=== PATIENT | female | born 1945 | race Caucasian/White ===

== ENCOUNTER → 2017-09-05 14:15 | Outpatient (CLI) | payer MEDICARE, SELFPAY ==
--- NOTE | 2017-09-05 14:10 | RAD_ITS ---
STUDY: X-RAY - LEFT FOOT CLINICAL: Left foot pain. TECHNIQUE: 2 view(s) of the foot. COMPARISON: None. FINDINGS: Normal talus, calcaneus, and tarsal bones. Normal visualized subtalar, talonavicular, calcaneocuboid, tarsal and tarsometatarsal articulations. There is a small ossicle at the dorsal aspect of the proximal navicular. Normal metatarsi. There are small marginal osteophytes and mild joint space narrowing of the metatarsophalangeal joint of the great toe. Normal tibial and fibular sesamoid bones. Normal interphalangeal joint of the great toe. Normal phalanges of the great toe. Normal second through fifth metatarsophalangeal joints. Normal interphalangeal joints and phalanges of the lesser toes. The soft tissue structures are unremarkable. 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 Electronically Signed: Charanjit Gomez MD at 14:43 EDT Tel , Service support ,
--- NOTE | 2017-09-05 14:15 | DT_ITS ---
This patient was seen during an EMR downtime September 05, 2017 - September 12, 2017. This patient may have a combination of paper and electronic documentation or all paper documentation. All documentation is viewable within the e-chart portion of [facility] for each patient visit.
== END ==
PROVIDERS: Family Provider Family Medicine; PCP Family Medicine; Visit Provider Family Medicine
DX: M79.672 Pain in left foot (principal)
CPT/HCPCS: 73620

== ENCOUNTER → 2018-01-26 09:09 | Outpatient (CLI) | payer MEDICARE, SELFPAY ==
--- NOTE | 2018-01-26 09:12 | US_ITS ---
STUDY: ULTRASOUND BREAST - RIGHT REASON FOR EXAM: Female, 73 years old. Palpable lump in the right breast. TECHNIQUE: Axial and longitudinal images of the RIGHT breast were performed with a high resolution ultrasound transducer. COMPARISON: Comparison is made with prior mammogram done earlier today. FINDINGS: RIGHT Breast: The inframammary region was examined by ultrasound. No solid or cystic mass lesion is seen. IMPRESSION: Unremarkable sonographic examination of the inframammary region of the right breast. ASSESSMENT CATEGORY: BIRADS Category 1: Negative. A letter regarding these results will be sent to the patient by the facility within 30 days. Electronically Signed: Wayne Duckworth MD at 10:54 EDT Tel [phone], Service support , STUDY: ULTRASOUND BREAST - LEFT REASON FOR EXAM: Female, 73 years old. Palpable lump left breast. TECHNIQUE: Axial and longitudinal images of the LEFT breast were performed with a high resolution ultrasound transducer. COMPARISON: Comparison is made with prior mammogram done earlier today. FINDINGS: LEFT Breast: The inframammary region of the left breast was examined by ultrasound. There is a homogeneous fibroglandular tissue. No solid or cystic mass lesion is seen. US/Breast Limited Unilateral IMPRESSION: Unremarkable sonographic examination of the inframammary region of the left breast. ASSESSMENT CATEGORY: BIRADS Category 1: Negative. A letter regarding these results will be sent to the patient by the facility within 30 days. Electronically Signed: Wayne Duckworth MD at 10:54 EDT Tel [phone], Service support ,
--- NOTE | 2018-01-26 09:12 | BI_ITS ---
MAMMOGRAPHY - BILATERAL DIAGNOSTIC REASON FOR EXAM: Female, 73 years old. Palpable abnormality in the inframammary regions of both breasts. PERTINENT HISTORY: Aunt with breast cancer. TECHNIQUE: Digital bilateral breast mariluz (3D mammographic acquisition) in the CC and MLO projections. 2-D mediolateral oblique (MLO) and craniocaudad (CC) views of both breasts were obtained. CAD: Full Field Digital Mammography with Computer Added Detection was performed. COMPARISON: Comparison is made with prior study dated March 10, 2017 and March 08, 2016. FINDINGS: Breast Composition: The breasts are almost entirely fatty. There are no dominant masses or suspicious calcifications. Stable appearance of the bilateral axillary lymph nodes. No other significant abnormalities are identified. There has been no significant change since the prior study. BI/DIAG MAMM W/CAD, BILAT IMPRESSION: Stable bilateral diagnostic mammogram. With the patient's history of a bilateral intramammary palpable abnormalities, correlation with ultrasound is recommended. ASSESSMENT CATEGORY: BIRADS Category 0: Incomplete. Need additional imaging evaluation. A letter regarding these results will be sent to the patient by the facility within 30 days. Approximately 10% of breast cancers are not detected by mammography. A normal mammogram should not delay biopsy of a clinically suspicious abnormality. Electronically Signed: Wayne Duckworth MD at 11:41 EDT Tel [phone], Service support ,
== END ==
PROVIDERS: Family Provider Family Medicine; PCP Family Medicine; Referring Provider Obstetrics & Gynecology; Visit Provider Obstetrics & Gynecology
DX: N63.10 Unspecified lump in the right breast, unspecified quadrant (principal); Z80.3 Family history of malignant neoplasm of breast
CPT/HCPCS: 76642; 77062; 77066; G0279

== ENCOUNTER → 2018-07-10 07:37 | Outpatient (CLI) | payer MEDICARE, SELFPAY ==
[2018-01-23 10:44] VITALS: BMI 29.2
[2018-07-10 10:16] LABS: Vitamin D,25 Hydroxy 64.2 ng/mL (29.95-100.01)
[2018-07-10 10:17] LABS: Hemoglobin A1c 6.1 % (4.2-6.3)
[2018-07-10 10:26] LABS: Anion Gap 4 (5-15); BUN 16 mg/dL (7-18); BUN/Creat Ratio 17.5 RATIO (10-20); Calcium,Total 8.8 mg/dL (8.5-10.1); Chloride 108 mmol/L (98-107); Cholesterol 174 mg/dL (200); Creatinine, Serum 0.91 mg/dL (0.55-1.02); EST Glomerular Filtration Rate 64 mL/min (>60); Est Glom Filt Rate - Afr Amer 78 mL/min (>60); Glucose 96 mg/dL (74-106); High Density Lipoprotein 44 mg/dL; Potassium 4.7 mmol/L (3.5-5.1); Sodium Level 144 mmol/L (136-145); Thyroid Stim Hormone (TSH) 1.72 uIU/mL (0.358-3.74); Triglycerides 188 mg/dL; Very Low Density Lipoprotein 38 mg/dL (5-40)
== END ==
PROVIDERS: Family Provider Family Medicine; PCP Family Medicine; Referring Provider Family Medicine; Visit Provider Family Medicine
DX: Z00.00 Encounter for general adult medical examination without abnormal findings (principal); E55.9 Vitamin D deficiency, unspecified
CPT/HCPCS: 36415; 80048; 80061; 82306; 83036; 84443

== ENCOUNTER → 2018-10-30 14:32 | Outpatient (CLI) | payer MEDICARE, SELFPAY ==
[2018-10-30 15:34] LABS: Absolute Lymphocyte Count 3.54 X10^3/uL (0.83-4.51); Absolute Neutrophil Count 4.6 X10^3/uL (2.0-7.7); Basophil# 0.06 X10^3/uL; Basophil% 0.6 % (0-1); Eosinophils% 3.2 % (0-5); Hematocrit 44.5 % (37-47); Hemoglobin 14.6 g/dL (12.0-15.0); Lymphocyte # 3.54 X10^3/ul (4.0); Lymphocyte % 38.3 % (19-41); Mean Corp Hgb Conc 32.8 g/dL (32-36); Mean Corpuscular Volume 88.5 fL (81-99); Mean Platelet Vol. 10.2 fl (6.2-12.0); Monocyte# 0.77 X10^3/uL; Monocyte% 8.3 % (0-10); NRBC Flagged by Analyzer 0 % (0-5); Neutrophil # 4.56 X10^3/uL (2.7-7.7); Neutrophil % 49.4 % (47-70); Platelet Count 211 K/mm3 (150-450); RBC Distribution Width CV 13.5 % (11.6-14.6); RBC Distribution Width SD 43.6 fl (35.1-43.9); Red Blood Count 5.03 M/mm3 (4.2-5.4); White Blood Count 9.3 K/mm3 (4.4-11.0)
[2018-10-30 16:24] LABS: Anion Gap 8 (5-15); BUN 19 mg/dL (7-18); BUN/Creat Ratio 19.9 RATIO (10-20); Calcium,Total 9.2 mg/dL (8.5-10.1); Chloride 107 mmol/L (98-107); Creatinine, Serum 0.96 mg/dL (0.55-1.02); EST Glomerular Filtration Rate 61 mL/min (>60); Est Glom Filt Rate - Afr Amer 74 mL/min (>60); Glucose 85 mg/dL (74-106); Magnesium 2.2 mg/dL (1.6-2.6); Potassium 4.7 mmol/L (3.5-5.1); Sodium Level 145 mmol/L (136-145)
[2018-10-30 22:02] LABS: Vitamin D,25 Hydroxy 46.7 ng/mL (29.95-100.01)
== END ==
PROVIDERS: Family Provider Family Medicine; PCP Family Medicine; Referring Provider Family Medicine; Visit Provider Family Medicine
DX: R55 Syncope and collapse (principal); E55.9 Vitamin D deficiency, unspecified
CPT/HCPCS: 36415; 80048; 82306; 83735; 85025

== ENCOUNTER → 2019-01-30 | Outpatient (CLI) | payer MEDICARE, SELFPAY ==
[2019-01-24 11:03] VITALS: BMI 29.2
--- NOTE | 2019-01-30 08:34 | BD_ITS ---
STUDY: DUAL ENERGY X-RAY ABSORPTIOMETRY / DXA REASON FOR EXAM: Female, 74 years old. The patient is postmenopausal. Loss of height. TECHNIQUE: Bone Mineral Density (BMD) measurements of lumbar spine and bilateral hips were obtained. COMPARISON: Comparison is made with prior examination dated April 11, 2001. FINDINGS: Lumbar Spine (L1-L4): g/cm2 (1.116) / T-score (-0.5) / Z-score (1.2) Findings are suggestive of normal bone density with a low fracture risk. Left Femur Total: g/cm2 (0.935) / T-score (-0.6) / Z-score (1.0) Left Femoral Neck: g/cm2 (0.885) / T-score (-1.1) / Z-score (0.7) Right Femur Total: g/cm2 (0.903) / T-score (-0.8) / Z-score (0.7) Right Femoral Neck: g/cm2 (0.892) / T-score (-1.1) / Z-score (0.7) The T-Scores on the most recent prior examination were: Lumbar Spine (L1-L4): There has been worsening of bone density since the previous examination. Left Femur Total: which represents an improvement of 3%. Right Femur Total: which represents a worsening of 0.3%. BD/Dexa Bone Density Study IMPRESSION: The patient is considered osteopenic as outlined below according to World Esequiel Organization (WHO) criteria with a low fracture risk. There has been worsening of bone density since the previous examination. Reference Information: The T-score is the number of standard deviations above or below the standard which is normal for young adults at their peak bone mineral density. The World Health Organization (WHO) interprets the T-scores as follows: Above -1 Normal bone density Between -1 and -2.5 Osteopenia Equal to / or below -2.5 Osteoporosis As a practical clinical guideline, osteopenia may be graded as follows: Mild -1 through -1.5 Moderate -1.6 through -2.0 Severe -2.1 through -2.4 The Z-score is the number of standard deviations above or below age-matched controls. A Z-score of less than -1.5 would be considered abnormal. References: 1. NIH Osteoporosis and Related Bone Diseases http://www.osteo.org 2. International Society for Clinical Densitometry http://www.iscd.org 3. National Osteoporosis Foundation http://www.nof.org Electronically Signed: Wayne Duckworth, at 10:38 EDT , Service support ,
== END | disposition home or self-care (01) ==
LOC: OPBD 08:30
PROVIDERS: Family Provider Family Medicine; PCP Family Medicine; Referring Provider Obstetrics & Gynecology; Visit Provider Obstetrics & Gynecology
DX: Z78.0 Asymptomatic menopausal state (principal)
CPT/HCPCS: 77080

== ENCOUNTER → 2019-02-12 12:51 | Outpatient (CLI) | payer MEDICARE, SELFPAY ==
[2019-01-24 11:03] VITALS: BMI 29.2
--- NOTE | 2019-02-12 12:54 | BI_ITS ---
MAMMOGRAPHY - BILATERAL SCREENING REASON FOR EXAM: Female, 74 years old. Routine annual screening examination. PERTINENT HISTORY: Aunt with breast cancer. TECHNIQUE: Digital bilateral breast sharad (3D mammographic acquisition) in the CC and MLO projections. 2-D mediolateral oblique (MLO) and craniocaudad (CC) views of both breasts were obtained. CAD: Full Field Digital Mammography with Computer Added Detection was performed. COMPARISON: Comparison is made with prior study dated January 26, 2018 and March 10, 2017. FINDINGS: Breast Composition: The breasts are almost entirely fatty. There are no dominant masses or suspicious calcifications. Stable benign-appearing bilateral axillary lymph nodes. No other significant abnormalities are identified. There has been no significant change since the prior study. BI/SCREEN MAMM (CAD) W/SHARAD BILAT IMPRESSION: Stable bilateral screening mammogram. Yearly follow-up mammogram recommended. (A) ASSESSMENT CATEGORY: BIRADS Category 2: Benign. A letter regarding these results will be sent to the patient by the facility within 30 days. Approximately 10% of breast cancers are not detected by mammography. A normal mammogram should not delay biopsy of a clinically suspicious abnormality. [id number] Electronically Signed: Wayne Duckworth, at 14:39 EST , Service support ,
== END ==
PROVIDERS: Family Provider Family Medicine; PCP Family Medicine; Referring Provider Obstetrics & Gynecology; Visit Provider Obstetrics & Gynecology
DX: Z12.31 Encounter for screening mammogram for malignant neoplasm of breast (principal)
CPT/HCPCS: 77063; 77067

== ENCOUNTER → 2019-09-04 17:09 | Outpatient (CLI) | payer MEDICARE, SELFPAY ==
[2019-03-04 11:51] VITALS: BMI 29.2
--- NOTE | 2019-09-04 17:12 | RAD_ITS ---
STUDY: X-RAY - ABDOMEN/PELVIS REASON FOR EXAM: Female, 74 years old. RLQ pain x 4 days -- constipation TECHNIQUE: Flat and upright COMPARISON: None. FINDINGS: Normal visualized lung bases. No evidence for small bowel obstruction. There is diffuse fecal retention seen within the colon.. Mildly distended terminal ileum which may be consistent with focal enteritis There is no demonstrated free abdominal air. The visualized liver, spleen and kidneys are grossly normal in size and morphology. Postsurgical changes in the right lower quadrant. Lumbar spine demonstrates minor scoliosis and degenerative change RAD/Abd Inc Decub and/or Erect IMPRESSION: No evidence for small bowel obstruction.. Mildly distended distal ileum which may be consistent with nonspecific ileitis Electronically Signed: Binu Simmons MD at 21:31 EDT , Service support ,
== END ==
PROVIDERS: PCP Family Medicine; Referring Provider Family Medicine; Visit Provider Family Medicine
DX: R10.9 Unspecified abdominal pain (principal)
CPT/HCPCS: 74019

== ENCOUNTER → 2019-12-14 08:13 | Outpatient (CLI) | payer MEDICARE, SELFPAY ==
[2019-03-04 11:51] VITALS: BMI 29.2
[2019-12-14 10:32] LABS: Anion Gap 4 (5-15); BUN 16 mg/dL (7-18); BUN/Creat Ratio 17.1 RATIO (10-20); Calcium,Total 9.1 mg/dL (8.5-10.1); Chloride 104 mmol/L (98-107); Cholesterol 189 mg/dL (200); Creatinine, Serum 0.94 mg/dL (0.55-1.02); EST Glomerular Filtration Rate 62 mL/min (>60); Est Glom Filt Rate - Afr Amer 75 mL/min (>60); Glucose 84 mg/dL (74-106); High Density Lipoprotein 43 mg/dL; Potassium 4.6 mmol/L (3.5-5.1); Sodium Level 141 mmol/L (136-145); Triglycerides 240 mg/dL; Very Low Density Lipoprotein 48 mg/dL (5-40)
[2019-12-14 10:35] LABS: Vitamin D,25 Hydroxy 86.7 ng/mL
== END ==
PROVIDERS: PCP Family Medicine; Referring Provider Family Medicine; Visit Provider Family Medicine
DX: E55.9 Vitamin D deficiency, unspecified (principal); E78.5 Hyperlipidemia, unspecified
CPT/HCPCS: 36415; 80048; 80061; 82306

== ENCOUNTER → 2020-02-06 10:19 | Outpatient (CLI) | payer MEDICARE, SELFPAY ==
[2019-03-04 11:51] VITALS: BMI 29.2
--- NOTE | 2020-02-06 10:20 | BI_ITS ---
MAMMOGRAPHY - BILATERAL SCREENING REASON FOR EXAM: Female, 75 years old. Routine annual screening examination. PERTINENT HISTORY: Aunt with breast cancer. TECHNIQUE: Digital bilateral breast sharad (3D mammographic acquisition) in the CC and MLO projections. 2-D mediolateral oblique (MLO) and craniocaudad (CC) views of both breasts were obtained. CAD: Full Field Digital Mammography with Computer Added Detection was performed. COMPARISON: Comparison is made with prior study dated 02/12/2019 and 01/26/2018. FINDINGS: Breast Composition: The breasts are almost entirely fatty. There are no dominant masses or suspicious calcifications. Stable benign-appearing bilateral axillary adenopathy. No other significant abnormalities are identified. There has been no significant change since the prior study. BI/SCREEN MAMM (CAD) W/SHARAD BILAT IMPRESSION: Stable bilateral screening mammogram. Yearly follow-up mammogram recommended. (A) ASSESSMENT CATEGORY: BIRADS Category 2: Benign. A letter regarding these results will be sent to the patient by the facility within 30 days. Approximately 10% of breast cancers are not detected by mammography. A normal mammogram should not delay biopsy of a clinically suspicious abnormality. [id number] Electronically Signed: Wayne Duckworth, at 13:25 EST , Service support ,
[2020-02-06 10:48] VITALS: BMI 28.1
--- NOTE | 2020-02-06 12:29 | US_ITS ---
STUDY: ULTRASOUND BREAST - LEFT REASON FOR EXAM: Female, 75 years old. Palpable lump left breast. TECHNIQUE: Axial and longitudinal images of the LEFT breast were performed with a high resolution ultrasound transducer. # OF IMAGES: 27 COMPARISON: Comparison is made with prior mammogram done earlier today as well as prior ultrasound of the left breast dated 01/26/2018. FINDINGS: LEFT Breast: There is a 1.7 cm x 2.8 cm x 0.7 cm slightly echogenic nodule at the 8 o''clock position of the breast at 3 cm from nipple. This most likely represents a lipoma. US/Breast Limited Unilateral IMPRESSION: The palpable abnormality corresponds to a 1.7 cm x 2.8 cm x 0.7 sinus likely echogenic nodule at the 8 o''clock position of the breast at 3 cm from nipple. This most likely represents a lipoma. ASSESSMENT CATEGORY: BIRADS Category 2: Benign. A letter regarding these results will be sent to the patient by the facility within 30 days. Electronically Signed: Wayne Duckworth, at 15:37 EST , Service support ,
== END ==
PROVIDERS: PCP Family Medicine; Referring Provider Obstetrics & Gynecology; Visit Provider Obstetrics & Gynecology
DX: Z12.31 Encounter for screening mammogram for malignant neoplasm of breast (principal); N63.24 Unspecified lump in the left breast, lower inner quadrant
CPT/HCPCS: 76642; 77063; 77067

== ENCOUNTER → 2020-05-24 | Outpatient (CLI) | payer MEDICARE, SELFPAY ==
[2020-02-06 10:48] VITALS: BMI 28.1
== END | disposition home or self-care (01) ==
PROVIDERS: PCP Family Medicine; Referring Provider Otolaryngology Otolaryngology/Facial Plastic Surgery; Visit Provider Otolaryngology Otolaryngology/Facial Plastic Surgery
DX: J32.9 Chronic sinusitis, unspecified (principal)
CPT/HCPCS: 87070; 87205

== ENCOUNTER → 2020-09-10 11:10 | Outpatient (CLI) | payer MEDICARE, SELFPAY ==
[2020-02-06 10:48] VITALS: BMI 28.1
[2020-09-10 12:58] LABS: Free T3 2.2 pg/mL (2.18-3.98); T4 Free Direct 0.77 ng/dL (0.76-1.46); Thyroid Stim Hormone (TSH) 1.12 uIU/mL (0.358-3.74)
== END ==
PROVIDERS: PCP Family Medicine; Referring Provider Family Medicine; Visit Provider Family Medicine
DX: E03.9 Hypothyroidism, unspecified (principal)
CPT/HCPCS: 36415; 84439; 84443; 84481

== ENCOUNTER → 2021-02-06 12:45 | Outpatient (CLI) | payer MEDICARE, SELFPAY ==
--- NOTE | 2021-02-06 12:46 | BI_ITS ---
MAMMOGRAPHY - BILATERAL SCREENING REASON FOR EXAM: Female, 76 years old. Routine annual screening examination. PERTINENT HISTORY: Aunt with breast cancer. TECHNIQUE: Digital bilateral breast sharad (3D mammographic acquisition) in the CC and MLO projections. 2-D mediolateral oblique (MLO) and craniocaudad (CC) views of both breasts were obtained. CAD: Full Field Digital Mammography with Computer Added Detection was performed. COMPARISON: Comparison is made with prior examination dated 02/06/2020 and 02/12/2019. FINDINGS: Breast Composition: The breasts are almost entirely fatty. There are no dominant masses or suspicious calcifications. Stable benign-appearing bilateral axillary lymph nodes. No other significant abnormalities are identified. There has been no significant change since the prior study. BI/SCRN MAMM (CAD)W/SHARAD BILAT IMPRESSION: Stable bilateral screening mammogram. Yearly follow-up mammogram recommended. (A) ASSESSMENT CATEGORY: BIRADS Category 2: Benign. A letter regarding these results will be sent to the patient by the facility within 30 days. Approximately 10% of breast cancers are not detected by mammography. A normal mammogram should not delay biopsy of a clinically suspicious abnormality. [id number] Electronically Signed: Wayne Duckworth MD at 14:03 EDT , Service support ,
== END ==
PROVIDERS: PCP Family Medicine; Referring Provider Obstetrics & Gynecology; Visit Provider Obstetrics & Gynecology
DX: Z12.31 Encounter for screening mammogram for malignant neoplasm of breast (principal)
CPT/HCPCS: 77063; 77067

== ENCOUNTER → 2021-03-24 16:03 | Outpatient (CLI) | payer MEDICARE, SELFPAY | PROVIDERS: PCP Family Medicine; Referring Provider Family Medicine; Visit Provider Family Medicine | DX: Z20.822 Contact with and (suspected) exposure to COVID-19 (principal) | CPT/HCPCS: 87635; U0005; U0003 ==

== ENCOUNTER 2021-06-03 15:18 | Outpatient (CLI) | payer MEDICARE, SELFPAY | END 2021-06-03 23:59 | disposition home or self-care (01) | PROVIDERS: PCP Family Medicine; Visit Provider Otolaryngology | DX: J02.9 Acute pharyngitis, unspecified (principal) | CPT/HCPCS: 87070 ==

== ENCOUNTER 2021-06-09 08:40 | Outpatient (CLI) | payer MEDICARE, SELFPAY ==
[2021-06-09 11:01] LABS: Anion Gap 3 (5-15); BUN 20 mg/dL (7-18); BUN/Creat Ratio 20.2 RATIO (10-20); Chloride 106 mmol/L (98-107); Cholesterol 201 mg/dL (200); Creatinine, Serum 0.99 mg/dL (0.55-1.02); EST Glomerular Filtration Rate 58 mL/min (>60); Est Glom Filt Rate - Afr Amer 71 mL/min (>60); Free T3 2.4 pg/mL (2.18-3.98); Glucose 106 mg/dL (74-106); High Density Lipoprotein 46 mg/dL; Potassium 4.5 mmol/L (3.5-5.1); Sodium Level 141 mmol/L (136-145); Thyroid Stim Hormone (TSH) 1.81 uIU/mL (0.358-3.74); Triglycerides 243 mg/dL; Very Low Density Lipoprotein 49 mg/dL (5-40)
== END 2021-06-09 23:59 | disposition home or self-care (01) ==
LOC: MFPLAB 08:41
PROVIDERS: PCP Family Medicine; Referring Provider Family Medicine; Visit Provider Family Medicine
DX: E03.9 Hypothyroidism, unspecified (principal); E78.5 Hyperlipidemia, unspecified
CPT/HCPCS: 36415; 80048; 80061; 84439; 84443; 84481

== ENCOUNTER → 2022-01-05 | Outpatient (CLI) | payer MEDICARE, SELFPAY | END | disposition home or self-care (01) | LOC: LABSPEC 15:19 | PROVIDERS: PCP Family Medicine; Referring Provider Otolaryngology Otolaryngology/Facial Plastic Surgery; Visit Provider Otolaryngology Otolaryngology/Facial Plastic Surgery | DX: J02.9 Acute pharyngitis, unspecified (principal) | CPT/HCPCS: 87070 ==

== ENCOUNTER → 2022-02-08 | Outpatient (CLI) | payer MEDICARE, SELFPAY ==
--- NOTE | 2022-02-08 09:34 | BI_ITS ---
MAMMOGRAPHY - BILATERAL SCREENING REASON FOR EXAM: Female, 77 years old. Routine annual screening examination. PERTINENT HISTORY: Aunt with breast cancer. TECHNIQUE: Digital bilateral breast sharad (3D mammographic acquisition) in the CC and MLO projections. 2-D mediolateral oblique (MLO) and craniocaudad (CC) views of both breasts were obtained. CAD: Full Field Digital Mammography with Computer Added Detection was performed. COMPARISON: Comparison is made with prior study dated 02/06/2021 and 02/06/2020. FINDINGS: Breast Composition: The breasts are almost entirely fatty. There are no dominant masses or suspicious calcifications. Stable small benign-appearing bilateral axillary lymph nodes. No other significant abnormalities are identified. There has been no significant change since the prior study. BI/SCRN MAMM (CAD)W/SHARAD BILAT IMPRESSION: Stable bilateral screening mammogram. Yearly follow-up mammogram recommended. (A) ASSESSMENT CATEGORY: BIRADS Category 2: Benign. A letter regarding these results will be sent to the patient by the facility within 30 days. Approximately 10% of breast cancers are not detected by mammography. A normal mammogram should not delay biopsy of a clinically suspicious abnormality. [id number] Electronically Signed: Wayne Duckworth MD at 10:31 EST ,
== END | disposition home or self-care (01) ==
LOC: OPBI 09:33
PROVIDERS: PCP Family Medicine; Visit Provider Obstetrics & Gynecology
DX: Z12.31 Encounter for screening mammogram for malignant neoplasm of breast (principal); Z80.3 Family history of malignant neoplasm of breast
CPT/HCPCS: 77063; 77067

== ENCOUNTER → 2022-02-09 | Outpatient (CLI) | payer MEDICARE, SELFPAY ==
[2022-02-09 10:24] LABS: ALB/GLOB Ratio 1.1 RATIO (0.9-2.4); AST(SGOT) 14 U/L (15-37); Alanine Aminotransfer ALT/SGPT 25 U/L (13-56); Albumin, Serum 3.6 g/dL (3.2-5.0); Alkaline Phosphatase 71 U/L (45-117); Anion Gap 2 (5-15); BUN 18 mg/dL (7-18); BUN/Creat Ratio 20.8 RATIO (10-20); Calcium,Total 9.6 mg/dL (8.5-10.1); Chloride 107 mmol/L (98-107); Cholesterol 182 mg/dL (200); Creatinine, Serum 0.87 mg/dL (0.55-1.02); EST Glomerular Filtration Rate 68 mL/min (>60); Est Glom Filt Rate - Afr Amer 82 mL/min (>60); Globulin 3.4 g/dL (2.2-4.2); Glucose 104 mg/dL (74-106); High Density Lipoprotein 49 mg/dL; Potassium 5.2 mmol/L (3.5-5.1); Sodium Level 140 mmol/L (136-145); Triglycerides 233 mg/dL; Very Low Density Lipoprotein 47 mg/dL (5-40)
== END | disposition home or self-care (01) ==
LOC: MFPLAB 08:05
PROVIDERS: PCP Family Medicine; Referring Provider Family Medicine; Visit Provider Family Medicine
DX: E78.5 Hyperlipidemia, unspecified (principal)
CPT/HCPCS: 36415; 80053; 80061

== ENCOUNTER → 2022-04-01 | Outpatient (CLI) | payer MEDICARE, SELFPAY ==
--- NOTE | 2022-04-01 10:39 | BD_ITS ---
STUDY: DUAL ENERGY X-RAY ABSORPTIOMETRY / DXA REASON FOR EXAM: Female, 77 years old. Estrogen deficiency TECHNIQUE: Bone Mineral Density (BMD) measurements of lumbar spine and bilateral hips were obtained. COMPARISON: Comparison is made with prior study dated 01/30/2019. FINDINGS: Lumbar Spine (L1-L4): g/cm2 (1.041) / T-score (-0.1) / Z-score (2.4) Findings are suggestive of normal bone density with a low fracture risk. Left Femur Total: g/cm2 (0.861) / T-score (-0.7) / Z-score (1.1) Left Femoral Neck: g/cm2 (0.733) / T-score (-1.0) / Z-score (1.0) Right Femur Total: g/cm2 (0.875) / T-score (-0.6) / Z-score (1.2) Right Femoral Neck: g/cm2 (0.718) / T-score (-1.2) / Z-score (0.9) The T-Scores on the most recent prior examination were: Lumbar Spine (L1-L4): There has been improvement of bone density since the previous examination. Left Femur Total: which represents a worsening of 1.2%. Right Femur Total: which represents an improvement of 4.1%. BD/Dexa Bone Density Study IMPRESSION: The patient is considered osteopenic as outlined below according to World Esequiel Organization (WHO) criteria with a low fracture risk. There has been improvement of bone density since the previous examination. Reference Information: The T-score is the number of standard deviations above or below the standard which is normal for young adults at their peak bone mineral density. The World Health Organization (WHO) interprets the T-scores as follows: Above -1 Normal bone density Between -1 and -2.5 Osteopenia Equal to / or below -2.5 Osteoporosis As a practical clinical guideline, osteopenia may be graded as follows: Mild -1 through -1.5 Moderate -1.6 through -2.0 Severe -2.1 through -2.4 The Z-score is the number of standard deviations above or below age-matched controls. A Z-score of less than -1.5 would be considered abnormal. References: 1. NIH Osteoporosis and Related Bone Diseases www osteo.org 2. International Society for Clinical Densitometry www iscd.org 3. National Osteoporosis Foundation www nof.org Electronically Signed: Wayne Duckworth MD at 10:19 EST ,
== END | disposition home or self-care (01) ==
PROVIDERS: PCP Family Medicine; Visit Provider Obstetrics & Gynecology
DX: M85.80 Other specified disorders of bone density and structure, unspecified site (principal); J32.9 Chronic sinusitis, unspecified; E28.39 Other primary ovarian failure
CPT/HCPCS: 77080; 87070; 87205

== ENCOUNTER → 2022-05-05 | Outpatient (CLI) | payer MEDICARE, SELFPAY ==
--- NOTE | 2022-05-05 14:18 | RAD_ITS ---
INDICATION: PAIN EXAMINATION/TECHNIQUE: X-RAY - RIGHT XR Knee Complete 4 Views or More 4 VIEWS COMPARISON: None. FINDINGS: SOFT TISSUES: No soft tissue swelling or gas. No radiopaque foreign body. BONES/JOINTS: No acute fracture or subluxation.. Normal alignment. Preservation of the joint space.. No sclerotic or destructive changes observed. RAD/Knee 4 or More Views IMPRESSION: Negative. Electronically Signed: Kenneth Munoz MD at 15:03 EST ,
== END | disposition home or self-care (01) ==
LOC: MTRAD 14:17
PROVIDERS: PCP Family Medicine; Referring Provider Family Medicine; Visit Provider Family Medicine
DX: M25.561 Pain in right knee (principal)
CPT/HCPCS: 73564

== ENCOUNTER → 2022-05-28 | Outpatient (CLI) | payer MEDICARE, SELFPAY ==
--- NOTE | 2022-05-28 16:20 | RAD_ITS ---
STUDY: X-RAY - ABDOMEN/PELVIS REASON FOR EXAM: Female, 77 years old. ABDOMINAL PAIN TECHNIQUE: AP supine and upright views of the abdomen and pelvis. COMPARISON: None. FINDINGS: Normal visualized lung bases. There is feces throughout the colon without obstruction. No small bowel dilatation. There is no demonstrated free abdominal air. The visualized liver, spleen and kidneys are grossly normal in size and morphology. Surgical clips in the right mid abdomen. Normal soft tissue structures. There are diffuse degenerative changes of the visualized lumbar spine. RAD/Abd Inc Decub and/or Erect IMPRESSION: Increased colonic feces suggesting constipation. There is no evidence of obstruction. Electronically Signed: Crow Morales DO at 19:03 EST ,
== END | disposition home or self-care (01) ==
LOC: MTRAD 16:19
PROVIDERS: PCP Family Medicine; Referring Provider Family Medicine; Visit Provider Family Medicine
DX: R10.31 Right lower quadrant pain (principal)
CPT/HCPCS: 74019

== ENCOUNTER → 2022-08-17 | Outpatient (CLI) | payer MEDICARE, SELFPAY | END | disposition home or self-care (01) | LOC: LAB 07:42 | PROVIDERS: PCP Family Medicine; Referring Provider Family Medicine; Visit Provider Family Medicine | DX: Z00.00 Encounter for general adult medical examination without abnormal findings (principal) ==

== ENCOUNTER → 2022-09-08 | Outpatient (CLI) | payer MEDICARE, SELFPAY ==
[2022-09-08 10:38] LABS: Anion Gap 2 (5-15); BUN 18 mg/dL (7-18); BUN/Creat Ratio 20.1 RATIO (10-20); Calcium,Total 8.9 mg/dL (8.5-10.1); Chloride 108 mmol/L (98-107); Cholesterol 163 mg/dL (200); Creatinine, Serum 0.89 mg/dL (0.55-1.02); EST Glomerular Filtration Rate 65 mL/min (>60); Est Glom Filt Rate - Afr Amer 79 mL/min (>60); Glucose 115 mg/dL (74-106); High Density Lipoprotein 44 mg/dL; Potassium 4.3 mmol/L (3.5-5.1); Sodium Level 140 mmol/L (136-145); Triglycerides 217 mg/dL; Very Low Density Lipoprotein 43 mg/dL (5-40)
== END | disposition home or self-care (01) ==
LOC: LAB 09:06
PROVIDERS: PCP Family Medicine; Referring Provider Family Medicine; Visit Provider Family Medicine
DX: R73.01 Impaired fasting glucose (principal); E78.5 Hyperlipidemia, unspecified
CPT/HCPCS: 36415; 80048; 80061; 83036

== ENCOUNTER → 2023-02-11 | Outpatient (CLI) | payer MEDICARE, SELFPAY ==
--- NOTE | 2023-02-11 09:13 | BI_ITS ---
MAMMOGRAPHY - BILATERAL SCREENING REASON FOR EXAM: Female, 78 years old. Routine annual screening examination. PERTINENT HISTORY: Aunt with breast cancer. TECHNIQUE: Digital bilateral breast sharad (3D mammographic acquisition) in the CC and MLO projections. 2-D mediolateral oblique (MLO) and craniocaudad (CC) views of both breasts were obtained. CAD: Full Field Digital Mammography with Computer Added Detection was performed. COMPARISON: Comparison is made with prior study February 08, 2022 and February 06, 2021. FINDINGS: Breast Composition: The breasts are almost entirely fatty. There are no dominant masses or suspicious calcifications. Stable fat-containing bilateral axillary lymph nodes. No other significant abnormalities are identified. There has been no significant change since the prior study. BI/SCRN MAMM (CAD)W/SHARAD BILAT IMPRESSION: Stable bilateral screening mammogram. Yearly follow-up mammogram recommended. (A) ASSESSMENT CATEGORY: BIRADS Category 2: Benign. A letter regarding these results will be sent to the patient by the facility within 30 days. Approximately 10% of breast cancers are not detected by mammography. A normal mammogram should not delay biopsy of a clinically suspicious abnormality. [id number] Electronically Signed: Wayne Duckworth MD at 11:27 EST ,
== END | disposition home or self-care (01) ==
LOC: OPBI 09:12
PROVIDERS: PCP Family Medicine; Referring Provider Obstetrics & Gynecology; Visit Provider Obstetrics & Gynecology
DX: Z12.31 Encounter for screening mammogram for malignant neoplasm of breast (principal)
CPT/HCPCS: 77063; 77067

== ENCOUNTER → 2023-03-14 | Outpatient (CLI) | payer MEDICARE, SELFPAY ==
--- NOTE | 2023-03-14 10:47 | US_ITS ---
STUDY: ULTRASOUND BREAST - LEFT REASON FOR EXAM: Female, 78 years old. Palpable lump left breast. TECHNIQUE: Axial and longitudinal images of the LEFT breast were performed with a high resolution ultrasound transducer. # OF IMAGES: 56 COMPARISON: Comparison is made with prior sonogram of the left breast dated February 06, 2020. FINDINGS: LEFT Breast: There is a 2.3 cm x 3 cm x 0.8 cm echogenic nodule at the 8:00 position of the breast at 3 cm from the nipple. This most likely density lipoma. This is unchanged. A similar appearing echogenic nodule measuring 5 mm x 4 mm x 3 mm also seen at the 9:00 zone the breast at 4 cm from nipple. There is also a 1.2 cm x 1.3 cm x 0.5 cm echogenic nodule at the 9:00 position in the breast at 8 cm from nipple. These all represent benign-appearing lipomas. US/Breast Limited Unilateral IMPRESSION: Stable 2.3 cm x 3 cm x 0.8 cm lipoma at the 8:00 position of the breast at 3 cm from the nipple. ASSESSMENT CATEGORY: BIRADS Category 2: Benign. A letter regarding these results will be sent to the patient by the facility within 30 days. Electronically Signed: Wayne Duckworth MD at 11:19 EST ,
== END | disposition home or self-care (01) ==
PROVIDERS: PCP Family Medicine; Referring Provider Obstetrics & Gynecology; Visit Provider Obstetrics & Gynecology
DX: N63.24 Unspecified lump in the left breast, lower inner quadrant (principal)
CPT/HCPCS: 76642

== ENCOUNTER → 2023-06-13 | Outpatient (CLI) | payer MEDICARE, SELFPAY ==
--- OUTSIDE RECORDS SUMMARY | 2023-06-13 08:59 | XMS RPT_ITS | CCD ---
Author Name Unknown Address [address] [place] [address] Organization [facility] Care Team Providers Care Car Sweeper Name Role Phone Henry BUTCHER, Linda Medellin Unavailable [phone] Tonny Quintanilla Jr. Unavailable Lennie BUTCHER, Alexander Dumont Primary Care Provider Homar BUTCHER, Rex Unavailable Tonny Quintanilla Jr. Unavailable Lennie BUTCHER, Alexander Dumont Primary Care Provider Homar BUTCHER, Rex Unavailable Tonny Quintanilla Jr. Unavailable Alexander Hogue MD Primary Care Provider Homar BUTCHER, Rex Unavailable Homar BUTCHER, Rex Unavailable JOHNSON BLANCAS Referring Unavailable ALEXANDER HOGUE Primary Care Unavailable TESTNICKI DAVILA Attending Unavailable LENNIE, ALEXANDER Velasco Primary Care Unavailable JOHNSON BLANCAS Attending Unavailable HOGUE, ALEXANDER Velasco Primary Care Unavailable JOHNSON BLANCAS Attending Unavailable LENNIE, ALEXANDER Velasco Primary Care Unavailable TESTRAREESE, NCIKI Attending Unavailable TESTNICKI DAVILA Referring Unavailable LENNIE, ALEXANDER Velasco Primary Care Unavailable LENNIE, ALEXANDER Velasco Primary Care Unavailable TESTRANICKI LEIGH Referring Unavailable TESTGIOVANNI, NICKI Attending Unavailable REX BEAVER Referring Unavailable LENNIE, ALEXANDER Velasco Primary Care Unavailable LENNIE, ALEXANDER Velasco Primary Care Unavailable LENNIE, ALEXANDER Velasco Primary Care Unavailable REX BEAVER Attending Unavailable LENNIE, ALEXANDER Velasco Primary Care Unavailable HOGUE, ALEXANDER R Primary Care Unavailable TESTRAREESE, NICKI Referring Unavailable NICKI JOHNSTON Attending Unavailable JOHNSON BLANCAS Attending Unavailable ALEXANDER HOGUE Primary Care Unavailable Allergies Allergy Classification Reported Allergen(s) Allergy Type Date of Onset Reaction(s) Facility (2 sources) amoxicillin / clavulanate Drug Allergy 01-12-20 [facility] (3 sources) bacitracin; Translations: [BACITRACIN] Drug Allergy 02-03-20 [facility] (3 sources) cefaclor; Translations: [CEFACLOR] Drug Allergy 02-03-20 [facility] (2 sources) cephalexin Drug Allergy 01-12-20 [facility] (20 sources) Cephalosporins (Antibiotic); Translations: [CEPHALOSPORINS] drug allergy 02-03-20 Rash [facility] (2 sources) clindamycin Drug Allergy 01-12-20 [facility] (20 sources) erythromycin; Translations: [ERYTHROMYCIN BASE] Drug Allergy 02-03-20 Diarrhea [facility] (3 sources) guaiFENesin; Translations: [GUAIFENESIN] Drug Allergy 02-27-20 03 [facility] (2 sources) Macrolide drug allergy 01-12-20 [facility] (2 sources) penicillin g Drug Allergy 01-12-20 [facility] (2 sources) sulfamethoxazole / trimethoprim Drug Allergy 01-12-20 [facility] (2 sources) HUMABID drug allergy 01-12-20 [facility] (2 sources) MIXED FEATHERS drug allergy 01-12-20 [facility] (2 sources) SCHOLLS LAMBS WOOL drug allergy 01-12-20 [facility] (2 sources) ADHESIVE 1 X6YD drug allergy 01-12-20 [facility] (20 sources) Adhesive Tape; Translations: [ADHESIVE TAPE (ROSINS)] Allergy to substance 07-08-19 [facility] (20 sources) Amoxicillin / Clavulanate; Translations: [AMOXICILLIN-POT CLAVULANATE] Drug Allergy 01-08-20 05 [facility] Work Phone: (19 sources) Bacitracin Drug Allergy 02-03-20 Rash [facility] Work Phone: [phone] (19 sources) Cefaclor Drug Allergy 02-03-20 Unknown [facility] Work Phone: [phone] (20 sources) Cephalexin; Translations: [CEPHALEXIN] Drug Allergy 02-12-20 06 Hives [facility] (20 sources) Clavulanate; Translations: [POTASSIUM CLAVULANATE] Drug Allergy 01-25-20 19 Unknown [facility] (20 sources) Clindamycin; Translations: [CLINDAMYCIN HCL] Drug Allergy 12-23-19 05 Itching [facility] Work Phone: [phone] (20 sources) Feather; Translations: [FEATHERS] Drug Intolerance 02-03-20 Other: See Comments [facility] Work Phone: [phone] (19 sources) flounder allergenic extract Drug Allergy 02-08-20 02 Anaphylaxis [facility] Work Phone: [phone] (19 sources) guaiFENesin Drug Allergy 02-27-20 03 Rash, Swelling [facility] Work Phone: [phone] (20 sources) Halibut liver oil; Translations: [HALIBUT LIVER OIL] Drug Allergy 02-08-20 Anaphylaxis [facility] Work Phone: [phone] (20 sources) Iodine; Translations: [IODINE] Drug Allergy 02-03-20 Anaphylaxis [facility] Work Phone: [phone] (2 sources) Macrolides (Antibiotic); Translations: [MACROLIDE ANTIBIOTICS] Drug Intolerance 09-24-19 Other: See Comments [facility] Work Phone: [phone] (20 sources) nickel; Translations: [NICKEL] Drug Allergy 10-01-19 17 Rash [facility] (2 sources) Penicillins; Translations: [PENICILLINS] Drug Allergy 02-03-20 Rash, Hives [facility] Work Phone: [phone] (20 sources) Shellfish; Translations: [SHELLFISH] Food Allergy 02-03-20 Anaphylaxis [facility] Work Phone: (20 sources) Sulfonamides (Antibiotic); Translations: [SULFA (SULFONAMIDE ANTIBIOTICS)] Drug Allergy 02-03-20 Rash [facility] Work Phone: (19 sources) Humabid [Other] Propensity to adverse reactions 02-03-20 Rash, Swelling [facility] Work Phone: (20 sources) Wool; Translations: [WOOL] Allergy to substance 02-05-20 Rash, Itching [facility] Work Phone: (18 sources) Macrolides Drug Intolerance 09-24-19 Other: See Comments [facility] Work Phone: (18 sources) Penicillins Drug Allergy 02-03-20 Rash, Hives [facility] Work Phone: (1 source) OTHER; Translations: [OTHER] Propensity to adverse reactions (disorder) 02-08-20 [facility] Repository Medications Current Medications Medication Drug Class(es) Dates Sig (Normalized) Sig (Original) perflutren lipid microspheres 1.3 mL in NaCl (PF) 0.9% 10 mL injection (DEFINITY) (18 sources) Start: 10-20-2022 End: 01-19-2024 perflutren lipid microspheres 1.3 mL in NaCl (PF) 0.9% 10 mL injection (DEFINITY) Completed/Discontinued Medications Medication Drug Class(es) Dates Sig (Normalized) Sig (Original) 200 actuat albuterol 0.09 mg/actuat metered dose inhaler (20 sources) beta2-Adrenergic Agonist Start: 01-11-2017 PROAIR HFA 108 (90 Base) MCG/ACT AERS ALBUTEROL SULFATE [id number] Linda Figueroa MD Problems Active Problems Problem Classification Problem Date Documented Da te Episodic/Chronic Asthma (19 sources) Unspecified asthma, uncomplicated; Translations: [Asthma, unspecified type, unspecified] Onset: 8 03-11-2008 Chronic Cardiac dysrhythmias (11 sources) Supraventricular tachycardia; Translations: [Supraventricular tachycardia] Onset: 3 10-20-2022 Chronic Cataract (20 sources) Artificial lens present; Translations: [Presence of intraocular lens] Onset: 5 09-26-2014 Chronic Coronary atherosclerosis and other heart disease (2 sources) Angina pectoris; Translations: [Other forms of angina pectoris] Onset: 3 10-20-2022 Chronic Disorders of lipid metabolism (20 sources) Mixed hyperlipidemia; Translations: [Mixed hyperlipidemia] Onset: 5 01-21-2016 Chronic Esophageal disorders (19 sources) Gastroesophageal reflux disease; Translations: [Gastro-esophageal reflux disease without esophagitis] Onset: 5 08-26-2005 Chronic Essential hypertension (20 sources) Essential hypertension; Translations: [Essential (primary) hypertension] Onset: 5 01-20-2015 Chronic Gastroduodenal ulcer (except hemorrhage) (19 sources) Peptic ulcer; Translations: [Peptic ulcer, site unspecified, unspecified as acute or chronic, without hemorrhage or perforation] Onset: 9 05-02-2008 Chronic Menopausal disorders (20 sources) Menopausal symptom; Translations: [Menopausal and female climacteric states] Onset: 0 01-16-2010 Chronic Mycoses (6 sources) Onychomycosis; Translations: [Tinea unguium] Episodic Nonmalignant breast conditions (19 sources) Fibrocystic disease of breast; Translations: [Diffuse cystic mastopathy of unspecified breast] Onset: 7 01-26-2007 Chronic Nutritional deficiencies (19 sources) Vitamin D deficiency; Translations: [Vitamin D deficiency, unspecified] Onset: 4 07-04-2013 Chronic Osteoarthritis (19 sources) Arthritis of acromioclavicular joint; Translations: [Primary osteoarthritis, unspecified shoulder] Onset: 0 02-23-2010 Chronic Other connective tissue disease (6 sources) Pain of toe of right foot; Translations: [Pain in right toe(s)] Episodic Other connective tissue disease (6 sources) Pain in left foot; Translations: [Pain in left foot] Episodic Other endocrine disorders (19 sources) Idiopathic postprandial hypoglycemia; Translations: [Other hypoglycemia] Onset: 1 04-13-2010 Chronic Other gastrointestinal disorders (19 sources) Irritable bowel syndrome; Translations: [Irritable bowel syndrome without diarrhea] Onset: 6 05-02-2008 Chronic Other inflammatory condition of skin (19 sources) Rosacea; Translations: [Rosacea, unspecified] Onset: 5 08-26-2005 Chronic Other lower respiratory disease (2 sources) Chest pain on breathing; Translations: [Chest pain on breathing] Episodic Other nutritional; endocrine; and metabolic disorders (20 sources) Metabolic syndrome X; Translations: [Metabolic syndrome] Onset: 4 03-04-2014 Chronic Retinal detachments; defects; vascular occlusion; and retinopathy (19 sources) Nonexudative age-related macular degeneration; Translations: [Nonexudative age-related macular degeneration, bilateral, intermediate dry stage] Onset: 6 11-22-2018 Chronic Thyroid disorders (20 sources) Non-toxic multinodular goiter; Translations: [Nontoxic multinodular goiter] Onset: 1 04-13-2010 Chronic Unclassified (2 sources) Screening mammography ; Translations: [Encounter for screening mammogram for malignant neoplasm of breast] Onset: 7 01-11-2017 Unclassified (2 sources) Gynecologic examination ; Translations: [Encounter for gynecological examination (general) (routine) with abnormal findings] Onset: 7 01-11-2017 Unclassified (2 sources) Screening for osteoporosis ; Translations: [Other specified health status] Onset: 7 01-11-2017 Unclassified (19 sources) Elevated blood pressure; Translations: [Elevated BP] Onset: 3 02-12-2013 Past or Other Problems Problem Classification Problem Date Documented Da te Episodic/Chronic Abdominal pain (20 sources) Right lower quadrant pain; Translations: [Right lower quadrant pain] Onset: 12-07-2011 12-07-2011 Episodic Allergic reactions (20 sources) Allergic condition; Translations: [Allergy, unspecified, initial encounter] Onset: 06-25-2008 06-25-2008 Episodic Benign neoplasm of uterus (19 sources) Uterine leiomyoma; Translations: [Leiomyoma of uterus, unspecified] Onset: 01-16-2010 03-30-2021 Episodic Genitourinary symptoms and ill-defined conditions (19 sources) Microscopic hematuria; Translations: [Other microscopic hematuria] Onset: 02-01-2012 02-01-2012 Episodic Inflammation; infection of eye (except that caused by tuberculosis or sexually transmitteddisease) (19 sources) Meibomianitis; Translations: [Hordeolum internum unspecified eye, unspecified eyelid] Onset: 01-11-2013 01-11-2013 Episodic Menopausal disorders (2 sources) Decreased estrogen level; Translations: [Other primary ovarian failure] Onset: 01-11-2017 01-11-2017 Episodic Other connective tissue disease (19 sources) Trochanteric bursitis of right hip; Translations: [Trochanteric bursitis, right hip] Onset: 10-26-2012 10-26-2012 Episodic Other diseases of bladder and urethra (20 sources) Urethral caruncle; Translations: [Urethral caruncle] Onset: 12-07-2011 01-11-2017 Episodic Other diseases of kidney and ureters (19 sources) Cyst of kidney; Translations: [Cyst of kidney, acquired] Onset: 02-01-2012 02-01-2012 Episodic Other eye disorders (19 sources) Meibomian gland dysfunction of bilateral eyes; Translations: [Meibomian gland dysfunction right eye, upper and lower eyelids] Onset: 11-22-2018 11-22-2018 Episodic Other lower respiratory disease (1 source) Chest pain on breathing; Translations: [Chest pain on breathing] Onset: 10-20-2022 Episodic Residual codes; unclassified (19 sources) Family history of breast cancer; Translations: [Family history of malignant neoplasm of breast] Onset: 10-19-2010 10-19-2010 Episodic Retinal detachments; defects; vascular occlusion; and retinopathy (19 sources) Retinal U tear; Translations: [Horseshoe tear of retina without detachment, right eye] Onset: 02-06-2016 02-06-2016 Episodic Screening and history of mental health and substance abuse codes (19 sources) Tobacco use and exposure - finding; Translations: [Personal history of nicotine dependence] Onset: 02-01-2012 02-01-2012 Episodic Results Test Name Value Interpretation Reference Range Facil ity Vital Signs Date Time Vital Sign Value Performing Clinician Yanely pavon 02-16-2023 13:14-0500 Body weight 78.74 kg Johnson Blancas MD Work Phone: [facility] 02-16-2023 13:14-0500 Diastolic blood pressure 70 mm[Hg] Johnson Blancas MD Work Phone: [facility] 02-16-2023 13:14-0500 Heart rate 71 /min Johnson Blancas MD Work Phone: [facility] 02-16-2023 13:14-0500 Systolic blood pressure 158 mm[Hg] Johnson Blancas MD Work Phone: [facility] 10-20-2022 12:31-0400 Body height 160 cm Rex Beaver MD Work Phone: [facility] 10-20-2022 12:31-0400 Body weight 75.43 kg Rex Beaver MD Work Phone: [facility] 10-20-2022 12:31-0400 Diastolic blood pressure 72 mm[Hg] Rex Beaver MD Work Phone: [facility] 10-20-2022 12:31-0400 Heart rate 65 /min Rex Beaver MD Work Phone: [facility] 10-20-2022 12:31-0400 SaO2% (BldA) [Mass fraction] 96 % Rex Beaver MD Work Phone: [facility] 10-20-2022 12:31-0400 Systolic blood pressure 156 mm[Hg] Rex Beaver MD Work Phone: [facility] 10-06-2021 10:29-0400 Body height 160 cm Rex Beaver MD Work Phone: [facility] 10-06-2021 10:29-0400 Body weight 73.48 kg Rex Beaver MD Work Phone: [facility] 10-06-2021 10:29-0400 Diastolic blood pressure 67 mm[Hg] Rex Beaver MD Work Phone: [facility] 10-06-2021 10:29-0400 Heart rate 79 /min Rex Beaver MD Work Phone: [facility] 10-06-2021 10:29-0400 SaO2% (BldA) [Mass fraction] 93 % Rex Beaver MD Work Phone: [facility] 10-06-2021 10:29-0400 Systolic blood pressure 115 mm[Hg] Rex Beaver MD Work Phone: [facility] 07-15-2021 08:55-0400 Body weight 68.54 kg Johnson Blancas MD Work Phone: [facility] 07-15-2021 08:55-0400 Diastolic blood pressure 74 mm[Hg] Johnson Blancas MD Work Phone: [facility] 07-15-2021 08:55-0400 Heart rate 66 /min Johnson Blancas MD Work Phone: [facility] 07-15-2021 08:55-0400 Systolic blood pressure 164 mm[Hg] Johnson Blancas MD Work Phone: [facility] 01-11-2017 10:02-0400 BMI (Body Mass Index) 30.04 kg/m2 Linda Figueroa MD [facility] 01-11-2017 10:02-0400 Body Temperature 96.5 [degF] Linda Figueroa MD [facility] 01-11-2017 10:02-0400 Body Temperature 96.49 [degF] Linda Figueroa MD [facility] 01-11-2017 10:02-0400 BP Diastolic 70 mm[Hg] Linda Figueroa MD [facility] 01-11-2017 10:02-0400 BP Systolic 160 mm[Hg] Linda Figueroa MD [facility] 01-11-2017 10:02-0400 Height 162.56 cm Linda Figueroa MD [facility] 01-11-2017 10:02-0400 Pulse (Heart Rate) 62 /min Linda Figueroa MD [facility] 01-11-2017 10:02-0400 Respiratory Rate 16 /min Linda Figueroa MD [facility] 01-11-2017 10:02-0400 Weight 79.38 kg Linda Figueroa MD [facility] Encounters Encounter Date Encounter Type Care Provider Facility Start: 05-12-2023 End: 05-12-2023 ambulatory NICKI JOHNSTON Facility:[facility] Start: 05-12-2023 End: 05-12-2023 Patient encounter procedure Nicki Johnston Work Phone: Podiatry Procedures Date Procedure Procedure Detail Performing Clinician Start: 02-16-2023 Us soft tissue head & neck real time imge docm Johnson Blancas MD Work Phone: Start: 12-03-2022 Us soft tissue head & neck real time imge docm Johnson Blancas MD Work Phone: Start: 10-18-2022 Lipid 1996 panel - S solomon or Plasma Nicki Johnston Work Phone: Start: 07-15-2021 Hemoglobin A1c/Hemoglobin.total in Blood Johnson Blancas MD Work Phone: Start: 07-15-2021 Us soft tissue head & neck real time imge docm Johnson Blancas MD Work Phone: Start: 02-09-2019 Colonoscopy Nicki Mcmillan Work Phone: Start: 03-08-2016 Mammography Nicki Mcmillan Work Phone: Start: 01-14-2015 Adult depression scr eening assessment Nickitami Pabloreese Work Phone: Plan of Treatment Date Care Activity Detail Author Start: 03-04-2029 Urine microalbumin profile DTaP,Tdap,Td Vaccine (5 - Td or Tdap) [facility] Start: 02-09-2029 Colonoscopy COLONOSCOPY [facility] Start: 02-09-2029 COLORECTAL CANCER SCREENING COLORECTAL CANCER SCREENING [facility] Start: 10-19-2027 Lipid 1996 panel - Serum or Plasma Lipid Screening [facility] Start: 10-19-2027 LIPID SCREEN LIPID SCREEN [facility] Start: 10-06-2026 LIPID SCREEN LIPID SCREEN [facility] Start: 01-02-2026 LIPID SCREEN LIPID SCREEN [facility] Start: 10-18-2025 DIABETES SCREEN DIABETES SCREEN [facility] Start: 10-18-2025 Diabetes Screening Diabetes Screening [facility] Start: 10-06-2024 DIABETES SCREEN DIABETES SCREEN [facility] Start: 07-15-2024 DIABETES SCREEN DIABETES SCREEN [facility] Start: 01-19-2024 End: 01-19-2024 ECG COMPLETE ECG COMPLETE ECG Routine Essential hypertension Expected: 01/19/2024, Expires: 01/19/2024 [facility] Work Phone: Immunizations Immunization Date Immunization Notes Care Provider Matt cohcran 01-23-2015 influenza, high dose seasonal, preservative-free [employer] Work Phone: [facility] 01-24-2014 influenza, high dose seasonal, preservative-free [employer] Work Phone: [facility] 01-22-2013 influenza virus vacc ine, unspecified formulation [employer] Work Phone: [facility] 02-14-2012 influenza virus vacc ine, unspecified formulation [employer] Work Phone: [facility] Work Phone: 01-26-2011 influenza virus vacc ine, unspecified formulation [employer] Work Phone: [facility] Work Phone: 06-14-2010 tetanus and diphther ia toxoids, adsorbed, preservative free, for adult use (2 Lf of tetanus toxoid and 2 Lf of diphtheria toxoid) [employer] Work Phone: [facility] Work Phone: 04-05-2010 pneumococcal polysaccharide vaccine, 23 valent [employer] Work Phone: [facility] Work Phone: 01-14-2009 influenza virus vacc ine, unspecified formulation [employer] Work Phone: [facility] 01-26-2007 influenza virus vacc ine, unspecified formulation [employer] Work Phone: [facility] 02-11-2006 influenza virus vacc ine, unspecified formulation [employer] Work Phone: [facility] 04-06-2004 diphtheria and tetan us toxoids, adsorbed for pediatric use Nicki Burtongiovanni Work Phone: [facility] Work Phone: Payers Date Payer Category Payer Medicare [employer] MEDICARE A ETNA MEDICARE PPO [id number] 2017-Present [phone] [address] [place] [address] PPO [id number] 2017 Medicare [employer] MEDICARE A ETNA MEDICARE PPO [id number] 2017-Present [phone] [address] [place] [address] PPO [id number] 2017 Medicare [id number] Social History Date Type Detail Facility Start: 09-23-2010 End: 02-16-2023 Tobacco smoking status NHIS Ex-smoker [facility] End: 03-26-1984 History of tobacco use Current smoker [facility] End: 03-26-1984 History of tobacco use Cigarette Smoker [facility] Start: 07-15-2021 End: 05-12-2023 Alcohol intake Current non-drinker of alcohol (finding) [facility] Start: 1945 Sex Assigned At Female [facility] Start: 09-15-2021 End: 10-06-2021 Exposure to SARS-CoV-2 (event) Not sure [facility] Start: 09-23-2010 End: 10-20-2022 Cigarettes smoked current (pack per day) - Reported 4 [facility] Start: 09-23-2010 End: 02-16-2023 Tobacco use and exposure Smokeless tobacco non-user [facility] Work Phone: Start: 07-12-2022 End: 10-20-2022 Tobacco use panel [facility] Start: 07-29-2020 Gender identity Identifies as female gender (finding) [facility] Start: 07-29-2020 Sexual orientation Heterosexual (fran ddoge) [facility] National Score (1-10 0), lower number is lower risk 56 [facility] Medical Equipment Procedure Code Equipment Code Equipment Origin al Text Equipment Identifier Dates Lens Iol +19 Neel p Acrsf Iq 13 - [id number] Start: 09-18-2014 Clinical Notes 02-06-2016 to 05-12-2023 Nicki Johnston - 05/12/2023 10:51 AM Herb Chirinos RN - 05/12/2023 10:28 AM Johnson Barcenas MD - 02/16/2023 1:45 PM ESTPatient Johnson Sotomayor MD - 01/04/2023 11:03 AM EDT Note Date & Type Note Facility 05-12-2023 Note HNO ID: [id number] Author: NICKI JOHNSTON, ? Service: ? Author Type: Physician Type: Progress Notes Filed: 05/12/2023 11:07 Note Text: Subjective: Patient presents to clinic c/o painful toenails. They state that the nails are especially painful with shoe gear and pressure. Patient states that nails 1-5 b/l are painful. No other pedal complaints at this time. Patient states no change in medications or medical history since last visit. Objective: Patient presents to clinic ambulating in sneakers Vasc: DP and PT pulses are palpable bilateral. CFT is less than 5 seconds bilateral. Skin temperature is warm to cool proximal to distal bilateral. There is no edema or varicosities noted. Neuro: Protective sensation is intact to the foot and toes when tested with the 5.07 SWM bilateral. The hallux is downgoing bilateral. Derm: Nails 1-5 b/l are painful, discolored-yellow, thick, crumbly, dystrophic and with subungal debris. Skin is of normal turgor, texture and hair growth is present bilateral. There are no hyperkeratosis, ulcerations, scars, verruca or other lesions noted. Ortho: Muscle strength is 5/5 for all pedal groups tested. Ankle joint DF is decreased with the knee extended with no pain or crepitus noted. 1st MPJ ROM is decreased bilateral. Assessment: (B35.1) Onychomycosis (primary encounter diagnosis) (M79.674) Pain in toe of right foot (M79.672) Pain in left foot Plan: Patient was seen and evaluated. Nails 1-5 bilateral were debrided in length and thickness. Patient is to RTC in 3-4 months. Nicki Johnston DPM [facility] 05-12-2023 Note HNO ID: [id number] Author: HERB STAHL RN Service: ? Author Type: Registered Nurse Type: Progress Notes Filed: 05/12/2023 11:07 Note Text: Patient presents with: Left Foot - Established Patient, Follow Up, Diabetic Foot Care Right Foot - Established Patient, Follow Up, Diabetic Foot Care Patient presents for follow up diabetic foot/nail care. LC- 01/04/23 [facility] 05-12-2023 History of Presen t illness Narrative Subjective: Patient presents to clinic c/o painful toenails. They state that the nails are especially painful with shoe gear and pressure. Patient states that nails 1-5 b/l are painful. No other pedal complaints at this time. Patient states no change in medications or medical history since last visit. Objective: Patient presents to clinic ambulating in sneaker Vasc: DP and PT pulses are palpable bilateral. CFT is less than 5 seconds bilateral. Skin temperature is warm to cool proximal to distal bilateral. There is no edema or varicosities noted. Neuro: Protective sensation is intact to the foot and toes when tested with the 5.07 SWM bilateral. The hallux is downgoing bilateral. Derm: Nails 1-5 b/l are painful, discolored-yellow, thick, crumbly, dystrophic and with subungal debris. Skin is of normal turgor, texture and hair growth is present bilateral. There are no hyperkeratosis, ulcerations, scars, verruca or other lesions noted. Ortho: Muscle strength is 5/5 for all pedal groups tested. Ankle joint DF is decreased with the knee extended with no pain or crepitus noted. 1st MPJ ROM is decreased bilateral. Assessment: (B35.1) Onychomycosis (primary encounter diagnosis) (M79.674) Pain in toe of right foot (M79.672) Pain in left foot Plan: Patient was seen and evaluated. Nails 1-5 bilateral were debrided in length and thickness. Patient is to RTC in 3-4 months. Nicki Johnston DPM Patient presents with: Left Foot - Established Patient, Follow Up, Diabetic Foot Care Right Foot - Established Patient, Follow Up, Diabetic Foot Care Patient presents for follow up diabetic foot/nail care. LC- 01/04/23 documented in this encounter [facility] 02-16-2023 Note HNO ID: [id number] Author: Johnson Blancas MD Service: ? Author Type: Physician Type: Procedures Filed: 02/16/2023 2:23 PM Note Text: THYROID NODULE FINE NEEDLE ASPIRATION Procedure Preparation: 1) The skin was prepped in the usual aseptic manner with alcohol swabs. 2) For each site of fine needle aspiration, patient given 2.5 cc of 1% Lidocaine subcutaneously in the area of planned needle entry. Using ultrasound guidance, an additional 2.5 cc of Lidocaine was administered to the area of the thyroid capsule where needle entry was planned. Fine Needle Aspiration right upper pole (near isthmus) 1) 3 passes were undertaken with a 25 gauge needle yielding a small amount of bloody fluid each time. The first two samples were placed on slides with needle rinse into cytolite. The third sample was placed in an Affirma tube. The procedure was well tolerated. 2) There were no complications. Johnson Blancas MD ................................ ................................ ........... Ultrasound: right upper pole thyroid nodule 1.31cm sag x 0.69cm deep x 0.90cm trans oblique sag FNA History AND Consent JOHN CELIS was identified by name and birthdate, acknowledges they are here to have an FNA of thyroid nodule. Referring Physician: Ignacia Crum Indication: thyroid nodule >1cm diameter Allergies Verified: yes Patient on anti-platelet or anticoagulant drugs: Yes aspirin Images/films reviewed: yes The risks and benefits and anticipated outcomes of the procedure, the risks and benefits of the alternatives to the procedure, and the roles and tasks of the personnel to be involved, were discussed with the patient. Informed consent signed: yes [facility] Protocol / Safety Checklist Procedure to be Performed: thyroid nodule fine needle aspiration Sign In: A Moment of CARE was completed. Personnel directly involved with the procedure wore the appropriate PPE (Personal Protective Equipment). Patient/Surrogate Stated/Verified: PATIENT VERIFIED(optional for EMERGENT procedures): Patient name, Date of , Relevant allergies and The intended procedure Time Out Communication: Intended patient and procedure match the source documents. Consent documented and matches the intended procedure. Sign Out: SIGN OUT (optional for EMERGENT procedures): All specimen containers correctly labeled. Post-Procedure Signed Out Communication: Completed Name of Procedure: yes Specimen(s) labeled: yes Equipment issues addressed: yes Post Procedure Instructions: The patient was told to go to the emergency room if there is severe pain or swelling in the neck area. The patient [facility], telephone if suspicious Follow-up: ultrasound in 6 months, as long as FNA is benign [facility] 02-16-2023 Procedure note Images from the original note were not included. THYROID NODULE FINE NEEDLE ASPIRATION Procedure Preparation: 1) The skin was prepped in the usual aseptic manner with alcohol swabs. 2) For each site of fine needle aspiration, patient given 2.5 cc of 1% Lidocaine subcutaneously in the area of planned needle entry. Using ultrasound guidance, an additional 2.5 cc of Lidocaine was administered to the area of the thyroid capsule where needle entry was planned. Fine Needle Aspiration right upper pole (near isthmus) 1) 3 passes were undertaken with a 25 gauge needle yielding a small amount of bloody fluid each time. The first two samples were placed on slides with needle rinse into cytolite. The third sample was placed in an Affirma tube. The procedure was well tolerated. 2) There were no complications. Johnson Blancas MD ................................ ................................ ........... Ultrasound: right upper pole thyroid nodule 1.31cm sag x 0.69cm deep x 0.90cm trans oblique sag FNA History & Consent JOHN CELIS was identified by name and birthdate, acknowledges they are here to have an FNA of thyroid nodule. Referring Physician: Ignacia Crum Indication: thyroid nodule >1cm diameter Allergies Verified: yes Patient on anti-platelet or anticoagulant drugs: Yes aspirin Images/films reviewed: yes The risks and benefits and anticipated outcomes of the procedure, the risks and benefits of the alternatives to the procedure, and the roles and tasks of the personnel to be involved, were discussed with the patient. Informed consent signed: yes [facility] Protocol / Safety Checklist Procedure to be Performed: thyroid nodule fine needle aspiration Sign In: A Moment of CARE was completed. Personnel directly involved with the procedure wore the appropriate PPE (Personal Protective Equipment). Patient/Surrogate Stated/Verified: PATIENT VERIFIED(optional for EMERGENT procedures): Patient name, Date of , Relevant allergies and The intended procedure Time Out Communication: Intended patient and procedure match the source documents. Consent documented and matches the intended procedure. Sign Out: SIGN OUT (optional for EMERGENT procedures): All specimen containers correctly labeled. Post-Procedure Signed Out Communication: Completed Name of Procedure: yes Specimen(s) labeled: yes Equipment issues addressed: yes Post Procedure Instructions: The patient was told to go to the emergency room if there is severe pain or swelling in the neck area. The patient will be notified of the result by MyChart if benign, telephone if suspicious Follow-up: ultrasound in 6 months, as long as FNA is benign documented in this encounter [facility] 01-04-2023 Note HNO ID: [id number] Author: Johnson Blancas MD Service: ? Author Type: Physician Type: Progress Notes Filed: 01/04/2023 11:31 AM Note Text: Virtual Visit utilizing both audio and video components FaceTime I have communicated my name and active licensure. The patient's identity and physical location were verified at the time of this visit. Either the patient or their legal insurance representative has been informed of the risks and benefits of -- and alternatives to -- treatment through a remote evaluation and consents to proceed with the evaluation remotely. Patient location: at home, [facility] Assessment / Plan Assessment: 1) Minimal HbA1c elevation likely manifestation of aging. It has been stable for 9 years between 5.7 and 6.1, currently 5.9, on no Rx. 2) Thyroid nodules, there is a new nodule that is >1cm, though unfortunately on the ultrasound report they don't list the location. I'll invite her for a thyroid nodule FNA next available Treatment / Plan: 1) return to me for thyroid nodule biopsy, next available Johnson Blancas MD Data Data Review: Component Latest Ref Rng AND Units 10/18/2022 Protein, Total 6.3 - 8.0 g/dL 5.5 (L) Albumin 3.9 - 4.9 g/dL 4.2 Calcium 8.5 - 10.2 mg/dL 9.6 Bilirubin, Total 0.2 - 1.3 mg/dL 0.3 Alkaline Phosphatase 34 - 123 U/L 69 AST 13 - 35 U/L 22 ALT 7 - 38 U/L 19 Glucose 74 - 99 mg/dL 104 (H) BUN 7 - 21 mg/dL 16 Creatinine 0.58 - 0.96 mg/dL 1.00 (H) Sodium 136 - 144 mmol/L 141 Potassium 3.7 - 5.1 mmol/L 4.7 Chloride 97 - 105 mmol/L 105 CO2 22 - 30 mmol/L 29 Anion Gap 9 - 18 mmol/L 7 (L) eGFR >=60 mL/min/1.73mA? 59 (L) Cholesterol, Total <200 mg/dL 172 Triglyceride <150 mg/dL 174 (H) HDL Cholesterol >39 mg/dL 46 Non HDL Cholesterol <130 mg/dL 126 LDL Cholesterol <100 mg/dL 91 Hemoglobin A1C 4.3 - 5.6 % 5.9 (H) Thyroid ultrasound 12/03/22 The right thyroid lobe measures 4.4 x 1.6 x 2.4 cm. The left thyroid lobe measures 3.7 x 1.3 x 1.2 cm. The thyroid isthmus measures 2 mm in thickness. Parenchyma: Mild diffuse parenchymal heterogeneity, more so on the RIGHT with borderline hyperemia to RIGHT thyroid lobe. NODULES: Most suspicious nodules (up to 4) detailed below: Nodule #1 Location: Right midpole Size: 2.6 x 1.6 x 1.3 cm ; previously 2.4 x 1.4 x 2 cm Nodule #2 Location: Right midpole Size: 1.1 x 0.9 x 0.8 cm ; probably similar to prior study Nodule #3 Location: RIGHT lower pole/RIGHT isthmus Size: 1.7 x 1.4 x 0.9 cm ; similar to the prior. Nodule #4 Location: not stated on report Size: 1.3 x 0.8 x 0.5 cm ; this nodule was not discretely visualized or measured on prior study although portions of the thyroid gland are not seen on the limited images from the prior study History Prediabetes : based on HbA1c never been on metformin would like to wait on taking, and work on lifestyle for 3 months Thyroid nodules ultrasound done recently local (12/03/22) ROS PHYSICAL EXAM There were no vitals taken for this visit. 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 IRRITABLE COLON 07/12/2005 Kidney stones Leiomyoma of uterus, unspecified 2009 Noted on the sono Nonspecific elevation of levels of transaminase or lactic acid dehydrogenase (LDH) Nontoxic multinodular goiter 04/13/2010 Paroxysmal SVT (supraventricular tachycardia) 02/2015 Peptic ulcer, unspecified site, unspecified as acute or chronic, without mention of hemorrhage, perforation, or obstruction Postmenopausal atrophic vaginitis 01/16/2010 Pseudophakia, left eye Pseudophakia, right eye Retinal detachment, right 2002 Rosacea 02/01/2005 Seasonal allergies Symptomatic menopausal or female climacteric states 01/16/2010 Thyroid cyst Unspecified asthma(493.90) VITAMIN D DEFICIENCY NOS 07/07/2006 PAST SURGICAL HISTORY Procedure Laterality Date APPENDECTOMY 06/11/2004 never had breast surgery APPENDECTOMY HX BREAST LEFT FINE NEEDLE ASPIRATION BREAST RIGHT FINE NEEDLE ASPIRATION CATARACT SURGERY, COMPLEX 2004 Lt CATH PLMT L HRT AND ARTS W/NJX AND ANGIO IMG MARYSOL 2006 small vessel disease CHOLECYSTECTOMY HX COLONOSCOPY FLX DX W/COLLJ SPEC WHEN PFRMD 01/2007 Colonoscopy HYSTEROSCOPY, DIAGNOSTIC (SEPARATE Hysteroscopy LAPAROSCOPY SURG CHOLECYSTECTOMY 06/2005 Cholecystectomy, lap PAST SURGICAL HISTORY OF 03/12/2004 VAGINAL P (more content not included)... [facility] 01-04-2023 Instructions Johnson Blancas MD - 01/04/2023 11:31 AM EDT Assessment / Plan Assessment: 1) Minimal HbA1c elevation likely manifestation of aging. It has been stable for 9 years between 5.7 and 6.1, currently 5.9, on no Rx. 2) Thyroid nodules, there is a new nodule that is >1cm, though unfortunately on the ultrasound report they don't list the location. I'll invite her for a thyroid nodule FNA next available Treatment / Plan: 1) return to me for thyroid nodule biopsy, next available Johnson Blancas MD documented in this encounter [facility] 01-04-2023 Note HNO ID: [id number] Author: Nicki Johnston Service: ? Author Type: Physician Type: Progress Notes Filed: 01/04/2023 9:48 AM Note Text: Subjective: Patient presents to clinic c/o painful toenails. They state that the nails are especially painful with shoe gear and pressure. Patient states that nails 1-5 b/l are painful. No other pedal complaints at this time. Patient states no change in medications or medical history since last visit. Objective: Patient presents to clinic ambulating in [facility] sneakers Vasc: DP and PT pulses are palpable bilateral. CFT is less than 5 seconds bilateral. Skin temperature is warm to cool proximal to distal bilateral. There is no edema or varicosities noted. Neuro: Protective sensation is intact to the foot and toes when tested with the 5.07 SWM bilateral. The hallux is downgoing bilateral. Derm: Nails 1-5 b/l are painful, discolored-yellow, thick, crumbly, dystrophic and with subungal debris. Skin is of normal turgor, texture and hair growth is present bilateral. There are small callus to right heel. no ulcerations, scars, verruca or other lesions noted. Ortho: Muscle strength is 5/5 for all pedal groups tested. Ankle joint DF is decreased with the knee extended with no pain or crepitus noted. 1st MPJ ROM is decreased bilateral. Assessment: (B35.1) Onychomycosis (primary encounter diagnosis) (M79.674) Pain in toe of right foot (M79.672) Pain in left foot Plan: Patient was seen and evaluated. Nails 1-5 bilateral were debrided in length and thickness. Small callus to right heel reduced with dremmel without incidence Patient is to RTC in 3-4 months. Nicki Johnston DPM [facility] 01-04-2023 Note HNO ID: [id number] Author: Patricia Rangel LPN Service: ? Author Type: LICENSED NURSE Type: Progress Notes Filed: 01/04/2023 9:48 AM Note Text: AMB ROOMING INTAKE FLOWSHEET DATA Patient presents with: Left Foot - Established Patient, nail care Right Foot - Established Patient, nail care Patient states she received covid, RSV, Flu and pneumonia vaccines last week and state the morning after she passed out. PCP notified. Patricia Rangel LPN [facility] 01-04-2023 History of Presen t illness Narrative Images from the original note were not included. Virtual Visit utilizing both audio and video components FaceTime I have communicated my name and active licensure. The patient's identity and physical location were verified at the time of this visit. Either the patient or their legal insurance representative has been informed of the risks and benefits of -- and alternatives to -- treatment through a remote evaluation and consents to proceed with the evaluation remotely. Patient location: at home, [facility] Assessment / Plan Assessment: 1) Minimal HbA1c elevation likely manifestation of aging. It has been stable for 9 years between 5.7 and 6.1, currently 5.9, on no Rx. 2) Thyroid nodules, there is a new nodule that is >1cm, though unfortunately on the ultrasound report they don't list the location. I'll invite her for a thyroid nodule FNA next available Treatment / Plan: 1) return to pr for thyroid nodule biopsy, next available Johnson Blancas MD Data Data Review: Component Latest Ref Rng & Units 10/18/2022 Protein, Total 6.3 - 8.0 g/dL 5.5 (L) Albumin 3.9 - 4.9 g/dL 4.2 Calcium 8.5 - 10.2 mg/dL 9.6 Bilirubin, Total 0.2 - 1.3 mg/dL 0.3 Alkaline Phosphatase 34 - 123 U/L 69 AST 13 - 35 U/L 22 ALT 7 - 38 U/L 19 Glucose 74 - 99 mg/dL 104 (H) BUN 7 - 21 mg/dL 16 Creatinine 0.58 - 0.96 mg/dL 1.00 (H) Sodium 136 - 144 mmol/L 141 Potassium 3.7 - 5.1 mmol/L 4.7 Chloride 97 - 105 mmol/L 105 CO2 22 - 30 mmol/L 29 Anion Gap 9 - 18 mmol/L 7 (L) eGFR >=60 mL/min/1.73m 59 (L) Cholesterol, Total <200 mg/dL 172 Triglyceride <150 mg/dL 174 (H) HDL Cholesterol >39 mg/dL 46 Non HDL Cholesterol <130 mg/dL 126 LDL Cholesterol <100 mg/dL 91 Hemoglobin A1C 4.3 - 5.6 % 5.9 (H) Thyroid ultrasound 12/03/22 The right thyroid lobe measures 4.4 x 1.6 x 2.4 cm. The left thyroid lobe measures 3.7 x 1.3 x 1.2 cm. The thyroid isthmus measures 2 mm in thickness. Parenchyma: Mild diffuse parenchymal heterogeneity, more so on the RIGHT with borderline hyperemia to RIGHT thyroid lobe. NODULES: Most suspicious nodules (up to 4) detailed below: Nodule #1 Location: Right midpole Size: 2.6 x 1.6 x 1.3 cm ; previously 2.4 x 1.4 x 2 cm Nodule #2 Location: Right midpole Size: 1.1 x 0.9 x 0.8 cm ; probably similar to prior study Nodule #3 Location: RIGHT lower pole/RIGHT isthmus Size: 1.7 x 1.4 x 0.9 cm ; similar to the prior. Nodule #4 Location: not stated on report Size: 1.3 x 0.8 x 0.5 cm ; this nodule was not discretely visualized or measured on prior study although portions of the thyroid gland are not seen on the limited images from the prior study History Prediabetes : based on HbA1c never been on metformin would like to wait on taking, and work on lifestyle for 3 months Thyroid nodules ultrasound done recently local (12/03/22) ROS PHYSICAL EXAM There were no vitals taken for this visit. 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 IRRITABLE COLON 07/12/2005 Kidney stones Leiomyoma of uterus, unspecified 2009 Noted on the sono Nonspecific elevation of levels of transaminase or lactic acid dehydrogenase (LDH) Nontoxic multinodular goiter 04/13/2010 Paroxysmal SVT (supraventricular tachycardia) 02/2015 Peptic ulcer, unspecified site, unspecified as acute or chronic, without mention of hemorrhage, perforation, or obstruction Postmenopausal atrophic vaginitis 01/16/2010 Pseudophakia, left eye Pseudophakia, right eye Retinal detachment, right 2002 Rosacea 02/01/2005 Seasonal allergies Symptomatic menopausal or female climacteric states 01/16/2010 Thyroid cyst Unspecified asthma(493.90) VITAMIN D DEFICIENCY NOS 07/07/2006 PAST SURGICAL HISTORY Procedure Laterality Date APPENDECTOMY 06/11/2004 never had breast surgery APPENDECTOMY HX BREAST LEFT FINE NEEDLE ASPIRATION BREAST RIGHT FINE NEEDLE ASPIRATION CATARACT SURGERY, COMPLEX 2004 Lt CATH PLMT L HRT & ARTS W/NJX & ANGIO IMG S&I 2005 small vessel disease CHOLECYSTECTOMY HX COLONOSCOPY FLX DX W/COLLJ SPEC WHEN PFRMD 01/2007 Colonoscopy HYSTEROSCOPY, DIAGNOSTIC (SEPARATE Hysteroscopy LAPAROSCOPY SURG CHOLECYSTECTOMY 06/2005 Cholecystectomy, lap PAST SURGICAL HISTORY OF 03/12/2004 VAGINAL POLYPECTOMY PAST SURGICAL HISTORY OF 05/15/1999 EMB PAST SURGICAL HISTORY OF 03/13/1997 EMB and vaginal biopsy PAST SURGICAL HISTORY OF 09/12 Basal cell removed from the right upper arm RPR COMPLEX RETINA DETACH VITRECT &MEMBRANE PEEL 2001 Rt X2 XCAPSL CTRC RMVL INSJ IO LENS PROSTH W/O ECP Right 09/18/14 Cataract Extraction with PC IOL FAMILY HISTORY Problem Relation Age of Onset Stroke Mother age 88 Heart Mother Diabetes Mother Hypertension Mother Kidney Disease Mother Glaucoma Mother Cataract Mother Macular Degen Mother Cancer Father age 77, lung CA Stroke Father Hypertension Father Allergies Father Cataract Father Glaucoma Sister Cancer Sister Allergies Sister Heart Sister heart murmur Breast Cancer Maternal Aunt Breast Cancer Other maternal cousin Stroke Maternal Grandmother Hypertension Paternal Grandmother Cancer Sister twin Multiple Myloma Social History Tobacco Use Smoking status: Former Packs/day: 4.00 Years: 20.00 Additional pack years: 0.00 Total pack years: 80.00 Types: Cigarettes Quit date: 03/26/1984 Years since quittin.8 Smokeless tobacco: Never Vaping Use Vaping Use: Never used Substance Use Topics Alcohol use: No Drug use: No MEDICATIONS & ALLERGIES Current Outpatient Medications Medication Sig Dispense Refill loratadine (CLARITIN) 10 mg tablet Take 10 mg by mouth. mupirocin (BACTROBAN) 2 % ointment Apply to affected area. pantoprazole DR (PROTONIX) 40 mg tablet predniSONE (DELTASONE) 10 mg tablet Take 10 mg by mouth as needed. Coenzyme Q10 200 mg cap Take by mouth as needed. pravastatin (PRAVACHOL) 40 mg tablet TAKE 1 TABLET DAILY AT BEDTIME 90 tablet 3 polyethylene glycol 3350 (MIRALAX, GLYCOLAX) 17 gram/dose powder Take 17 g by mouth once daily. calcium citrate (CITRACAL ORAL) Take 2 capsules by mouth twice daily. doxycycline hyclate (VIBRAMYCIN) 100 mg capsule Take 100 mg by mouth once daily. cyanocobalamin (VITAMIN B-12) 500 mcg tablet Take 1 tablet by mouth once daily. ziehhwtd-ubf-zibp-FA-lutein (CENTRUM SILVER WOMEN) 8 mg iron-400 mcg-300 mcg tab Take 0.5 tablets by mouth once daily. Zinc 50 mg tab Take 25 mg by mouth once daily. Selenium 100 mcg tab Take 50 mcg by mouth once daily. RABEprazole (ACIPHEX) 20 mg tablet Take 20 mg by mouth once daily. metoprolol tartrate, short acting, (LOPRESSOR) 25 mg tablet Take 1 tablet by mouth twice daily. 180 tablet 3 VITAMIN D 50,000 unit capsule Take 1 tablet by mouth every 2 weeks. escitalopram oxalate (LEXAPRO) 10 mg tablet Take 10 mg by mouth once daily. vit C,W-Od-pltme-lutein-zeaxan (PRESERVISION AREDS-2) 250-90-40-1 mg Take by mouth twice daily. 0 mometasone (NASONEX) 50 mcg/actuation nasal spray Use 2 Sprays in the nose once daily. 3 Bottle 3 albuterol HFA (PROAIR HFA) 90 mcg/actuation inhaler Inhale 2 Puffs as instructed as needed. TWO PUFFS FOUR TIMES DAILY NEEDED 1 Inhaler 0 EPINEPHrine 0.3 mg/0.3 mL (1:1,000) atIn Inject subcutaneously as needed. Inject immediately with evidence of reaction and to proceed to the emergency room 1 Each 0 pravastatin 20 mg tablet Take 1 tablet by mouth once daily. 90 tablet 3 aspirin, enteric coated (ECOTRIN LOW STRENGTH) 81 mg EC tablet Take 1 tablet by mouth once daily. 0 mupirocin (BACTROBAN) 2 % cream Apply to affected area three times daily. APPLY TO AFFECTED AREA 15 g 1 Current Facility-Administered Medications Medication Dose Route Frequency Provider Last Rate Last Admin perflutren lipid microspheres 1.3 mL in NaCl (PF) 0.9% 10 mL injection (DEFINITY) INTRAVENOUS DIRECTED PRN Rex Beaver MD sodium chloride 0.9 % (flush) 10 mL (BD POSIFLUSH) 10 mL INTRAVENOUS DIRECTED PRN Rex Beaver MD ALLERGIES Allergen Reactions Flounder [Other] Anaphylaxis Halibut Liver Oil Anaphylaxis Iodine Anaphylaxis difficulty breathing Shellfish Anaphylaxis anaphalaxis Bacitracin Rash rash Cephalosporins Rash sore rash Erythromycin Base Diarrhea diarrhea Feathers Other: See Comments congestion Guaifenesin Rash, Swelling humibid red swollen rash Humabid [Other] Rash, Swelling red,swollen rash Keflex [Cephalexin] Hives hives Penicillins Rash, Hives rash,hives Sulfa (Sulfonamide * Rash rash Wool Rash, Itching Adhesive Tape (Lesli* Rash Augmentin [Amoxicil* rash/hives Cefaclor Unknown unknown Nickel Rash Potassium Clavulana* Unknown Cleocin [Clindamyci* Itching itch Macrolide Antibioti* Other: See Comments biaxin adverse reaction- Nausea documented in this encounter [facility] 01-04-2023 History of Presen t illness Narrative \ Subjective: Patient presents to clinic c/o painful toenails. They state that the nails are especially painful with shoe gear and pressure. Patient states that nails 1-5 b/l are painful. No other pedal complaints at this time. Patient states no change in medications or medical history since last visit. Objective: Patient presents to clinic ambulating in [facility] Vasc: DP and PT pulses are palpable bilateral. CFT is less than 5 seconds bilateral. Skin temperature is warm to cool proximal to distal bilateral. There is no edema or varicosities noted. Neuro: Protective sensation is intact to the foot and toes when tested with the 5.07 SWM bilateral. The hallux is downgoing bilateral. Derm: Nails 1-5 b/l are painful, discolored-yellow, thick, crumbly, dystrophic and with subungal debris. Skin is of normal turgor, texture and hair growth is present bilateral. There are small callus to right heel. no ulcerations, scars, verruca or other lesions noted. Ortho: Muscle strength is 5/5 for all pedal groups tested. Ankle joint DF is decreased with the knee extended with no pain or crepitus noted. 1st MPJ ROM is decreased bilateral. Assessment: (B35.1) Onychomycosis (primary encounter diagnosis) (M79.674) Pain in toe of right foot (M79.672) Pain in left foot Plan: Patient was seen and evaluated. Nails 1-5 bilateral were debrided in length and thickness. Small callus to right heel reduced with dremmel without incidence Patient is to RTC in 3-4 months. Nicki Johnston DPM AMB ROOMING INTAKE FLOWSHEET DATA Patient presents with: Left Foot - Established Patient, nail care Right Foot - Established Patient, nail care Patient states she received covid, RSV, Flu and pneumonia vaccines last week and state the morning after she passed out. PCP notified. Patricia Rangel LPN documented in this encounter [facility] 12-03-2022 Note HNO ID: [id number] Author: Flower Patel RDMS Service: ? Author Type: Hospital Tray Service Worker Type: Progress Notes Filed: 12/03/2022 11:03 AM Note Text: Radiology Service Progress Note PATIENT NAME: John Celis DATE OF SERVICE: December 03, 2022 TIME: 11:03 AM PATIENT IDENTITY VERIFICATION COMPLETED USING TWO (2) IDENTIFIERS: Name and Date of confirmed by patient verbally. FALL SCREENING: Has the patient had 2 falls in the last year or 1 fall with injury or currently using an Ambulatory Assistive Device (Walker, Cane, Wheelchair, Crutches, etc.)? No PATIENT GENDER DATA: Female. status: : No status: NO. PATIENT RELEVANT IMPLANT DATA REVIEWED: Not Applicable RADIOLOGY DEPARTMENT: Ultrasound PERIPHERAL IV DATA: Not applicable SIGNED BY: Flower Patel RDMS RVT December 03, 2022 11:03 AM [facility] 12-03-2022 History of Presen t illness Narrative Radiology Service Progress Note PATIENT NAME: John Celis DATE OF SERVICE: December 03, 2022 TIME: 11:03 AM PATIENT IDENTITY VERIFICATION COMPLETED USING TWO (2) IDENTIFIERS: Name and Date of confirmed by patient verbally. FALL SCREENING: Has the patient had 2 falls in the last year or 1 fall with injury or currently using an Ambulatory Assistive Device (Walker, Cane, Wheelchair, Crutches, etc.)? No PATIENT GENDER DATA: Female. status: : No status: NO. PATIENT RELEVANT IMPLANT DATA REVIEWED: Not Applicable RADIOLOGY DEPARTMENT: Ultrasound PERIPHERAL IV DATA: Not applicable SIGNED BY: Flower Patel RDMS RVDoreen December 03, 2022 11:03 AM documented in this encounter [facility] 11-22-2022 Note HNO ID: [id number] Author: Johnson Blancas MD Service: ? Author Type: Physician Type: Progress Notes Filed: 11/22/2022 1:21 PM Note Text: Virtual Visit utilizing both audio and video components FaceTime I have communicated my name and active licensure. The patient's identity and physical location were verified at the time of this visit. Either the patient or their legal insurance representative has been informed of the risks and benefits of -- and alternatives to -- treatment through a remote evaluation and consents to proceed with the evaluation remotely. Patient location: at home, [facility] Assessment / Plan Assessment: 1) Minimal HbA1c elevation likely manifestation of aging. It has been stable for 9 years between 5.7 and 6.1, currently 5.9, on no Rx. 2) Thyroid nodules, couldn't get in person appointment to look at these, I will order thyroid ultrasound, and will see her by virtual visit sometime thereafter. Treatment / Plan: 1) do the thyroid ultrasound at the [facility] site, sometime soon 2) schedule a followup virtual visit to go over the ultrasound result Johnson Blancas MD Data Data Review: Component Latest Ref Rng AND Units 10/18/2022 Protein, Total 6.3 - 8.0 g/dL 5.5 (L) Albumin 3.9 - 4.9 g/dL 4.2 Calcium 8.5 - 10.2 mg/dL 9.6 Bilirubin, Total 0.2 - 1.3 mg/dL 0.3 Alkaline Phosphatase 34 - 123 U/L 69 AST 13 - 35 U/L 22 ALT 7 - 38 U/L 19 Glucose 74 - 99 mg/dL 104 (H) BUN 7 - 21 mg/dL 16 Creatinine 0.58 - 0.96 mg/dL 1.00 (H) Sodium 136 - 144 mmol/L 141 Potassium 3.7 - 5.1 mmol/L 4.7 Chloride 97 - 105 mmol/L 105 CO2 22 - 30 mmol/L 29 Anion Gap 9 - 18 mmol/L 7 (L) eGFR >=60 mL/min/1.73mA? 59 (L) Cholesterol, Total <200 mg/dL 172 Triglyceride <150 mg/dL 174 (H) HDL Cholesterol >39 mg/dL 46 Non HDL Cholesterol <130 mg/dL 126 LDL Cholesterol <100 mg/dL 91 Hemoglobin A1C 4.3 - 5.6 % 5.9 (H) History Prediabetes : based on HbA1c never been on metformin would like to wait on taking, and work on lifestyle for 3 months Thyroid nodules due for ultrasound to be done soon ROS PHYSICAL EXAM There were no vitals taken for this visit. 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 IRRITABLE COLON 07/12/2005 Kidney stones Leiomyoma of uterus, unspecified 2009 Noted on the sono Nonspecific elevation of levels of transaminase or lactic acid dehydrogenase (LDH) Nontoxic multinodular goiter 04/13/2010 Paroxysmal SVT (supraventricular tachycardia) (HCC) 02/2015 Peptic ulcer, unspecified site, unspecified as acute or chronic, without mention of hemorrhage, perforation, or obstruction Postmenopausal atrophic vaginitis 01/16/2010 Pseudophakia, left eye Pseudophakia, right eye Retinal detachment, right 2002 Rosacea 02/01/2005 Seasonal allergies Symptomatic menopausal or female climacteric states 01/16/2010 Thyroid cyst Unspecified asthma(493.90) VITAMIN D DEFICIENCY NOS 07/07/2006 PAST SURGICAL HISTORY Procedure Laterality Date APPENDECTOMY 06/11/2004 never had breast surgery APPENDECTOMY HX BREAST LEFT FINE NEEDLE ASPIRATION BREAST RIGHT FINE NEEDLE ASPIRATION CATARACT SURGERY, COMPLEX 2004 Lt CATH PLMT L HRT AND ARTS W/NJX AND ANGIO IMG MARYSOL 2005 small vessel disease CHOLECYSTECTOMY HX COLONOSCOPY FLX DX W/COLLJ SPEC WHEN PFRMD 01/2007 Colonoscopy HYSTEROSCOPY, DIAGNOSTIC (SEPARATE Hysteroscopy LAPAROSCOPY SURG CHOLECYSTECTOMY 06/2005 Cholecystectomy, lap PAST SURGICAL HISTORY OF 03/12/2004 VAGINAL POLYPECTOMY PAST SURGICAL HISTORY OF 05/15/1999 EMB PAST SURGICAL HISTORY OF 03/13/1997 EMB and vaginal biopsy PAST SURGICAL HISTORY OF 09/12 Basal cell removed from the right upper arm RPR COMPLEX RETINA DETACH VITRECT ANDMEMBRANE PEEL 2001 Rt X2 XCAPSL CTRC RMVL INSJ IO LENS PROSTH W/O ECP Right 09/18/14 Cataract Extraction with PC IOL FAMILY HISTORY Problem Relation Age of Onset Stroke Mother age 88 Heart Mother Diabetes Mother Hypertension Mother Kidney Disease Mother Glaucoma Mother Cataract Mother Macular Degen Mother Cancer Father age 77, lung CA Stroke Father Hypertension Father Allergies Father Cataract Father Glaucoma Sister Cancer Sister Allergies Sister Heart Sister heart murmur Breast Cancer Maternal Aunt Breast Cancer Other maternal cousin Stro (more content not included)... [facility] 11-22-2022 Instructions Johnson Blancas MD - 11/22/2022 1:21 PM EDT Assessment / Plan Assessment: 1) Minimal HbA1c elevation likely manifestation of aging. It has been stable for 9 years between 5.7 and 6.1, currently 5.9, on no Rx. 2) Thyroid nodules, couldn't get in person appointment to look at these, I will order thyroid ultrasound, and will see her by virtual visit sometime thereafter. Treatment / Plan: 1) do the thyroid ultrasound at the [facility], sometime soon 2) schedule a followup virtual visit to go over the ultrasound result Johnson Blancas MD documented in this encounter [facility] 11-22-2022 History of Presen t illness Narrative Virtual Visit utilizing both audio and video components FaceTime I have communicated my name and active licensure. The patient's identity and physical location were verified at the time of this visit. Either the patient or their legal insurance representative has been informed of the risks and benefits of -- and alternatives to -- treatment through a remote evaluation and consents to proceed with the evaluation remotely. Patient location: at home, [facility] Assessment / Plan Assessment: 1) Minimal HbA1c elevation likely manifestation of aging. It has been stable for 9 years between 5.7 and 6.1, currently 5.9, on no Rx. 2) Thyroid nodules, couldn't get in person appointment to look at these, I will order thyroid ultrasound, and will see her by virtual visit sometime thereafter. Treatment / Plan: 1) do the thyroid ultrasound at the [facility] site, sometime soon 2) schedule a followup virtual visit to go over the ultrasound result Johnson Blancas MD Data Data Review: Component Latest Ref Rng & Units 10/18/2022 Protein, Total 6.3 - 8.0 g/dL 5.5 (L) Albumin 3.9 - 4.9 g/dL 4.2 Calcium 8.5 - 10.2 mg/dL 9.6 Bilirubin, Total 0.2 - 1.3 mg/dL 0.3 Alkaline Phosphatase 34 - 123 U/L 69 AST 13 - 35 U/L 22 ALT 7 - 38 U/L 19 Glucose 74 - 99 mg/dL 104 (H) BUN 7 - 21 mg/dL 16 Creatinine 0.58 - 0.96 mg/dL 1.00 (H) Sodium 136 - 144 mmol/L 141 Potassium 3.7 - 5.1 mmol/L 4.7 Chloride 97 - 105 mmol/L 105 CO2 22 - 30 mmol/L 29 Anion Gap 9 - 18 mmol/L 7 (L) eGFR >=60 mL/min/1.73m 59 (L) Cholesterol, Total <200 mg/dL 172 Triglyceride <150 mg/dL 174 (H) HDL Cholesterol >39 mg/dL 46 Non HDL Cholesterol <130 mg/dL 126 LDL Cholesterol <100 mg/dL 91 Hemoglobin A1C 4.3 - 5.6 % 5.9 (H) History Prediabetes : based on HbA1c never been on metformin would like to wait on taking, and work on lifestyle for 3 months Thyroid nodules due for ultrasound to be done soon ROS PHYSICAL EXAM There were no vitals taken for this visit. 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 IRRITABLE COLON 07/12/2005 Kidney stones Leiomyoma of uterus, unspecified 2009 Noted on the sono Nonspecific elevation of levels of transaminase or lactic acid dehydrogenase (LDH) Nontoxic multinodular goiter 04/13/2010 Paroxysmal SVT (supraventricular tachycardia) (HCC) 02/2015 Peptic ulcer, unspecified site, unspecified as acute or chronic, without mention of hemorrhage, perforation, or obstruction Postmenopausal atrophic vaginitis 01/16/2010 Pseudophakia, left eye Pseudophakia, right eye Retinal detachment, right 2002 Rosacea 02/01/2005 Seasonal allergies Symptomatic menopausal or female climacteric states 01/16/2010 Thyroid cyst Unspecified asthma(493.90) VITAMIN D DEFICIENCY NOS 07/07/2006 PAST SURGICAL HISTORY Procedure Laterality Date APPENDECTOMY 06/11/2004 never had breast surgery APPENDECTOMY HX BREAST LEFT FINE NEEDLE ASPIRATION BREAST RIGHT FINE NEEDLE ASPIRATION CATARACT SURGERY, COMPLEX 2004 Lt CATH PLMT L HRT & ARTS W/NJX & ANGIO IMG S&I 2006 small vessel disease CHOLECYSTECTOMY HX COLONOSCOPY FLX DX W/COLLJ SPEC WHEN PFRMD 01/2007 Colonoscopy HYSTEROSCOPY, DIAGNOSTIC (SEPARATE Hysteroscopy LAPAROSCOPY SURG CHOLECYSTECTOMY 06/2005 Cholecystectomy, lap PAST SURGICAL HISTORY OF 03/12/2004 VAGINAL POLYPECTOMY PAST SURGICAL HISTORY OF 05/15/1999 EMB PAST SURGICAL HISTORY OF 03/13/1997 EMB and vaginal biopsy PAST SURGICAL HISTORY OF 09/12 Basal cell removed from the right upper arm RPR COMPLEX RETINA DETACH VITRECT &MEMBRANE PEEL 2001 Rt X2 XCAPSL CTRC RMVL INSJ IO LENS PROSTH W/O ECP Right 09/18/14 Cataract Extraction with PC IOL FAMILY HISTORY Problem Relation Age of Onset Stroke Mother age 88 Heart Mother Diabetes Mother Hypertension Mother Kidney Disease Mother Glaucoma Mother Cataract Mother Macular Degen Mother Cancer Father age 77, lung CA Stroke Father Hypertension Father Allergies Father Cataract Father Glaucoma Sister Cancer Sister Allergies Sister Heart Sister heart murmur Breast Cancer Maternal Aunt Breast Cancer Other maternal cousin Stroke Maternal Grandmother Hypertension Paternal Grandmother Cancer Sister twin Multiple Myloma Social History Tobacco Use Smoking status: Former Packs/day: 4.00 Years: 20.00 Additional pack years: 0.00 Total pack years: 80.00 Types: Cigarettes Quit date: 03/26/1984 Years since quittin.6 Smokeless tobacco: Never Vaping Use Vaping Use: Never used Substance Use Topics Alcohol use: No Drug use: No MEDICATIONS & ALLERGIES Current Outpatient Medications Medication Sig Dispense Refill loratadine (CLARITIN) 10 mg tablet Take 10 mg by mouth. mupirocin (BACTROBAN) 2 % ointment Apply to affected area. pantoprazole DR (PROTONIX) 40 mg tablet predniSONE (DELTASONE) 10 mg tablet Take 10 mg by mouth as needed. Coenzyme Q10 200 mg cap Take by mouth as needed. pravastatin (PRAVACHOL) 40 mg tablet TAKE 1 TABLET DAILY AT BEDTIME 90 tablet 3 polyethylene glycol 3350 (MIRALAX, GLYCOLAX) 17 gram/dose powder Take 17 g by mouth once daily. calcium citrate (CITRACAL ORAL) Take 2 capsules by mouth twice daily. doxycycline hyclate (VIBRAMYCIN) 100 mg capsule Take 100 mg by mouth once daily. cyanocobalamin (VITAMIN B-12) 500 mcg tablet Take 1 tablet by mouth once daily. dgtjoskv-wos-vtas-FA-lutein (CENTRUM SILVER WOMEN) 8 mg iron-400 mcg-300 mcg tab Take 0.5 tablets by mouth once daily. Zinc 50 mg tab Take 25 mg by mouth once daily. Selenium 100 mcg tab Take 50 mcg by mouth once daily. RABEprazole (ACIPHEX) 20 mg tablet Take 20 mg by mouth once daily. metoprolol tartrate, short acting, (LOPRESSOR) 25 mg tablet Take 1 tablet by mouth twice daily. 180 tablet 3 VITAMIN D 50,000 unit capsule Take 1 tablet by mouth every 2 weeks. escitalopram oxalate (LEXAPRO) 10 mg tablet Take 10 mg by mouth once daily. vit C,D-Kt-ijamy-lutein-zeaxan (PRESERVISION AREDS-2) 250-90-40-1 mg Take by mouth twice daily. 0 mometasone (NASONEX) 50 mcg/actuation nasal spray Use 2 Sprays in the nose once daily. 3 Bottle 3 albuterol HFA (PROAIR HFA) 90 mcg/actuation inhaler Inhale 2 Puffs as instructed as needed. TWO PUFFS FOUR TIMES DAILY NEEDED 1 Inhaler 0 EPINEPHrine 0.3 mg/0.3 mL (1:1,000) atIn Inject subcutaneously as needed. Inject immediately with evidence of reaction and to proceed to the emergency room 1 Each 0 pravastatin 20 mg tablet Take 1 tablet by mouth once daily. 90 tablet 3 aspirin, enteric coated (ECOTRIN LOW STRENGTH) 81 mg EC tablet Take 1 tablet by mouth once daily. 0 mupirocin (BACTROBAN) 2 % cream Apply to affected area three times daily. APPLY TO AFFECTED AREA 15 g 1 Current Facility-Administered Medications Medication Dose Route Frequency Provider Last Rate Last Admin perflutren lipid microspheres 1.3 mL in NaCl (PF) 0.9% 10 mL injection (DEFINITY) INTRAVENOUS DIRECTED PRN Rex Beaver MD sodium chloride 0.9 % (flush) 10 mL (BD POSIFLUSH) 10 mL INTRAVENOUS DIRECTED PRN Rex Beaver MD ALLERGIES Allergen Reactions Flounder [Other] Anaphylaxis Halibut Liver Oil Anaphylaxis Iodine Anaphylaxis difficulty breathing Shellfish Anaphylaxis anaphalaxis Bacitracin Rash rash Cephalosporins Rash sore rash Erythromycin Base Diarrhea diarrhea Feathers Other: See Comments congestion Guaifenesin Rash, Swelling humibid red swollen rash Humabid [Other] Rash, Swelling red,swollen rash Keflex [Cephalexin] Hives hives Penicillins Rash, Hives rash,hives Sulfa (Sulfonamide * Rash rash Wool Rash, Itching Adhesive Tape (Lesli* Rash Augmentin [Amoxicil* rash/hives Cefaclor Unknown unknown Nickel Rash Potassium Clavulana* Unknown Cleocin [Clindamyci* Itching itch Macrolide Antibioti* Other: See Comments biaxin adverse reaction- Nausea documented in this encounter [facility] 11-05-2022 Note HNO ID: [id number] Author: Nicki Johnston Service: ? Author Type: Physician Type: Progress Notes Filed: 11/08/2022 7:50 AM Note Text: Subjective: Patient presents to clinic c/o painful toenails. They state that the nails are especially painful with shoe gear and pressure. Patient states that nails 1-5 b/l are painful. Patient admits to being diabetic. No other pedal complaints at this time. Patient states no change in medications or medical history since last visit. Objective: Patient presents to clinic ambulating in slip on shoes Vasc: DP and PT pulses are palpable bilateral. CFT is less than 5 seconds bilateral. Skin temperature is warm to cool proximal to distal bilateral. There is no edema or varicosities noted. Neuro: Protective sensation is intact to the foot and toes when tested with the 5.07 SWM bilateral. Vibratory sensation is decreased at the hallux IPJ bilateral. The hallux is downgoing bilateral. Derm: Nails 1-5 b/l are painful, discolored-yellow, thick, crumbly, dystrophic and with subungal debris. Skin is of normal turgor, texture and hair growth is present bilateral. There are no hyperkeratosis, ulcerations, scars, verruca or other lesions noted. Ortho: Muscle strength is 5/5 for all pedal groups tested. Ankle joint DF is full with the knee extended with no pain or crepitus noted. 1st MPJ ROM is full bilateral. Assessment: (B35.1) Onychomycosis (primary encounter diagnosis) (M79.674) Pain in toe of right foot (M79.672) Pain in left foot Plan: Patient was seen and evaluated. Nails 1-5 bilateral were debrided in length and thickness. Patient is to RTC in 3-4 months. Nicki Johnston DPM [facility] 11-05-2022 Note HNO ID: [id number] Author: Zabrina Ray RN Service: ? Author Type: Registered Nurse Type: Progress Notes Filed: 11/08/2022 7:50 AM Note Text: Patient presents with: Right Foot - Established Patient, Follow Up: nail care Left Foot - Follow Up, Established Patient: nail care AMB ROOMING INTAKE FLOWSHEET DATA [facility] 11-05-2022 History of Presen t illness Narrative Subjective: Patient presents to clinic c/o painful toenails. They state that the nails are especially painful with shoe gear and pressure. Patient states that nails 1-5 b/l are painful. Patient admits to being diabetic. No other pedal complaints at this time. Patient states no change in medications or medical history since last visit. Objective: Patient presents to clinic ambulating in slip on shoes Vasc: DP and PT pulses are palpable bilateral. CFT is less than 5 seconds bilateral. Skin temperature is warm to cool proximal to distal bilateral. There is no edema or varicosities noted. Neuro: Protective sensation is intact to the foot and toes when tested with the 5.07 SWM bilateral. Vibratory sensation is decreased at the hallux IPJ bilateral. The hallux is downgoing bilateral. Derm: Nails 1-5 b/l are painful, discolored-yellow, thick, crumbly, dystrophic and with subungal debris. Skin is of normal turgor, texture and hair growth is present bilateral. There are no hyperkeratosis, ulcerations, scars, verruca or other lesions noted. Ortho: Muscle strength is 5/5 for all pedal groups tested. Ankle joint DF is full with the knee extended with no pain or crepitus noted. 1st MPJ ROM is full bilateral. Assessment: (B35.1) Onychomycosis (primary encounter diagnosis) (M79.674) Pain in toe of right foot (M79.672) Pain in left foot Plan: Patient was seen and evaluated. Nails 1-5 bilateral were debrided in length and thickness. Patient is to RTC in 3-4 months. Nicki Johnston DPM Patient presents with: Right Foot - Established Patient, Follow Up: nail care Left Foot - Follow Up, Established Patient: nail care AMB ROOMING INTAKE FLOWSHEET DATA documented in this encounter [facility] 10-20-2022 Note HNO ID: [id number] Author: Rex Beaver MD Service: ? Author Type: Physician Type: Progress Notes Filed: 10/20/2022 5:34 PM Note Text: [facility] Department of Cardiovascular Medicine SECTION OF CARDIOVASCULAR IMAGING OUTPATIENT VISIT DATE October 20, 2022 OUTPATIENT VISIT TYPE ESTABLISHED PRIMARY CARE PHYSICIAN: Alexander Hogue [address] [place] [id number] CHIEF COMPLAINT: CV health management visit. HISTORY OF PRESENT ILLNESS: Ms. Celis is a 77 year old female who presents today for a cardiovascular medicine follow-up visit. She has a past medical history significant GERD, HLD, HTN, tachycardia and asthma. She was last seen in clinic on October 06, 2021. At that time, she had no new cardiac complaints. She was instructed to increase pravastatin to 40 mg daily, and to follow up in 1 year with stress echo. Today, Ms. Celis reports that she has been feeling very well. No new cardiac complaints. From a cardiovascular perspective, pt continues to do well and specifically denies any CP, SOB, palpitations, syncope, orthopnea, LE edema, focal neuro sx, post-prandial abdominal pain, or claudication. 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 IRRITABLE COLON 07/12/2005 Kidney stones Leiomyoma of uterus, unspecified 2009 Noted on the sono Nonspecific elevation of levels of transaminase or lactic acid dehydrogenase (LDH) Nontoxic multinodular goiter 04/13/2010 Paroxysmal SVT (supraventricular tachycardia) (HCC) 02/2015 Peptic ulcer, unspecified site, unspecified as acute or chronic, without mention of hemorrhage, perforation, or obstruction Postmenopausal atrophic vaginitis 01/16/2010 Pseudophakia, left eye Pseudophakia, right eye Retinal detachment, right 2002 Rosacea 02/01/2005 Seasonal allergies Symptomatic menopausal or female climacteric states 01/16/2010 Thyroid cyst Unspecified asthma(493.90) VITAMIN D DEFICIENCY NOS 07/07/2006 PAST SURGICAL HISTORY Procedure Laterality Date APPENDECTOMY 06/11/2004 never had breast surgery APPENDECTOMY HX BREAST LEFT FINE NEEDLE ASPIRATION BREAST RIGHT FINE NEEDLE ASPIRATION CATARACT SURGERY, COMPLEX 2004 Lt CATH PLMT L HRT AND ARTS W/NJX AND ANGIO IMG MARYSOL 2005 small vessel disease CHOLECYSTECTOMY HX COLONOSCOPY FLX DX W/COLLJ SPEC WHEN PFRMD 01/2007 Colonoscopy HYSTEROSCOPY, DIAGNOSTIC (SEPARATE Hysteroscopy LAPAROSCOPY SURG CHOLECYSTECTOMY 06/2005 Cholecystectomy, lap PAST SURGICAL HISTORY OF 03/12/2004 VAGINAL POLYPECTOMY PAST SURGICAL HISTORY OF 05/15/1999 EMB PAST SURGICAL HISTORY OF 03/13/1997 EMB and vaginal biopsy PAST SURGICAL HISTORY OF 09/12 Basal cell removed from the right upper arm RPR COMPLEX RETINA DETACH VITRECT ANDMEMBRANE PEEL 2001 Rt X2 XCAPSL CTRC RMVL INSJ IO LENS PROSTH W/O ECP Right 09/18/14 Cataract Extraction with PC IOL SOCIAL HISTORY Social History Tobacco Use Smoking status: Former Packs/day: 4.00 Years: 20.00 Total pack years: 80.00 Types: Cigarettes Quit date: 03/26/1984 Years since quittin.5 Smokeless tobacco: Never Vaping Use Vaping Use: Never used Substance Use Topics Alcohol use: No Drug use: No ALLERGIES: ALLERGIES Allergen Reactions Flounder [Other] Anaphylaxis Halibut Liver Oil Anaphylaxis Iodine Anaphylaxis difficulty breathing Shellfish Anaphylaxis anaphalaxis Bacitracin Rash rash Cephalosporins Rash sore rash Erythromycin Base Diarrhea diarrhea Feathers Other: See Comments congestion Guaifenesin Rash, Swelling humibid red swollen rash Humabid [Other] Rash, Swelling red,swollen rash Keflex [Cephalexin] Hives hives Penicillins Rash, Hives rash,hives Sulfa (Sulfonamide * Rash rash Wool Rash, Itching Adhesive Tape (Lesli* Rash Augmentin [Amoxicil* rash/hives Cefaclor Unknown unknown Nickel Rash Potassium Clavulana* Unknown Cleocin [Clindamyci* Itching itch Macrolide Antibioti* Other: See Comments biaxin adverse reaction- Nausea MEDICATIONS: loratadine (CLARITIN) 10 mg tabletTake 10 mg by mouth.Disp: Rfl: mupirocin (BACTROBAN) 2 % ointmentApply to affected area.Disp: Rfl: pantoprazole DR (PROTONIX) 40 mg tabletDisp: Rfl: predniSONE (DELTASONE) 10 mg tabletTake 10 mg by mouth as (more content not included)... [facility] 10-20-2022 History of Presen t illness Narrative Images from the original note were not included. [facility] [place] [facility] Department of Cardiovascular Medicine SECTION OF CARDIOVASCULAR IMAGING OUTPATIENT VISIT DATE October 20, 2022 OUTPATIENT VISIT TYPE ESTABLISHED PRIMARY CARE PHYSICIAN: Alexander Hogue [address] [facility] [address] [place] [address] CHIEF COMPLAINT: CV health management visit. HISTORY OF PRESENT ILLNESS: Ms. Celis is a 77 year old female who presents today for a cardiovascular medicine follow-up visit. She has a past medical history significant GERD, HLD, HTN, tachycardia and asthma. She was last seen in clinic on October 06, 2021. At that time, she had no new cardiac complaints. She was instructed to increase pravastatin to 40 mg daily, and to follow up in 1 year with stress echo. Today, Ms. Celis reports that she has been feeling very well. No new cardiac complaints. From a cardiovascular perspective, pt continues to do well and specifically denies any CP, SOB, palpitations, syncope, orthopnea, LE edema, focal neuro sx, post-prandial abdominal pain, or claudication. 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 IRRITABLE COLON 07/12/2005 Kidney stones Leiomyoma of uterus, unspecified 2009 Noted on the sono Nonspecific elevation of levels of transaminase or lactic acid dehydrogenase (LDH) Nontoxic multinodular goiter 04/13/2010 Paroxysmal SVT (supraventricular tachycardia) (HCC) 02/2015 Peptic ulcer, unspecified site, unspecified as acute or chronic, without mention of hemorrhage, perforation, or obstruction Postmenopausal atrophic vaginitis 01/16/2010 Pseudophakia, left eye Pseudophakia, right eye Retinal detachment, right 2002 Rosacea 02/01/2005 Seasonal allergies Symptomatic menopausal or female climacteric states 01/16/2010 Thyroid cyst Unspecified asthma(493.90) VITAMIN D DEFICIENCY NOS 07/07/2006 PAST SURGICAL HISTORY Procedure Laterality Date APPENDECTOMY 06/11/2004 never had breast surgery APPENDECTOMY HX BREAST LEFT FINE NEEDLE ASPIRATION BREAST RIGHT FINE NEEDLE ASPIRATION CATARACT SURGERY, COMPLEX 2004 Lt CATH PLMT L HRT & ARTS W/NJX & ANGIO IMG S&I 2006 small vessel disease CHOLECYSTECTOMY HX COLONOSCOPY FLX DX W/COLLJ SPEC WHEN PFRMD 01/2007 Colonoscopy HYSTEROSCOPY, DIAGNOSTIC (SEPARATE Hysteroscopy LAPAROSCOPY SURG CHOLECYSTECTOMY 06/2005 Cholecystectomy, lap PAST SURGICAL HISTORY OF 03/12/2004 VAGINAL POLYPECTOMY PAST SURGICAL HISTORY OF 05/15/1999 EMB PAST SURGICAL HISTORY OF 03/13/1997 EMB and vaginal biopsy PAST SURGICAL HISTORY OF 09/12 Basal cell removed from the right upper arm RPR COMPLEX RETINA DETACH VITRECT &MEMBRANE PEEL 2001 Rt X2 XCAPSL CTRC RMVL INSJ IO LENS PROSTH W/O ECP Right 09/18/14 Cataract Extraction with PC IOL SOCIAL HISTORY Social History Tobacco Use Smoking status: Former Packs/day: 4.00 Years: 20.00 Total pack years: 80.00 Types: Cigarettes Quit date: 03/26/1984 Years since quittin.5 Smokeless tobacco: Never Vaping Use Vaping Use: Never used Substance Use Topics Alcohol use: No Drug use: No ALLERGIES: ALLERGIES Allergen Reactions Flounder [Other] Anaphylaxis Halibut Liver Oil Anaphylaxis Iodine Anaphylaxis difficulty breathing Shellfish Anaphylaxis anaphalaxis Bacitracin Rash rash Cephalosporins Rash sore rash Erythromycin Base Diarrhea diarrhea Feathers Other: See Comments congestion Guaifenesin Rash, Swelling humibid red swollen rash Humabid [Other] Rash, Swelling red,swollen rash Keflex [Cephalexin] Hives hives Penicillins Rash, Hives rash,hives Sulfa (Sulfonamide * Rash rash Wool Rash, Itching Adhesive Tape (Lesli* Rash Augmentin [Amoxicil* rash/hives Cefaclor Unknown unknown Nickel Rash Potassium Clavulana* Unknown Cleocin [Clindamyci* Itching itch Macrolide Antibioti* Other: See Comments biaxin adverse reaction- Nausea MEDICATIONS: loratadine (CLARITIN) 10 mg tablet^Take 10 mg by mouth.^Disp: ^Rfl: mupirocin (BACTROBAN) 2 % ointment^Apply to affected area.^Disp: ^Rfl: pantoprazole DR (PROTONIX) 40 mg tablet^^Disp: ^Rfl: predniSONE (DELTASONE) 10 mg tablet^Take 10 mg by mouth as needed.^Disp: ^Rfl: Coenzyme Q10 200 mg cap^Take by mouth as needed.^Disp: ^Rfl: pravastatin (PRAVACHOL) 40 mg tablet^TAKE 1 TABLET DAILY AT BEDTIME^Disp: 90 tablet^Rfl: 3 polyethylene glycol 3350 (MIRALAX, GLYCOLAX) 17 gram/dose powder^Take 17 g by mouth once daily.^Disp: ^Rfl: calcium citrate (CITRACAL ORAL)^Take 2 capsules by mouth twice daily.^Disp: ^Rfl: doxycycline hyclate (VIBRAMYCIN) 100 mg capsule^Take 100 mg by mouth once daily.^Disp: ^Rfl: cyanocobalamin (VITAMIN B-12) 500 mcg tablet^Take 1 tablet by mouth once daily.^Disp: ^Rfl: vomdbils-xnd-clxx-FA-lutein (CENTRUM SILVER WOMEN) 8 mg iron-400 mcg-300 mcg tab^Take 0.5 tablets by mouth once daily. ^Disp: ^Rfl: Zinc 50 mg tab^Take 25 mg by mouth once daily.^Disp: ^Rfl: Selenium 100 mcg tab^Take 50 mcg by mouth once daily.^Disp: ^Rfl: RABEprazole (ACIPHEX) 20 mg tablet^Take 20 mg by mouth once daily. ^Disp: ^Rfl: metoprolol tartrate, short acting, (LOPRESSOR) 25 mg tablet^Take 1 tablet by mouth twice daily.^Disp: 180 tablet^Rfl: 3 VITAMIN D 50,000 unit capsule^Take 1 tablet by mouth every 2 weeks.^Disp: ^Rfl: escitalopram oxalate (LEXAPRO) 10 mg tablet^Take 10 mg by mouth once daily.^Disp: ^Rfl: vit C,H-Ng-zkfld-lutein-zeaxan (PRESERVISION AREDS-2) 250-90-40-1 mg^Take by mouth twice daily.^Disp: ^Rfl: 0 mometasone (NASONEX) 50 mcg/actuation nasal spray^Use 2 Sprays in the nose once daily.^Disp: 3 Bottle^Rfl: 3 albuterol HFA (PROAIR HFA) 90 mcg/actuation inhaler^Inhale 2 Puffs as instructed as needed. TWO PUFFS FOUR TIMES DAILY NEEDED^Disp: 1 Inhaler^Rfl: 0 EPINEPHrine 0.3 mg/0.3 mL (1:1,000) atIn^Inject subcutaneously as needed. Inject immediately with evidence of reaction and to proceed to the emergency room^Disp: 1 Each^Rfl: 0 pravastatin 20 mg tablet^Take 1 tablet by mouth once daily.^Disp: 90 tablet^Rfl: 3 aspirin, enteric coated (ECOTRIN LOW STRENGTH) 81 mg EC tablet^Take 1 tablet by mouth once daily.^Disp: ^Rfl: 0 mupirocin (BACTROBAN) 2 % cream^Apply to affected area three times daily. APPLY TO AFFECTED AREA^Disp: 15 g^Rfl: 1 REVIEW OF SYSTEMS: POSITIVES IN BOLD GENERAL: Negative for: Weight loss or gain, Fever or Chills, Weakness and Sleep difficulties. HEENT: Negative for: Headache, Impaired Vision, Glasses, Hearing Impairment, Ringing in Ears, Nosebleeds, Poor dental care, Bleeding Gums, Dentures NECK: Negative for: Swelling, Pain, Stiffness CARDIOVASCULAR: SEE HPI RESPIRATORY: Negative for: Cough, Blood in Sputum, Shortness of breath, Wheezing, Apnea GASTROINTESTINAL: Negative for: Trouble swallowing, Heartburn, Change in bowel habits, Blood in stool, Dark black stools MUSCULOSKELETAL: Negative for: Muscle or joint pain, Stiffness, Joint swelling NEUROLOGIC/PSYCHIATRIC: Negative for: Weakness, Paralysis, Numbness, Tingling, Tremor, Nervousness, Depressed mood, Memory loss SKIN: Negative for: Rashes, Itching HEMATOLOGICAL/LYMPHATIC: Negative for: Easy bruising , Easy bleeding ENDOCRINE: Negative for: Heat or cold intolerance, Excessive sweating, Frequent urination, Frequent thirst PHYSICAL EXAMINATION: POSITIVES IN BOLD BP 156/72 (BP Site: Right Arm, BP Position: Sitting) Pulse 65 Ht 160 cm (5' 3 ) Wt 75.4 kg (166 lb 4.8 oz) SpO2 96% BMI 29.46 kg/m General: Well appearing, in no acute distress. Skin: No clubbing, no cyanosis. Eyes: Extra ocular movements intact Oropharynx: Teeth in good repair. Neck: No jugular venous distention, no carotid bruits, carotids have a normal upstroke, no palpable thyromegaly. Lungs: Clear to auscultation bilaterally, no wheezing or rhonchi. Heart: Regular rhythm, PMI not displaced, S1, S2 normal, no S3, no S4, no heaves, no rub and no murmur. Abdomen: Soft, nontender, bowel sounds normal, no palpable organomegaly, no bruits. Extremities: No peripheral edema . Grade 2/4 distal pulses bilaterally. Neuro: Oriented to person, place and time, alert, cooperative, gait coordinated. CARDIOVASCULAR MEDICINE TESTING: Electrocardiogram: October 20, 2022 Stress Test:Echocardiogram: October 20, 2022 - The exercise stress echo was non-diagnostic due to sub-optimal heart rate response at 76 % of MPHR (5.1 METS). No regional wall motion abnormality seen at heart rate achieved. - The left ventricle is normal in size. Left ventricular systolic function is normal. EF = 58 5% (2D biplane) - The right ventricle is normal in size. Right ventricular systolic function is normal. - No significant valvular abnormalities noted - Exam was compared with the prior echocardiographic exam performed on 10/06/2021 (Stress). Similar resting findings. Patient unable to achieve MPHR today but no RWMAs noted at the level of stress acheived. I have personally reviewed the Electrocardiogram and Echocardiogram. LABS Component Latest Ref Rng & Units 10/18/2022 Protein, Total 6.3 - 8.0 g/dL 5.5 (L) Albumin 3.9 - 4.9 g/dL 4.2 Calcium 8.5 - 10.2 mg/dL 9.6 Bilirubin, Total 0.2 - 1.3 mg/dL 0.3 Alkaline Phosphatase 34 - 123 U/L 69 AST 13 - 35 U/L 22 ALT 7 - 38 U/L 19 Glucose 74 - 99 mg/dL 104 (H) BUN 7 - 21 mg/dL 16 Creatinine 0.58 - 0.96 mg/dL 1.00 (H) Sodium 136 - 144 mmol/L 141 Potassium 3.7 - 5.1 mmol/L 4.7 Chloride 97 - 105 mmol/L 105 CO2 22 - 30 mmol/L 29 Anion Gap 9 - 18 mmol/L 7 (L) eGFR >=60 mL/min/1.73m 59 (L) Cholesterol, Total <200 mg/dL 172 Triglyceride <150 mg/dL 174 (H) HDL Cholesterol >39 mg/dL 46 Non HDL Cholesterol <130 mg/dL 126 Fasting Time hrs 16 VLDL Cholesterol <30 mg/dL 35 (H) TC:HDL Ratio <5.10 3.74 LDL Cholesterol <100 mg/dL 91 LDL:HDL Ratio <2.54 1.98 Hemoglobin A1C 4.3 - 5.6 % 5.9 (H) Estimated Average Glucose mg/dL 123 Last 4 BP Last 4 Encounter BP Readings: Date: BP: 10/06/2021 115/67 07/15/2021 164/74 01/06/2021 118/60 08/06/2020 120/64 Creatinine Date Value Ref Range Status 10/18/2022 1.00 (H) 0.58 - 0.96 mg/dL Final 10/06/2021 0.85 0.58 - 0.96 mg/dL Final 01/02/2021 0.91 0.58 - 0.96 mg/dL Final 08/06/2020 0.96 0.58 - 0.96 mg/dL Final IMPRESSION: Ms. Celis is a 77 year old female who has a past medical history significant GERD, HLD, HTN, tachycardia and asthma. # Left arm discomfort - Stress echo today negative for ischemia # Hypertension - well controlled - BP today: 156/72 - Taking metoprolol tartrate 25 mg BID # HLD - needs management - Lipid panel 10/18/22: Cholesterol: 172 mg/dL T mg/dL LDL: 91 mg/dL - Taking pravastatin 20 mg PLAN AND RECOMMENDATIONS: - Continue current medical regimen - Follow up in 1 year with stress echocardiogram I personally interviewed, confirmed and edited the above information if obtained by others. CONTACT INFORMATION: Scribe Attestation: By signing my name below, I, Karthik Solorio, Research Coordinator, attest that this documentation has been prepared under the direction and in the presence of Dr. Rex Beaver MD. Electronically Signed:Karthik Solorio, Research Coordinator, scribe, October 20, 2022 10:24 AM Provider Attestation: I, Rex Beaver MD, personally performed the services described in this documentation. All medical record entries made by the scribe were at my direction and in my presence. I have reviewed the chart and discharge instructions (if applicable) and agree that the record reflects my personal performance and is accurate and complete. Electronically Signed: Rex Beaver MD October 20, 2022 Rex Beaver M.D., [facility] Section Head, Cardiovascular Imaging [facility] Department of Cardiovascular Medicine [facility] [place] [facility] Desk [id number] [place] [address] Office - [phone] [facility] [address] Office Appointments: [phone] extension [phone] documented in this encounter [facility] 10-11-2022 Miscellaneous Notes Call from pharmacy requesting refill. Requested Prescriptions Pending Prescriptions Disp Refills pravastatin (PRAVACHOL) 40 mg tablet [Pharmacy Med Name: PRAVASTATIN TABS 40MG] 90 tablet 3 Sig: TAKE 1 TABLET DAILY AT BEDTIME Patient last seen 10/06/2021 Gerri MAZARIEGOS documented in this encounter [facility] 07-12-2022 Note HNO ID: [id number] Author: Nicki Johnston Service: ? Author Type: Physician Type: Progress Notes Filed: 07/12/2022 12:46 PM Note Text: Subjective: Patient presents to clinic c/o painful toenails. They state that the nails are especially painful with shoe gear and pressure. Patient states that nails 1-5 b/l are painful. No other pedal complaints at this time. Patient states no change in medications or medical history since last visit. Objective: Patient presents to clinic ambulating in [facility] Vasc: DP and PT pulses are palpable bilateral. CFT is less than 5 seconds bilateral. Skin temperature is warm to cool proximal to distal bilateral. There is no edema or varicosities noted. Neuro: Protective sensation is intact to the foot and toes when tested with the 5.07 SWM bilateral. Vibratory sensation is decreased at the hallux IPJ bilateral. The hallux is downgoing bilateral. Derm: Nails 1-5 b/l are painful, discolored-yellow, thick, crumbly, dystrophic and with subungal debris. Skin is of normal turgor, texture and hair growth is present bilateral. There are no hyperkeratosis, ulcerations, scars, verruca or other lesions noted. Ortho: Muscle strength is 5/5 for all pedal groups tested. Ankle joint DF is decreased with the knee extended with no pain or crepitus noted. 1st MPJ ROM is decreased bilateral. Assessment: (B35.1) Onychomycosis (primary encounter diagnosis) (M79.674) Pain in toe of right foot (M79.672) Pain in left foot Plan: Patient was seen and evaluated. Nails 1-5 bilateral were debrided in length and thickness. Patient is to RTC in 3-4 months. Nicki Johnston DPM [facility] 07-12-2022 Note HNO ID: [id number] Author: Montse Jeong RN Service: ? Author Type: ? Type: Progress Notes Filed: 07/12/2022 12:46 PM Note Text: Patient presents with: Left Foot - Established Patient, Debridement of Nail Right Foot - Established Patient, Debridement of Nail [facility] 07-12-2022 History of Presen t illness Narrative Subjective: Patient presents to clinic c/o painful toenails. They state that the nails are especially painful with shoe gear and pressure. Patient states that nails 1-5 b/l are painful. No other pedal complaints at this time. Patient states no change in medications or medical history since last visit. Objective: Patient presents to clinic ambulating in [facility] Vasc: DP and PT pulses are palpable bilateral. CFT is less than 5 seconds bilateral. Skin temperature is warm to cool proximal to distal bilateral. There is no edema or varicosities noted. Neuro: Protective sensation is intact to the foot and toes when tested with the 5.07 SWM bilateral. Vibratory sensation is decreased at the hallux IPJ bilateral. The hallux is downgoing bilateral. Derm: Nails 1-5 b/l are painful, discolored-yellow, thick, crumbly, dystrophic and with subungal debris. Skin is of normal turgor, texture and hair growth is present bilateral. There are no hyperkeratosis, ulcerations, scars, verruca or other lesions noted. Ortho: Muscle strength is 5/5 for all pedal groups tested. Ankle joint DF is decreased with the knee extended with no pain or crepitus noted. 1st MPJ ROM is decreased bilateral. Assessment: (B35.1) Onychomycosis (primary encounter diagnosis) (M79.674) Pain in toe of right foot (M79.672) Pain in left foot Plan: Patient was seen and evaluated. Nails 1-5 bilateral were debrided in length and thickness. Patient is to RTC in 3-4 months. Nicki Johnston DPM Patient presents with: Left Foot - Established Patient, Debridement of Nail Right Foot - Established Patient, Debridement of Nail documented in this encounter [facility] 04-13-2022 History of Presen t illness Narrative Subjective: Patient presents to clinic c/o painful toenails. They state that the nails are especially painful with shoe gear and pressure. Patient states that nails 1-5 b/l are painful. No other pedal complaints at this time. Patient states no change in medications or medical history since last visit. Objective: Patient presents to clinic ambulating in [facility] Vasc: DP and PT pulses are palpable bilateral. CFT is less than 5 seconds bilateral. Skin temperature is warm to cool proximal to distal bilateral. There is no edema or varicosities noted. Neuro: Protective sensation is intact to the foot and toes when tested with the 5.07 SWM bilateral. Vibratory sensation is decreased at the hallux IPJ bilateral. The hallux is downgoing bilateral. Derm: Nails 1-5 b/l are painful, discolored-yellow, thick, crumbly, dystrophic and with subungal debris. Skin is of normal turgor, texture and hair growth is present bilateral. There are no hyperkeratosis, ulcerations, scars, verruca or other lesions noted. Ortho: Muscle strength is 5/5 for all pedal groups tested. Ankle joint DF is full with the knee extended with no pain or crepitus noted. 1st MPJ ROM is full bilateral. Assessment: (B35.1) Onychomycosis (primary encounter diagnosis) (M79.674) Pain in toe of right foot (M79.672) Pain in left foot Plan: Patient was seen and evaluated. Nails 1-5 bilateral were debrided in length and thickness. Patient is to RTC in 3-4 months. Nicki Johnston DPM Patient presents with: Left Foot - Established Patient, Follow Up, nail care Right Foot - Established Patient, Follow Up, nail care Patricia Rangel LPN documented in this encounter [facility] 12-01-2021 Instructions Johnson Blancas MD - 12/01/2021 11:34 AM EDT Assessment / Plan Assessment: 1) Prediabetes based on HbA1c, wants to work on lifestyle intervention for now, and wait on metformin till next apppointment, see if HbA1c has dropped. Treatment / Plan: 1) walk 20min daily, or use one of your exercise equipment 2) return to me in 3 months by virtual visit Johnson Blancas MD Data Data Review: Component Hemoglobin A1C Latest Ref Rng & Units 4.3 - 5.6 % 01/23/2014 6.0 01/15/2019 5.9 09/07/2019 5.7 (H) 02/21/2020 6.1 (H) 08/01/2020 5.6 07/15/2021 5.8 10/06/2021 5.9 (H) documented in this encounter [facility] 12-01-2021 History of Presen t illness Narrative Virtual Visit utilizing both audio and video components MyChart-Zoom Assessment / Plan Assessment: 1) Prediabetes based on HbA1c, wants to work on lifestyle intervention for now, and wait on metformin till next apppointment, see if HbA1c has dropped. Treatment / Plan: 1) walk 20min daily, or use one of your exercise equipment 2) return to me in 3 months by virtual visit Johnson Blancas MD Data Data Review: Component Hemoglobin A1C Latest Ref Rng & Units 4.3 - 5.6 % 01/23/2014 6.0 01/15/2019 5.9 09/07/2019 5.7 (H) 02/21/2020 6.1 (H) 08/01/2020 5.6 07/15/2021 5.8 10/06/2021 5.9 (H) History Prediabetes : based on HbA1c never been on metformin would like to wait on taking, and work on lifestyle for 3 months ROS PHYSICAL EXAM There were no vitals taken for this visit. 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 IRRITABLE COLON 07/12/2005 Kidney stones Leiomyoma of uterus, unspecified 2009 Noted on the sono Nonspecific elevation of levels of transaminase or lactic acid dehydrogenase (LDH) Nontoxic multinodular goiter 04/13/2010 Paroxysmal SVT (supraventricular tachycardia) (HCC) 02/2015 Peptic ulcer, unspecified site, unspecified as acute or chronic, without mention of hemorrhage, perforation, or obstruction Postmenopausal atrophic vaginitis 01/16/2010 Pseudophakia, left eye Pseudophakia, right eye Retinal detachment, right 2002 Rosacea 02/01/2005 Seasonal allergies Symptomatic menopausal or female climacteric states 01/16/2010 Thyroid cyst Unspecified asthma(493.90) VITAMIN D DEFICIENCY NOS 07/07/2006 PAST SURGICAL HISTORY Procedure Laterality Date APPENDECTOMY 06/11/2004 never had breast surgery APPENDECTOMY HX BREAST LEFT FINE NEEDLE ASPIRATION BREAST RIGHT FINE NEEDLE ASPIRATION CATARACT SURGERY, COMPLEX 2004 Lt CATH PLMT L HRT & ARTS W/NJX & ANGIO IMG S&I 2006 small vessel disease CHOLECYSTECTOMY HX COLONOSCOPY FLX DX W/COLLJ SPEC WHEN PFRMD 01/2007 Colonoscopy HYSTEROSCOPY, DIAGNOSTIC (SEPARATE Hysteroscopy LAPAROSCOPY SURG CHOLECYSTECTOMY 06/2005 Cholecystectomy, lap PAST SURGICAL HISTORY OF 03/12/2004 VAGINAL POLYPECTOMY PAST SURGICAL HISTORY OF 05/15/1999 EMB PAST SURGICAL HISTORY OF 03/13/1997 EMB and vaginal biopsy PAST SURGICAL HISTORY OF 09/12 Basal cell removed from the right upper arm RPR COMPLEX RETINA DETACH VITRECT &MEMBRANE PEEL 2001 Rt X2 XCAPSL CTRC RMVL INSJ IO LENS PROSTH W/O ECP Right 09/18/14 Cataract Extraction with PC IOL FAMILY HISTORY Problem Relation Age of Onset Stroke Mother age 88 Heart Mother Diabetes Mother Hypertension Mother Kidney Disease Mother Glaucoma Mother Cataract Mother Macular Degen Mother Cancer Father age 77, lung CA Stroke Father Hypertension Father Allergies Father Cataract Father Glaucoma Sister Cancer Sister Allergies Sister Heart Sister heart murmur Breast Cancer Maternal Aunt Breast Cancer Other maternal cousin Stroke Maternal Grandmother Hypertension Paternal Grandmother Cancer Sister twin Multiple Myloma Social History Tobacco Use Smoking status: Former Packs/day: 4.00 Years: 20.00 Pack years: 80.00 Types: Cigarettes Quit date: 03/26/1984 Years since quittin.7 Smokeless tobacco: Never Vaping Use Vaping Use: Never used Substance Use Topics Alcohol use: No Drug use: No MEDICATIONS & ALLERGIES Current Outpatient Medications Medication Sig Dispense Refill pravastatin (PRAVACHOL) 40 mg tablet Take 1 tablet by mouth daily at bedtime. 90 tablet 3 polyethylene glycol 3350 (MIRALAX) 17 gram/dose powder Take 17 g by mouth once daily. calcium citrate (CITRACAL ORAL) Take 2 capsules by mouth twice daily. doxycycline hyclate (VIBRAMYCIN) 100 mg capsule Take 100 mg by mouth once daily. cyanocobalamin (VITAMIN B-12) 500 mcg tablet Take 1 tablet by mouth once daily. mbthlung-nqw-zfvi-FA-lutein (CENTRUM SILVER WOMEN) 8 mg iron-400 mcg-300 mcg tab Take 0.5 tablets by mouth once daily. Zinc 50 mg tab Take 25 mg by mouth once daily. Selenium 100 mcg tab Take 50 mcg by mouth once daily. RABEprazole (ACIPHEX) 20 mg tablet Take 20 mg by mouth once daily. metoprolol tartrate, short acting, (LOPRESSOR) 25 mg tablet Take 1 tablet by mouth twice daily. 180 tablet 3 VITAMIN D 50,000 unit capsule Take 1 tablet by mouth every 2 weeks. escitalopram oxalate (LEXAPRO) 10 mg tablet Take 10 mg by mouth once daily. vit C,T-Pb-qifqp-lutein-zeaxan (PRESERVISION AREDS 2) [id number] mb-ezmo-tg-mg cap Take by mouth twice daily. 0 mometasone (NASONEX) 50 mcg/actuation nasal spray Use 2 Sprays in the nose once daily. 3 Bottle 3 albuterol HFA (PROAIR HFA) 90 mcg/actuation inhaler Inhale 2 Puffs as instructed as needed. TWO PUFFS FOUR TIMES DAILY NEEDED 1 Inhaler 0 EPINEPHrine 0.3 mg/0.3 mL (1:1,000) atIn Inject subcutaneously as needed. Inject immediately with evidence of reaction and to proceed to the emergency room 1 Each 0 pravastatin 20 mg tablet Take 1 tablet by mouth once daily. 90 tablet 3 aspirin, enteric coated (ECOTRIN LOW STRENGTH) 81 mg EC tablet Take 1 tablet by mouth once daily. 0 mupirocin (BACTROBAN) 2 % cream Apply to affected area three times daily. APPLY TO AFFECTED AREA 15 g 1 Current Facility-Administered Medications Medication Dose Route Frequency Provider Last Rate Last Admin perflutren lipid microspheres 1.3 mL in NaCl (PF) 0.9% 10 mL injection (DEFINITY) INTRAVENOUS DIRECTED PRN Rex Beaver MD sodium chloride 0.9 % (flush) 10 mL (BD POSIFLUSH) 10 mL INTRAVENOUS DIRECTED PRN Rex Beaver MD ALLERGIES Allergen Reactions Flounder [Other] Anaphylaxis Halibut Liver Oil Anaphylaxis Iodine Anaphylaxis difficulty breathing Shellfish Anaphylaxis anaphalaxis Bacitracin Rash rash Cephalosporins Rash sore rash Erythromycin Base Diarrhea diarrhea Feathers Other: See Comments congestion Guaifenesin Rash, Swelling humibid red swollen rash Humabid [Other] Rash, Swelling red,swollen rash Keflex [Cephalexin] Hives hives Penicillins Rash, Hives rash,hives Sulfa (Sulfonamide * Rash rash Wool Rash, Itching Adhesive Tape (Lesli* Rash Augmentin [Amoxicil* rash/hives Cefaclor Unknown unknown Nickel Rash Potassium Clavulana* Unknown Cleocin [Clindamyci* Itching itch Macrolide Antibioti* Other: See Comments biaxin adverse reaction- Nausea documented in this encounter [facility] 10-06-2021 History of Presen t illness Narrative Images from the original note were not included. [facility] [place] [facility] Department of Cardiovascular Medicine SECTION OF CARDIOVASCULAR IMAGING OUTPATIENT VISIT DATE October 06, 2021 OUTPATIENT VISIT TYPE ESTABLISHED PRIMARY CARE PHYSICIAN: Alexander Hogue MD [address] [place] [address] CHIEF COMPLAINT: CV health management visit. HISTORY OF PRESENT ILLNESS: Ms. Celis is a 76 year old female who presents today for a cardiovascular medicine follow-up visit. She has a past medical history significant GERD, HLD, HTN, tachycardia and asthma. She was last seen in clinic on 01/06/2021. At that time, she had no new symptoms. She was instructed to follow up in 9 months with stress echo. Today, Mrs. Celis reports no new symptoms. She notes that she has not been exercising, and has been eating more fast food than usual. She notes muscle pain in her left arm and shoulder, unrelated to exertion. From a cardiovascular perspective, pt continues to do well and specifically denies any CP, SOB, palpitations, syncope, orthopnea, LE edema, focal neuro sx, post-prandial abdominal pain, or claudication. 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 IRRITABLE COLON 07/12/2005 Kidney stones Leiomyoma of uterus, unspecified 2009 Noted on the sono Nonspecific elevation of levels of transaminase or lactic acid dehydrogenase (LDH) Nontoxic multinodular goiter 04/13/2010 Paroxysmal SVT (supraventricular tachycardia) (HCC) 02/2015 Peptic ulcer, unspecified site, unspecified as acute or chronic, without mention of hemorrhage, perforation, or obstruction Postmenopausal atrophic vaginitis 01/16/2010 Pseudophakia, left eye Pseudophakia, right eye Retinal detachment, right 2002 Rosacea 02/01/2005 Seasonal allergies Symptomatic menopausal or female climacteric states 01/16/2010 Thyroid cyst Unspecified asthma(493.90) VITAMIN D DEFICIENCY NOS 07/07/2006 PAST SURGICAL HISTORY Procedure Laterality Date APPENDECTOMY 06/11/2004 never had breast surgery APPENDECTOMY HX BREAST LEFT FINE NEEDLE ASPIRATION BREAST RIGHT FINE NEEDLE ASPIRATION CATARACT SURGERY, COMPLEX 2004 Lt CATH PLMT L HRT & ARTS W/NJX & ANGIO IMG S&I 2005 small vessel disease CHOLECYSTECTOMY HX COLONOSCOPY FLX DX W/COLLJ SPEC WHEN PFRMD 01/2007 Colonoscopy HYSTEROSCOPY, DIAGNOSTIC (SEPARATE Hysteroscopy LAPAROSCOPY SURG CHOLECYSTECTOMY 06/2005 Cholecystectomy, lap PAST SURGICAL HISTORY OF 03/12/2004 VAGINAL POLYPECTOMY PAST SURGICAL HISTORY OF 05/15/1999 EMB PAST SURGICAL HISTORY OF 03/13/1997 EMB and vaginal biopsy PAST SURGICAL HISTORY OF 09/12 Basal cell removed from the right upper arm RPR COMPLEX RETINA DETACH VITRECT &MEMBRANE PEEL 2001 Rt X2 XCAPSL CTRC RMVL INSJ IO LENS PROSTH W/O ECP Right 09/18/14 Cataract Extraction with PC IOL SOCIAL HISTORY Social History Tobacco Use Smoking status: Former Smoker Packs/day: 4.00 Years: 20.00 Pack years: 80.00 Types: Cigarettes Quit date: 03/26/1984 Years since quittin.5 Smokeless tobacco: Never Used Vaping Use Vaping Use: Never used Substance Use Topics Alcohol use: No Drug use: No ALLERGIES: ALLERGIES Allergen Reactions Flounder [Other] Anaphylaxis Halibut Liver Oil Anaphylaxis Iodine Anaphylaxis difficulty breathing Shellfish Anaphylaxis anaphalaxis Bacitracin Rash rash Cephalosporins Rash sore rash Erythromycin Base Diarrhea diarrhea Feathers Other: See Comments congestion Guaifenesin Rash, Swelling humibid red swollen rash Humabid [Other] Rash, Swelling red,swollen rash Keflex [Cephalexin] Hives hives Penicillins Rash, Hives rash,hives Sulfa (Sulfonamide * Rash rash Wool Rash, Itching Adhesive Tape (Lesli* Rash Augmentin [Amoxicil* rash/hives Cefaclor Unknown unknown Nickel Rash Potassium Clavulana* Unknown Cleocin [Clindamyci* Itching itch Macrolide Antibioti* Other: See Comments biaxin adverse reaction- Nausea MEDICATIONS: polyethylene glycol 3350 (MIRALAX) 17 gram/dose powder Take 17 g by mouth once daily. calcium citrate (CITRACAL ORAL) Take 2 capsules by mouth twice daily. doxycycline hyclate (VIBRAMYCIN) 100 mg capsule Take 100 mg by mouth once daily. cyanocobalamin (VITAMIN B-12) 500 mcg tablet Take 1 tablet by mouth once daily. kjzqzejk-pjy-lkfl-FA-lutein (CENTRUM SILVER WOMEN) 8 mg iron-400 mcg-300 mcg tab Take 0.5 tablets by mouth once daily. Zinc 50 mg tab Take 25 mg by mouth once daily. Selenium 100 mcg tab Take 50 mcg by mouth once daily. RABEprazole (ACIPHEX) 20 mg tablet Take 20 mg by mouth once daily. metoprolol tartrate, short acting, (LOPRESSOR) 25 mg tablet Take 1 tablet by mouth twice daily. VITAMIN D 50,000 unit capsule Take 1 tablet by mouth every 2 weeks. escitalopram oxalate (LEXAPRO) 10 mg tablet Take 10 mg by mouth once daily. vit C,U-Wa-uoimg-lutein-zeaxan (PRESERVISION AREDS 2) [id number] zm-smmw-hz-mg cap Take by mouth twice daily. mometasone (NASONEX) 50 mcg/actuation nasal spray Use 2 Sprays in the nose once daily. albuterol HFA (PROAIR HFA) 90 mcg/actuation inhaler Inhale 2 Puffs as instructed as needed. TWO PUFFS FOUR TIMES DAILY NEEDED pravastatin 20 mg tablet Take 1 tablet by mouth once daily. aspirin, enteric coated (ECOTRIN LOW STRENGTH) 81 mg EC tablet Take 1 tablet by mouth once daily. mupirocin (BACTROBAN) 2 % cream Apply to affected area three times daily. APPLY TO AFFECTED AREA EPINEPHrine 0.3 mg/0.3 mL (1:1,000) atIn Inject subcutaneously as needed. Inject immediately with evidence of reaction and to proceed to the emergency room REVIEW OF SYSTEMS: POSITIVES IN BOLD GENERAL: Negative for: Weight loss or gain, Fever or Chills, Weakness and Sleep difficulties. HEENT: Negative for: Headache, Impaired Vision, Glasses, Hearing Impairment, Ringing in Ears, Nosebleeds, Poor dental care, Bleeding Gums, Dentures NECK: Negative for: Swelling, Pain, Stiffness CARDIOVASCULAR: SEE HPI RESPIRATORY: Negative for: Cough, Blood in Sputum, Shortness of breath, Wheezing, Apnea GASTROINTESTINAL: Negative for: Trouble swallowing, Heartburn, Change in bowel habits, Blood in stool, Dark black stools MUSCULOSKELETAL: Negative for: Muscle or joint pain, Stiffness, Joint swelling NEUROLOGIC/PSYCHIATRIC: Negative for: Weakness, Paralysis, Numbness, Tingling, Tremor, Nervousness, Depressed mood, Memory loss SKIN: Negative for: Rashes, Itching HEMATOLOGICAL/LYMPHATIC: Negative for: Easy bruising , Easy bleeding ENDOCRINE: Negative for: Heat or cold intolerance, Excessive sweating, Frequent urination, Frequent thirst PHYSICAL EXAMINATION: POSITIVES IN BOLD BP 115/67 (BP Site: Left Arm, BP Position: Sitting) Pulse 79 Ht 160 cm (5' 3 ) Wt 73.5 kg (162 lb) SpO2 93% BMI 28.70 kg/m General: Well appearing, in no acute distress. Skin: No clubbing, no cyanosis. Eyes: Extra ocular movements intact Oropharynx: Teeth in good repair. Neck: No jugular venous distention, no carotid bruits, carotids have a normal upstroke, no palpable thyromegaly. Lungs: Clear to auscultation bilaterally, no wheezing or rhonchi. Heart: Regular rhythm, PMI not displaced, S1, S2 normal, no S3, no S4, no heaves, no rub and no murmur. Abdomen: Soft, nontender, bowel sounds normal, no palpable organomegaly, no bruits. Extremities: No peripheral edema . Grade 2/4 distal pulses bilaterally. Neuro: Oriented to person, place and time, alert, cooperative, gait coordinated. CARDIOVASCULAR MEDICINE TESTING: Stress Test:Echocardiogram: October 06, 2021 - Exam indication: Chest Pain and CAD - The exercise stress echo was negative for ischemia at 92 % of MPHR (5.2 METS). - The left ventricle is normal in size. Left ventricular systolic function is normal. EF = 59 5% (2D biplane) - The right ventricle is normal in size. Right ventricular systolic function is normal. - Resting RVSP was 33 mm Hg and increased to 45 mm Hg. - Exam was compared with the prior echocardiographic exam performed on 01/06/21 (Stress). No major change. I have personally reviewed the Stress Test: Echocardiogram. LABS Component Latest Ref Rng & Units 10/06/2021 Protein, Total 6.3 - 8.0 g/dL 7.0 Albumin 3.9 - 4.9 g/dL 4.3 Calcium 8.5 - 10.2 mg/dL 9.8 Bilirubin, Total 0.2 - 1.3 mg/dL 0.4 Alkaline Phosphatase 34 - 123 U/L 73 AST 13 - 35 U/L 26 ALT 7 - 38 U/L 14 Glucose 74 - 99 mg/dL 100 (H) BUN 7 - 21 mg/dL 18 Creatinine 0.58 - 0.96 mg/dL 0.85 Sodium 136 - 144 mmol/L 139 Potassium 3.7 - 5.1 mmol/L 4.7 Chloride 97 - 105 mmol/L 100 CO2 22 - 30 mmol/L 28 Anion Gap 9 - 18 mmol/L 11 eGFR >=60 mL/min/1.73m 72 Cholesterol, Total <200 mg/dL 204 (H) Triglyceride <150 mg/dL 194 (H) HDL Cholesterol >39 mg/dL 45 Non HDL Cholesterol <130 mg/dL 159 (H) Fasting Time hrs 12 VLDL Cholesterol <30 mg/dL 39 (H) TC:HDL Ratio <5.10 4.53 LDL Cholesterol <100 mg/dL 120 (H) LDL:HDL Ratio <2.54 2.67 (H) Hemoglobin A1C 4.3 - 5.6 % 5.9 (H) Estimated Average Glucose mg/dL 123 Last 4 BP Last 4 Encounter BP Readings: Date: BP: 07/15/2021 164/74 01/06/2021 118/60 08/06/2020 120/64 02/13/2020 130/66 Creatinine Date Value Ref Range Status 10/06/2021 0.85 0.58 - 0.96 mg/dL Final 01/02/2021 0.91 0.58 - 0.96 mg/dL Final 08/06/2020 0.96 0.58 - 0.96 mg/dL Final 02/13/2020 0.83 0.58 - 0.96 mg/dL Final IMPRESSION: Ms. Celis is a 76 year old female with past medical history significant GERD, HLD, HTN, tachycardia and asthma. 1. Chest pain - Stress echo today negative for ischemia 2. Hypertension - well controlled - BP today: 115/67 - Taking metoprolol tartrate 25 mg BID 3. HLD - needs management - Lipid panel today: LDL: 120 mg/dL Non-HDL: 159 mg/dL - Taking pravastatin 20 mg PLAN AND RECOMMENDATIONS: - Increase pravastatin to 40 mg - Limit fast food and increase physical activity as possible - RTC with me in 1 year with EKG and stress echo I personally interviewed, confirmed and edited the above information if obtained by others. CONTACT INFORMATION: Scribe Attestation: By signing my name below, I, Karthik Solorio, attest that this documentation has been prepared under the direction and in the presence of Dr. Rex Beaver MD. Electronically Signed:irma Rodriguez, October 06, 2021 10:08 AM Rex Beaver M.D., [facility] Section Head, Cardiovascular Imaging [facility] Department of Cardiovascular Medicine [facility] [place] [facility] Desk [id number] [place] [address] Office [phone] extension [phone] Office Appointments: [phone] extension [phone] documented in this encounter [facility] 09-25-2021 History of Presen t illness Narrative Subjective: Patient presents to clinic c/o painful toenails. They state that the nails are especially painful with shoe gear and pressure. Patient states that nails 1-5 b/l are painful. No other pedal complaints at this time. Patient states no change in medications or medical history since last visit. Objective: Patient presents to clinic ambulating in [facility] Vasc: DP and PT pulses are palpable bilateral. CFT is less than 5 seconds bilateral. Skin temperature is warm to cool proximal to distal bilateral. There is no edema or varicosities noted. Neuro: Protective sensation is intact to the foot and toes when tested with the 5.07 SWM bilateral. Vibratory sensation is decreased at the hallux IPJ bilateral. The hallux is downgoing bilateral. Derm: Nails 1-5 b/l are painful, discolored-yellow, thick, crumbly, dystrophic and with subungal debris. Skin is of normal turgor, texture and hair growth is present bilateral. There are no hyperkeratosis, ulcerations, scars, verruca or other lesions noted. Ortho: Muscle strength is 5/5 for all pedal groups tested. Ankle joint DF is full with the knee extended with no pain or crepitus noted. 1st MPJ ROM is full bilateral. Assessment: (B35.1) Onychomycosis (primary encounter diagnosis) (M79.674) Pain in toe of right foot (M79.672) Pain in left foot Plan: Patient was seen and evaluated. Nails 1-5 bilateral were debrided in length and thickness. Patient is to RTC in 3-4 months. Nicki Johnston DPM Patient presents with: Left Foot - Follow Up, Established Patient, Nail Check Right Foot - Established Patient, Follow Up, Nail Check AMB ROOMING INTAKE FLOWSHEET DATA Risk Screening Do you have concerns about personal safety or safety in the home?: No documented in this encounter [facility] 07-15-2021 Procedure note Images from the original note were not included. Thyroid / Neck Ultrasound Findings: 1) right upper pole nodule 2.42cm sag x 1.35cm deep x 1.98cm trans 2) right isthmus nodule 1.68cm deep ob x 0.78cm trans ob x 1.62cm sag ob 3) left upper pole nocule, 0.84m sag x 0.67cm deep x 0.83cm trans Impression nodules stable or shrinking slightlyi Recommendation: followup 1 year Johnson Blancas MD Ultrasound images: right upper pole nodule sag right isthmus nodule trans sag left upper pole nodule sag trans Clinical Issues Reason for the study: followup thyroid nodules Comparison: 02/01/20 Technical Issues Equipment: [employer] Prosound Alpha 6 Transducer: Linear/Trapezoidal multifrequency Regions examined: Neck, Thyroid, Sagittal and transverse views were obtained. Color power Doppler were applied when indicated. documented in this encounter [facility] documented as of this encounter (statuses as of 09/28/2021) [facility] History of Past illness Narrative* Problem Noted Date Resolved Date Nonexudative age-related mac ular degeneration, left eye, intermediate dry stage 02/06/2016 11/22/2018 Contusion of foot 06/22/2010 08/13/2010 Primary localized osteoarthrosis, shoulder regio n 07/30/2008 04/06/2010 Nonspecific abnormal results of liver function s dy 10/24/2007 04/06/2010 Other malaise and fatigue 01/26/20072010 Unspecified vitamin D deficiency 07/07/2006 04/06/2010 Anxiety state, unspecified 04/08/200604/06 Chest pain, unspecified 01/20/2006 04/06/19 11 Unspecified asthma(493.90) 06/23/200501/31 Calculus of gallbladder with out mention of cholecystitis or obstruction 06/14/2005 04/06/2010 Pain in joint, shoulder region 06/04/2005 0 04/06/2010 Abdominal pain, unspecified site 02/01/2005 04/06/2010 DIZZINESS 05/19/2004 04/06/2010 documented as of this encounter (statuses as of 10/06/2021) [facility] History of Past illness Narrative* Problem Noted Date Resolved Date Nonexudative age-related mac ular degeneration, left eye, intermediate dry stage 02/06/2016 11/22/2018 Contusion of foot 06/22/2010 08/13/2010 Primary localized osteoarthrosis, shoulder regio n 07/30/2008 04/06/2010 Nonspecific abnormal results of liver function s dy 10/24/2007 04/06/2010 Other malaise and fatigue 01/26/20072010 Unspecified vitamin D deficiency 07/07/2006 04/06/2010 Anxiety state, unspecified 04/08/200604/06 Chest pain, unspecified 01/20/2006 04/06/19 11 Unspecified asthma(493.90) 06/23/200501/31 Calculus of gallbladder with out mention of cholecystitis or obstruction 06/14/2005 04/06/2010 Pain in joint, shoulder region 06/04/2005 0 04/06/2010 Abdominal pain, unspecified site 02/01/2005 04/06/2010 DIZZINESS 05/19/2004 04/06/2010 documented as of this encounter (statuses as of 10/06/2021) [facility] History of Past illness Narrative* Problem Noted Date Resolved Date Nonexudative age-related mac ular degeneration, left eye, intermediate dry stage 02/06/2016 11/22/2018 Contusion of foot 06/22/2010 08/13/2010 Primary localized osteoarthrosis, shoulder regio n 07/30/2008 04/06/2010 Nonspecific abnormal results of liver function s tudy 10/24/2007 04/06/2010 Other malaise and fatigue 01/26/20072010 Unspecified vitamin D deficiency 07/07/2006 04/06/2010 Anxiety state, unspecified 04/08/200604/06 Chest pain, unspecified 01/20/2006 04/06/19 11 Unspecified asthma(493.90) 06/23/200501/31 Calculus of gallbladder with out mention of cholecystitis or obstruction 06/14/2005 04/06/2010 Pain in joint, shoulder region 06/04/2005 0 04/06/2010 Abdominal pain, unspecified site 02/01/2005 04/06/2010 DIZZINESS 05/19/2004 04/06/2010 documented as of this encounter (statuses as of 10/24/2021) [facility] History of Past illness Narrative* Problem Noted Date Resolved Date Nonexudative age-related mac ular degeneration, left eye, intermediate dry stage 02/06/2016 11/22/2018 Contusion of foot 06/22/2010 08/13/2010 Primary localized osteoarthrosis, shoulder regio n 07/30/2008 04/06/2010 Nonspecific abnormal results of liver function s tudy 10/24/2007 04/06/2010 Other malaise and fatigue 01/26/20072010 Unspecified vitamin D deficiency 07/07/2006 04/06/2010 Anxiety state, unspecified 04/08/200604/06 Chest pain, unspecified 01/20/2006 04/06/19 11 Unspecified asthma(493.90) 06/23/200501/31 Calculus of gallbladder with out mention of cholecystitis or obstruction 06/14/2005 04/06/2010 Pain in joint, shoulder region 06/04/2005 0 04/06/2010 Abdominal pain, unspecified site 02/01/2005 04/06/2010 DIZZINESS 05/19/2004 04/06/2010 documented as of this encounter (statuses as of 12/01/2021) [facility] History of Past illness Narrative* Problem Noted Date Resolved Date Nonexudative age-related mac ular degeneration, left eye, intermediate dry stage 02/06/2016 11/22/2018 Contusion of foot 06/22/2010 08/13/2010 Primary localized osteoarthrosis, shoulder regio n 07/30/2008 04/06/2010 Nonspecific abnormal results of liver function s tudy 10/24/2007 04/06/2010 Other malaise and fatigue 01/26/20072010 Unspecified vitamin D deficiency 07/07/2006 04/06/2010 Anxiety state, unspecified 04/08/200604/06 Chest pain, unspecified 01/20/2006 04/06/19 11 Unspecified asthma(493.90) 06/23/200501/31 Calculus of gallbladder with out mention of cholecystitis or obstruction 06/14/2005 04/06/2010 Pain in joint, shoulder region 06/04/2005 0 04/06/2010 Abdominal pain, unspecified site 02/01/2005 04/06/2010 DIZZINESS 05/19/2004 04/06/2010 documented as of this encounter (statuses as of 04/13/2022) [facility] History of Past illness Narrative* Problem Noted Date Resolved Date Nonexudative age-related mac ular degeneration, left eye, intermediate dry stage 02/06/2016 11/22/2018 Contusion of foot 06/22/2010 08/13/2010 Primary localized osteoarthrosis, shoulder regio n 07/30/2008 04/06/2010 Nonspecific abnormal results of liver function s tudy 10/24/2007 04/06/2010 Other malaise and fatigue 01/26/20072010 Unspecified vitamin D deficiency 07/07/2006 04/06/2010 Anxiety state, unspecified 04/08/200604/06 Chest pain, unspecified 01/20/2006 04/06/19 11 Unspecified asthma(493.90) 06/23/200501/31 Calculus of gallbladder with out mention of cholecystitis or obstruction 06/14/2005 04/06/2010 Pain in joint, shoulder region 06/04/2005 0 04/06/2010 Abdominal pain, unspecified site 02/01/2005 04/06/2010 DIZZINESS 05/19/2004 04/06/2010 documented as of this encounter (statuses as of 06/09/2022) [facility] History of Past illness Narrative* Problem Noted Date Resolved Date Nonexudative age-related mac ular degeneration, left eye, intermediate dry stage 02/06/2016 11/22/2018 Contusion of foot 06/22/2010 08/13/2010 Primary localized osteoarthrosis, shoulder regio n 07/30/2008 04/06/2010 Nonspecific abnormal results of liver function s tudy 10/24/2007 04/06/2010 Other malaise and fatigue 01/26/20072010 Unspecified vitamin D deficiency 07/07/2006 04/06/2010 Anxiety state, unspecified 04/08/200604/06 Chest pain, unspecified 01/20/2006 04/06/19 11 Unspecified asthma(493.90) 06/23/200501/31 Calculus of gallbladder with out mention of cholecystitis or obstruction 06/14/2005 04/06/2010 Pain in joint, shoulder region 06/04/2005 0 04/06/2010 Abdominal pain, unspecified site 02/01/2005 04/06/2010 DIZZINESS 05/19/2004 04/06/2010 documented as of this encounter (statuses as of 07/12/2022) [facility] History of Past illness Narrative* Problem Noted Date Resolved Date Nonexudative age-related mac ular degeneration, left eye, intermediate dry stage 02/06/2016 11/22/2018 Contusion of foot 06/22/2010 08/13/2010 Primary localized osteoarthrosis, shoulder regio n 07/30/2008 04/06/2010 Nonspecific abnormal results of liver function s tudy 10/24/2007 04/06/2010 Other malaise and fatigue 01/26/20072010 Unspecified vitamin D deficiency 07/07/2006 04/06/2010 Anxiety state, unspecified 04/08/200604/06 Chest pain, unspecified 01/20/2006 04/06/19 11 Unspecified asthma(493.90) 06/23/200501/31 Calculus of gallbladder with out mention of cholecystitis or obstruction 06/14/2005 04/06/2010 Pain in joint, shoulder region 06/04/2005 0 04/06/2010 Abdominal pain, unspecified site 02/01/2005 04/06/2010 DIZZINESS 05/19/2004 04/06/2010 documented as of this encounter (statuses as of 08/16/2022) [facility] History of Past illness Narrative* Problem Noted Date Diagnosed Date Resolved Date Nonexudative age-related mac ular degeneration, left eye, intermediate dry stage 02/06/2016 11/22/2018 Contusion of foot 06/22/2010 08/13/2010 Primary localized osteoarthr osis, shoulder region 07/30/2008 04/06/2010 Nonspecific abnormal results of liver function study 10/24/2007 04/06/2010 Other malaise and fatigue 01/26/2007 Unspecified vitamin D deficiency 07/07/2006 04/06/2010 Anxiety state, unspecified 04/08/2006 0 04/06/2010 Chest pain, unspecified 01/20/200606/2010 Unspecified asthma(493.90) 06/23/2005 1 Calculus of gallbladder with out mention of cholecystitis or obstruction 06/14/2005 04/06/2010 Pain in joint, shoulder region 06/04/2005 04/06/2010 Abdominal pain, unspecified site 02/01/2005 04/06/2010 DIZZINESS 05/19/2004 04/06/2010 documented as of this encounter (statuses as of 10/12/2022) [facility]2016 History of Past illness Narrative* Problem Noted Date Diagnosed Date Resolved Date Nonexudative age-related mac ular degeneration, left eye, intermediate dry stage 02/06/2016 11/22/2018 Contusion of foot 06/22/2010 08/13/2010 Primary localized osteoarthr osis, shoulder region 07/30/2008 04/06/2010 Nonspecific abnormal results of liver function study 10/24/2007 04/06/2010 Other malaise and fatigue 01/26/2007 Unspecified vitamin D deficiency 07/07/2006 04/06/2010 Anxiety state, unspecified 04/08/2006 0 04/06/2010 Chest pain, unspecified 01/20/200606/2010 Unspecified asthma(493.90) 06/23/2005 1 Calculus of gallbladder with out mention of cholecystitis or obstruction 06/14/2005 04/06/2010 Pain in joint, shoulder region 06/04/2005 04/06/2010 Abdominal pain, unspecified site 02/01/2005 04/06/2010 DIZZINESS 05/19/2004 04/06/2010 documented as of this encounter (statuses as of 10/21/2022) [facility] History of Past illness Narrative* Problem Noted Date Diagnosed Date Resolved Date Nonexudative age-related mac ular degeneration, left eye, intermediate dry stage 02/06/2016 11/22/2018 Contusion of foot 06/22/2010 08/13/2010 Primary localized osteoarthr osis, shoulder region 07/30/2008 04/06/2010 Nonspecific abnormal results of liver function study 10/24/2007 04/06/2010 Other malaise and fatigue 01/26/2007 Unspecified vitamin D deficiency 07/07/2006 04/06/2010 Anxiety state, unspecified 04/08/2006 0 04/06/2010 Chest pain, unspecified 01/20/200606/2010 Unspecified asthma(493.90) 06/23/2005 1 Calculus of gallbladder with out mention of cholecystitis or obstruction 06/14/2005 04/06/2010 Pain in joint, shoulder region 06/04/2005 04/06/2010 Abdominal pain, unspecified site 02/01/2005 04/06/2010 DIZZINESS 05/19/2004 04/06/2010 documented as of this encounter (statuses as of 11/08/2022) [facility] History of Past illness Narrative* Problem Noted Date Diagnosed Date Resolved Date Nonexudative age-related mac ular degeneration, left eye, intermediate dry stage 02/06/2016 11/22/2018 Contusion of foot 06/22/2010 08/13/2010 Primary localized osteoarthr osis, shoulder region 07/30/2008 04/06/2010 Nonspecific abnormal results of liver function study 10/24/2007 04/06/2010 Other malaise and fatigue 01/26/2007 Unspecified vitamin D deficiency 07/07/2006 04/06/2010 Anxiety state, unspecified 04/08/2006 0 04/06/2010 Chest pain, unspecified 01/20/2006 010 06/2010 Unspecified asthma(493.90) 06/23/2005 1 Calculus of gallbladder with out mention of cholecystitis or obstruction 06/14/2005 04/06/2010 Pain in joint, shoulder region 06/04/2005 04/06/2010 Abdominal pain, unspecified site 02/01/2005 04/06/2010 DIZZINESS 05/19/2004 04/06/2010 documented as of this encounter (statuses as of 11/22/2022) [facility] History of Past illness Narrative* Problem Noted Date Diagnosed Date Resolved Date Nonexudative age-related mac ular degeneration, left eye, intermediate dry stage 02/06/2016 11/22/2018 Contusion of foot 06/22/2010 08/13/2010 Primary localized osteoarthr osis, shoulder region 07/30/2008 04/06/2010 Nonspecific abnormal results of liver function study 10/24/2007 04/06/2010 Other malaise and fatigue 01/26/2007 Unspecified vitamin D deficiency 07/07/2006 04/06/2010 Anxiety state, unspecified 04/08/2006 0 04/06/2010 Chest pain, unspecified 01/20/20060 06/2010 Unspecified asthma(493.90) 06/23/2005 1 Calculus of gallbladder with out mention of cholecystitis or obstruction 06/14/2005 04/06/2010 Pain in joint, shoulder region 06/04/2005 04/06/2010 Abdominal pain, unspecified site 02/01/2005 04/06/2010 DIZZINESS 05/19/2004 04/06/2010 documented as of this encounter (statuses as of 01/05/2023) [facility] History of Past illness Narrative* Problem Noted Date Diagnosed Date Resolved Date Nonexudative age-related mac ular degeneration, left eye, intermediate dry stage 02/06/2016 11/22/2018 Contusion of foot 06/22/2010 08/13/2010 Primary localized osteoarthr osis, shoulder region 07/30/2008 04/06/2010 Nonspecific abnormal results of liver function study 10/24/2007 04/06/2010 Other malaise and fatigue 01/26/2007 Unspecified vitamin D deficiency 07/07/2006 04/06/2010 Anxiety state, unspecified 04/08/2006 0 04/06/2010 Chest pain, unspecified 01/20/20060 06/2010 Unspecified asthma(493.90) 06/23/2005 1 Calculus of gallbladder with out mention of cholecystitis or obstruction 06/14/2005 04/06/2010 Pain in joint, shoulder region 06/04/2005 04/06/2010 Abdominal pain, unspecified site 02/01/2005 04/06/2010 DIZZINESS 05/19/2004 04/06/2010 documented as of this encounter (statuses as of 01/05/2023) [facility] History of Past illness Narrative* Problem Noted Date Diagnosed Date Resolved Date Nonexudative age-related mac ular degeneration, left eye, intermediate dry stage 02/06/2016 11/22/2018 Contusion of foot 06/22/2010 08/13/2010 Primary localized osteoarthr osis, shoulder region 07/30/2008 04/06/2010 Nonspecific abnormal results of liver function study 10/24/2007 04/06/2010 Other malaise and fatigue 01/26/2007 Unspecified vitamin D deficiency 07/07/2006 04/06/2010 Anxiety state, unspecified 04/08/2006 0 04/06/2010 Chest pain, unspecified 01/20/200606/2010 Unspecified asthma(493.90) 06/23/2005 1 Calculus of gallbladder with out mention of cholecystitis or obstruction 06/14/2005 04/06/2010 Pain in joint, shoulder region 06/04/2005 04/06/2010 Abdominal pain, unspecified site 02/01/2005 04/06/2010 DIZZINESS 05/19/2004 04/06/2010 documented as of this encounter (statuses as of 01/19/2023) [facility] History of Past illness Narrative* Problem Noted Date Diagnosed Date Resolved Date Nonexudative age-related mac ular degeneration, left eye, intermediate dry stage 02/06/2016 11/22/2018 Contusion of foot 06/22/2010 08/13/2010 Primary localized osteoarthr osis, shoulder region 07/30/2008 04/06/2010 Nonspecific abnormal results of liver function study 10/24/2007 04/06/2010 Other malaise and fatigue 01/26/2007 Unspecified vitamin D deficiency 07/07/2006 04/06/2010 Anxiety state, unspecified 04/08/2006 0 04/06/2010 Chest pain, unspecified 01/20/200606/2010 Unspecified asthma(493.90) 06/23/2005 1 Calculus of gallbladder with out mention of cholecystitis or obstruction 06/14/2005 04/06/2010 Pain in joint, shoulder region 06/04/2005 04/06/2010 Abdominal pain, unspecified site 02/01/2005 04/06/2010 DIZZINESS 05/19/2004 04/06/2010 documented as of this encounter (statuses as of 02/04/2023) [facility] History of Past illness Narrative* Problem Noted Date Diagnosed Date Resolved Date Nonexudative age-related mac ular degeneration, left eye, intermediate dry stage 02/06/2016 11/22/2018 Contusion of foot 06/22/2010 08/13/2010 Primary localized osteoarthr osis, shoulder region 07/30/2008 04/06/2010 Nonspecific abnormal results of liver function study 10/24/2007 04/06/2010 Other malaise and fatigue 01/26/2007 Unspecified vitamin D deficiency 07/07/2006 04/06/2010 Anxiety state, unspecified 04/08/2006 0 04/06/2010 Chest pain, unspecified 01/20/200606/2010 Unspecified asthma(493.90) 06/23/2005 1 Calculus of gallbladder with out mention of cholecystitis or obstruction 06/14/2005 04/06/2010 Pain in joint, shoulder region 06/04/2005 04/06/2010 Abdominal pain, unspecified site 02/01/2005 04/06/2010 DIZZINESS 05/19/2004 04/06/2010 documented as of this encounter (statuses as of 02/16/2023) [facility] History of Past illness Narrative* Problem Noted Date Diagnosed Date Resolved Date Nonexudative age-related mac ular degeneration, left eye, intermediate dry stage 02/06/2016 11/22/2018 Contusion of foot 06/22/2010 08/13/2010 Primary localized osteoarthr osis, shoulder region 07/30/2008 04/06/2010 Nonspecific abnormal results of liver function study 10/24/2007 04/06/2010 Other malaise and fatigue 01/26/2007 Unspecified vitamin D deficiency 07/07/2006 04/06/2010 Anxiety state, unspecified 04/08/2006 0 04/06/2010 Chest pain, unspecified 01/20/200606/2010 Unspecified asthma(493.90) 06/23/2005 1 Calculus of gallbladder with out mention of cholecystitis or obstruction 06/14/2005 04/06/2010 Pain in joint, shoulder region 06/04/2005 04/06/2010 Abdominal pain, unspecified site 02/01/2005 04/06/2010 DIZZINESS 05/19/2004 04/06/2010 documented as of this encounter (statuses as of 05/12/2023) [facility] Diagnosis Onychomycosis- Primary Dermatophytosis of nail Pain in toe of right foot Pain in limb Pain in left foot Pain in limb [facility]- [facility] Diagnosis Essential hypertension- Primary Unspecified essential hypertension Mixed hyperlipidemia Chest pain on breathing Painful respiration [facility] Diagnosis Nontoxic multinodular goiter- Primary [facility] Diagnosis Dysmetabolic syndrome X- Primary Dysmetabolic Syndrome X [facility] Diagnosis Onychomycosis- Primary Dermatophytosis of nail Pain in toe of right foot Pain in limb Pain in left foot Pain in limb [facility] Diagnosis Essential hypertension- Primary Unspecified essential hypertension [facility] Diagnosis Onychomycosis- Primary Dermatophytosis of nail Pain in toe of right foot Pain in limb Pain in left foot Pain in limb [facility] Diagnosis Mixed hyperlipidemia- Primary [facility] Diagnosis Essential hypertension- Primary Unspecified essential hypertension Mixed hyperlipidemia Chest pain on breathing Painful respiration Supraventricular tachycardia (HCC) Other specified cardiac dysrhythmias Other forms of angina pectoris (HCC) [facility] Diagnosis Onychomycosis- Primary Dermatophytosis of nail Pain in toe of right foot Pain in limb Pain in left foot Pain in limb [facility] Diagnosis Nontoxic multinodular goiter- Primary [facility] Diagnosis Onychomycosis- Primary Dermatophytosis of nail Pain in toe of right foot Pain in limb Pain in left foot Pain in limb [facility] Diagnosis Nontoxic multinodular goiter- Primary [facility] Diagnosis Essential hypertension- Primary Unspecified essential hypertension [facility] Diagnosis Nontoxic multinodular goiter [facility] Diagnosis Onychomycosis- Primary Dermatophytosis of nail Pain in toe of right foot Pain in limb Pain in left foot Pain in limb documented in this encounter [facility] for referral (narrative)* Outpatient Procedure (Routine) - Pending Review Specialty Diagnoses / Procedures Referred By Contraheel t Referred To Contact [facility] [place] Diagnoses Essential hypertension Procedures ECG COMPLETE ECG ROUTINE ECG W/LEAST 12 LDS W/I&R Rex Beaver MD [address] [place] [address] [facility] [address] [address] Referral ID Status Reason Start Date Expiration Date Visits Requested Visits Authorized [id number] Pending Review Auto-Generat ed Referral 06/09/2022 06/09/2023 1 1 [facility] for referral (narrative)* Outpatient Procedure (Routine) - Pending Review Specialty Diagnoses / Procedures Referred By Contac t Referred To Contact [facility] [place] Diagnoses Mixed hyperlipidemia Procedures STRESS ECHO TREADMILL ECHO TTHRC R-T 2D W/WO M-MODE COMPLETE REST&ST Rex Beaver MD [address] [place] [address] [facility] [place] [id number] Referral ID Status Reason Start Date Expiration Date Visits Requested Visits Authorized [id number] Pending Review Auto-Generat ed Referral 08/16/2022 08/16/2023 1 1 [facility] for referral (narrative)* Outpatient Procedure (Routine) - Pending Review Specialty Diagnoses / Procedures Referred By Contac t Referred To Contact [facility] [place] Diagnoses Essential hypertension Mixed hyperlipidemia Chest pain on breathing Procedures STRESS ECHO TREADMILL ECHO TTHRC R-T 2D W/WO M-MODE COMPLETE REST&ST Rex Beaver MD [address] [place] [id number] [place] [id number] Referral ID Status Reason Start Date Expiration Date Visits Requested Visits Authorized [id number] Pending Review Auto-Generat ed Referral 10/20/2022 10/20/2023 1 1 [facility] for referral (narrative)* Diagnostic Procedure Only (Routine) - Pending Review Specialty Diagnoses / Procedures Referred By Contac t Referred To Contact [facility] Diagnoses Nontoxic multinodular goiter Procedures US THYROID/PARATHYROID US SOFT TISSUE HEAD & NECK REAL TIME IMGE ALBERTO Blancas, [place] [address] [address] [facility] [place] [address] Referral ID Status Reason Start Date Expiration Date Visits Requested Visits Authorized [id number] Pending Review Auto-Generat ed Referral 11/22/2022 12/22/2023 1 1 T [facility] for referral (narrative)* Outpatient Procedure (Routine) - Pending Review Specialty Diagnoses / Procedures Referred By Contac t Referred To Contact [facility] [place] Diagnoses Essential hypertension Procedures STRESS ECHO TREADMILL ECHO TTHRC R-T 2D W/WO M-MODE COMPLETE REST&ST Rex Beaver MD [address] [place] [address] [address] Referral ID Status Reason Start Date Expiration Date Visits Requested Visits Authorized [id number] Pending Review Auto-Generat ed Referral 3 01/18/2024 1 1 * Outpatient Procedure (Routine) - Pending Review Specialty Diagnoses / Procedures Referred By Contac t Referred To Contact [facility] [place] Diagnoses Essential hypertension Procedures ECG COMPLETE ECG ROUTINE ECG W/LEAST 12 LDS W/I&R Rex Beaver MD [address] [place] [id number] [place] [id number] Referral ID Status Reason Start Date Expiration Date Visits Requested Visits Authorized [id number] Pending Review Auto-Generat ed Referral 3 01/18/2024 1 1 [facility] Diagnostic Procedure Only (Routine) - Closed Specialty Diagnoses / Procedures Referred By Andrew t Referred To Contact [facility] Diagnoses Nontoxic multinodular goiter Procedures US THYROID/PARATHYROID US SOFT TISSUE HEAD & [place] [address] [address] [facility] [place] [address] Referral ID Status Reason Start Date Expiration Date V isits Requested Visits Authorized [id number] Closed Auto-Generate d Referral 11/22/2022 12/22/2023 1 1 [facility] Advance Directives No Advanced Directives Records FoundDocuments on File Type Date Recorded 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 Advance Directive(s) Advance Directive(s) 09/10/2014 9:40 AM Documents on File Type Date Recorded 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 Advance Directive(s) 09/10/2014 9:40 AM Documents on File Type Date Recorded 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 Advance Directive(s) 09/10/2014 9:40 AM Summary Purpose Family History No Family History Records Found Additional Source Comments Source Comments (unrecognize d section and content) In the event this informatio n is protected by the Federal Confidentiality of Alcohol and Drug Abuse Patient Records regulations: The Federal rules restrict any use of the information to criminally investigate or prosecute any alcohol or drug abuse patient.[facility] event this information is protected by the Federal Confidentiality of Alcohol and Drug Abuse Patient Records regulations: The Federal rules restrict any use of the information to criminally investigate or prosecute any alcohol or drug abuse patient.[facility] the event this information is protected by the Federal Confidentiality of Alcohol and Drug Abuse Patient Records regulations: The Federal rules restrict any use of the information to criminally investigate or prosecute any alcohol or drug abuse patient.[facility] the event this information is protected by the Federal Confidentiality of Alcohol and Drug Abuse Patient Records regulations: The Federal rules restrict any use of the information to criminally investigate or prosecute any alcohol or drug abuse patient.[facility] the event this information is protected by the Federal Confidentiality of Alcohol and Drug Abuse Patient Records regulations: The Federal rules restrict any use of the information to criminally investigate or prosecute any alcohol or drug abuse patient.[facility] the event this information is protected by the Federal Confidentiality of Alcohol and Drug Abuse Patient Records regulations: The Federal rules restrict any use of the information to criminally investigate or prosecute any alcohol or drug abuse patient.[facility] the event this information is protected by the Federal Confidentiality of Alcohol and Drug Abuse Patient Records regulations: The Federal rules restrict any use of the information to criminally investigate or prosecute any alcohol or drug abuse patient.[facility] the event this information is protected by the Federal Confidentiality of Alcohol and Drug Abuse Patient Records regulations: The Federal rules restrict any use of the information to criminally investigate or prosecute any alcohol or drug abuse patient.[facility] the event this information is protected by the Federal Confidentiality of Alcohol and Drug Abuse Patient Records regulations: The Federal rules restrict any use of the information to criminally investigate or prosecute any alcohol or drug abuse patient.[facility] the event this information is protected by the Federal Confidentiality of Alcohol and Drug Abuse Patient Records regulations: The Federal rules restrict any use of the information to criminally investigate or prosecute any alcohol or drug abuse patient.[facility] the event this information is protected by the Federal Confidentiality of Alcohol and Drug Abuse Patient Records regulations: The Federal rules restrict any use of the information to criminally investigate or prosecute any alcohol or drug abuse patient.[facility] the event this information is protected by the Federal Confidentiality of Alcohol and Drug Abuse Patient Records regulations: The Federal rules restrict any use of the information to criminally investigate or prosecute any alcohol or drug abuse patient.[facility] the event this information is protected by the Federal Confidentiality of Alcohol and Drug Abuse Patient Records regulations: The Federal rules restrict any use of the information to criminally investigate or prosecute any alcohol or drug abuse patient.[facility] the event this information is protected by the Federal Confidentiality of Alcohol and Drug Abuse Patient Records regulations: The Federal rules restrict any use of the information to criminally investigate or prosecute any alcohol or drug abuse patient.[facility] the event this information is protected by the Federal Confidentiality of Alcohol and Drug Abuse Patient Records regulations: The Federal rules restrict any use of the information to criminally investigate or prosecute any alcohol or drug abuse patient.[facility] the event this information is protected by the Federal Confidentiality of Alcohol and Drug Abuse Patient Records regulations: The Federal rules restrict any use of the information to criminally investigate or prosecute any alcohol or drug abuse patient.[facility] the event this information is protected by the Federal Confidentiality of Alcohol and Drug Abuse Patient Records regulations: The Federal rules restrict any use of the information to criminally investigate or prosecute any alcohol or drug abuse patient.[facility] the event this information is protected by the Federal Confidentiality of Alcohol and Drug Abuse Patient Records regulations: The Federal rules restrict any use of the information to criminally investigate or prosecute any alcohol or drug abuse patient.[facility] the event this information is protected by the Federal Confidentiality of Alcohol and Drug Abuse Patient Records regulations: The Federal rules restrict any use of the information to criminally investigate or prosecute any alcohol or drug abuse patient.[facility] Reason for Visit (unrecogniz ed section and content) Reason Comments Thyroid Problem Reason Comments preDM Reason Comments Established Patient Follow Up nail care Reason Comments Established Patient Debridement of Nail Reason Comments Refill Request Reason Comments Established Patient nail care Follow Up nail care Reason Comments Thyroid Nodule Reason Comments Established Patient nail care Reason Comments Thyroid Nodule Reason Comments Radiology US Specialty Diagnoses / Procedures Referred By Contac t Referred To Contact [facility] Diagnoses Nontoxic multinodular goiter Procedures US THYROID/PARATHYROID US SOFT TISSUE HEAD & NECK [place] [address] [facility] [address] [place] [address] [place] [address] Referral ID Status Reason Start Date Expiration Date V isits Requested Visits Authorized [id number] Closed Auto-Generate d Referral 11/22/2022 12/22/2023 1 1 Reason Comments Established Patient Follow Up Diabetic Foot Care Care Teams (unrecognized sec tion and content) Car Sweeper Relationship Specialty Start Date End Date Alexander Hogue MD PCP - General Family Practice 08/28/15 Tonny Quintanilla Jr. [address] [phone] Allergy 03/06/15 Rex Beaver MD [address] [place] [address] Primary Staff Physician Cardiology 06/20/18 Car Sweeper Relationship Specialty Start Date End Date Alexander Hogue MD PCP - General Family Practice 08/28/15 Tonny Quintanilla Jr. [address] [phone] Allergy 03/06/15 Rex Beaver MD [address] [place] [address] Primary Staff Physician Cardiology 06/20/18 Car Sweeper Relationship Specialty Start Date End Date Alexander Hogue MD PCP - General Family Practice 08/28/15 Tonny Quintanilla [facility] [address] [phone] Allergy 03/06/15 Rex Beaver MD [address] [place], [place] [id number] Primary Staff Physician Cardiology 06/20/18 Car Sweeper Relationship Specialty Start Date End Date Alexander Hogue MD PCP - General Family Practice 08/28/15 Tonny Quintanilla Jr [address] [phone] Allergy 03/06/15 Rex Beaver MD [address] [place] [address] Primary Staff Physician Cardiology 06/20/18 Car Sweeper Relationship Specialty Start Date End Date Alexander Hogue MD [address] [phone] PCP - General Family Medicine 08/28/15 Tonny Quintanilla Jr. [address] [phone] Allergy 03/06/15 Rex Beaver MD [address] [place] [address] Primary Staff Physician Cardiology 06/20/18 Car Sweeper Relationship Specialty Start Date End Date Alexander Hogue MD [address] [address] [phone] PCP - General Family Medicine 08/28/15 Tonny Quintanilla Jr. [address] [facility] [address] [place] [phone] Allergy 03/06/15 Rex Beaver MD [address] [place] [address] Primary Staff Physician Cardiology 06/20/18 Car Sweeper Relationship Specialty Start Date End Date Alexander Hogue MD [address] [facility] [address] [place] [phone] PCP - General Family Medicine 08/28/15 Tonny Quintanilla Jr. [address] [facility] [facility] [address] [place] [phone] Allergy 03/06/15 Rex Beaver MD [address] [place] [address] Primary Staff Physician Cardiology 06/20/18 Car Sweeper Relationship Specialty Start Date End Date Alexander Hogue MD [address] [facility] [facility] [address] [place] [phone] PCP - General Family Medicine 08/28/15 Tonny Quintanilla Jr. [address] [place] [phone] Allergy 03/06/15 Rex Beaver MD [address] [place] [address] Primary Staff Physician Cardiology 06/20/18 Car Sweeper Relationship Specialty Start Date End Date Alexander Hogue MD [address] [facility] [address] [place] [phone] PCP - General Family Medicine 08/28/15 Tonny Quintanilla Jr. [address] [phone] Allergy 03/06/15 Rex Beaver MD [address] [place] [address] Primary Staff Physician Cardiology 06/20/18 Car Sweeper Relationship Specialty Start Date End Date Alexander Hogue MD [address] [phone] PCP - General Family Medicine 08/28/15 Tonny Quintanilla Jr. [address] [phone] Allergy 03/06/15 Rex Beaver MD [address] [place], [place] [id number] Primary Staff Physician Cardiology 06/20/18 Car Sweeper Relationship Specialty Start Date End Date Alexander Hogue MD [address] [phone] PCP - General Family Medicine 08/28/15 Tonny Quintanilla Jr. [address] [phone] Allergy 03/06/15 Rex Beaver MD [address] [place], [place] [id number] Primary Staff Physician Cardiology 06/20/18 Car Sweeper Relationship Specialty Start Date End Date Alexander Hogue MD [address] [phone] PCP - General Family Medicine 08/28/15 Tonny Quintanilla Jr. [address] [phone] Allergy 03/06/15 Rex Beaver MD [address] [place], [place] [id number] Primary Staff Physician Cardiology 06/20/18 Car Sweeper Relationship Specialty Start Date End Date Alexander Hogue MD [address] [phone] PCP - General Family Medicine 08/28/15 Tonny Quintanilla Jr. [address] [phone] Allergy 03/06/15 Rex Beaver MD [address] [place], [place] [id number] Primary Staff Physician Cardiology 06/20/18 Car Sweeper Relationship Specialty Start Date End Date Alexander Hogue MD [address] [phone] PCP - General Family Medicine 08/28/15 Tonny Quintanilla Jr. [address] [phone] Allergy 03/06/15 Rex Beaver MD [address] [place] [address] Primary Staff Physician Cardiology 06/20/18 Car Sweeper Relationship Specialty Start Date End Date Alexander Hogue MD [address] [phone] PCP - General Family Medicine 08/28/15 Tonny Quintanilla Jr. [address] [phone] Allergy 03/06/15 Rex Beaver MD [address] [place], [place] [id number] Primary Staff Physician Cardiology 06/20/18 Car Sweeper Relationship Specialty Start Date End Date Alexander Hogue MD [address] [phone] PCP - General Family Medicine 08/28/15 Tonny Quintanilla Jr. [address] [phone] Allergy 03/06/15 Rex Beaver MD [address] [place] [address] Primary Staff Physician Cardiology 06/20/18 INFORMATION SOURCE (unrecogn ized section and content) FOR RECORDS PERTAINING TO PATIENTS WHO ARE OR HAVE BEEN ENROLLED IN A CHEMICAL DEPENDENCY/SUBSTANCEABUSE PROGRAM, SOME INFORMATION MAY BE OMITTED. This clinical summary was aggregated from multiple sources. Caution should be exercised in using it in the provision of clinical care. This summary normalizes information from multiple sources, and as a consequence, information in this document may materially change the coding, format and clinical context of patient data. In addition, data may be omitted in some cases. CLINICAL DECISIONS SHOULD BE BASED ON THE PRIMARY CLINICAL RECORDS. [facility]. provides no warranty or guarantee of the accuracy or completeness of information in this document.
[2023-06-13 11:14] LABS: Hemoglobin A1c 5.9 % (3.8-5.6)
[2023-06-13 11:29] LABS: ALB/GLOB Ratio 1.1 RATIO (0.9-2.4); AST(SGOT) 29 U/L (15-37); Alanine Aminotransfer ALT/SGPT 35 U/L (13-56); Albumin, Serum 3.4 g/dL (3.2-5.0); Alkaline Phosphatase 70 U/L (45-117); Anion Gap 4 (5-15); BUN 16 mg/dL (7-18); BUN/Creat Ratio 16.1 RATIO (10-20); Calcium,Total 9.3 mg/dL (8.5-10.1); Chloride 108 mmol/L (98-107); Cholesterol 143 mg/dL (200); Creatinine, Serum 0.99 mg/dL (0.55-1.02); EST Glomerular Filtration Rate 58 mL/min (>60); Est Glom Filt Rate - Afr Amer 70 mL/min (>60); Globulin 3.1 g/dL (2.2-4.2); Glucose 115 mg/dL (74-106); High Density Lipoprotein 47 mg/dL; Protein, Total 6.5 g/dL (6.4-8.2); Sodium Level 142 mmol/L (136-145); Triglycerides 142 mg/dL; Very Low Density Lipoprotein 28 mg/dL (5-40)
== END | disposition home or self-care (01) ==
LOC: MFPLAB 08:37
PROVIDERS: PCP Family Medicine; Visit Provider Family Medicine
DX: R73.01 Impaired fasting glucose (principal); E78.5 Hyperlipidemia, unspecified
CPT/HCPCS: 36415; 80053; 80061; 83036

== ENCOUNTER → 2024-02-13 | Outpatient (CLI) | payer MEDICARE, SELFPAY | END | disposition home or self-care (01) | LOC: OPBI 10:25 | PROVIDERS: PCP Family Medicine; Referring Provider Obstetrics & Gynecology; Visit Provider Obstetrics & Gynecology | DX: Z12.31 Encounter for screening mammogram for malignant neoplasm of breast (principal) | CPT/HCPCS: 77063; 77067 ==

== ENCOUNTER → 2024-05-08 | Outpatient (CLI) | payer MEDICARE, SELFPAY ==
--- NOTE | 2024-05-08 12:42 | BD_ITS ---
PROCEDURE: DEXA BONE DENSITY STUDY REASON FOR EXAM: F, age 79 y/o . Patient is postmenopausal.. TECHNIQUE: DEXA scan of the lumbar spine and both hips. COMPARISON: Comparison is made with prior study dated April 01, 2022. FINDINGS: Lumbar Spine (L1-L4): g/cm2 (1.048)/T-score (0.0)/Z-score (2.5) findings are suggestive of normal with a low fracture risk. Left Femur Total: g/cm2 (0.826)/T-score (-0.9)/Z-score (1.0) Left Femoral Neck: g/cm2 (0.738)/T-score (-1.0)/Z-score (1.2) Right Femur Total: g/cm2 (0.859)/T-score (-0.7)/Z-score (1.2) Right Femoral Neck: g/cm2 (0.670)/T-score (-1.6)/Z-score (0.6) The T-Scores on the most recent prior examination were: Lumbar Spine (L1-L4): There has been improvement of bone density since the previous examination. Left Femur Total: Worsening bi 4%. Right Femur Total: Worsening by 1.8%. BD/Dexa Bone Density Study IMPRESSION: Osteopenia. Low fracture risk. Reading Location: [place] [address]
== END | disposition home or self-care (01) ==
PROVIDERS: PCP Family Medicine; Referring Provider Family Medicine; Visit Provider Family Medicine
DX: M85.80 Other specified disorders of bone density and structure, unspecified site (principal); Z78.0 Asymptomatic menopausal state
CPT/HCPCS: 77080

== ENCOUNTER → 2024-05-09 | Outpatient (CLI) | payer MEDICARE, SELFPAY ==
--- NOTE | 2024-05-09 13:26 | RAD_ITS ---
EXAM: XR Right Ankle Complete, 3 or More Views CLINICAL INDICATION: TECHNIQUE: Frontal, lateral and oblique views of the right ankle. COMPARISON: No relevant prior studies available. FINDINGS: BONES/JOINTS: See below. SOFT TISSUES: Soft tissue swelling without acute fracture. RAD/Ankle min 3 Views IMPRESSION: 1. Soft tissue swelling without acute fracture. 2. If symptoms persist, repeat radiograph in 7-10 days recommended. Reading [facility]
== END | disposition home or self-care (01) ==
LOC: MTRAD 13:24
PROVIDERS: PCP Family Medicine; Referring Provider Nurse Practitioner; Visit Provider Nurse Practitioner
DX: S99.911A Unspecified injury of right ankle, initial encounter (principal); X58.XXXA Exposure to other specified factors, initial encounter
CPT/HCPCS: 73610

== ENCOUNTER → 2024-06-14 | Outpatient (CLI) | payer MEDICARE, SELFPAY ==
[2024-06-14 11:17] LABS: Hemoglobin A1c 6.7 % (<=5.6)
[2024-06-14 12:20] LABS: ALB/GLOB Ratio 1.5 RATIO (0.9-2.4); AST(SGOT) 21 U/L (<=31); Alanine Aminotransfer ALT/SGPT 15 U/L (<=34); Albumin, Serum 4.1 g/dL (3.4-4.8); Alkaline Phosphatase 83 U/L (35-104); Anion Gap 9 (5-15); BUN 15 mg/dL (4-19); BUN/Creat Ratio 16.5 RATIO (10-20); Calcium,Total 9.6 mg/dL (7.6-11.0); Carbon Dioxide 26.8 mmol/L (21.0-32.0); Chloride 103 mmol/L (98-108); Cholesterol 156 mg/dL (<=200); Creatinine, Serum 0.92 mg/dL (0.70-1.20); EST Glomerular Filtration Rate 64 (>60); Globulin 2.7 g/dL (2.2-4.2); Glucose 112 mg/dL (70-99); High Density Lipoprotein 44 mg/dL; Low Density Lipoprotein Calc. 78 mg/dL; Potassium 5.4 mmol/L (3.3-5.1); Protein, Total 6.8 g/dL (5.9-8.4); Sodium Level 139 mmol/L (133-145); Total Bilirubin 0.49 mg/dL (0.00-1.30); Triglycerides 171 mg/dL; Very Low Density Lipoprotein 34 mg/dL (5-40); cholesterol:hdl ratio screen 3.53
[2024-06-14 12:23] LABS: Vitamin D,25 Hydroxy 56.7 ng/mL (30-100)
== END | disposition home or self-care (01) ==
LOC: MFPLAB 09:11
PROVIDERS: PCP Family Medicine; Referring Provider Family Medicine; Visit Provider Family Medicine
DX: E78.5 Hyperlipidemia, unspecified (principal); E55.9 Vitamin D deficiency, unspecified; R73.01 Impaired fasting glucose
CPT/HCPCS: 36415; 80053; 80061; 82306; 83036

== ENCOUNTER 2024-06-28 08:50 | Outpatient (CLI) | payer MEDICARE, SELFPAY ==
[2024-06-28 12:59] LABS: Anion Gap 9 (5-15); BUN 13 mg/dL (4-19); BUN/Creat Ratio 14.5 RATIO (10-20); Calcium,Total 8.5 mg/dL (7.6-11.0); Carbon Dioxide 27.6 mmol/L (21.0-32.0); Chloride 104 mmol/L (98-108); Creatinine, Serum 0.92 mg/dL (0.70-1.20); EST Glomerular Filtration Rate 65 (>60); Glucose 116 mg/dL (70-99); Potassium 4.8 mmol/L (3.3-5.1); Sodium Level 141 mmol/L (133-145)
== END 2024-06-28 23:59 | disposition home or self-care (01) ==
LOC: MFPLAB 08:51
PROVIDERS: PCP Family Medicine; Referring Provider Family Medicine; Visit Provider Family Medicine
DX: E87.5 Hyperkalemia (principal)
CPT/HCPCS: 36415; 80048

== ENCOUNTER 2024-07-24 11:30 | Outpatient (RCR) | payer MEDICARE, SELFPAY ==
--- NOTE | 2024-06-19 12:16 | HP.PTEVAL ---
Patient's Visit Information Visit Information Visit Information: CARLINE BACK is a 79 year old F referred to Physical Therapy by Dr. Alexander Gallagher MD with a diagnosis of poor balance. Date of Evaluation: 06/19/24 Physical Therapist: Yomi Li, DPT, OCS, CSCS Visit Plan Frequency: 2x /Week Duration: 4-6 Weeks Plan: 2x/week for 4-6 weeks IE HEP: gt up off floor with gentle support 2x10 daily adn lumbar ext in stand 20x 2x/day Please treat with FW, BW weight shift teaching ankle balance correction strategy, vestibuilar(foam ) balance with narrow COLIN, strngthening to get off floor, core strength on mat to HEP with all of these with pics. Subjective Subjective: Balance sucks. been noticing it for some time. Cannot walk heel to toe or SLS for long. Needs to be stronger in the core and legs. No falls. Activity at home is pretty normal but will not get up off floor very quickly. 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 Basic ADLS, hard to get off floor quickly. 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 Has some LB pain releases with extension. Sleep normal. none lately dizzynss, no numbness in legs. Objective Objective: Walks spedily and I back to PT without AD. Trasnfers chair without UE and bed I. Steps reciprocal without rail. core strength 3+/5 abds and ext and instability with hip flexion testing. transfer off floor requires UE for balance and slow to push from lower position which is frustrating for her. Lumbar ROM WFL and xtension feels good on LB, no pain. hip strength er 3, IR 4-, abd 3+, ext 3+, flexion 4- B knees and ankles 4/5. coordination to reciprocal toe and heel tap is good. reflexes 2/3 patella and achilles B. Sensation LE WNL to gross light touch B . Slow to FW weight shift when shifting posteriorly and prefers step strategy to ankle. Balance/Special Test Scores Functional Gait Assessment Score: 28 % Disability: 6.6700 CATSIB Score (Max score 120 seconds): 90 Lower Extremity Functional Score: 55 Goals Goal 1:: I appropriate HEP for weight shift, vest balance, strength up off floor and core strength to limit future problems. Goal Time Frame: 4-6 Weeks Goal 2:: get up off floor without UE assist Goal Time Frame: 4-6 Weeks Goal 3:: Pt feel 75% better in balance and mobility to aid in todd trip with grandkids. Goal Time Frame: 4-6 Weeks Rehabilitation Potential Physical Therapy Diagnosis: poor weight shift, vestibular balance deficits and weakness in lower ROM limiting comfortable function Rehabilitation Potential: Good Anticipated Interventions Patient/Client Instruction: Educate patient on: Condition and Plan of Care For the Purpose of:: To improve muscle performance and motor function, To increase tolerance to activity/condition/position, To improve gait and locomotor functions and To improve safety Therapeutic Exercise to Include: Strength training and Balance training For the Purpose of:: To improve nutrient delivery to tissue, To improve muscle performance and motor function, To increase tolerance to activity/condition/position, To improve gait and locomotor functions and To improve safety Text: Thank you for the opportunity to evaluate your patient. For Medicare and Medicare HMO plans, please review the plan of care and approve it. It will need to be FAXED BACK to us at [phone] for Medicare purposes. For Medicare only, by signing this I certify the plan of care. Please let me know if there are questions or concerns regarding this plan of care. Physician Signature: Date:
--- NOTE | 2024-07-24 12:50 | HP.PTDCSUM ---
Discharge Summary D/C summary: It has been my pleasure to treat CARLINE BACK referred by Dr. Alexander Gallagher MD, with the diagnosis of poor balance for a total of 8 visit(s). Discharge Date: 07/24/24 Please see the following information for a summary of their discharge status. Subjective Subjective: No more dizzy episodes, maybe now and then with head moving right to left. Gets unsteady for a moment. Getting off floor is getting easier with hands on knees. No more problems with bending and recovering. No f/u with doctor. Ready to do ex on her own. Overall Improvement % Improvement: 80 Objective Objective/Function: FGA+1 and above normal for her age. able to ambulate and bend and recover adn mvoe head without dizzyness or unsteadiness today. Goals Goal 1:: I appropriate HEP for weight shift, vest balance, strength up off floor and core strength to limit future problems. Goal Progress: Goal Met Goal 2:: get up off floor without UE assist Goal Progress: Goal Met Goal 3:: Pt feel 75% better in balance and mobility to aid in todd trip with grandkids. Goal Progress: Goal Met Plan Plan: d/c to HEP D/C Information d/c sentence: If there are questions or concerns regarding this patient's physical therapy, please feel free to call me at [phone]. Thank you for the referral of this patient. Sincerely, Yomi Li, DPT, OCS, CSCS Balance/Gait/Functional tests Balance/Special Test Scores Functional Gait Assessment Score: 29 % Disability: 3.3400 CATSIB Score (Max score 120 seconds): 90 Lower Extremity Functional Score: 62 Improvement % Improvement: 80
== END 2024-07-24 19:00 | disposition home or self-care (01) ==
LOC: PT 11:30
PROVIDERS: PCP Family Medicine; Referring Provider Family Medicine; Visit Provider Family Medicine
DX: R26.89 Other abnormalities of gait and mobility (principal)
CPT/HCPCS: 97110; 97161; 97530

== ENCOUNTER → 2024-08-29 | Outpatient (CLI) | payer MEDICARE, SELFPAY | END | disposition home or self-care (01) | PROVIDERS: PCP Family Medicine; Referring Provider Otolaryngology Otolaryngology/Facial Plastic Surgery; Visit Provider Otolaryngology Otolaryngology/Facial Plastic Surgery | DX: J02.9 Acute pharyngitis, unspecified (principal) | CPT/HCPCS: 87070; 87077; 87186 ==

== ENCOUNTER → 2025-03-06 | Outpatient (CLI) | payer MEDICARE, SELFPAY ==
--- NOTE | 2025-03-06 12:30 | BI_ITS ---
EXAM: SCRN MAMM (CAD)W/SHARAD BILAT DATE: 03/06/2025 CLINICAL HISTORY: F, Age 80 y/o , SCREENING Aunt with breast cancer. Prior bilateral breast aspirations. TECHNIQUE: Procedure Code: [id number] Modality: MG Procedure: SCRN MAMM (CAD)W/SHARAD BILAT COMPARISON: Prior exam(s) dated February 13, 2024.. FINDINGS: TISSUE DENSITY: The breasts are almost entirely fatty. Bilateral Breast Mammographic Findings: No significant masses, calcifications or other abnormalities are identified. Stable fat containing bilateral axillary lymph nodes. No suspicious masses, areas of developing architectural distortion, or suspicious calcifications. There has been no significant interval change. BI/SCRN MAMM (CAD)W/SHARAD BILAT IMPRESSION: Stable bilateral screening mammogram. OVERALL FINAL ASSESSMENT BI-RADS 2: BENIGN RECOMMENDATION: Routine annual follow-up in 1 Year Additional Recommendation none A letter with findings and recommendations will be mailed to the patient. Reading Location: [place] [address]
== END | disposition home or self-care (01) ==
PROVIDERS: PCP Family Medicine; Referring Provider Obstetrics & Gynecology; Visit Provider Obstetrics & Gynecology
DX: Z12.31 Encounter for screening mammogram for malignant neoplasm of breast (principal)
CPT/HCPCS: 77063; 77067

== ENCOUNTER → 2025-03-08 | Outpatient (CLI) | payer MEDICARE, SELFPAY ==
--- OUTSIDE RECORDS SUMMARY | 2025-03-08 15:50 | XMS RPT_ITS | CCD ---
Author Organization [facility] Care Team Providers Care Efficiency Expert Name Role Phone Linda Figueroa MD Unavailable [phone] Tonny Quintanilla Jr. Unavailable Alexander Gallagher MD Primary Care Provider Saranya BUTCHER, Unavailable Tonny Quintanilla Jr. Unavailable Alexander Gallagher MD Primary Care Provider Saranya BUTCHER, Unavailable Tonny Quintanilla Jr. Unavailable Alexander Gallagher MD Primary Care Provider [phone] Saranya BUTCHER, Unavailable Dr. Alexander Gallagher Primary Care Provider [phone] Alexander Gallagher Referring Provider Dr. Linda Figueroa Attending Provider Darek MAYERS, PA José Read Attending Provider Saranya BUTCHER, Unavailable Dr. Alexander Gallagher Primary Care Provider Dr. Alexander Gallagher Referring Provider [phone] Linda Figueroa Attending Provider Alexander Gallagher MD Primary Care Provider Dr. Alexander Gallagher Primary Care Provider [phone] Alexander Gallagher Referring Provider [phone] Linda Figueroa Attending Provider Aileen BUTCHER, Dr. Munoz Primary Care Provider Aileen BUTCHER, Dr. Munoz Referring Provider Hermann San Attending Provider Henry BUTCHER, Dr. Mckeon Attending Provider [phone] Aileen BUTCHER, Dr. Munoz Attending Provider [phone] [place] REWINDER OPERATOR-C, Perry Attending Provider [phone] [place]rews REWINDER OPERATOR-C, Perry Referring Provider Aileen BUTCHER, Dr. Munoz Primary Care Provider Aileen BUTCHER, Dr. Munoz Referring Provider Aileen BUTCHER, Dr. Munoz Primary Care Provider Aileen BUTCHER, Dr. Munoz Referring Provider Carley REWINDER OPERATOR-CCaitlyn Attending Provider Arias BUTCHER, Dr. Poncho Gonzales Attending Provider Arias BUTCHER, Dr. Poncho Gonzales Referring Provider Aileen BUTCHER, Alexander Velasco Primary Care Provider Saranya BUTCHER, P Unavailable TESTRAKE, NICKI Attending Unavailable TESTRAKE, NICKI Referring Unavailable GALLAGHER, ALEXANDER R Primary Care Unavailable SARANYA, Attending Unavailable GALLAGHER, ALEXANDER R Primary Care Unavailable SARANYA, Referring Unavailable SARANYA, Referring Unavailable GALLAGHER, ALEXANDER R Primary Care Unavailable GALLAGHER, ALEXANDER R Primary Care Unavailable GALLAGHER, ALEXANDER R Primary Care Unavailable TESTRAKE, NICKI Attending Unavailable TESTRAKE, NICKI Referring Unavailable GALLAGHER, ALEXANDER R Primary Care Unavailable TESTRAKE, NICKI Attending Unavailable TESTRAKE, NICKI Referring Unavailable GALLAGHER, ALEXANDER R Primary Care Unavailable JOHNSON BLANCAS Attending Unavailable GALLAGHER, ALEXANDER R Primary Care Unavailable TESTRAKE, NICKI Attending Unavailable TESTRAKE, NICKI Referring Unavailable GALLAGHER, ALEXANDER R Primary Care Unavailable TESTRAKE, NICKI Attending Unavailable TESTRAKE, NICKI Referring Unavailable GALLAGHER, ALEXANDER R Primary Care Unavailable SARANYA, Referring Unavailable GALLAGHER, ALEXANDER R Primary Care Unavailable Gallagher, Alexander Primary Care Unavailable Gallagher, Alexander Attending Unavailable Gallagher, Alexander Referring Unavailable Gallagher, Alexander Primary Care Unavailable Gallagher, Alexander Attending Unavailable Gallagher, Alexander Referring Unavailable Glalagher, Alexander Primary Care Unavailable Gallagher, Alexander Attending Unavailable Gallagher, Alexander Referring Unavailable Glalagher, Alexander Primary Care Unavailable Marcanthony, Linda Attending Unavailable Linda Figueroa Referring Unavailable Gallagher, Alexander Primary Care Unavailable Gallagher, Alexander Referring Unavailable Gallagher, Alexander Attending Unavailable Poncho Bianchi Attending Unavailable Poncho Bianchi Referring Unavailable Gallagher, Alexander Primary Care Unavailable Gallagher, Alexander Referring Unavailable Caitlyn Howe Attending Unavailable Gallagher, Alexander Primary Care Unavailable Gallagher, Alexander Referring Unavailable Gallagher, Alexander Primary Care Unavailable Hermann San Attending Unavailable Gallagher, Alexander Referring Unavailable Gallagher, Alexander Primary Care Unavailable Marcanthony, Linda Attending Unavailable Gallagher, Alexander Primary Care Unavailable Moomaw, Perry Attending Unavailable Gallagher, Alexander Referring Unavailable Gallagher, Alexander Primary Care Unavailable Gallagher, Alexander Attending Unavailable Gallagher, Alexander Referring Unavailable Gallagher, Alexander Primary Care Unavailable Moomaw, Perry Attending Unavailable Moomaw, Perry Referring Unavailable Allergies Allergy Classification Reported Allergen(s) Allergy Type Date of Onset Reaction(s) Facility Adhesive Tape (2 sources) Adhesive Tape Substance Allergy 07-08-19 12 Rash [facility] Amoxicillin / Clavulanate (2 sources) Amoxicillin / Clavulanate Drug Allergy 01-08-20 05 [facility] Work Phone: Bacitracin (2 sources) Bacitracin Drug Allergy 02-03-20 Rash [facility] Work Phone: Cephalosporins (antibiotic) (6 sources) Cefaclor Drug Allergy 02-03-20 01 Unknown, Rash, Hives [facility] Clavulanate (2 sources) Clavulanate Drug Allergy 01-25-20 19 Unknown [facility] Feathers (2 sources) Feather Substance Allergy 02-03-20 Other: See Comments [facility] flounder allergenic extract (2 sources) flounder allergenic extract Drug Allergy 02-08-20 02 Anaphylaxis [facility] guaiFENesin (2 sources) guaiFENesin Drug Allergy 02-27-20 03 Rash, Swelling [facility] Halibut liver oil (2 sources) Halibut liver oil Drug Allergy 02-08-20 Anaphylaxis [facility] Iodine (and Iodine containting drugs) (2 sources) Iodine Drug Allergy 02-03-20 Anaphylaxis [facility] Lincosamides (antibiotic) (2 sources) Clindamycin Drug Allergy 12-23-19 Itching [facility] Macrolides (antibiotic) (2 sources) Erythromycin Drug Allergy 02-03-20 Diarrhea [facility] nickel (2 sources) nickel Drug Allergy 10-01-19 Rash [facility] Penicillins (antibiotic) (2 sources) Penicillins Drug Allergy 02-03-20 Rash, Hives [facility] Shellfish (2 sources) Shellfish Food Allergy 02-03-20 Anaphylaxis [facility] Sulfonamides (antibiotic) (2 sources) Sulfonamides (Antibiotic) Drug Allergy 02-03-20 Rash [facility] (2 sources) amoxicillin / clavulanate Drug Allergy 01-12-20 [facility] (3 sources) bacitracin; Translations: [BACITRACIN] Drug Allergy 02-03-20 [facility] (3 sources) cefaclor; Translations: [CEFACLOR] Drug Allergy 02-03-20 [facility] (2 sources) cephalexin Drug Allergy 01-12-20 [facility] (20 sources) Cephalosporins (Antibiotic); Translations: [CEPHALOSPORINS] drug allergy 02-03-[address] [facility] (2 sources) clindamycin Drug Allergy 01-12-20 [facility] (20 sources) erythromycin; Translations: [ERYTHROMYCIN BASE] Drug Allergy 02-03-[address] [facility] (3 sources) guaiFENesin; Translations: [GUAIFENESIN] Drug Allergy 02-27-20 [facility] (2 sources) Macrolide drug allergy 01-12-20 [facility] (2 sources) penicillin g Drug Allergy 01-12-20 [facility] (2 sources) sulfamethoxazole / trimethoprim Drug Allergy 01-12-20 [facility] (2 sources) HUMABID drug allergy 01-12-20 [facility] (2 sources) MIXED FEATHERS drug allergy 01-12-20 [facility] (2 sources) SCHOLLS LAMBS WOOL drug allergy 01-12-[address] [facility] (2 sources) ADHESIVE [id number] drug allergy 01-12-[address] [facility] (20 sources) Adhesive Tape; Translations: [ADHESIVE TAPE (ROSINS)] Allergy to substance 07-08-19 12 Rash [facility] (20 sources) Amoxicillin / Clavulanate; Translations: [AMOXICILLIN-POT CLAVULANATE] Drug Allergy 01-08-20 05 [facility] Work Phone: (20 sources) Bacitracin Drug Allergy 02-03-20 Rash [facility] Work Phone: [phone] (20 sources) Cefaclor Drug Allergy 02-03-20 Unknown [facility] Work Phone: [phone] (20 sources) Cephalexin; Translations: [CEPHALEXIN] Drug Allergy 02-12-20 06 Hives [facility] (20 sources) Clavulanate; Translations: [POTASSIUM CLAVULANATE] Drug Allergy 01-25-20 19 Unknown [facility] (20 sources) Clindamycin; Translations: [CLINDAMYCIN HCL] Drug Allergy 12-23-19 05 Itching [facility] Work Phone: (20 sources) Feather; Translations: [FEATHERS] Drug Intolerance 02-03-20 Other: See Comments [facility] Work Phone: [phone] (20 sources) flounder allergenic extract Drug Allergy 02-08-20 02 Anaphylaxis [facility] Work Phone: [phone] (20 sources) guaiFENesin Drug Allergy 02-27-20 03 Rash, Swelling [facility] Work Phone: [phone] (20 sources) Halibut liver oil; Translations: [HALIBUT LIVER OIL] Drug Allergy 02-08-20 Anaphylaxis [facility] Work Phone: [phone] (20 sources) Iodine; Translations: [IODINE] Drug Allergy 02-03-20 Anaphylaxis [facility] Work Phone: [phone] (9 sources) Macrolides (Antibiotic); Translations: [MACROLIDE ANTIBIOTICS] Drug Intolerance 09-24-19 04 Other: See Comments [facility] Work Phone: (20 sources) nickel; Translations: [NICKEL] Drug Allergy 10-01-19 17 Rash [facility] (5 sources) Penicillins; Translations: [PENICILLINS] Drug Allergy 02-03-20 Rash, Hives [facility] Work Phone: (20 sources) Shellfish; Translations: [SHELLFISH] Food Allergy 02-03-20 Anaphylaxis [facility] Work Phone: (20 sources) Sulfonamides (Antibiotic); Translations: [SULFA (SULFONAMIDE ANTIBIOTICS)] Drug Allergy 02-03-20 Rash [facility] Work Phone: (20 sources) Humabid [Other] Propensity to adverse reactions 02-03-20 Rash, Swelling [facility] Work Phone: (20 sources) Wool; Translations: [WOOL] Allergy to substance 02-05-20 Rash, Itching [facility] Work Phone: (20 sources) Macrolides Drug Intolerance 09-24-19 04 Other: See Comments [facility] Work Phone: (20 sources) Penicillins Drug Allergy 02-03-20 Rash, Hives [facility] Work Phone: (12 sources) Adhesive Tape; Translations: [adhesive tape] Propensity to adverse reactions 11-03-19 Rash [facility] (12 sources) Amoxicillin; Translations: [amoxicillin trihydrate] Drug Allergy 05-26-19 Upset Stomach [facility] (12 sources) Cephalexin; Translations: [cephalexin monohydrate] Drug Allergy 05-26-19 Unknown [facility] (12 sources) Clindamycin; Translations: [clindamycin palmitate HCl] Drug Allergy 05-26-19 Unknown [facility] (12 sources) Clindamycin; Translations: [clindamycin phosphate] Drug Allergy 05-26-19 Unknown [facility] (12 sources) Fish derivative; Translations: [fish derived] Propensity to adverse reactions 11-03-19 NEEDS FOLLOW-UP [facility] Comment on above: FLOUNDER (11 sources) Macrolides (Antibiotic) Propensity to adverse reactions 05-26-19 Unknown [facility] (11 sources) Penicillins Propensity to adverse reactions 05-26-19 Unknown [facility] (12 sources) Shellfish; Translations: [shellfish derived] Allergy to substance 05-26-19 Anaphylaxis [facility] (11 sources) Sulfonamides (Antibiotic) Propensity to adverse reactions 05-26-19 Unknown [facility] (4 sources) Penicillins Drug Allergy 02-03-20 Rash, Hives [facility] (1 source) OTHER; Translations: [OTHER] Propensity to adverse reactions (disorder) 02-08-20 [facility] (1 source) Bacitracin Drug Allergy 08-26-19 [facility] (1 source) Cefaclor Drug Allergy 08-26-19 [facility] (1 source) Clindamycin Drug Allergy 08-26-19 [facility] (1 source) Erythromycin Drug Allergy 08-26-19 [facility] (1 source) guaiFENesin Drug Allergy 08-26-19 [facility] (1 source) Iodine Drug Allergy 08-26-19 [facility] (1 source) Macrolides (Antibiotic) Drug allergy (disorder) 08-26-19 [facility] (1 source) Penicillins Drug allergy (disorder) 08-26-19 [facility] (1 source) Potassium Drug Allergy 08-26-19 [facility] (1 source) Sulfonamides (Antibiotic) Drug allergy (disorder) 08-26-19 [facility] Medications Current Medications Medication Drug Class(es) Dates Sig (Normalized) Sig (Original) [id number] actuat albuterol 0.09 mg/actuat metered dose inhaler (20 sources) beta2-Adrenergic Agonist Start: 09-03-2023 End: 10-07-2023 Albuterol Sulfate 90 mcg/actuation HFA aerosol inhaler Active 2 NMA INHALATION EVERY 6 HOURS NEEDED as needed for Shortness Of Breath 8.5 October 07, 2023 12:04pm Start: 01-11-2017 PROAIR HFA 108 (90 Base) MCG/ACT AERS ALBUTEROL SULFATE [id number] Linda Figueroa MD Start: 11-09-2013 albuterol HFA (PROAIR HFA) 90 mcg/actuation inhaler Inhale 2 Puffs as instructed as needed. TWO PUFFS FOUR TIMES DAILY NEEDED 1 Inhaler 0 11/09/2013 Active Start: 06-24-2013 End: 09-03-2023 Albuterol Sulfate 1 INHALER inhaler Discontinued 2 NMA INHALATION EVERY 6 HOURS NEEDED as needed for Shortness Of Breath June 24, 2013 12:00am September 03, 2023 8:21am Start: 06-24-2013 take 1 puff(s) by in halation every six hours as needed Albuterol Sulfate Active 2 PUFF INHALATION EVERY 6 HOURS NEEDED June 24, 2013 12:00am Comment on above: Inhale 2 Puffs as in structed as needed. TWO PUFFS FOUR TIMES DAILY NEEDED calcium ascorbate 500 mg oral tablet (9 sources) Start: 03-04-2022 take 1 tablet by mouth once daily Ascorbate Calcium (Vitamin C) 500 mg tablet Active 500 mg PO DAILY March 04, 2022 1:00am Calcium Citrate (20 sources) take 2 capsules by mouth twice daily calcium citrate (CITRACAL ORAL) Take 2 capsules by mouth twice daily. Active take 2 capsules by mouth twice d aily calcium citrate (CITRACAL ORAL) Take 2 capsules by mouth twice daily. 0 Active Comment on above: Take 2 capsules by m outh twice daily. calcium citrate 1500 mg / cholecalciferol 250 unt oral tablet (1 source) Vitamin D Start: 08-26-19 25 Calcium Citrate-Vitamin D3 (Citracal + D Maximum) 315 mg-6.25 mcg (250 unit) tablet Active 1 {tbl} PO daily August 25, 2024 12:00am cholecalciferol 1.25 mg oral capsule (11 sources) Vitamin D Start: 01-24-20 18 take 1 capsule by mouth every week Cholecalciferol (Vitamin D3) 50,000 unit capsule Active 87034 U PO EVERY WEEK January 23, 2018 12:00am ergocalciferol 1.25 mg oral capsule (20 sources) Provitamin D2 Compound Start: 09-03-19 17 take 1 tablet by mouth every other week VITAMIN D 50,000 unit capsule Take 1 tablet by mouth every 2 weeks. 09/02/2016 Active Comment on above: Take 1 tablet by natasha th every 2 weeks. escitalopram 10 mg oral tablet (20 sources) Serotonin Reuptake Inhibitor Start: 01-12-20 17 take 1 tablet by mouth once daily Escitalopram Oxalate (Lexapro) 10 mg tablet Active 10 mg PO DAILY January 23, 2018 12:00am Comment on above: Take 10 mg by mouth once daily. metoprolol tartrate 25 mg oral tablet (20 sources) beta-Adrenergic Corina Start: 02-29-20 15 take 1 tablet by mouth twice daily metoprolol tartrate, short acting, (LOPRESSOR) 25 mg tablet Take 1 tablet by mouth twice daily. 180 tablet 3 11/01/2017 Active Comment on above: Take 1 tablet by natasha twice daily. nystatin 100 unt/mg topical powder (6 sources) Polyene Antifungal Start: 03-10-20 Nystatin (Nystop) 100,000 unit/gram powder Active 1 NMA TOPICAL TWICE A DAY March 10, 2023 1:00am Start: 03-10-2023 Nystatin (Nyst op) 100,000 unit/gram powder Active 1 APPLIC TOPICAL TWICE A DAY March 10, 2023 1:00am perflutren lipid microsphere s 1.3 mL in NaCl (PF) 0.9% 10 mL injection (DEFINITY) (20 sources) Start: 10-20-2022 End: 01-19-2024 perflutren lipid microsphere s 1.3 mL in NaCl (PF) 0.9% 10 mL injection (DEFINITY) Start: 06-18-2021 End: 09-17-2022 perflutren lipid microsphere s 1.3 mL in NaCl (PF) 0.9% 10 mL injection (DEFINITY) polyethylene glycol 3350 19415 mg powder for oral solution (20 sources) Osmotic Laxative Start: 01-23-2018 Polyethylene Glycol 3350 (Miralax) 17 gram/dose powder Active PO January 23, 2018 12:00am Comment on above: Take 17 g by mouth o nce daily. pravastatin sodium 40 mg oral tablet (20 sources) HMG-CoA Reductase Inhibitor Start: 10-11-2022 pravastatin (PRAVACHOL) 40 mg tablet TAKE 1 TABLET DAILY AT BEDTIME 90 tablet 3 10/11/2022 Active Start: 03-04-2022 take 2 tablets by mo uth once daily Pravastatin 20 mg tablet Active 40 mg PO DAILY March 04, 2022 4:35pm Start: 03-04-2022 take 40 mg by mouth once daily Pravastatin Active 40 MG PO DAILY March 04, 2022 4:35pm Start: 10-06-2021 End: 10-06-2022 take 1 tablet by mouth once daily at bedtime pravastatin (PRAVACHOL) 40 mg tablet Take 1 tablet by mouth daily at bedtime. 90 tablet 3 10/06/2021 10/06/2022 Active Start: 07-16-2013 End: 11-03-2023 take 1 tablet by mouth once daily Pravastatin 20 MG tablet Discontinued 20 mg PO DAILY February 26, 2015 1:00am March 04, 2022 4:36pm Comment on above: Take 1 tablet by natasha th once daily. Take 1 tablet by natasha th daily at bedtime. TAKE 1 TABLET DAILY AT BEDTIME RABEprazole sodium 20 mg delayed release oral tablet (20 sources) Proton Pump Inhibitor Start: 06-24-2013 End: 11-03-2023 take 1 tablet by mouth once daily Rabeprazole 20 MG tablet Active 20 mg PO DAILY June 24, 2013 12:00am Comment on above: Take 20 mg by mouth once daily. Selenium (7 sources) Start: 02-06-2020 take 100 ug by mouth once daily Selenium Active 100 MCG PO DAILY February 06, 2020 12:00am Start: 02-06-2020 take 100 ug by mouth once radha y Selenium Active 100 MCG PO DAILY February 06, 2020 1:00am 125 ml sodium chloride 9 mg/ ml prefilled syringe (20 sources) Start: 10-20-2022 End: 01-19-2024 sodium chloride 0.9 % (flush ) 10 mL (BD POSIFLUSH) Start: 08-06-2020 End: 09-17-2022 sodium chloride 0.9 % (flush ) 10 mL (BD POSIFLUSH) Vit C,W-Sq-Usmkg-Lutein-Zeax an (7 sources) Start: 02-26-2015 Vit C,E-Zn-Engineering Administrator [id number] Active 1 EACH PO TWICE A DAY February 26, 2015 12:00am Start: 02-26-2015 Vit C,E-Zn-Engineering Administrator [id number]-[id number] Active 1 EACH PO TWICE A DAY February 26, 2015 1:00am vit C,D-Ke-hqdnp-lutein-zeaxan (PRESERVISION AREDS-2) 250-90-40-1 mg (20 sources) Start: 01-22-2014 vit C,M-Cs-nsxeq-lutein-zeaxan (PRESERVISION AREDS-2) 250-90-40-1 mg Take by mouth twice daily. 0 01/22/2014 Active Comment on above: Take by mouth twice daily. Vit C,F-Zd-Uxjoa-Lutein-Zeaxan 1 EACH capsule (4 sources) Start: 02-26-2015 take 1 capsule by mouth twice daily Vit C,C-Lt-Bngnh-Lutein-Zeaxan 1 EACH capsule Active 1 NMA PO TWICE A DAY February 26, 2015 1:00am vitamin b12 1 mg oral capsule (20 sources) Vitamin B12 Start: 02-06-2020 take 1 capsule by mouth once daily Cyanocobalamin (Vitamin B-12) 1,000 mcg capsule Active 1000 ug PO DAILY February 06, 2020 1:00am take 1 tablet by mouth once radha y cyanocobalamin (VITAMIN B-12) 500 mcg tablet Take 1 tablet by mouth once daily. Active Comment on above: Take 1 tablet by natasha once daily. Completed/Discontinued Medications Medication Drug Class(es) Dates Sig (Normalized) Sig (Original) aspirin (20 sources) Nonsteroidal Anti-inflammatory Drug Start: 01-11-2017 ASPIR-81 81 MG TBEC ASPIRIN [id number] Linda Figueroa MD Start: 12-15-2012 take 1 tablet by natasha th once daily aspirin, enteric coated (ECOTRIN LOW STRENGTH) 81 mg EC tablet Take 1 tablet by mouth once daily. 0 12/15/2012 Active Comment on above: Take 1 tablet by natasha once daily. atorvastatin 10 mg oral tablet (1 source) HMG-CoA Reductase Inhibitor End: 10-21-19 atorvastatin (LIPITOR) 10 mg tablet Take 10 mg by mouth. 0 10/20/2022 Discontinued Comment on above: Take 10 mg by mouth. cefprozil 500 mg oral tablet (1 source) Cephalosporin Antibacterial Start: 08-26-19 End: 08-31-19 take 1 tablet by mouth twice daily Cefprozil 500 mg tablet Discontinued 500 mg PO TWICE A DAY 10 August 25, 2024 12:00am August 29, 2024 12:00am August 30, 2024 12:08am cephalexin 500 mg oral capsule (11 sources) Cephalosporin Antibacterial Start: 03-04-20 End: 03-15-20 take 1 capsule by mouth every six hours Cephalexin (Keflex) 500 mg capsule Discontinued 500 mg PO EVERY 6 HOURS 40 March 04, 2019 1:00am March 13, 2019 1:00am March 15, 2019 1:08am docusate sodium 100 mg oral capsule (11 sources) Start: 01-24-20 End: 03-04-20 take 1 capsule by mouth once daily Docusate Sodium (Dulcolax Stool Softener (Dss)) 100 mg capsule Discontinued 100 mg PO DAILY January 23, 2018 12:00am March 04, 2022 4:35pm doxycycline hyclate 100 mg oral tablet (20 sources) Tetracycline-class Drug Start: 01-12-20 DOXYCYCLINE HYCLATE 100 MG TABS DOXYCYCLINE HYCLATE [id number] Linda Figueroa MD Start: 06-24-2013 End: 03-04-2019 Doxycycline Hyclate 75 MG tablet,delayed release (DR/EC) Discontinued 50 mg PO TWICE A DAY June 24, 2013 12:00am March 04, 2019 11:54am Start: 06-24-2013 End: 03-04-2019 take 50 mg by mouth twice daily Doxycycline Hyclate Discontinued 50 MG PO TWICE A DAY June 24, 2013 12:00am March 04, 2019 11:54am take 1 capsule by [facility] once daily doxycycline hyclate (VIBRAMYCIN) 100 mg capsule Take 100 mg by mouth once daily. Active Comment on above: Take 100 mg by mouth once daily. EPINEPHRINE (20 sources) alpha-Adrenergic Agonist, beta-Adrenergic Agonist, Catecholamine Start: 01-11-2017 EPINEPHRINE 0.3 MG/0.3ML [facility] EPINEPHRINE [id number] Linda Figueroa MD Start: 11-09-2013 EPINEPHrine 0. 3 mg/0.3 mL (1:1,000) atIn Inject subcutaneously as needed. Inject immediately with evidence of reaction and to proceed to the emergency room 1 Each 0 11/09/2013 Active Start: 06-24-2013 Epinephrine 0. 3 MG/0.3 ML auto-injector Active 0.3 mg IM NEEDED as needed for Anaphylaxis June 24, 2013 12:00am Comment on above: Inject subcutaneousl y as needed. Inject immediately with evidence of reaction and to proceed to the emergency room fluorometholone 2.5 mg/ml ophthalmic suspension (13 sources) Corticosteroid Start: 01-11-2017 FML FORTE 0.25 % SUSP FLUOROMETHOLONE [id number] Linda Figueroa MD Start: 06-24-2013 End: 03-04-2022 Fluorometholone 10 ML drops, suspension Discontinued 5 mL OP DAILY June 24, 2013 12:00am March 04, 2022 4:35pm loratadine 10 mg oral tablet (20 sources) Start: 02-26-2015 End: 03-04-2022 take 10 mg by mouth once daily Loratadine 10 mg concentrate Discontinued 10 mg PO DAILY February 26, 2015 1:00am March 04, 2022 4:35pm Comment on above: Take 10 mg by mouth as needed. Take 10 mg by mouth. methylPREDNISolone 4 mg oral tablet (4 sources) Corticosteroid Start: 03-02-2024 End: 03-08-2024 take 1 tablet by mouth once Methylprednisolone (Medrol (Terence)) 4 mg tablets,dose pack Discontinued 4 mg PO per package directions 22 09March 02, 2024 1:00am March 07, 2024 1:00am March 08, 2024 1:09am miconazole nitrate 0.02 mg/mg topical ointment (11 sources) Azole Antifungal Start: 05-26-2021 End: 03-04-2022 Miconazole Nitrate 2 % ointment Discontinued 1 NMA TOPICAL TWICE A DAY 71 May 26, 2021 1:00am March 04, 2022 4:35pm mometasone furoate 0.05 mg/actuat metered dose nasal spray (20 sources) Corticosteroid Start: 01-11-2017 NASONEX 50 MCG/ACT SUSP MOMETASONE FUROATE [id number] Linda Figueroa MD Start: 02-26-2015 End: 03-04-2022 Mometasone 1 SPRAY spray,non -aerosol Discontinued 2 NMA NASAL DAILY as needed for Allergies February 26, 2015 1:00am March 04, 2022 4:35pm Start: 02-26-2015 End: 03-04-2022 Mometasone Discontinued 2 SP RAY NASAL DAILY February 26, 2015 1:00am March 04, 2022 4:35pm Start: 01-14-2014 mometasone (NA SONEX) 50 mcg/actuation nasal spray Indications: Allergic rhinitis Use 2 Sprays in the nose once daily. 3 Bottle 3 01/14/2014 Active Comment on above: Use 2 Sprays in the nose once daily. MULTIPLE VITAMINS-MINERALS (2 sources) Start: 01-11-2017 MULTIVITAMIN WOMEN 50+ TABS MULTIPLE VITAMINS-MINERALS [id number] Linda Figueroa MD MULTIPLE VITAMINS-MINERALS (2 sources) Start: 01-11-2017 PRESERVISION AREDS 2 CAPS MULTIPLE VITAMINS-MINERALS [id number] Linda Figueroa MD aykkmlsx-gtb-wvuo-F A-lutein (CENTRUM SILVER WOMEN) 8 mg iron-400 mcg-300 mcg tab (20 sources) End: 11-27-2024 take 0.5 tablet by mouth once daily ljafsbup-sek-dnkl-FA-l utein (CENTRUM SILVER WOMEN) 8 mg iron-400 mcg-300 mcg tab Take 0.5 tablets by mouth once daily. 11/27/2024 Discontinued (Discontinued by another Health Care Provider) take 0.5 tablet by m outh once daily kftfalgu-flm-vuzs-FA-lutein (CENTRUM AZEEM BARTOLOME WOMEN) 8 mg iron-400 mcg-300 mcg tab Take 0.5 tablets by mouth once daily. Active take 0.5 tablet by m outh once daily uqkupaqr-diz-zlzx-FA-lutein (CENTRUM AZEEM BARTOLOME WOMEN) 8 mg iron-400 mcg-300 mcg tab Take 0.5 tablets by mouth once daily. 0 Active Comment on above: Take 0.5 tablets by mouth once daily. mupirocin 0.02 mg/mg topical ointment (20 sources) RNA Synthetase Inhibitor Antibacterial Start: 05-08-2022 End: 05-18-2022 Mupirocin 2 % ointment Discontinued 1 NMA TOPICAL TWICE A DAY 23 01May 08, 2022 1:00am May 17, 2022 1:00am May 18, 2022 1:05am Start: 01-11-2017 BACTROBAN 2 % CREA MUPIROCIN CALCIUM [id number] Linda Figueroa MD Start: 06-24-2013 End: 03-04-2022 Mupirocin 1 APPLIC ointment Discontinued 1 NMA TOPICAL THREE TIMES A DAY as needed for Itching June 24, 2013 12:00am March 04, 2022 4:35pm Start: 06-24-2013 End: 03-04-2022 Mupirocin Discontinued 1 AMOS LIC TOPICAL THREE TIMES A DAY June 24, 2013 12:00am March 04, 2022 4:35pm Start: 11-01-2012 mupirocin (CHARLOTTE TROBAN) 2 % cream Apply to affected area three times daily. APPLY TO AFFECTED AREA 15 g 1 11/01/2012 Active End: 11-27-2024 mupirocin (BACTROBAN) 2 % oi ntment Apply to affected area. 11/27/2024 Discontinued (Duplicate Entry) Comment on above: Apply to affected ar ea three times daily. APPLY TO AFFECTED AREA Apply to affected ar ea. pantoprazole 40 mg delayed release oral tablet (15 sources) Proton Pump Inhibitor Start: 09-14-2022 End: 11-03-[address] (PROTONIX) 40 mg tablet 09/14/2022 11/03/2023 Discontinued predniSONE 10 mg oral tablet (19 sources) Start: 09-03-2023 End: 03-02-2024 Prednisone 10 mg tablet Discontinued 10 mg PO .COMPLEX September 03, 2023 12:00am March 02, 2024 10:52am Take 4 pills for 3 days, 3 pills for 3 days, 2 pills for 3 days, take 1 pill for 3 days End: 11-03-2023 predniSONE (DELTASONE) 10 mg tablet Take 10 mg by mouth as needed. 11/03/2023 Discontinued Comment on above: Take 10 mg by mouth as needed. Selenium 100 mcg tab (20 sources) End: 11-27-2024 Selenium 100 mcg tab Take 50 mcg by mouth once daily. 11/27/2024 Discontinued (Discontinued by Patient) Selenium 100 mcg tab Take 50 mcg by mouth once daily. Active Selenium 100 mcg tab Take 50 mcg by mouth once daily. 0 Active Comment on above: Take 50 mcg by mouth once daily. Selenium 100 mcg tablet (4 sources) Start: 02-06-2020 End: 08-25-2024 take 1 tablet by mouth once daily Selenium 100 mcg tablet Discontinued 100 ug PO DAILY February 06, 2020 1:00am August 25, 2024 11:04am Start: 02-06-2020 take 1 tablet by mouth once da romeo Selenium 100 mcg tablet Active 100 ug PO DAILY February 06, 2020 1:00am ubidecarenone 200 mg oral capsule (20 sources) Start: 03-04-2022 End: 11-27-2024 Coenzyme Q10 200 mg cap Take by mouth as needed. 03/04/2022 11/27/2024 Discontinued (Discontinued by Patient) Comment on above: Take by mouth as nee ded. vit C,N-Nd-hlsrr-lutein-z eaxan (PRESERVISION AREDS 2) [phone] xa-tuyc-bj-mg cap (5 sources) Start: 01-22-2014 vit C,F-Aq-kgscl-lutein- zeaxan (PRESERVISION AREDS 2) [phone] da-kwvt-do-mg cap Take by mouth twice daily. 0 01/22/2014 Active Comment on above: Take by mouth twice daily. Zinc (20 sources) Start: 02-06-2020 End: 08-25-2024 take 1 tablet by mouth once daily Zinc 50 mg tablet Discontinued 50 mg PO DAILY February 06, 2020 1:00am August 25, 2024 11:04am Start: 02-06-2020 take 1 tablet by natasha once daily Zinc 50 mg tablet Active 50 mg PO DAILY February 06, 2020 1:00am Start: 02-06-2020 take 50 mg by mouth once daily Zinc Active 50 MG PO DAILY February 06, 2020 12:00am Start: 02-06-2020 take 50 mg by mouth once daily Zinc Active 50 MG PO DAILY February 06, 2020 1:00am End: 11-27-2024 Zinc 50 mg tab Take 25 mg by mouth once daily. 11/27/2024 Discontinued (Discontinued by Patient) Zinc 50 mg tab T nitish 25 mg by mouth once daily. Active Zinc 50 mg tab T nitish 25 mg by mouth once daily. 0 Active Comment on above: Take 25 mg by mouth once daily. Problems Active Problems Problem Classification Problem Date Documented Da te Episodic/Chronic Asthma (20 sources) Unspecified asthma, uncomplicated; Translations: [Asthma, unspecified type, unspecified] Onset: 6 Resolved: 8 03-11-2008 Chronic Cardiac dysrhythmias (20 sources) Supraventricular tachycardia; Translations: [Supraventricular tachycardia] Onset: 3 02-27-2015 Chronic Cataract (20 sources) Artificial lens present; Translations: [Presence of intraocular lens] Onset: 5 09-26-2014 Chronic Coronary atherosclerosis and other heart disease (20 sources) Angina pectoris; Translations: [Other forms of angina pectoris] Onset: 4 10-20-2022 Chronic Disorders of lipid metabolism (20 sources) Mixed hyperlipidemia; Translations: [Mixed hyperlipidemia] Onset: 5 01-21-2016 Chronic E Codes: Natural/environment (6 sources) Insect bite - wound; Translations: [Bitten or stung by nonvenomous insect and other nonvenomous arthropods, initial encounter] 03-10-2023 Episodic Esophageal disorders (20 sources) Gastroesophageal reflux disease; Translations: [Gastro-esophageal reflux disease without esophagitis] Onset: 5 08-26-2005 Chronic Essential hypertension (20 sources) Essential hypertension; Translations: [Essential (primary) hypertension] Onset: 5 01-20-2015 Chronic Gastroduodenal ulcer (except hemorrhage) (20 sources) Peptic ulcer; Translations: [Peptic ulcer, site unspecified, unspecified as acute or chronic, without hemorrhage or perforation] Onset: 9 05-02-2008 Chronic Menopausal disorders (20 sources) Menopausal symptom; Translations: [Menopausal and female climacteric states] Onset: 0 01-16-2010 Chronic Mycoses (20 sources) Onychomycosis; Translations: [Tinea unguium] Onset: 5 Episodic Nonmalignant breast conditions (20 sources) Fibrocystic disease of breast; Translations: [Diffuse cystic mastopathy of unspecified breast] Onset: 7 01-26-2007 Chronic Nonmalignant breast conditions (13 sources) Breast lump; Translations: [Unspecified lump in the left breast, lower inner quadrant] 02-07-2020 Episodic Comment on above: mobile cystic 2 cm l esion, imaging ordered Nutritional deficiencies (20 sources) Vitamin D deficiency; Translations: [Vitamin D deficiency, unspecified] Onset: 7 Resolved: 1 07-04-2013 Chronic Osteoarthritis (20 sources) Arthritis of acromioclavicular joint; Translations: [Primary osteoarthritis, unspecified shoulder] Onset: 9 Resolved: 1 02-23-2010 Chronic Other connective tissue disease (13 sources) Pain of toe of right foot; Translations: [Pain in right toe(s)] Episodic Other connective tissue disease (13 sources) Pain in left foot; Translations: [Pain in left foot] Episodic Other connective tissue disease (1 source) Pain in left foot; Translations: [Pain in left foot] Onset: 5 Episodic Other connective tissue disease (1 source) Pain in right toe(s); Translations: [Pain in toe of right foot] Onset: 5 Episodic Other endocrine disorders (20 sources) Idiopathic postprandial hypoglycemia; Translations: [Other hypoglycemia] Onset: 1 04-13-2010 Chronic Other gastrointestinal disorders (20 sources) Irritable bowel syndrome; Translations: [Irritable bowel syndrome without diarrhea] Onset: 6 05-02-2008 Chronic Other inflammatory condition of skin (20 sources) Rosacea; Translations: [Rosacea, unspecified] Onset: 5 08-26-2005 Chronic Other lower respiratory disease (2 sources) Chest pain on breathing; Translations: [Chest pain on breathing] Episodic Other nutritional; endocrine; and metabolic disorders (20 sources) Metabolic syndrome X; Translations: [Metabolic syndrome] Onset: 4 03-04-2014 Chronic Other screening for suspected conditions (not mental disorders or infectious disease) (18 sources) Liver function tests abnormal; Translations: [Abnormal results of liver function studies] Onset: 8 Resolved: 1 04-06-2010 Episodic Other skin disorders (3 sources) Ingrowing nail; Translations: [Ingrowing nail] 06-22-2024 Episodic Other skin disorders (1 source) Foot callus; Translations: [Corns and callosities] 12-11-2024 Episodic Other skin disorders (1 source) Ingrowing nail; Translations: [Onychocryptosis] Onset: 5 Episodic Other skin disorders (1 source) Corns and callosities; Translations: [Callus of foot] Onset: 5 Episodic Other upper respiratory disease (4 sources) Allergic rhinitis; Translations: [Allergic rhinitis, unspecified] 09-03-2023 Chronic Other upper respiratory disease (2 sources) Seasonal allergy; Translations: [Other seasonal allergic rhinitis] 08-25-2024 Chronic Retinal detachments; defects; vascular occlusion; and retinopathy (20 sources) Nonexudative age-related macular degeneration; Translations: [Nonexudative age-related macular degeneration, bilateral, intermediate dry stage] Onset: 6 Resolved: 9 11-22-2018 Chronic Skin and subcutaneous tissue infections (20 sources) Onychia of finger; Translations: [Cellulitis of right finger] 03-04-2019 Episodic Sprains and strains (8 sources) Sprain of right ankle; Translations: [Sprain of unspecified ligament of right ankle, initial encounter] 05-09-2024 Episodic Thyroid disorders (20 sources) Non-toxic multinodular goiter; [...] specified health status] Onset: 7 01-11-2017 Unclassified (20 sources) Elevated blood pressure; Translations: [Elevated BP] Onset: 3 02-12-2013 Past or Other Problems Problem Classification Problem Date Documented Da te Episodic/Chronic Abdominal pain (20 sources) Right lower quadrant pain; Translations: [Right lower quadrant pain] Onset: 02-01-2005 Resolved: 04-06-2010 12-07-2011 Episodic Allergic reactions (20 sources) Allergic condition; Translations: [Allergy, unspecified, initial encounter] Onset: 06-25-2008 06-25-2008 Episodic Anxiety disorders (17 sources) Anxiety state; Translations: [Generalized anxiety disorder] Onset: 04-08-2006 Resolved: 04-06-2010 04-06-2010 Chronic Benign neoplasm of uterus (20 sources) Uterine leiomyoma; Translations: [Leiomyoma of uterus, unspecified] Onset: 01-16-2010 03-30-2021 Episodic Biliary tract disease (17 sources) Gallstone; Translations: [Calculus of gallbladder without cholecystitis without obstruction] Onset: 06-14-2005 Resolved: 04-06-2010 04-06-2010 Episodic Conditions associated with dizziness or vertigo (17 sources) Dizziness and giddiness; Translations: [Dizziness and giddiness] Onset: 05-19-2004 Resolved: 04-06-2010 04-06-2010 Episodic Fluid and electrolyte disorders (1 source) Hyperkalemia; Translations: [Hyperkalemia] Onset: 07-03-2024 Episodic Genitourinary symptoms and ill-defined conditions (20 sources) Microscopic hematuria; Translations: [Other microscopic hematuria] Onset: 02-01-2012 02-01-2012 Episodic Inflammation; infection of eye (except that caused by tuberculosis or sexually transmitteddisease) (20 sources) Meibomianitis; Translations: [Hordeolum internum unspecified eye, unspecified eyelid] Onset: 01-11-2013 01-11-2013 Episodic Malaise and fatigue (17 sources) Malaise and fatigue; Translations: [Other malaise] Onset: 01-26-2007 Resolved: 04-06-2010 04-06-2010 Episodic Menopausal disorders (2 sources) Decreased estrogen level; Translations: [Other primary ovarian failure] Onset: 01-11-2017 01-11-2017 Episodic Nonspecific chest pain (17 sources) Chest pain; Translations: [Chest pain, unspecified] Onset: 01-20-2006 Resolved: 04-06-2010 04-06-2010 Episodic Other bone disease and musculoskeletal deformities (1 source) Other specified disorders of bone density and structure, unspecified site; Translations: [Other specified disorders of bone density and structure, unspecified site] Onset: 05-22-2024 Episodic Other connective tissue disease (20 sources) Trochanteric bursitis of right hip; Translations: [Trochanteric bursitis, right hip] Onset: 10-26-2012 10-26-2012 Episodic Other diseases of bladder and urethra (20 sources) Urethral caruncle; Translations: [Urethral caruncle] Onset: 12-07-2011 01-11-2017 Episodic Other diseases of kidney and ureters (20 sources) Cyst of kidney; Translations: [Cyst of kidney, acquired] Onset: 02-01-2012 02-01-2012 Episodic Other eye disorders (20 sources) Meibomian gland dysfunction of bilateral eyes; Translations: [Meibomian gland dysfunction right eye, upper and lower eyelids] Onset: 11-22-2018 11-22-2018 Episodic Other injuries and conditions due to external causes (1 source) Unspecified injury of right ankle, initial encounter; Translations: [Unspecified injury of right ankle, initial encounter] Onset: 05-24-2024 Episodic Other injuries and conditions due to external causes (1 source) Unspecified injury of unspecified ankle, initial encounter; Translations: [Unspecified injury of unspecified ankle, initial encounter] Onset: 05-09-2024 Episodic Other non-traumatic joint disorders (17 sources) Shoulder joint pain; Translations: [Pain in unspecified shoulder] Onset: 06-04-2005 Resolved: 04-06-2010 04-06-2010 Episodic Other upper respiratory infections (12 sources) Acute pharyngitis; Translations: [Acute pharyngitis, unspecified] Onset: 09-03-2024 05-26-2021 Episodic Residual codes; unclassified (20 sources) Family history of breast cancer; Translations: [Family history of malignant neoplasm of breast] Onset: 10-19-2010 10-19-2010 Episodic Retinal detachments; defects; vascular occlusion; and retinopathy (20 sources) Retinal U tear; Translations: [Horseshoe tear of retina without detachment, right eye] Onset: 02-06-2016 02-06-2016 Episodic Screening and history of mental health and substance abuse codes (20 sources) Tobacco use and exposure - finding; Translations: [Personal history of nicotine dependence] Onset: 02-01-2012 02-01-2012 Episodic Superficial injury; contusion (17 sources) Contusion of foot; Translations: [Contusion of unspecified foot, initial encounter] Onset: 06-22-2010 Resolved: 08-13-2010 08-13-2010 Episodic Unclassified (10 sources) Abrasion, right knee, initial encounter 05-08-2022 Results Test Name Value Interpretation Reference Range Facility [facility]27-2024 [facility] Non-Invasive Vascular Laboratory [facility] Carotid Duplex Bilateral/Complete Date of service/time: 12/27/2024 12:56:55 PM Name: MRS. JOHN CELIS Date of : 1945 Age: 79 years Gender: F Clinical Indication Hypertension, hyperlipidemia. TECHNIQUE -------- A carotid duplex ultrasound examination was performed, including grayscale imaging and color Doppler and spectral Doppler examination of the below mentioned arteries. FINDINGS -------- RIGHT SIDE Common carotid artery: Proximal: PSV: 106 cm/s. EDV: 13 cm/s. Mid: PSV: 118 cm/s. EDV: 14 cm/s. Distal: PSV: 98 cm/s. EDV: 16 cm/s. Mild homogeneous plaque at distal. Internal carotid artery: Origin: PSV: 93 cm/s. EDV: 19 cm/s. Proximal: PSV: 67 cm/s. EDV: 18 cm/s. Mid: PSV: 103 cm/s. EDV: 25 cm/s. Distal: PSV: 78 cm/s. EDV: 22 cm/s. Mild homogeneous plaque at origin. ICA/CCA Ratio: 0.9 External carotid artery: Origin: PSV: 106 cm/s. EDV: 10 cm/s. Mild heterogeneous plaque at origin. Subclavian artery: Proximal: PSV: 200 cm/s. EDV: 0 cm/s. Vertebral artery: PSV: 68 cm/s. EDV: 14 cm/s. LEFT SIDE Common carotid artery: Proximal: PSV: 93 cm/s. EDV: 17 cm/s. Mid: PSV: 103 cm/s. EDV: 20 cm/s. Distal: PSV: 97 cm/s. EDV: 20 cm/s. Mild homogeneous plaque at distal. Internal carotid artery: Origin: PSV: 95 cm/s. EDV: 18 cm/s. Proximal: PSV: 97 cm/s. EDV: 20 cm/s. Mid: PSV: 108 cm/s. EDV: 25 cm/s. Distal: PSV: 98 cm/s. EDV: 25 cm/s. Mild homogeneous plaque at origin. ICA/CCA Ratio: 1.0 External carotid artery: Origin: PSV: 79 cm/s. EDV: 0 cm/s. Subclavian artery: Proximal: PSV: 182 cm/s. EDV: 0 cm/s. Vertebral artery: PSV: 76 cm/s. EDV: 14 cm/s. IMPRESSION Please note: the new carotid interpretation criteria are used as recommended by [employer]. RIGHT SIDE Incidentally detected thyroid nodule measuring 2.80 cm in maximum diameter; dedicated thyroid ultrasound is recommended. -Multiple nodules noted. Common carotid artery: Plaque visualized without evidence of hemodynamically significant stenosis. Internal carotid artery: <50% stenosis consistent with mild carotid artery disease. Vertebral artery: Patent and antegrade flow noted. Innominate artery: Unable to visualize. Subclavian artery: Patent at proximal. Unable to visualie origin. LEFT SIDE Common carotid artery: Plaque visualized without evidence of hemodynamically significant stenosis. Internal carotid artery: <50% stenosis consistent with mild carotid artery disease. Vertebral artery: Patent and antegrade flow noted. Subclavian artery: Patent. Technologist: Elaine Gasca RVT, [facility] Ordering physician: BRIAN BEAVER Interpreting physician: SOLOMON Rodrgiuez MD Final CC [employer] [facility] Image : [id number] [employer] See Link below for Image Normal [facility] CNOVon 12-11-2024 CNOV Office Visit (PODIWS) NAZANINJOHN ([id number]) 1945 F Date Time Provider Department 12/11/24 1:15 PM NICKI ARROYO During your visit today, we recorded the following information about you: She Stahl RN 12/11/2024 1:29 PM Signed Patient presents with: Right Foot - Established Patient, Follow Up, Pain, Nail Check AMB ROOMING INTAKE FLOWSHEET DATA Pain Pain Level: 3 Pain Location: Toe Description: Sore Duration Units: Weeks Right toes 1-3 are thick and have become painful. States that the pain began last week, also noticed some new discoloration to the nails. [facility] 09/24/24 Nicki Arroyo 12/11/2024 1:29 PM Signed Subjective: Patient presents to clinic c/o painful toenails. They state that the nails are especially painful with shoe gear and pressure. Patient states that nails right 2nd and 3rd toenail are painful. Patient also complains of callus of right great toe that causes pain. No other pedal complaints at this time. Patient states no change in medications or medical history since last visit. Objective: Patient presents to clinic ambulating in sketches Vasc: DP and PT pulses are faintly palpable bilateral. CFT is less than 5 [...] normal turgor, texture and hair growth is decreased bilateral. There is callus to right hallux. No ulceration Ortho: Muscle strength is 5/5 for all pedal groups tested. Ankle joint DF is decreased with the knee extended with no pain or crepitus noted. 1st MPJ ROM is decreased bilateral. Assessment: (B35.1) Onychomycosis (primary encounter diagnosis) (L60.0) Onychocryptosis (M79.672) Pain in left foot (M79.674) Pain in toe of right foot (L84) Callus of foot Plan: Patient was seen and evaluated. Nails 1-5 bilateral were debrided in length and thickness. Discussed removal of toenails but would favor getting pvr prior Callus reduced to right hallux with dremmel. Recommend more supportive shoes, ones that have memory foam Patient is to RTC in 3-4 months. Nicki Arroyo DPM Referring Provider: NICKI ARROYO [[id number]] Allergies As of Date: 12/11/2024 Noted Allergy Reaction HALIBUT LIVER OIL 02/07/2002 10 - Anaphylaxis IODINE 02/02/2001 10 - Anaphylaxis Comments: difficulty breathing SHELLFISH 02/02/2001 10 - Anaphylaxis Comments: anaphalaxis BACITRACIN 02/02/2001 2 - Rash Comments: rash CEPHALOSPORINS 02/02/2001 2 - Rash Comments: sore rash ERYTHROMYCIN BASE 02/02/2001 6 - Diarrhea Comments: diarrhea FEATHERS 02/02/2001 14 - Other: See Comments Comments: congestion GUAIFENESIN 02/26/2003 2 - Rash 7 - Swelling Comments: humibid red swollen rash KEFLEX (CEPHALEXIN) 02/11/2006 4 - Hives Comments: hives PENICILLINS 02/02/2001 2 - Rash 4 - Hives Comments: rash,hives SULFA (SULFONAMIDE ANTIBIOTICS) 02/02/2001 2 - Rash Comments: rash WOOL 02/04/2011 2 - Rash 9 - Itching ADHESIVE TAPE (ROSINS) 07/08/2011 2 - Rash AUGMENTIN (AMOXICILLIN-POT CLAVUL*01/07/2005 Comments: rash/hives CEFACLOR 02/02/2001 16 - Unknown Comments: unknown NICKEL 09/30/2016 2 - Rash POTASSIUM CLAVULANATE 01/24/2019 16 - Unknown CLEOCIN (CLINDAMYCIN HCL) 12/22/2004 9 - Itching Comments: itch MACROLIDE ANTIBIOTICS 09/24/2003 14 - Other: See Comments Comments: biaxin adverse reaction- Nausea Date Reviewed: 12/11/2024 Reviewed by: She Stahl, RN - Fully Assessed Reason for Visit: Established Patient [175] Follow Up [171] Pain [78] Nail Check [763] Primary Visit Diagnosis:Onychomyco sis [B35.1] Other Visit Diagnoses:Onychocryp tosis [L60.0] Pain in left foot [M79.672] Pain in toe of right foot [M79.674] Callus of foot [L84] Prescriptions as of 12/11/2024 - loratadine (CLARITIN) 10 mg tablet Take 10 mg by mouth. - pravastatin (PRAVACHOL) 40 mg tablet TAKE 1 TABLET DAILY AT BEDTIME - polyethylene glycol 3350 (MIRALAX, GLYCOLAX) 17 gram/dose powder Take 17 g by mouth once daily. - calcium citrate (CITRACAL ORAL) Take 2 capsules by mouth twice daily. - doxycycline hyclate (VIBRAMYCIN) 100 mg capsule Take 100 mg by mouth once daily. - cyanocobalamin (VITAMIN B-12) 500 mcg tablet Take 1 tablet by mouth once daily. - metoprolol tartrate, short acting, (LOPRESSOR) 25 mg tablet Take 1 tablet by mouth twice daily. - VITAMIN D 50,000 unit capsule Take 1 tablet by mouth every 2 weeks. - escitalopram oxalate (LEXAPRO) 10 mg tablet Take 10 mg by mouth once daily. - vit C,P-Rx-spwnj-lutein- zeaxan (PRESERVISION AREDS-2) 250-90-40-1 mg Ta (more content not included)... Normal [facility] 12-07-2024 [facility] Telephone (PODIWS) JOHN CELIS ([id number]) 1945 F Date Time Provider Department 12/07/24 NICKI ARROYO During your visit today, we recorded the following information about you: Jackie Holt MA 12/07/2024 9:57 AM Signed Patient called in stating she is having pain in her right great and second toes. Denies any sores. States she was told to call in with problems and she could be seen soon. No available appointments until 01/03. Please contact patient back at [phone]. Patricia Rangel LPN 12/11/2024 3:58 PM Signed Patient was seen today 12/11/2024. Patricia DIXIE Rangel Allergies As of Date: 12/07/2024 Noted Allergy Reaction HALIBUT LIVER OIL 02/07/2002 10 - Anaphylaxis IODINE 02/02/2001 10 - Anaphylaxis Comments: difficulty breathing SHELLFISH 02/02/2001 10 - Anaphylaxis Comments: anaphalaxis BACITRACIN 02/02/2001 2 - Rash Comments: rash CEPHALOSPORINS 02/02/2001 2 - Rash Comments: sore rash ERYTHROMYCIN BASE 02/02/2001 6 - Diarrhea Comments: diarrhea FEATHERS 02/02/2001 14 - Other: See Comments Comments: congestion GUAIFENESIN 02/26/2003 2 - Rash 7 - Swelling Comments: humibid red swollen rash KEFLEX (CEPHALEXIN) 02/11/2006 4 - Hives Comments: hives PENICILLINS 02/02/2001 2 - Rash 4 - Hives Comments: rash,hives SULFA (SULFONAMIDE ANTIBIOTICS) 02/02/2001 2 - Rash Comments: rash WOOL 02/04/2011 2 - Rash 9 - Itching ADHESIVE TAPE (ROSINS) 07/08/2011 2 - Rash AUGMENTIN (AMOXICILLIN-POT CLAVUL*01/07/2005 Comments: rash/hives CEFACLOR 02/02/2001 16 - Unknown Comments: unknown NICKEL 09/30/2016 2 - Rash POTASSIUM CLAVULANATE 01/24/2019 16 - Unknown CLEOCIN (CLINDAMYCIN HCL) 12/22/2004 9 - Itching Comments: itch MACROLIDE ANTIBIOTICS 09/24/2003 14 - Other: See Comments Comments: biaxin adverse reaction- Nausea Date Reviewed: 11/27/2024 Reviewed by: Thaddeus Arreola MA - Fully Assessed Reason for Visit: Patient Update [1234] Prescriptions as of 12/11/2024 - loratadine (CLARITIN) 10 mg tablet Take 10 mg by mouth. - pravastatin (PRAVACHOL) 40 mg tablet TAKE 1 TABLET DAILY AT BEDTIME - polyethylene glycol 3350 (MIRALAX, GLYCOLAX) 17 gram/dose powder Take 17 g by mouth once daily. - calcium citrate (CITRACAL ORAL) Take 2 capsules by mouth twice daily. - doxycycline hyclate (VIBRAMYCIN) 100 mg capsule Take 100 mg by mouth once daily. - cyanocobalamin (VITAMIN B-12) 500 mcg tablet Take 1 tablet by mouth once daily. - metoprolol tartrate, short acting, (LOPRESSOR) 25 mg tablet Take 1 tablet by mouth twice daily. - VITAMIN D 50,000 unit capsule Take 1 tablet by mouth every 2 weeks. - escitalopram oxalate (LEXAPRO) 10 mg tablet Take 10 mg by mouth once daily. - vit C,E-Pd-hzjba-lutein- zeaxan (PRESERVISION AREDS-2) 250-90-40-1 mg Take by mouth twice daily. - mometasone (NASONEX) 50 mcg/actuation nasal spray Use 2 Sprays in the nose once daily. - albuterol HFA (PROAIR HFA) 90 mcg/actuation inhaler Inhale 2 Puffs as instructed as needed. TWO PUFFS FOUR TIMES DAILY NEEDED - EPINEPHrine 0.3 mg/0.3 mL (1:1,000) atIn Inject subcutaneously as needed. Inject immediately with evidence of reaction and to proceed to the emergency room - aspirin, enteric coated (ECOTRIN LOW STRENGTH) 81 mg EC tablet Take 1 tablet by mouth once daily. - mupirocin (BACTROBAN) 2 % cream Apply to affected area three times daily. APPLY TO AFFECTED AREA Meds Comments as of 11/22/2018: 11/22/18 The medications are managed by this patient by: PATIENT Ted [facility]ana [facility] Problem List As Of Date 12/07/2024 Noted Resolved Essential hypertension [I10] 05/19/2004 Mixed hyperlipidemia [E78.2] 05/19/2004 DIZZINESS [R42] 05/19/2004 04/06/2010 ESOPHAGEAL REFLUX [K21.9] 12/22/2004 Abdominal pain, unspecified site [R10.9] 02/01/2005 04/06/2010 ROSACEA [L71.9] 02/01/2005 Pain in joint, shoulder region [M25.519] 06/04/2005 04/06/2010 Cholelithiasis NOS [K80.20] 06/14/2005 04/06/2010 ASTHMA UNSPECIFIED [J45.909] 06/23/2005 02/01/2008 IRRITABLE COLON [K58.9] 07/12/2005 Chest pain, unspecified [R07.9] 01/20/2006 04/06/2010 Anxiety state, unspecified [F41.1] 04/08/2006 04/06/2010 Unspecified vitamin D deficiency [E55.9] 07/07/2006 04/06/2010 DIFFUS CYSTIC MASTOPATHY [N60.19] 09/06/2006 Other malaise and fatigue [R53.81, R53.83] 01/26/2007 04/06/2010 Nonspecific abnormal results of liver function *10/24/2007 04/06/2010 ASTHMA UNSPECIFIED [J45.909] 03/11/2008 PEPTIC ULCER NOS [K27.9] 05/02/2008 ALLERGY, UNSPECIFIED [T78.40XA] 06/25/2008 Primary localized osteoarthrosis, shoulder blayne*07/30/2008 04/06/2010 Symptomatic menopausal or female climacteric st*01/16/2010 Postmenopausal atrophic vaginitis [N95.2] 01/16/2010 Fibroid, uterine [D25.9] 01/16/2010 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 Normal [facility] CBC W Auto Differential pane l (Bld)on 11-27-2024 Basophils (Bld) [#/Vol] 0.08 10*3/uL Normal <0.11 [facility] Comment on above: Order Comment: Speci men Type: BLOOD SPECIMENOrdering Facility: [facility] Address: [address] [place] [address] Performed By: #### 5 7021-8 ####[facility] LABCLIA [id number] [place] [address] [place] Basophils/100 WBC (Bld) 1.0 % Normal [facility] Comment on above: Order Comment: Speci men Type: BLOOD SPECIMENOrdering Facility: [facility] Address: [address] [place] [address] Performed By: #### 5 7021-8 ####[facility] LABCLIA [id number] [place] [address] [place] Differential cell count method Nom (Bld) Auto Normal [facility] Comment on above: Order Comment: Speci men Type: BLOOD SPECIMENOrdering Facility: [facility] Address: [address] [place] [address] Performed By: #### 5 7021-8 ####[facility] LABCLIA [id number] [place] [address] [place] Eosinophils (Bld) [#/Vol] 0.25 10*3/uL Normal <0.46 [facility] Comment on above: Order Comment: Speci men Type: BLOOD SPECIMENOrdering Facility: [facility] Address: [address] [place] [address] Performed By: #### 5 7021-8 ####[facility] LABCLIA [id number] [place] [address] [place] Eosinophils/100 WBC (Bld) 3.0 % Normal [facility] Comment on above: Order Comment: Speci men Type: BLOOD SPECIMENOrdering Facility: [facility] Address: [address] [place] [address] Performed By: #### 5 7021-8 ####[facility] LABCLIA [id number] [place] [address] [place] Erythrocyte distribution width (RBC) [Ratio] 14.6 % Normal 11.5-15.0 [facility] Comment on above: Order Comment: Speci men Type: BLOOD SPECIMENOrdering Facility: [facility] Address: [address] [place] [address] Performed By: #### 5 7021-8 ####[facility] LABCLIA [id number] [place] [address] [place] Hematocrit (Bld) [Volume fraction] 49.3 % High 36.0-46.0 [facility] Comment on above: Order Comment: Speci men Type: BLOOD SPECIMENOrdering Facility: [facility] Address: [address] [place] [address] Performed By: #### 5 7021-8 ####[facility] LABCLIA [id number] [place] [address] [place] Hemoglobin (Bld) [Mass/Vol] 16.1 g/dL High 11.5-15.5 [facility] Comment on above: Order Comment: Speci men Type: BLOOD SPECIMENOrdering Facility: [facility] Address: [address] [place] [address] Performed By: #### 5 7021-8 ####[facility] LABCLIA [id number] [place] [address] [place] Immature granulocytes (Bld) [#/Vol] 0.03 10*3/uL Normal <0.10 [facility] Comment on above: Order Comment: Speci men Type: BLOOD SPECIMENOrdering Facility: [facility] Address: [address] [place] [address] Performed By: #### 5 7021-8 ####[facility] LABCLIA [id number] [place] [address] [place] Immature granulocytes/100 WBC (Bld) 0.4 % Normal [facility] Comment on above: Order Comment: Speci men Type: BLOOD SPECIMENOrdering Facility: [facility] Address: [address] [place] [address] Performed By: #### 5 7021-8 ####[facility] LABCLIA [id number] [place] [address] [place] Lymphocytes (Bld) [#/Vol] 3.77 10*3/uL Normal 1.00-4.00 [facility] Comment on above: Order Comment: Speci men Type: BLOOD SPECIMENOrdering Facility: [facility] Address: [address] [place] [address] Performed By: #### 5 7021-8 ####[facility] LABCLIA [id number] [place] [address] [place] Lymphocytes/100 WBC (Bld) 45.1 % Normal [facility] Comment on above: Order Comment: Speci men Type: BLOOD SPECIMENOrdering Facility: [facility] Address: [address] [place] [address] Performed By: #### 5 7021-8 ####[facility] LABIA [id number] [place] [address] [place] MCH (RBC) [Entitic mass] 28.0 pg Normal 26.0-34.0 [facility] Comment on above: Order Comment: Speci men Type: BLOOD SPECIMENOrdering Facility: [facility] Address: [address] [place] [address] Performed By: #### 5 7021-8 ####[facility] LABCLIA [id number] [place] [address] [place] MCHC (RBC) [Mass/Vol] 32.7 g/dL Normal 30.5-36.0 [facility] Comment on above: Order Comment: Speci men Type: BLOOD SPECIMENOrdering Facility: [facility] Address: [address] [place] [address] Performed By: #### 5 7021-8 ####[facility] LABIA [id number] [place] [address] [place] MCV (RBC) [Entitic vol] 85.6 fL Normal 80.0-100.0 [facility] Comment on above: Order Comment: Speci men Type: BLOOD SPECIMENOrdering Facility: [facility] Address: [address] [place] [address] Performed By: #### 5 7021-8 ####[facility] LABCLIA [id number] [place] [address] [place] Monocytes (Bld) [#/Vol] 0.64 10*3/uL Normal <0.87 [facility] Comment on above: Order Comment: Speci men Type: BLOOD SPECIMENOrdering Facility: [facility] Address: [address] [place], [place] [address] Performed By: #### 5 7021-8 ####[facility] LABCLIA [id number] [address] [place] [address] [place] Monocytes/100 WBC (Bld) 7.7 % Normal [facility] Comment on above: Order Comment: Speci men Type: BLOOD SPECIMENOrdering Facility: [facility] Address: [address] [place] [address] Performed By: #### 5 7021-8 ####[facility] LABCLIA [id number] [address], [facility]95 [place] Neutrophils (Bld) [#/Vol] 3.59 10*3/uL Normal 1.45-7.50 [facility] Comment on above: Order Comment: Speci men Type: BLOOD SPECIMENOrdering Facility: [facility] Address: [address] [place] [address] Performed By: #### 5 7021-8 ####[facility] LABCLIA [id number] [address] [address] [place] Neutrophils/100 WBC (Bld) 42.8 % Normal [facility] Comment on above: Order Comment: Speci men Type: BLOOD SPECIMENOrdering Facility: [facility] Address: [address] [place], [place] [address] Performed By: #### 5 7021-8 ####[facility] LABCLIA [id number] [address] [address] [place] Nucleated RBC (Bld) [#/Vol] 10*3/uL Normal <0.01 [facility] Comment on above: Order Comment: Speci men Type: BLOOD SPECIMENOrdering Facility: [facility] Address: [address] [place], [place] [address] Performed By: #### 5 7021-8 ####[facility] LABCLIA [id number] [place] [address] [place] Nucleated RBC/100 WBC (Bld) [Ratio] 0.0 /100 WBC Normal [facility] Comment on above: Order Comment: Speci men Type: BLOOD SPECIMENOrdering Facility: [facility] Address: [address] [place] [address] Performed By: #### 5 7021-8 ####[facility] LABCLIA [id number] [place] [address] [place] Platelet mean volume (Bld) [Entitic vol] 9.7 fL Normal 9.0-12.7 [facility] Comment on above: Order Comment: Speci men Type: BLOOD SPECIMENOrdering Facility: [facility] Address: [address] [place] [address] Performed By: #### 5 7021-8 ####[facility] LABIA [id number] [place] [address] [place] Platelets (Bld) [#/Vol] 195 10*3/uL Normal 150-400 [facility] Comment on above: Order Comment: Speci men Type: BLOOD SPECIMENOrdering Facility: [facility] Address: [address] [place] [address] Performed By: #### 5 7021-8 ####[facility] LABIA [id number] [place] [address] [place] RBC (Bld) [#/Vol] 5.76 10*6/uL High 3.90-5.20 [facility] Comment on above: Order Comment: Speci men Type: BLOOD SPECIMENOrdering Facility: [facility] Address: [address] [place] [address] Performed By: #### 5 7021-8 ####[facility] LABCLIA [id number] [place] [address] [place] WBC (Bld) [#/Vol] 8.36 10*3/uL Normal 3.70-11.00 [facility] Comment on above: Order Comment: Speci men Type: BLOOD SPECIMENOrdering Facility: [facility] Address: [address] [place] [address] Performed By: #### 5 7021-8 ####[facility] LABCLIA [id number] [address] DUPREE [address] OF [facility] CNOVon 11-27-2024 CNOV Office Visit (LYLAIMMarilee) FUADJOHN OTTO ([id number]) 1945 F Date Time Provider Department 11/27/24 1:15 PM BRIAN BEAVER During your visit today, we recorded the following information about you: Pulse Blood pressure Weight Height 75/minute 155/76 74.8 kg 1.6 m Brian Beaver MD 11/27/2024 6:06 PM [facility] [place] Juan Daniel Carpenter Department of Cardiovascular Medicine SECTION OF CARDIOVASCULAR IMAGING OUTPATIENT VISIT DATE 11/27/2024 OUTPATIENT VISIT TYPE ESTABLISHED PRIMARY CARE PHYSICIAN: Alexander Gallagher [address] [place] [address] CHIEF COMPLAINT: CV health management visit. HISTORY OF PRESENT ILLNESS: Ms. Celis is a 79 year old female who presents today for a cardiovascular medicine follow-up visit. She has a past medical history significant GERD, HLD, HTN, tachycardia and asthma. Doing well generally. Today, Ms. Celis reports that she has been feeling well. No new cardiac complaints. Some vertigo From a cardiovascular perspective, pt continues to [...] Endometriosis, site unspecified Esophageal reflux Exercise-induced asthma (HCC) GERD (gastroesophageal reflux disease) Headache(784.0) HYPERLIPIDEMIA 05/19/2004 [...] Social History Tobacco Use Smoking status: Former Current packs/day: 0.00 Average packs/day: 4.0 packs/day for 20.0 years (80.0 ttl pk-yrs) Types: Cigarettes Start date: 03/26/1964 Quit date: 03/26/1984 Years since quittin.7 Smokeless tobacco: Never Vaping Use Vaping status: Never Used Substance Use Topics Alcohol use: Never Drug use: Never ALLERGIES: ALLERGIES Allergen Reactions Flounder [Other] Anaphylaxis [...] reaction- Nausea MEDICATIONS: loratadine (CLARITIN) 10 mg tablet Take 10 mg by mouth. pravastatin (PRAVACHOL) 40 (more content not included)... Normal [facility] Comprehensive metabolic 2000 panelon 11-27-2024 Albumin [Mass/Vol] 4.3 g/dL Normal 3.9-4.9 [facility] Comment on above: Order Comment: Speci men Type: BLOOD SPECIMENOrdering Facility: [facility] Address: [address] [place] [address] Performed By: #### 2 4323-8, 17372-3 ####[facility] LABCLIA [id number] [place] [address] [place] ALP [Catalytic activity/Vol] 76 U/L Normal 34-123 [facility] Comment on above: Order Comment: Speci men Type: BLOOD SPECIMENOrdering Facility: [facility] Address: [address] [place] [address] Performed By: #### 2 4323-8, 23643-8 ####[facility] LABCLIA [id number] [address] [place] [address] [place] ALT [Catalytic activity/Vol] 11 U/L Normal 7-38 [facility] Comment on above: Order Comment: Speci men Type: BLOOD SPECIMENOrdering Facility: [facility] Address: [address] [place] [address] Performed By: #### 2 4323-8, 27300-6 ####[facility] LABCLIA [id number] [facility] [address] [place] [address] [place] Anion gap [Moles/Vol] 8 mmol/L Normal 8-15 [facility] Comment on above: Order Comment: Speci men Type: BLOOD SPECIMENOrdering Facility: [facility] Address: [address] [place] [address] Performed By: #### 2 4323-8, 31266-2 ####[facility] LABCLIA [id number] [place] [id number] [place] AST [Catalytic activity/Vol] 19 U/L Normal 13-35 [facility] Comment on above: Order Comment: Speci men Type: BLOOD SPECIMENOrdering Facility: [facility] Address: [address] [place] [address] Performed By: #### 2 4323-8, 69782-6 ####[facility] LABCLIA [id number] [facility] [address], [facility] [place] Bilirubin [Mass/Vol] 0.4 mg/dL Normal 0.2-1.3 [facility] Comment on above: Order Comment: Speci men Type: BLOOD SPECIMENOrdering Facility: [facility] Address: [address] [place] [address] Performed By: #### 2 4323-8, 05977-7 ####[facility] LABCLIA [id number] [facility] [address] [place] [address] [place] Calcium [Mass/Vol] 10.1 mg/dL Normal 8.5-10.2 [facility] Comment on above: Order Comment: Speci men Type: BLOOD SPECIMENOrdering Facility: [facility] Address: [address] [place] [id number] Performed By: #### 2 4323-8, 01796-3 ####[facility] LABCLIA [id number] [address] [address] [place] Chloride [Moles/Vol] 105 mmol/L Normal 98-107 [facility] Comment on above: Order Comment: Speci men Type: BLOOD SPECIMENOrdering Facility: [facility] Address: [address] [place], [place] [address] Performed By: #### 2 4323-8, 91651-1 ####[facility] LABCLIA [id number] [place] [address] [place] CO2 [Moles/Vol] 28 mmol/L Normal 22-30 [facility] Comment on above: Order Comment: Speci men Type: BLOOD SPECIMENOrdering Facility: [facility] Address: [address] [place] [address] Performed By: #### 2 4323-8, 12103-1 ####[facility] LABCLIA [id number] [place] [address] [place] Creatinine [Mass/Vol] 0.91 mg/dL Normal 0.58-0.96 [facility] Comment on above: Order Comment: Speci men Type: BLOOD SPECIMENOrdering Facility: [facility] Address: [address] [place], [place] [address] Performed By: #### 2 4323-8, 82943-6 ####[facility] LABCLIA [id number] [place] [address] [place] eGFRcr SerPlBld CKD-EPI 2020 65 mL/min/1.73m??? Normal >=60 [facility] Comment on above: Order Comment: Speci men Type: BLOOD SPECIMENOrdering Facility: [facility] Address: [address] [place], [place] [address] Result Comment: Luz mated Glomerular Filtration Rate (eGFR) is calculated using the 2020 CKD-EPI creatinine equation. This equation utilizes serum creatinine, sex, and age as parameters. The creatinine assay has traceable calibration to isotope dilution-mass spectrometry. Refer to KDIGO guidelines for clinical interpretation. In patients with unstable renal function, e.g. those with acute kidney injury, the eGFR may not accurately reflect actual GFR. Performed By: #### 2 4323-8, 53697-4 ####[facility] LABIA [id number] [place] [address] [place] Glucose [Mass/Vol] 103 mg/dL High 74-99 [facility] Comment on above: Order Comment: Specpanda clemons Type: BLOOD SPECIMENOrdering Facility: [facility] Address: [address] [place] [address] Result Comment: The [place] [employer] (ADA) provides guidance for cutoff values for fasting glucose and random glucose. The ADA defines fasting as no caloric intake for at least 8 hours. Fasting plasma glucose results between 100 to 125 mg/dL indicate increased risk for diabetes (prediabetes). Fasting plasma glucose results greater than or equal to 126 mg/dL meet the criteria for diagnosis of diabetes. In the absence of unequivocal hyperglycemia, results should be confirmed by repeat testing. In a patient with classic symptoms of hyperglycemia or hyperglycemic crisis, random plasma glucose results greater than or equal to 200 mg/dL meet the criteria for diagnosis of diabetes. Reference: Standards of Medical Care in Diabetes 2016, [place] [employer]. Diabetes Care. 2016.39(Suppl 1). Performed By: #### 2 4323-8, 85001-4 ####[facility] LABIA [id number] [place] [address] [place] Potassium [Moles/Vol] 5.3 mmol/L High 3.7-5.1 [facility] Comment on above: Order Comment: Serenity clemons Type: BLOOD SPECIMENOrdering Facility: [facility] Address: [address] [place] [address] Performed By: #### 2 4323-8, 53411-4 ####[facility] LABIA [id number] [address] [address] [place] Protein [Mass/Vol] 6.6 g/dL Normal 6.3-8.0 [facility] Comment on above: Order Comment: Speci men Type: BLOOD SPECIMENOrdering Facility: [facility] Address: [address] [place] [address] Performed By: #### 2 4323-8, 11327-4 ####[facility] LABIA [id number] [place] [address] [place] Sodium [Moles/Vol] 141 mmol/L Normal 136-144 [facility] Comment on above: Order Comment: Speci men Type: BLOOD SPECIMENOrdering Facility: [facility] Address: [address] [place] [address] Performed By: #### 2 4323-8, 40922-8 ####[facility] [id number] [place] [address] [place] Urea nitrogen [Mass/Vol] 19 mg/dL Normal 7-21 [facility] Comment on above: Order Comment: Speci men Type: BLOOD SPECIMENOrdering Facility: [facility] Address: [address] [place] [address] Performed By: #### 2 4323-8, 28254-0 ####[facility] [id number] [place] [address] [place] ECG COMPLETEon 11-27-2024 ECG COMPLETE Ventricular Rate : 59 BPM Atrial Rate : 59 BPM P-R Interval : 160 ms QRS Duration : 72 ms Q-T Interval : 398 ms QTC Calculation(Bazett) : 394 ms Calculated P [place] : 30 degrees Calculated R [place] : 29 degrees Calculated T [place] : 61 degrees SINUS BRADYCARDIA OTHERWISE NORMAL ECG Confirmed by TIMBO ROSS MD ([id number]) on 12/10/2024 4:09:44 PM NAME : JOHN CELIS PID : [id number] : 1945 Gender : Female Race : ORD : [id number] Procedure Date : Nov 27 2024 10:01:36 Edit Date : Dec 10 2024 16:10:02 Diagnosis: SINUS BRADYCARDIA OTHERWISE NORMAL ECG Confirmed by TIMBO ROSS MD ([id number]) on 12/10/2024 4:09:44 PM Test Reason : Location : 314 : J14 j14 Overread By : TIMBO ROSS MD Edited By : TIMBO ROSS MD Referred By : , Acquired by : KRYSTLE MAYO Normal [facility] Lipid 1996 panelon 5 Cholesterol [Mass/Vol] 191 mg/dL Normal <200 [facility] Comment on above: Order Comment: Speci men Type: BLOOD SPECIMENOrdering Facility: [facility] Address: [address] [place] [address] Result Comment: <200 mg/dL, Desirable 200-239 mg/dL, Borderline high >239 mg/dL, High Performed By: #### 2 4323-8, 83848-1 ####[facility] LABIA [id number] [address] STATES OF [facility] Cholesterol in HDL [Mass/Vol] 41 mg/dL Normal >39 [facility] Comment on above: Order Comment: Stefanii men Type: BLOOD SPECIMENOrdering Facility: [facility] Address: [address] [place] [address] Result Comment: 40-5 9 mg/dL, Acceptable >59 mg/dL, High: Negative risk factor for coronary heart disease <40 mg/dL, Low: Positive risk factor for coronary heart disease Performed By: #### 2 4323-8, 62733-9 ####[facility] LABCLIA [id number] [place] [id number] [place] Cholesterol in LDL [Mass/Vol] 115 mg/dL High <100 [facility] Comment on above: Order Comment: Stefanii men Type: BLOOD SPECIMENOrdering Facility: [facility] Address: [address] [place] [address] Result Comment: <100 mg/dL, Optimal 100-129 mg/dL, Near optimal/above optimal 130-159 mg/dL, Borderline high 160-189 mg/dL, High >189 mg/dL, Very high Secondary prevention optimal LDL Cholesterol levels are recommended to be <70 mg/dL LDL cholesterol is calculated using the Nielson-NIH equation. Performed By: #### 2 4323-8, 69889-1 ####[facility] LABCLIA [id number] [address] [address] [place] Cholesterol in LDL/Cholesterol in HDL [Mass ratio] 2.80 {ratio} High <2.54 [facility] Comment on above: Order Comment: Speci men Type: BLOOD SPECIMENOrdering Facility: [facility] Address: [address] [place] [address] Result Comment: Refe sofi: 1. National Cholesterol Education Program ATP III Guideline At-A-Glance Quick Desk Reference: National Heart, Lung, and Blood [place]. National Institutes of Health. 2001: NIH Publication No. 01-3305. 2. An International Atherosclerosis Society position paper: global recommendations for the management of dyslipidemia: executive summary, Atherosclerosis. 2014: 232(2):410-413. Performed By: #### 2 4323-8, ####[facility] LABIA [id number] [place] [id number] [place] Cholesterol in VLDL [Mass/Vol] 34 mg/dL High <30 [facility] Comment on above: Order Comment: Stefanii men Type: BLOOD SPECIMENOrdering Facility: [facility] Address: [address] [place] [address] Performed By: #### 2 4323-8, ####[facility] LABIA [id number] [address] [address] [place] Cholesterol non HDL [Mass/Vol] 150 mg/dL High <130 [facility] Comment on above: Order Comment: Stefanii men Type: BLOOD SPECIMENOrdering Facility: [facility] Address: [address] [place] [address] Result Comment: <130 mg/dL, Optimal 130-159 mg/dL, Near optimal/above optimal 160-189 mg/dL, Borderline high 190-219 mg/dL, High >219 mg/dL, Very high Secondary prevention optimal non HDL Cholesterol levels are recommended to be <100 mg/dL Performed By: #### 2 4323-8, 63198-0 ####[facility] LABCLIA [id number] [address] [address] [place] Cholesterol.total/Chol esterol in HDL [Mass ratio] 4.66 {ratio} Normal <5.10 [facility] Comment on above: Order Comment: Speci men Type: BLOOD SPECIMENOrdering Facility: [facility] Address: [address] [place] [address] Performed By: #### 2 4323-8, 75738-1 ####[facility] LABCLIA [id number] [place] [address] [place] FASTING TIME 18 hrs Normal [facility] Comment on above: Order Comment: Speci men Type: BLOOD SPECIMENOrdering Facility: [facility] Address: [address] [place] [address] Performed By: #### 2 4323-8, 48045-3 ####[facility] LABCLIA [id number] [place] [address] [place] Triglyceride [Mass/Vol] 199 mg/dL High <150 [facility] Comment on above: Order Comment: Speci men Type: BLOOD SPECIMENOrdering Facility: [facility] Address: [address] [place] [address] Result Comment: <150 mg/dL, Normal 150-199 mg/dL, Borderline high 200-499 mg/dL, High >499 mg/dL, Very high Performed By: #### 2 4323-8, 00616-3 ####[facility] LABCLIA [id number] [address] [address] [place] STRESS ECHO TREADMILLon 08-2 STRESS ECHO TREADMILL Stress Stoker Erector Report: Stress Echo [facility] J1-5 Date of service: 11/27/2024 10:50:39 AM TECHNICIAN Supervising physician: Melita Ruvalcaba MD PATIENT: Name: MRS. JOHN CELIS Age: 79 years Gender: F The supervising physician was in the department and immediately available. Final Echocardiography Report: Stress Echo [facility] J1-5 Date of service: 11/27/2024 10:50:39 AM TECHNICIAN Ordering physician: BRIAN BEAVER Exam indication: SVT Technologist: Roddy Flores Fellow: Shabbir Scott MD Interpreting physician: Melita Ruvalcaba MD PATIENT: Name: MRS. JOHN CELIS : 1945 Age: 79 years Gender: F History of hypertension and dyslipidemia. Primary rhythm: sinus. Height: 160.00 cm BSA: 1.87 m Weight: 78.40 kg BMI: 30.6 kg/m Heart rate 67 bpm Blood pressure 140/82 mmHg Color Doppler was utilized to interrogate the cardiac valves assessed and spectral Doppler was utilized to determine the flow velocities and pressure gradients reported in this exam. MEASUREMENTS: Value Indexed Normal Max aortic dimension 3.2 cm Ao < 3.8 Left atrial volume 48 ml (biplane A-L) 26 ml/m Oseas <= 34 LV ID (diastole) 3.6 cm (2D) 1.91 cm/m LV ID (systole) 2.6 cm (2D) 1.37 cm/m IVS, leaflet tips 1.1 cm (2D) Posterior wall thickness 1.2 cm (2D) Left ventricular mass 126 g (2D) 68 g/m LV stroke volume 41 ml (2D biplane) LV end diastolic volume 68 ml (2D biplane) 36.5 ml/m 29<=EDVi<62 LV end systolic volume 27 ml (2D biplane) 14.3 ml/m Ejection Fraction 61 % (2D biplane) EF > 54 FINDINGS: LEFT VENTRICLE The left ventricle is normal in size. Left ventricular systolic function is normal. Mitral annular lateral E/e': 9.4. Mitral annular septal E/e': 18.6. Wall Motion: Rest: All scored segments are normal. Stress: RIGHT VENTRICLE The right ventricle is normal in size. Right ventricular systolic function is normal. RV systolic tissue Doppler velocity is 13.9 cm/s. Tricuspid annular displacement is 2.4 cm. LEFT ATRIUM The left atrial cavity is normal in size. RIGHT ATRIUM The right atrial cavity is normal in size (RA area = 12.1 cm ). MITRAL VALVE There is trace mitral valve regurgitation. There is no thickening. The pressure half time is 52 msec. The peak mitral E/A ratio is 0.80. The average mitral E/e' ratio is 14.0. The mitral flow deceleration time is 180 msec. TRICUSPID VALVE The tricuspid valve leaflets are structurally normal. There is trace tricuspid valve regurgitation. AORTIC VALVE There is no aortic valve regurgitation. Tricuspid aortic valve. There is mild thickening. The peak gradient is 6 mmHg (peak velocity = 120.4 cm/s). PULMONIC VALVE AORTA The visualized aorta is normal in size. Measurements - Mid ascending aorta 3.2 cm. STRESS ECHO Peak HR 115 bpm. (81 % MPHR) Peak BP 160 mmHg/74 mmHg. There is left ventricular cavity obliteration with stress. Rest Stress E/e' average 13.91 7.81 CONCLUSIONS: - Exam indication: SVT - The exercise stress echo was non-diagnostic due to sub-optimal heart rate response at 81 % of MPHR (5.3 METS). No regional wall motion abnormality seen at heart rate achieved. - The left ventricle is normal in size. Left ventricular systolic function is normal. EF = 61 5% (2D biplane) - The right ventricle is normal in size. Right ventricular systolic function is normal. - Exam was compared with the prior echocardiographic exam performed on 10/10/2023 (Stress). There is no significant change. Final Stress ECG Report: Stress Echo [facility] J1-5 Date of service: 11/27/2024 10:50:39 AM TECHNICIAN Ordering physician: BRIAN BEAVER med specialist: Maya Luna Fellow: Shabbir Scott MD Interpreting physician: Melita Ruvalcaba MD Patient name: MRS. JOHN ECLIS Age: 79 years Gender: F History of hypertension and dyslipidemia. Height: 160.00 cm BSA: 1.87 m Weight: 78.40 kg BMI: 30.6 kg/m Indication: Angina equivalent (other forms of angina) Stress ECG Conclusion: Conclusion: Normal with exception due to borderline ST changes Stress ECG Summary: The patient's resting heart rate was 67 bpm and blood pressure was 140/82 mmHg. The patient exercised according to the Trell 0% protocol. The estimated end-exercise MET level achieved using the FRIEND equation was 5.3, which is within the 50th to 75th percentile for age and sex. The estimated end-exercise MET level achieved using the previous ACSM equation was 6.1. The test was terminated due to leg fatigue and patient request and the total exercise time was 8 seun (more content not included)... Normal [facility] CNOVon 09-24-2024 CNOV Office Visit (PODIWS) JOHN CELIS ([id number]) 1945 F Date Time Provider Department 09/24/24 11:30 AM NICKI ARROYO PODIWS During your visit today, we recorded the following information about you: Patricia Rangel LPN 09/25/2024 8:00 AM Signed AMB ROOMING INTAKE FLOWSHEET DATA Patient presents with: Left Foot - Follow Up, nail care , Established Patient Right Foot - Established Patient, Follow Up, nail care : Bruise to right great toe nail DIXIE Rivera Matthew 09/25/2024 8:00 AM Signed Subjective: Patient presents to clinic c/o painful toenails. They state that the nails are especially painful with shoe gear and pressure. Patient states that nails b/l hallux are painful. No other pedal complaints at this time. Patient states no change in medications or medical history since last visit. Objective: Patient presents to clinic ambulating in [facility] Vasc: DP and PT pulses are palpable [...] bilateral. Assessment: (B35.1) Onychomycosis (primary encounter diagnosis) (L60.0) Onychocryptosis (M79.672) Pain in left foot (M79.674) Pain in toe of right foot Plan: Patient was seen and evaluated. Nails 1-5 bilateral were debrided in length and thickness. Patient is to RTC in 3-4 months. Nicki Arroyo DPM Referring Provider: NIKCI ARROYO [[id number]] Allergies As of Date: 09/24/2024 Noted Allergy Reaction Flounder [Other] 02/07/2002 10 - Anaphylaxis HALIBUT LIVER OIL 02/07/2002 10 - Anaphylaxis IODINE 02/02/2001 10 - Anaphylaxis Comments: difficulty breathing SHELLFISH 02/02/2001 10 - Anaphylaxis Comments: anaphalaxis BACITRACIN 02/02/2001 2 - Rash Comments: rash CEPHALOSPORINS 02/02/2001 2 - Rash Comments: sore rash ERYTHROMYCIN BASE 02/02/2001 6 - Diarrhea Comments: diarrhea FEATHERS 02/02/2001 14 - Other: See Comments Comments: congestion GUAIFENESIN 02/26/2003 2 - Rash 7 - Swelling Comments: humibid red swollen rash Humabid [Other] 02/02/2001 2 - Rash 7 - Swelling Comments: red,swollen rash KEFLEX (CEPHALEXIN) 02/11/2006 4 - Hives Comments: hives PENICILLINS 02/02/2001 2 - Rash 4 - Hives Comments: rash,hives SULFA (SULFONAMIDE ANTIBIOTICS) 02/02/2001 2 - Rash Comments: rash WOOL 02/04/2011 2 - Rash 9 - Itching ADHESIVE TAPE (ROSINS) 07/08/2011 2 - Rash AUGMENTIN (AMOXICILLIN-POT CLAVUL*01/07/2005 Comments: rash/hives CEFACLOR 02/02/2001 16 - Unknown Comments: unknown NICKEL 09/30/2016 2 - Rash POTASSIUM CLAVULANATE 01/24/2019 16 - Unknown CLEOCIN (CLINDAMYCIN HCL) 12/22/2004 9 - Itching Comments: itch MACROLIDE ANTIBIOTICS 09/24/2003 14 - Other: See Comments Comments: biaxin adverse reaction- Nausea Date Reviewed: 09/24/2024 Reviewed by: Patricia Rangel LPN - Fully Assessed Reason for Visit: Follow Up [171] nail care [Other] Established Patient [175] Established Patient [175] Cmt: Bruise to right great toe nail Follow Up [171] Cmt: Bruise to right great toe nail nail care [Other] Cmt: Bruise to right great toe nail Primary Visit Diagnosis:Onychomyco sis [B35.1] Other Visit Diagnoses:Onychocryp tosis [L60.0] Pain in left foot [M79.672] Pain in toe of right foot [M79.674] Prescriptions as of 09/25/2024 - loratadine (CLARITIN) 10 mg tablet Take 10 mg by mouth. - mupirocin (BACTROBAN) 2 % ointment Apply to affected area. - Coenzyme Q10 200 mg cap Take by mouth as needed. - pravastatin (PRAVACHOL) 40 mg tablet TAKE 1 TABLET DAILY AT BEDTIME - polyethylene glycol 3350 (MIRALAX, GLYCOLAX) 17 gram/dose powder Take 17 g by mouth once daily. - calcium citrate (CITRACAL ORAL) Take 2 capsules by mouth twice daily. - doxycycline hyclate (VIBRAMYCIN) 100 mg capsule Take 100 mg by mouth once daily. - cyanocobalamin (VITAMIN B-12) 500 mcg tablet Take 1 tablet by mouth once daily. - rluhqaof-qux-grse-FA -lutein (CENTRUM SILVER WOMEN) 8 mg iron-400 mcg-300 mcg tab Take 0.5 tablets by mouth once daily. - Zinc 50 mg tab Take 25 mg by mouth once daily. - Selenium 100 mcg tab Take 50 mcg by mouth once daily. - metoprolol tartrate, short acting, (LOPRESSOR) 25 mg tablet Take 1 tablet by mouth twice daily. (more content not included)... Normal [facility] Culture, Throaton 09-04-2024 CUT If further studies are desired, please contact the Microbiology Laboratory within 48 hours. Bacteria Throat Cult Bacteria Throat Cult Streptococcus pneumoniae Amount Growth 2+ Streptococcus pneumoniae: REACTION Cefotaxime Islt JONO <=0.12 S Cefotaxime Islt JONO <=0.12 S cefTRIAXone Islt JONO 0.25 S cefTRIAXone Islt JONO 0.25 S Clindamycin Islt JONO <=0.25 S levoFLOXacin Islt JONO <=0.25 S TMP SMX Islt JONO 80 R Vancomycin Islt JONO 0.25 S Penicillin Islt JONO 0.12 R Penicillin Islt JONO 0.12 S Penicillin Islt JONO 0.12 I Normal [facility] Comment on above: Performed By: #### M 100.1000 #### [facility] [address] [place], [place], [address] Urgent Care Visit Reporton 0 08-25-2024 Urgent Care Visit Report [facility] [address] , [address] [place], [place] [address] OFFICE VISIT Date of Service: 08/25/24 MR#: [id number] Acct: [id number] Name: JOHN CELIS Rep #: [id number] : 1945 Provider: YULI Howe Age/Sex: 79/F Location[facility] Status: Signed Intake Vital Signs 05/09/24 13:11 08/25/24 11:05 Height 5 ft 3 in 5 ft 3 in Weight: 171 lb 8 oz BMI 30.4 BP 148/80 H Blood Pressure Location Lt brachial Position Sitting Respiration 16 Pulse 66 Pulse Source Monitor Temp 97.8 F Temp Source Temporal Pulse Oximetry (%) 96 Oxygen Delivery Method room air Intake Visit Reasons: SINUS COMP/LARENGITIS Chief Complaint: ankle injury Is patient in pain?: No Allergies iodine Allergy (Verified 08/25/24 11:14) Anaphylaxis shellfish derived Allergy (Verified 08/25/24 11:14) Anaphylaxis adhesive tape Adverse Reaction (Verified 08/25/24 11:14) Rash amoxicillin trihydrate (From Augmentin) Adverse Reaction (Verified 08/25/24 11:14) Upset Stomach bacitracin Adverse Reaction (Verified 08/25/24 11:14) Rash cefaclor (Cefaclor) Adverse Reaction (Verified 08/25/24 11:14) Unknown cephalexin monohydrate (From Keflex) Adverse Reaction (Verified 08/25/24 11:14) Unknown Cephalosporins Adverse Reaction (Verified 08/25/24 11:14) Unknown clindamycin HCl (From Cleocin) Adverse Reaction (Verified 08/25/24 11:14) Unknown clindamycin palmitate HCl (From Cleocin) Adverse Reaction (Verified 08/25/24 11:14) Unknown clindamycin phosphate (From Cleocin) Adverse Reaction (Verified 08/25/24 11:14) Unknown erythromycin base (Erythromycin Base) Adverse Reaction (Verified 08/25/24 11:14) Unknown feathers Adverse Reaction (Verified 08/25/24 11:14) NEEDS FOLLOW-UP fish derived Adverse Reaction (Verified 08/25/24 11:14) NEEDS FOLLOW-UP guaifenesin Adverse Reaction (Verified 08/25/24 11:14) Unknown Macrolide Antibiotics Adverse Reaction (Verified 08/25/24 11:14) Unknown Penicillins Adverse Reaction (Verified 08/25/24 11:14) Unknown potassium clavulanate (From Augmentin) Adverse Reaction (Verified 08/25/24 11:14) Upset Stomach Sulfa (Sulfonamide Antibiotics) Adverse Reaction (Verified 08/25/24 11:14) Unknown wool Adverse Reaction (Verified 08/25/24 11:14) NEEDS FOLLOW-UP Medications ???Medication ???Instructions ???Recorded ???Confirmed ???Type aspirin 81 mg tablet,delayed 81 mg PO DAILY@0800 06/24/1303/12 History release epinephrine 0.3 mg/0.3 mL 0.3 mg IM PRN PRN Anaphylaxis 06/0303/12/24 History injection, auto-injector rabeprazole 20 mg tablet,delayed 20 mg PO DAILY 06/24/13 03/12/24 H istory release vit C 250 mg-vit E 90 mg-zinc 40 1 ea PO BID 02/26/15 03/12/24 Hist ory mg-copper 1 dr-jzxjvm-vbdlur capsule metoprolol tartrate 25 mg tablet 25 mg PO BID #60 tabs 02/28/1512/26 Rx cholecalciferol (vitamin D3) 1,250 50,000 unit PO QWEEK 01/23/18 History mcg (50,000 unit) capsule escitalopram oxalate 10 mg tablet 10 mg PO DAILY 01/23/18 03/12/24 History (Lexapro) polyethylene glycol 3350 17 PO 01/23/18 03/12/24 History gram/dose oral powder (Miralax) cyanocobalamin (vitamin B-12) 1,000 mcg PO DAILY 02/06/20 History 1,000 mcg capsule ascorbate calcium (vitamin C) 500 500 mg PO DAILY 03/04/22 03/12/24 History mg tablet pravastatin 20 mg tablet 40 mg PO DAILY 03/04/22 03/12/24 H istory nystatin 100,000 unit/gram topical 1 applic topical BID #45 ea 10/2403/12/24 Rx powder (Nystop) albuterol sulfate 90 mcg/actuation 2 puff inhalation Q6H PRN PRN 03/12/24 Rx aerosol inhaler Shortness Of Breath #8.5 grams calcium 315 mg (as 1 tab PO QDAY 08/25/24 History citrate)-vitamin D3 6.25 mcg (250 unit) tablet (Citracal + Vitamin D Maximum) cefprozil 500 mg tablet 500 mg PO BID 5 days #10 tabs 08/0308/25/24 Rx Post menopausal: Yes Have you fallen in the past year?: No PFSH Medical History Right ankle sprain Cellulitis of right knee Abrasion, right knee, initial encounter Thyroid nodule Hay fever SVT (supraventricular tachycardia) COPD (chronic obstructive pulmonary disease) Asthma White coat syndrome with hypertension Anxiety Urethral caruncle Surgical History S/P eye surgery History of appendectomy Hx laparoscopic cholecystectomy History of tonsillectomy and adenoidectomy Family History Mother CVA (cerebral vascular accident) Myocardial infarction Heart disease Diabetes Father CVA (cerebral vascular accident) Myocardial infarction Cancer lung Heart disease Diabetes Grandfather Myoca (more content not included)... Normal [facility] PT D/C Summary (1)on 025 PT D/C Summary (1) [facility] Physical Therapy [facility] [facility] [place] [address] / REHABILITATION SERVICES DISCHARGE SUMMARY MR#: [id number] Acct: [id number] Name: JOHN CELIS Rep #: [id number] : 1945 79 From: Yomi Li DPT, OCS, CSCS Referring Dr.: Dr. Alexander Gallagher MD Status: REG R Insurance: [facility] SELF PAY INSURANCE Discharge Summary D/C summary: It has been my pleasure to treat JOHN CELIS referred by Dr. Alexander Gallagher MD, with the diagnosis of poor balance for a total of 8 visit(s). Discharge Date: 07/24/24 Please see the following information for a summary of their discharge status. Subjective Subjective: No more dizzy episodes, maybe now and then with head moving right to left. Gets unsteady for a moment. Getting off floor is getting easier with hands on knees. No more problems with bending and recovering. No f/u with doctor. Ready to do ex on her own. Overall Improvement % Improvement: 80 Objective Objective/Function: FGA+1 and above normal for her age. able to ambulate and bend and recover adn mvoe head without dizzyness or unsteadiness today. Goals Goal 1:: I appropriate HEP for weight shift, vest balance, strength up off floor and core strength to limit future problems. Goal Progress: Goal Met Goal 2:: get up off floor without UE assist Goal Progress: Goal Met Goal 3:: Pt feel 75% better in balance and mobility to aid in todd trip with grandkids. Goal Progress: Goal Met Plan Plan: d/c to HEP D/C Information d/c sentence: If there are questions or concerns regarding this patient's physical therapy, please feel free to call me at [phone]. Thank you for the referral of this patient. Sincerely, Yomi Li, DPT, OCS, CSCS Balance/Gait/Functio nal tests Balance/Special Test Scores Functional Gait Assessment Score: 29 % Disability: 3.3400 CATSIB Score (Max score 120 seconds): 90 Lower Extremity Functional Score: 62 Improvement % Improvement: 80 07/24/24 1250 CC: Dr. Alexander Gallagher MD EBG Signed Normal [facility] Anion gap in Serum or Plasma Ordered By: Alexander Gallagher on 06-28-2024 Anion gap [Moles/Vol] 9 mmol/L 5- [facility] BUN/creatinine ratioOrdered By: Alexander Gallagher on 06-28-2024 Urea nitrogen/Creatinine [Mass ratio] 14.5 mg/mg - [facility] Basic Metabolic Profile (BMP )on 06-28-2024 BUN/CRE 14.5 RATIO Normal - [facility] Comment on above: Order Comment: Order Date: 06/15/24 Order Info: 0667-1 - BMP Performed By: #### L 500.2500 #### [facility] [address] [place], [place], [address] Calcium [Mass/Vol] 8.5 mg/dL Normal 7.6-11.0 [facility] Comment on above: Order Comment: Order Date: 06/15/24 Order Info: 0667-1 - BMP Performed By: #### L 500.2500 #### [facility] [address] [place], [address] Chloride [Moles/Vol] 104 mmol/L Normal 98-108 [facility] Comment on above: Order Comment: Order Date: 06/15/24 Order Info: 0667-1 - BMP Performed By: #### L 500.2500 #### [facility] [address] [place], [address] CO2 [Moles/Vol] 27.6 mmol/L Normal 21.0-32.0 [facility] Comment on above: Order Comment: Order Date: 06/15/24 Order Info: 0667-1 - BMP Performed By: #### L 500.2500 #### [facility] [address] [place], [address] Creatinine [Mass/Vol] 0.92 mg/dL Normal 0.70-1.20 [facility] Comment on above: Order Comment: Order Date: 06/15/24 Order Info: 0667- - BMP Performed By: #### L 500.2500 #### [facility] [address] [place], [address] GAP 9 Normal 5-15 [facility] Comment on above: Order Comment: Order Date: 06/15/24 Order Info: 0667- - BMP Performed By: #### L 500.2500 #### [facility] [address] [place], [address] GFR/1.73 sq M.predicted among non-blacks MDRD (S/P/Bld) [Vol rate/Area] 65 mL/min/{1.73_m2} Normal >60 [facility] Comment on above: Order Comment: Order Date: 06/15/24 Order Info: 0667-1 - BMP Result Comment: mL/m in/1.73m2 CKD-EPI Creatinine Equation (2020) Performed By: #### L 500.2500 #### [facility] [address] [place], [address] Glucose [Mass/Vol] 116 mg/dL High 70-99 [facility] Comment on above: Order Comment: Order Date: 06/15/24 Order Info: 0667-1 - BMP Performed By: #### L 500.2500 #### [facility] [address] [place], [place], [address] Potassium [Moles/Vol] 4.8 mmol/L Normal 3.3-5.1 [facility] Comment on above: Order Comment: Order Date: 06/15/24 Order Info: 0667-1 - BMP Performed By: #### L 500.2500 #### [facility] [address] [place], [place], [address] Sodium [Moles/Vol] 141 mmol/L Normal 133-145 [facility] Comment on above: Order Comment: Order Date: 06/15/24 Order Info: 0667-1 - BMP Performed By: #### L 500.2500 #### [facility] [address] [place], [place], [address] Urea nitrogen [Mass/Vol] 13 mg/dL Normal 4-19 [facility] Comment on above: Order Comment: Order Date: 06/15/24 Order Info: 0667-1 - BMP Performed By: #### L 500.2500 #### [facility] [address] [place], [place], [address] Carbon dioxide, total [Moles /volume] in Central venous bloodOrdered By: Alexander Gallagher on 06-28-2024 CO2 [Moles/Vol] 27.6 mmol/L 21.0-32.0 [facility] Chloride assayOrdered By: Riana Gallagher on 06-28-2024 Chloride [Moles/Vol] 104 mmol/L 98-108 [facility] GFR/1.73 sq M.predicted abhay g non-blacks MDRD (S/P/Bld) [Vol rate/Area]Ordered By: Alexander Gallagher on 06-28-2024 Estimated GFR (MDRD) Non-Af Amer 65 >60 [facility] Comment on above: mL/min/1.73m2 CKD-EP I Creatinine Equation (2020) Glomerular filtration rate ( GFR) estimation/1.73 sq m using serum, plasma, or whole bOrdered By: Alexander Gallagher on 06-28-2024 GFR/1.73 sq M.predicted among non-blacks MDRD (S/P/Bld) [Vol rate/Area] 65 mL/min/{1.73_m2} >60 [facility] Comment on above: mL/min/1.73m2 CKD-EP I Creatinine Equation (2020) Potassium (Unsp spec) [Mass/ Vol]Ordered By: Alexander Gallagher on 06-28-2024 Potassium [Moles/Vol] 4.8 mmol/L 3.3-5.1 [facility] Potassium measurement (mass/ volume)Ordered By: Alexander Gallagher on 06-28-2024 Potassium (Unsp spec) [Mass/Vol] 4.8 mmol/L 3.3-5.1 [facility] Serum creatinine measurement (mass/volume)Ordered By: Alexander Gallagher on 06-28-2024 Creatinine [Mass/Vol] 0.92 mg/dL 0.70-1.20 [facility] Serum glucose measurement (m ass/volume)Ordered By: Alexander Gallagher on 06-28-2024 Glucose [Mass/Vol] 116 mg/dL High 70-99 [facility] Serum or plasma calcium nely urement (mass/volume)Ordered By: Alexander Gallagher on 06-28-2024 Calcium [Mass/Vol] 8.5 mg/dL 7.6-11.0 [facility] Serum or plasma urea nitroge n measurement (mass/volume)Ordered By: Alexander Gallagher on 06-28-2024 Urea nitrogen [Mass/Vol] 13 mg/dL 4-19 [facility] Sodium levelOrdered By: Alexander Gallagher on 06-28-2024 Sodium [Moles/Vol] 141 mmol/L 133-145 [facility] CNOVon 06-22-2024 CNOV Office Visit (PODIWS) JOHN CELIS ([id number]) 1945 F Date Time Provider Department 06/22/24 2:00 PM NICKI ARROYO During your visit today, we recorded the following information about you: WilliamsYnes rgOrquidea VICTORIA Student 06/22/2024 2:37 PM Signed AMB ROOMING INTAKE FLOWSHEET DATA Pain Pain Level: 1 Pain Location: Toe Description: Sore Duration Amount of Time: 2 Duration Units: Weeks Frequency: Intermittent Patient presents with: Left Foot - Follow Up Right Foot - Pain Orquidea Sousa VICTORIA Student Nicki Arroyo 06/22/2024 2:37 PM Signed Subjective: Patient presents to clinic c/o painful toenails. They state that the nails are especially painful with shoe gear and pressure. Patient states that nails 1-5 b/l are painful. No other pedal complaints at this time. Patient states no change in medications or medical history since last visit. Objective: Patient presents to clinic ambulating in [facility] Vasc: DP and PT pulses are palpable bilateral. CFT is less than 5 seconds bilateral. Skin temperature is warm to cool proximal to distal bilateral. There is no edema or varicosities noted. Neuro: Protective sensation is intact to the foot and toes when tested with the 5.07 SWM bilateral. The hallux is downgoing bilateral. Derm: Nails 1-5 b/l are incurvated discolored-yellow, thick, crumbly, dystrophic and with subungal [...] bilateral. Assessment: (B35.1) Onychomycosis (primary encounter diagnosis) (L60.0) Onychocryptosis (M79.672) Pain in left foot (M79.674) Pain in toe of right foot Plan: Patient was seen and evaluated. Nails 1-5 bilateral were debrided in length and thickness. Patient is to RTC in 3-4 months. Nicki Arroyo DPM Referring Provider: NICKI ARROYO [[id number]] Allergies As of Date: 06/22/2024 Noted Allergy Reaction Flounder [Other] 02/07/2002 10 - Anaphylaxis HALIBUT LIVER OIL 02/07/2002 10 - Anaphylaxis IODINE 02/02/2001 10 - Anaphylaxis Comments: difficulty breathing SHELLFISH 02/02/2001 10 - Anaphylaxis Comments: anaphalaxis BACITRACIN 02/02/2001 2 - Rash Comments: rash CEPHALOSPORINS 02/02/2001 2 - Rash Comments: sore rash ERYTHROMYCIN BASE 02/02/2001 6 - Diarrhea Comments: diarrhea FEATHERS 02/02/2001 14 - Other: See Comments Comments: congestion GUAIFENESIN 02/26/2003 2 - Rash 7 - Swelling Comments: humibid red swollen rash Humabid [Other] 02/02/2001 2 - Rash 7 - Swelling Comments: red,swollen rash KEFLEX (CEPHALEXIN) 02/11/2006 4 - Hives Comments: hives PENICILLINS 02/02/2001 2 - Rash 4 - Hives Comments: rash,hives SULFA (SULFONAMIDE ANTIBIOTICS) 02/02/2001 2 - Rash Comments: rash WOOL 02/04/2011 2 - Rash 9 - Itching ADHESIVE TAPE (ROSINS) 07/08/2011 2 - Rash AUGMENTIN (AMOXICILLIN-POT CLAVUL*01/07/2005 Comments: rash/hives CEFACLOR 02/02/2001 16 - Unknown Comments: unknown NICKEL 09/30/2016 2 - Rash POTASSIUM CLAVULANATE 01/24/2019 16 - Unknown CLEOCIN (CLINDAMYCIN HCL) 12/22/2004 9 - Itching Comments: itch MACROLIDE ANTIBIOTICS 09/24/2003 14 - Other: See Comments Comments: biaxin adverse reaction- Nausea Date Reviewed: 06/22/2024 Reviewed by: Orquidea Sousa MA Student - Fully Assessed Reason for Visit: Follow Up [171] Pain [78] Primary Visit Diagnosis:Onychomyco sis [B35.1] Other Visit Diagnoses:Onychocryp tosis [L60.0] Pain in left foot [M79.672] Pain in toe of right foot [M79.674] Prescriptions as of 06/22/2024 - loratadine (CLARITIN) 10 mg tablet Take 10 mg by mouth. - mupirocin (BACTROBAN) 2 % ointment Apply to affected area. - Coenzyme Q10 200 mg cap Take by mouth as needed. - pravastatin (PRAVACHOL) 40 mg tablet TAKE 1 TABLET DAILY AT BEDTIME - polyethylene glycol 3350 (MIRALAX, GLYCOLAX) 17 gram/dose powder Take 17 g by mouth once daily. - calcium citrate (CITRACAL ORAL) Take 2 capsules by mouth twice daily. - doxycycline hyclate (VIBRAMYCIN) 100 mg capsule Take 100 mg by mouth once daily. - cyanocobalamin (VITAMIN B-12) 500 mcg tablet Take 1 tablet by mouth once daily. - mjfhnxnz-udd-duse-FA -lutein (CENTRUM SILVER WOMEN) 8 mg iron-400 mcg-300 mcg tab Take 0.5 tablets by mouth once daily. - Zinc 50 mg tab Take 25 mg by mouth once daily. - Selenium 100 mcg tab Take 50 mcg by mouth once daily. - metoprolol tartrate, short acting, (LOPRESSOR) 25 mg tablet Take 1 tablet by mouth twice daily. - VITAMIN D 50,000 unit capsule Take 1 tablet by mouth every 2 weeks. - escitalopram oxalate (LEXAPRO) 10 mg tablet Take 10 mg by mouth once daily. - (more content not included)... Normal [facility] Inital Evaluation (1) - PTon 06-19-2024 Inital Evaluation (1) - PT [facility] Physical Therapy [facility] [address] [place] [address] [address] [place] [address] / REHABILITATION SERVICES INITIAL EVALUATION MR#: [id number] Acct: [id number] Name: JOHN CELIS Rep #: [id number] : 1945 79 From: Yomi Li DPT, OCS, CSCS Referring Dr.: Dr. Alexander Gallagher MD Status: [facility] Insurance: [facility] SELF PAY INSURANCE Patient's Visit Information Visit Information Visit Information: JOHN CELIS is a 79 year old F referred to Physical Therapy by Dr. Alexander Gallagher MD with a diagnosis of poor balance. Date of Evaluation: 06/19/24 Physical Therapist: Yomi Li DPT, MACK, CSCS Visit Plan Frequency: 2x /Week Duration: 4-6 Weeks Plan: 2x/week for 4-6 weeks IE HEP: gt up off floor with gentle support 2x10 daily adn lumbar ext in stand 20x 2x/day Please treat with FW, BW weight shift teaching ankle balance correction strategy, vestibuilar(foam ) balance with narrow COLIN, strngthening to get off floor, core strength on mat to HEP with all of these with pics. Subjective Subjective: Balance sucks. been noticing it for some time. Cannot walk heel to toe or SLS for long. Needs to be stronger in the core and legs. No falls. Activity at home is pretty normal but will not get up off floor very quickly. 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 Basic ADLS, hard to get off floor quickly. 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 Has some LB pain releases with extension. Sleep normal. none lately dizzynss, no numbness in legs. Objective Objective: Walks spedily and I back to PT without AD. Trasnfers chair without UE and bed I. Steps reciprocal without rail. core strength 3+/5 abds and ext and instability with hip flexion testing. transfer off floor requires UE for balance and slow to push from lower position which is frustrating for her. Lumbar ROM WFL and xtension feels good on LB, no pain. hip strength er 3, IR 4-, abd 3+, ext 3+, flexion 4- B knees and ankles 4/5. coordination to reciprocal toe and heel tap is good. reflexes 2/3 patella and achilles B. Sensation LE WNL to gross light touch B . Slow to FW weight shift when shifting posteriorly and prefers step strategy to ankle. Balance/Special Test Scores Functional Gait Assessment Score: 28 % Disability: 6.6700 CATSIB Score (Max score 120 seconds): 90 Lower Extremity Functional Score: 55 Goals Goal 1:: I appropriate HEP for weight shift, vest balance, strength up off floor and core strength to limit future problems. Goal Time Frame: 4-6 Weeks Goal 2:: get up off floor without UE assist Goal Time Frame: 4-6 Weeks Goal 3:: Pt feel 75% better in balance and mobility to aid in todd trip with grandkids. Goal Time Frame: 4-6 Weeks Rehabilitation Potential Physical Therapy Diagnosis: poor weight shift, vestibular balance deficits and weakness in lower ROM limiting comfortable function Rehabilitation Potential: Good Anticipated Interventions Patient/Client Instruction: Educate patient on: Condition and Plan of Care For the Purpose of:: To improve muscle performance and motor function, To increase tolerance to activity/condition/p osition, To improve gait and locomotor functions and To improve safety Therapeutic Exercise to Include: Strength training and Balance training For the Purpose of:: To improve nutrient delivery to tissue, To improve muscle performance and motor function, To increase tolerance to activity/condition/p osition, To improve gait and locomotor functions and To improve safety Text: Thank you for the opportunity to evaluate your patient. For Medicare and Medicare HMO plans, please review the plan of care and approve it. It will need to be FAXED BACK to us at [phone] for Medicare purposes. For Medicare only, by signing this I certify the plan of care. Please let me know if there are questions or concerns regarding this plan of care. Physician Signature: D ate: 06/19/24 1216 CC: Dr. Alexander Gallagher MD EBG Signed Normal [facility] Anion gap in Serum or Plasma Ordered By: Alexander Gallagher on 06-14-2024 Anion gap [Moles/Vol] 9 mmol/L 5-15 [facility] BUN/creatinine ratioOrdered By: Alexander Gallagher on 06-14-2024 Urea nitrogen/Creatinine [Mass ratio] 16.5 mg/mg 10-20 [facility] Bilirubin, totalOrdered By: Alexander Gallagher on 06-14-2024 Bilirubin [Mass/Vol] 0.49 mg/dL 0.00-1.30 [facility] Calculated very low density lipoprotein (VLDL) cholesterol measurementOrdered By: Alexander Gallagher on 06-14-2024 Calculated very low density lipoprotein (VLDL) cholesterol measurement 34 mg/dL 5-40 [facility] VLDL Cholesterol 34 mg/dL 5-40 [facility] Carbon dioxide, total [Moles /volume] in Central venous bloodOrdered By: Alexander Gallagher on 06-14-2024 CO2 [Moles/Vol] 26.8 mmol/L 21.0-32.0 [facility] Chloride assayOrdered By: Riana Gallagher on 06-14-2024 Chloride [Moles/Vol] 103 mmol/L 98-108 [facility] Comprehensive Metabolic Prof ilon 06-14-2024 Albumin [Mass/Vol] 4.1 g/dL Normal 3.4-4.8 [facility] Comment on above: Performed By: #### L 500.4050, L506.1001, L501.9985, L500.4100 #### [facility] [address] [place], [address] Albumin/Globulin [Mass ratio] 1.5 {ratio} Normal 0.9-2.4 [facility] Comment on above: Performed By: #### L 500.4050, L506.1001, L501.9985, L500.4100 #### [facility] [address] [place], [address] ALK PHOS 83 U/L Normal 35-104 [facility] Comment on above: Performed By: #### L 500.4050, L506.1001, L501.9985, L500.4100 #### [facility] [address] [place], [address] ALT [Catalytic activity/Vol] 15 U/L Normal <=34 [facility] Comment on above: Performed By: #### L 500.4050, L506.1001, L501.9985, L500.4100 #### [facility] [address] [place], [address] AST [Catalytic activity/Vol] 21 U/L Normal <=31 [facility] Comment on above: Performed By: #### L 500.4050, L506.1001, L501.9985, L500.4100 #### [facility] [address] [place], [address] Bilirubin [Mass/Vol] 0.49 mg/dL Normal 0.00-1.30 [facility] Comment on above: Performed By: #### L 500.4050, L506.1001, L501.9985, L500.4100 #### [facility] [address] [place], [address] BUN/CRE 16.5 RATIO Normal 10-20 [facility] Comment on above: Performed By: #### L 500.4050, L506.1001, L501.9985, L500.4100 #### [facility] [address] [place], [address] Calcium [Mass/Vol] 9.6 mg/dL Normal 7.6-11.0 [facility] Comment on above: Performed By: #### L 500.4050, L506.1001, L501.9985, L500.4100 #### [facility] [address] [place], [address] Chloride [Moles/Vol] 103 mmol/L Normal 98-108 [facility] Comment on above: Performed By: #### L 500.4050, L506.1001, L501.9985, L500.4100 #### [facility] [address] [place], [address] CO2 [Moles/Vol] 26.8 mmol/L Normal 21.0-32.0 [facility] Comment on above: Performed By: #### L 500.4050, L506.1001, L501.9985, L500.4100 #### [facility] [address] [place], [address] Creatinine [Mass/Vol] 0.92 mg/dL Normal 0.70-1.20 [facility] Comment on above: Performed By: #### L 500.4050, L506.1001, L501.9985, L500.4100 #### [facility] [address] [place], [address] GAP 9 Normal 5-15 [facility] Comment on above: Performed By: #### L 500.4050, L506.1001, L501.9985, L500.4100 #### [facility] [address] [place], [address] GFR/1.73 sq M.predicted among non-blacks MDRD (S/P/Bld) [Vol rate/Area] 64 mL/min/{1.73_m2} Normal >60 [facility] Comment on above: Result Comment: mL/m in/1.73m2 CKD-EPI Creatinine Equation (2020) Performed By: #### L 500.4050, L506.1001, L501.9985, L500.4100 #### [facility] [address] [place], [address] Globulin (S) [Mass/Vol] 2.7 g/dL Normal 2.2-4.2 [facility] Comment on above: Performed By: #### L 500.4050, L506.1001, L501.9985, L500.4100 #### [facility] [address] [place], [address] Glucose [Mass/Vol] 112 mg/dL High 70-99 [facility] Comment on above: Performed By: #### L 500.4050, L506.1001, L501.9985, L500.4100 #### [facility] [address] [place], [address] Potassium [Moles/Vol] 5.4 mmol/L High 3.3-5.1 [facility] Comment on above: Performed By: #### L 500.4050, L506.1001, L501.9985, L500.4100 #### [facility] [address] [place], [address] Sodium [Moles/Vol] 139 mmol/L Normal 133-145 [facility] Comment on above: Performed By: #### L 500.4050, L506.1001, L501.9985, L500.4100 #### [facility] [address] [place], [address] T PROT 6.8 g/dL Normal 5.9-8.4 [facility] Comment on above: Performed By: #### L 500.4050, L506.1001, L501.9985, L500.4100 #### [facility] [address] [place], [address] Urea nitrogen [Mass/Vol] 15 mg/dL Normal 4-19 [facility] Comment on above: Performed By: #### L 500.4050, L506.1001, L501.9985, L500.4100 #### [facility] [address] [place], [address] GFR/1.73 sq M.predicted abhay g non-blacks MDRD (S/P/Bld) [Vol rate/Area]Ordered By: Alexander Gallagher on 06-14-2024 Estimated GFR (MDRD) Non-Af Amer 64 >60 [facility] Comment on above: mL/min/1.73m2 CKD-EP I Creatinine Equation (2020) Glomerular filtration rate ( GFR) estimation/1.73 sq m using serum, plasma, or whole bOrdered By: Alexander Gallagher on 06-14-2024 GFR/1.73 sq M.predicted among non-blacks MDRD (S/P/Bld) [Vol rate/Area] 64 mL/min/{1.73_m2} >60 [facility] Comment on above: mL/min/1.73m2 CKD-EP I Creatinine Equation (2020) Hemoglobin A1con 06-14-2024 HbA1c (Bld) [Mass fraction] 6.7 % Normal <=5.6 [facility] Comment on above: Performed By: #### L 500.4050, L506.1001, L501.9985, L500.4100 #### [facility] [address] [place], [address] Hemoglobin A1c percentageOrd ered By: Alexander Gallagher on 06-14-2024 HbA1c (Bld) [Mass fraction] 6.7 % >5.7 [facility] L506.1001on 06-14-2024 Vitamin D 25-OH 56.7 ng/mL Normal 30-100 [facility] Comment on above: Result Comment: Shanice min D Status Deficiency: <20 ng/mL (50nmol/L) Insufficiency: 20-30 ng/mL (50-75 nmol/L) Sufficiency: 30-100 ng/mL (75-250 nmol/L) Toxicity: >100 ng/mL (>250 nmol/L) Performed By: #### L 500.4050, L506.1001, L501.9985, L500.4100 #### [facility] [address] [place], [address] LDL calc ser/plasOrdered By: Alexander Gallagher on 06-14-2024 Cholesterol in LDL [Mass/Vol] 78 mg/dL [facility] Comment on above: Xwljoitqbp=543-055 m g/dL & Higher Xrpo=873 mg/dL or greater LDL Cholesterol, Calculated 78 mg/dL [facility] Comment on above: Alasdjbbli=349-617 m g/dL & Higher Escs=208 mg/dL or greater Laboratory - Chemistry and C hemistry - challengeOrdered By: Alexander Gallagher on 06-14-2024 AST [Catalytic activity/Vol] 21 U/L <32 [facility] Lipid Profileon 06-14-2024 CHOL:HDL 3.53 Normal [facility] Comment on above: Performed By: #### L 500.4050, L506.1001, L501.9985, L500.4100 ####[facility] [address] [place], [address] Cholesterol [Mass/Vol] 156 mg/dL Normal <=200 [facility] Comment on above: Result Comment: Chol esterol level, Desirable <200 mg/dL Borderline high cholesterol 200-239 mg/dL High cholesterol >=240 mg/dL Recommendations of the NCEP Adult Treatment Panel for the following risk-cutoff thresholds for the [place] population. Performed By: #### L 500.4050, L506.1001, L501.9985, L500.4100 ####[facility] [address] [place], [address] Cholesterol in HDL [Mass/Vol] 44 mg/dL Normal [facility] Comment on above: Result Comment: Karis onal Cholesterol Education Program (NCEP) guidelines: <40 mg/dL: Low HDL-cholesterol (major risk factor for CHD) >= 60 mg/dL: High HDL-cholesterol (negative risk factor for CHD) HDL-cholesterol is affected by a number of factors, e.g. smoking, exercise, hormones, sex and age. Performed By: #### L 500.4050, L506.1001, L501.9985, L500.4100 ####[facility] [address] [place], [address] Cholesterol in LDL [Mass/Vol] 78 mg/dL Normal [facility] Comment on above: Result Comment: Bord wxzlhk=881-031 mg/dL Higher Pwgv=795 mg/dL or greater Performed By: #### L 500.4050, L506.1001, L501.9985, L500.4100 ####[facility] [address] [place], [address] Cholesterol in VLDL [Mass/Vol] 34 mg/dL Normal 5-40 [facility] Comment on above: Performed By: #### L 500.4050, L506.1001, L501.9985, L500.4100 ####[facility] [address] [place], [address] Triglyceride [Mass/Vol] 171 mg/dL Normal [facility] Comment on above: Result Comment: The drugs N-Acetylcysteine and Metamizole may falsely depress this assay. Normal range: <150 mg/dL Borderline High: 150-199 mg/dL High: 200-499 mg/dL Very High: >500 mg/dL Performed By: #### L 500.4050, L506.1001, L501.9985, L500.4100 ####[facility] [address] [place], [place], [id number] Potassium (Unsp spec) [Mass/ Vol]Ordered By: Alexander Gallagher on 06-14-2024 Potassium [Moles/Vol] 5.4 mmol/L High 3.3-5.1 [facility] Potassium measurement (mass/ volume)Ordered By: Alexander Gallagher on 06-14-2024 Potassium (Unsp spec) [Mass/Vol] 5.4 mmol/L High 3.3-5.1 [facility] Screening total cholesterol/ high density lipoprotein (HDL) cholesterol ratioOrdered By: Alexander Gallagher on 06-14-2024 Cholesterol.total/Chol esterol in HDL [Mass ratio] 3.53 {ratio} [facility] Serum creatinine measurement (mass/volume)Ordered By: Alexander Gallagher on 06-14-2024 Creatinine [Mass/Vol] 0.92 mg/dL 0.70-1.20 [facility] Serum globulin measurementOr dered By: Alexander Gallagher on 06-14-2024 Globulin (S) [Mass/Vol] 2.7 g/dL 2.2-4.2 [facility] Serum glucose measurement (m ass/volume)Ordered By: Alexander Gallagher on 06-14-2024 Glucose [Mass/Vol] 112 mg/dL High 70-99 [facility] Serum or plasma alanine bautista otransferase (ALT) measurementOrdered By: Alexander Gallagher on 06-14-2024 ALT [Catalytic activity/Vol] 15 U/L <35 [facility] Serum or plasma albumin nely urement (mass/volume)Ordered By: Alexander Gallagher on 06-14-2024 Albumin [Mass/Vol] 4.1 g/dL 3.4-4.8 [facility] Serum or plasma albumin/glob ulin mass ratioOrdered By: Alexander Gallagher on 06-14-2024 Albumin/Globulin [Mass ratio] 1.5 {ratio} 0.9-2.4 [facility] Serum or plasma alkaline margot sphatase measurementOrdered By: Alexander Gallagher on 06-14-2024 ALP [Catalytic activity/Vol] 83 U/L 35-104 [facility] Serum or plasma calcium nely urement (mass/volume)Ordered By: Alexander Gallagher on 06-14-2024 Calcium [Mass/Vol] 9.6 mg/dL 7.6-11.0 [facility] Serum or plasma cholesterol in HDL measurement (mass/volume)Ordered By: Alexander Gallagher on 06-14-2024 Cholesterol in HDL [Mass/Vol] 44 mg/dL >40 [facility] Comment on above: National Cholesterol Education Program (NCEP) guidelines:<40 mg/dL: Low HDL-cholesterol (major risk factor for CHD)>= 60 mg/dL: High HDL-cholesterol (negative risk factor for CHD)HDL-cholesterol is affected by a number of factors, e.g. smoking, exercise, hormones, sex and age. Serum or plasma cholesterol measurement (mass/volume)Ordered By: Alexander Gallagher on 06-14-2024 Cholesterol [Mass/Vol] 156 mg/dL <201 [facility] Comment on above: Cholesterol level, D esirable <200 mg/dLBorderline high cholesterol 200-239 mg/dLHigh cholesterol >=240 mg/dLRecommendations of the NCEP Adult Treatment Panel for the following risk-cutoff thresholds for the [place] population. Serum or plasma urea nitroge n measurement (mass/volume)Ordered By: Alexander Gallagher on 06-14-2024 Urea nitrogen [Mass/Vol] 15 mg/dL 4-19 [facility] Sodium levelOrdered By: Alexander Gallagher on 06-14-2024 Sodium [Moles/Vol] 139 mmol/L 133-145 [facility] Total proteinOrdered By: Amy Gallagher on 06-14-2024 Protein [Mass/Vol] 6.8 g/dL 5.9-8.4 [facility] Triglycerides measurementOrd ered By: Alexander Gallagher on 06-14-2024 Triglyceride [Mass/Vol] 171 mg/dL <199 [facility] Comment on above: The drugs N-Acetylcy steine and Metamizole may falsely depress this assay. Normal range: <150 mg/dLBorderline High: 150-199 mg/dLHigh: 200-499 mg/dLVery High: >500 mg/dL Vitamin D, 25-hydroxyOrdered By: Alexander Gallagher on 06-14-2024 Vitamin D 25-Hydroxy 56.7 ng/mL 30-100 [facility] Comment on above: Vitamin D StatusDefi ciency: <20 ng/mL (50nmol/L)Insufficiency: 20-30 ng/mL (50-75 nmol/L)Sufficiency: 30-100 ng/mL (75-250 nmol/L)Toxicity: >100 ng/mL (>250 nmol/L) CNOVon 05-30-2024 CNOV Office Visit (ENDLKW) JOHN CELIS ([id number]) 1945 F Date Time Provider Department 05/30/24 1:00 PM JOHNSON BLANCAS During your visit today, we recorded the following information about you: Pulse Blood pressure Weight 69/minute 127/73 77.6 kg Johnson Blancas MD 05/30/2024 1:44 PM Signed Thyroid / Neck Ultrasound Findings: right mid lobe nodule 2.83cm sag x 1.37cm deep x 2.24cm trans right inferior pole nodule near isthmus, 1.81cm sag x 0.91cm deep x 1.94cm trans oblique Ultrasound images: right mid lobe nodule sag trans right inferior pole near isthmus sag trans Impression thyroid nodules stable in size and appearance Recommendation: followup ultrasound in 1 year Johnson Blancas MD Clinical Issues Reason for the study: thyroid nodules followup Comparison: 10/06/2024 Technical Issues Equipment: [employer] Prosound Alpha 6 Transducer: Linear/Trapezoidal multifrequency Regions examined: Neck, Thyroid, Sagittal and transverse views were obtained. Color power Doppler were applied when indicated. Allergies As of Date: 05/30/2024 Noted Allergy Reaction Flounder [Other] 02/07/2002 10 - Anaphylaxis HALIBUT LIVER OIL 02/07/2002 10 - Anaphylaxis IODINE 02/02/2001 10 - Anaphylaxis Comments: difficulty breathing SHELLFISH 02/02/2001 10 - Anaphylaxis Comments: anaphalaxis BACITRACIN 02/02/2001 2 - Rash Comments: rash CEPHALOSPORINS 02/02/2001 2 - Rash Comments: sore rash ERYTHROMYCIN BASE 02/02/2001 6 - Diarrhea Comments: diarrhea FEATHERS 02/02/2001 14 - Other: See Comments Comments: congestion GUAIFENESIN 02/26/2003 2 - Rash 7 - Swelling Comments: humibid red swollen rash Humabid [Other] 02/02/2001 2 - Rash 7 - Swelling Comments: red,swollen rash KEFLEX (CEPHALEXIN) 02/11/2006 4 - Hives Comments: hives PENICILLINS 02/02/2001 2 - Rash 4 - Hives Comments: rash,hives SULFA (SULFONAMIDE ANTIBIOTICS) 02/02/2001 2 - Rash Comments: rash WOOL 02/04/2011 2 - Rash 9 - Itching ADHESIVE TAPE (ROSINS) 07/08/2011 2 - Rash AUGMENTIN (AMOXICILLIN-POT CLAVUL*01/07/2005 Comments: rash/hives CEFACLOR 02/02/2001 16 - Unknown Comments: unknown NICKEL 09/30/2016 2 - Rash POTASSIUM CLAVULANATE 01/24/2019 16 - Unknown CLEOCIN (CLINDAMYCIN HCL) 12/22/2004 9 - Itching Comments: itch MACROLIDE ANTIBIOTICS 09/24/2003 14 - Other: See Comments Comments: biaxin adverse reaction- Nausea Date Reviewed: 05/30/2024 Reviewed by: Ronnie Harrison OCCA - Fully Assessed Reason for Visit: Thyroid Problem [110] 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 #:[id number]: 1 Prescriptions as of 05/30/2024 - loratadine (CLARITIN) 10 mg tablet Take 10 mg by mouth. - mupirocin (BACTROBAN) 2 % ointment Apply to affected area. - Coenzyme Q10 200 mg cap Take by mouth as needed. - pravastatin (PRAVACHOL) 40 mg tablet TAKE 1 TABLET DAILY AT BEDTIME - polyethylene glycol 3350 (MIRALAX, GLYCOLAX) 17 gram/dose powder Take 17 g by mouth once daily. - calcium citrate (CITRACAL ORAL) Take 2 capsules by mouth twice daily. - doxycycline hyclate (VIBRAMYCIN) 100 mg capsule Take 100 mg by mouth once daily. - cyanocobalamin (VITAMIN B-12) 500 mcg tablet Take 1 tablet by mouth once daily. - trdfdgtk-vel-iffl-FA -lutein (CENTRUM SILVER WOMEN) 8 mg iron-400 mcg-300 mcg tab Take 0.5 tablets by mouth once daily. - Zinc 50 mg tab Take 25 mg by mouth once daily. - Selenium 100 mcg tab Take 50 mcg by mouth once daily. - metoprolol tartrate, short acting, (LOPRESSOR) 25 mg tablet Take 1 tablet by mouth twice daily. - VITAMIN D 50,000 unit capsule Take 1 tablet by mouth every 2 weeks. - escitalopram oxalate (LEXAPRO) 10 mg tablet Take 10 mg by mouth once daily. - vit C,B-Ol-xnwbe-lutein- zeaxan (PRESERVISION AREDS-2) 250-90-40-1 mg Take by mouth twice daily. - mometasone (NASONEX) 50 mcg/actuation nasal spray Use 2 Sprays in the nose once daily. - albuterol HFA (PROAIR HFA) 90 mcg/actuation inhaler Inhale 2 Puffs as instructed as needed. TWO PUFFS FOUR TIMES DAILY NEEDED - EPINEPHrine 0.3 mg/0.3 mL (1:1,000) atIn Inject subcutaneously as needed. Inject immediately with evidence of reaction and to proceed to the emergency room - aspirin, enteric coated (ECOTRIN LOW STRENGTH) 81 mg EC tablet Take 1 tablet by mouth once daily. - mupirocin (BACTROBAN) 2 % cream Apply to affected area three times daily. APPLY TO AFFECTED AREA Meds Comments as of 11/22/2018: 11/22/18 The medications are managed by this patient by: PATIENT India Krueger Problem List As Of Date 05/30/2024 Noted Resolved Essential hypertension [I10] 05/19/2004 Mixed hyperlipidemia [E78.2] 05/19/2004 DIZZINESS [R42] 05/19/2004 04/06/2010 ESOPHAGEAL REFLUX [K21.9] 12/22/2004 Abdom (more content not included)... Normal [facility] US Neckon 05-30-2024 [facility] Radiology Study observation (narrative) [facility] Ankle min 3 Viewson 05-09-19 Ankle min 3 Views [facility] Imaging Services [address] [place] [address] Ankle min 3 Views MR#: [id number] Acct: [id number] Name: JOHN CELIS Rep #: [id number] : 1945 F 79 From: Elijah Piedra MD PCP: Dr. Alexander Gallagher MD Status: REG CLI Study: Ankle min 3 Views Date of Exam: 05/09/24 Exam# [id number] Ordering Dr: Perry Peters EXAM: XR Right Ankle Complete, 3 or More Views CLINICAL INDICATION: TECHNIQUE: Frontal, lateral and oblique views of the right ankle. COMPARISON: No relevant prior studies available. FINDINGS: BONES/JOINTS: See below. SOFT TISSUES: Soft tissue swelling without acute fracture. RAD/Ankle min 3 Views IMPRESSION: 1. Soft tissue swelling without acute fracture. 2. If symptoms persist, repeat radiograph in 7-10 days recommended. Reading Location: [facility] CC: YULI Peters; Dr. Alexander Gallagher MD Manager Credit Risk: Signed Normal [facility] Urgent Care Visit Reporton 0 05-09-2024 Urgent Care Visit Report [facility] [address], [address] [place] [address] OFFICE VISIT Date of Service: 05/09/24 MR#: [id number] Acct: [id number] Name: JOHN CELIS Rep #: [id number] : 1945 Provider: YULI Peters Age/Sex: 79/F Location[place] [facility] Status: Signed Intake Vital Signs 03/12/24 13:57 05/09/24 13:11 05/09/24 13:19 Height 5 ft 3 in 5 ft 3 in Weight: 171 lb 6 oz BMI 30.3 BP 147/76 H 152/62 H Blood Pressure Location Lt brachial Position Sitting Respiration 17 Pulse 67 Pulse Source NIBP Temp 98.2 F Temp Source Oral Pulse Oximetry (%) 98 Oxygen Delivery Method room air Intake Visit Reasons: SORE R ANDRESEL Chief Complaint: ankle injury Guide Changer Required: No Is patient in pain?: Yes Allergies iodine Allergy (Verified 05/09/24 13:20) Anaphylaxis shellfish derived Allergy (Verified 05/09/24 13:20) Anaphylaxis adhesive tape Adverse Reaction (Verified 05/09/24 13:20) Rash amoxicillin trihydrate (From Augmentin) Adverse Reaction (Verified 05/09/24 13:20) Upset Stomach bacitracin Adverse Reaction (Verified 05/09/24 13:20) Rash cefaclor (Cefaclor) Adverse Reaction (Verified 05/09/24 13:20) Unknown cephalexin monohydrate (From Keflex) Adverse Reaction (Verified 05/09/24 13:20) Unknown Cephalosporins Adverse Reaction (Verified 05/09/24 13:20) Unknown clindamycin HCl (From Cleocin) Adverse Reaction (Verified 05/09/24 13:20) Unknown clindamycin palmitate HCl (From Cleocin) Adverse Reaction (Verified 05/09/24 13:20) Unknown clindamycin phosphate (From Cleocin) Adverse Reaction (Verified 05/09/24 13:20) Unknown erythromycin base (Erythromycin Base) Adverse Reaction (Verified 05/09/24 13:20) Unknown feathers Adverse Reaction (Verified 05/09/24 13:20) NEEDS FOLLOW-UP fish derived Adverse Reaction (Verified 05/09/24 13:20) NEEDS FOLLOW-UP guaifenesin Adverse Reaction (Verified 05/09/24 13:20) Unknown Macrolide Antibiotics Adverse Reaction (Verified 05/09/24 13:20) Unknown Penicillins Adverse Reaction (Verified 05/09/24 13:20) Unknown potassium clavulanate (From Augmentin) Adverse Reaction (Verified 05/09/24 13:20) Upset Stomach Sulfa (Sulfonamide Antibiotics) Adverse Reaction (Verified 05/09/24 13:20) Unknown wool Adverse Reaction (Verified 05/09/24 13:20) NEEDS FOLLOW-UP Is last menstrual period known: No Post menopausal: Yes Patient : No Have you fallen in the past year?: Yes Nurse's Note: twisted right ankle on ice 2 days ago at friends house. c/o pain and bruising to medial right ankle . denies additional injuries, ambulates unassisted to room with limp. [facility] Medical History (Updated 05/09/24 @ 13:50 by Perry Peters NP-C) Right ankle sprain Cellulitis of right knee Abrasion, right knee, initial encounter Thyroid nodule Hay fever SVT (supraventricular tachycardia) COPD (chronic obstructive pulmonary disease) Asthma White coat syndrome with hypertension Anxiety Urethral caruncle Surgical History S/P eye surgery History of appendectomy Hx laparoscopic cholecystectomy History of tonsillectomy and adenoidectomy Family History Mother CVA (cerebral vascular accident) Myocardial infarction Heart disease Diabetes Father CVA (cerebral vascular accident) Myocardial infarction Cancer lung Heart disease Diabetes Grandfather Myocardial infarction Heart disease Diabetes Grandmother Myocardial infarction Heart disease Diabetes Aunt Breast cancer Sister Multiple myeloma Social History Smoking Status: Former smoker alcohol intake: never substance use type: does not use caffeine: No what type of physical activity do you participate in: walking seatbelt use: always do you feel safe at home: Yes additional social history: Jourdan- HPI HPI Chief Complaint: ankle injury Details: JOHN CELIS, is a 79 F who presents to the office today for HPI: About 2 days ago patient was helping a friend move when she slipped on the ice spraining her right ankle. She complains of pain over the medial aspect of the ankle and around the Achilles tendon. She otherwise denies any other injuries or health concerns. ROS: As noted in HPI Physical Exam: VITALS: Reviewed. GEN: Healthy appearing, well-developed, NAD. PSYCH: AOx3. Normal memory, mood, and affect. LUNGS: Normal respiratory effort. SKIN: Warm, well perfused. No skin rashes or abnormal lesions noted. MSK: Pain with range of motion and palpation of the medial aspect of right ankle. There is mild ecchymosis noted with no obvious deformities NEURO: Ambulating with no limitations. Normal muscle streng (more content not included)... Normal [facility] Dexa Bone Density Studyon Dexa Bone Density Study [facility] Imaging Services [address] [place] [address] [id number] Dexa Bone Density Study MR#: [id number] Acct: [id number] Name: JOHN CELIS Rep #: [id number] : 1945 F 79 From: Wayne kang MD PCP: Dr. Alexander Gallagher MD Status: REG CLI Study: Dexa Bone Density Study Date of Exam: 05/08/24 Exam# [id number] Ordering Dr: Alexander Gallagher MD PROCEDURE: DEXA BONE DENSITY STUDY REASON FOR EXAM: F, age 79 y/o . Patient is postmenopausal.. TECHNIQUE: DEXA scan of the lumbar spine and both hips. COMPARISON: Comparison is made with prior study dated April 01, 2022. FINDINGS: Lumbar Spine (L1-L4): g/cm2 (1.048)/T-score (0.0)/Z-score (2.5) findings are suggestive of normal with a low fracture risk. Left Femur Total: g/cm2 (0.826)/T-score (-0.9)/Z-score (1.0) Left Femoral Neck: g/cm2 (0.738)/T-score (-1.0)/Z-score (1.2) Right Femur Total: g/cm2 (0.859)/T-score (-0.7)/Z-score (1.2) Right Femoral Neck: g/cm2 (0.670)/T-score (-1.6)/Z-score (0.6) The T-Scores on the most recent prior examination were: Lumbar Spine (L1-L4): There has been improvement of bone density since the previous examination. Left Femur Total: Worsening bi 4%. Right Femur Total: Worsening by 1.8%. BD/Dexa Bone Density Study IMPRESSION: Osteopenia. Low fracture risk. Reading Location: [place] [address] CC: Dr. Alexander Gallagher MD Manager Credit Risk: Signed [facility] 04-17-2024 [facility] Telephone (ENDLKW) FUADJOHN OTTO ([id number]) 1945 F Date Time Provider Department 04/17/24 JOHNSON BLANCAS During your visit today, we recorded the following information about you: NasirLanie de leona 04/17/2024 11:31 AM Signed John is calling Johnson Blancas MD today with an appointment question. Patient scheduled an ultrasound for May 2024. Patient thought that Dr. Blancas told her to schedule an US. Patient wasn't sure if she was to schedule a US or a follow up . Patient has been identified by name and birthdate. Duration of symptoms: N/A Person calling: self Call patient at: on cell [phone] (home) [phone] (cell) Was an appointment scheduled: Yes: Date/Time: 05-30-2024 Closing statement: Laurel Johnson Stafford MD 04/19/2024 7:32 AM Signed She doesn't need thyroid ultrasound before the appointment I will do this during that in-person appointment, please let her know. Michael Starrllian 04/19/2024 10:26 AM Signed Called and spoke with patient, she is aware of the below message from Dr Blancas that her US will be done during the visit. Thank you! Allergies As of Date: 04/17/2024 Noted Allergy Reaction Flounder [Other] 02/07/2002 10 - Anaphylaxis HALIBUT LIVER OIL 02/07/2002 10 - Anaphylaxis IODINE 02/02/2001 10 - Anaphylaxis Comments: difficulty breathing SHELLFISH 02/02/2001 10 - Anaphylaxis Comments: anaphalaxis BACITRACIN 02/02/2001 2 - Rash Comments: rash CEPHALOSPORINS 02/02/2001 2 - Rash Comments: sore rash ERYTHROMYCIN BASE 02/02/2001 6 - Diarrhea Comments: diarrhea FEATHERS 02/02/2001 14 - Other: See Comments Comments: congestion GUAIFENESIN 02/26/2003 2 - Rash 7 - Swelling Comments: humibid red swollen rash Humabid [Other] 02/02/2001 2 - Rash 7 - Swelling Comments: red,swollen rash KEFLEX (CEPHALEXIN) 02/11/2006 4 - Hives Comments: hives PENICILLINS 02/02/2001 2 - Rash 4 - Hives Comments: rash,hives SULFA (SULFONAMIDE ANTIBIOTICS) 02/02/2001 2 - Rash Comments: rash WOOL 02/04/2011 2 - Rash 9 - Itching ADHESIVE TAPE (ROSINS) 07/08/2011 2 - Rash AUGMENTIN (AMOXICILLIN-POT CLAVUL*01/07/2005 Comments: rash/hives CEFACLOR 02/02/2001 16 - Unknown Comments: unknown NICKEL 09/30/2016 2 - Rash POTASSIUM CLAVULANATE 01/24/2019 16 - Unknown CLEOCIN (CLINDAMYCIN HCL) 12/22/2004 9 - Itching Comments: itch MACROLIDE ANTIBIOTICS 09/24/2003 14 - Other: See Comments Comments: biaxin adverse reaction- Nausea Date Reviewed: 03/22/2024 Reviewed by: Patricia Rangel LPN - Fully Assessed Reason for Visit: Patient Question [1477] Prescriptions as of 04/19/2024 - loratadine (CLARITIN) 10 mg tablet Take 10 mg by mouth. - mupirocin (BACTROBAN) 2 % ointment Apply to affected area. - Coenzyme Q10 200 mg cap Take by mouth as needed. - pravastatin (PRAVACHOL) 40 mg tablet TAKE 1 TABLET DAILY AT BEDTIME - polyethylene glycol 3350 (MIRALAX, GLYCOLAX) 17 gram/dose powder Take 17 g by mouth once daily. - calcium citrate (CITRACAL ORAL) Take 2 capsules by mouth twice daily. - doxycycline hyclate (VIBRAMYCIN) 100 mg capsule Take 100 mg by mouth once daily. - cyanocobalamin (VITAMIN B-12) 500 mcg tablet Take 1 tablet by mouth once daily. - yhalzcde-rpi-eakc-FA -lutein (CENTRUM SILVER WOMEN) 8 mg iron-400 mcg-300 mcg tab Take 0.5 tablets by mouth once daily. - Zinc 50 mg tab Take 25 mg by mouth once daily. - Selenium 100 mcg tab Take 50 mcg by mouth once daily. - metoprolol tartrate, short acting, (LOPRESSOR) 25 mg tablet Take 1 tablet by mouth twice daily. - VITAMIN D 50,000 unit capsule Take 1 tablet by mouth every 2 weeks. - escitalopram oxalate (LEXAPRO) 10 mg tablet Take 10 mg by mouth once daily. - vit C,R-Qf-qoonk-lutein- zeaxan (PRESERVISION AREDS-2) 250-90-40-1 mg Take by mouth twice daily. - mometasone (NASONEX) 50 mcg/actuation nasal spray Use 2 Sprays in the nose once daily. - albuterol HFA (PROAIR HFA) 90 mcg/actuation inhaler Inhale 2 Puffs as instructed as needed. TWO PUFFS FOUR TIMES DAILY NEEDED - EPINEPHrine 0.3 mg/0.3 mL (1:1,000) atIn Inject subcutaneously as needed. Inject immediately with evidence of reaction and to proceed to the emergency room - aspirin, enteric coated (ECOTRIN LOW STRENGTH) 81 mg EC tablet Take 1 tablet by mouth once daily. - mupirocin (BACTROBAN) 2 % cream Apply to affected area three times daily. 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 Normal [facility] CNOVon 03-22-2024 CNOV Office Visit (PODIWS) JOHN CELIS ([id number]) 1945 F Date Time Provider Department 03/22/24 10:45 AM NICKI ARROYO PODIWS During your visit today, we recorded the following information about you: Patricia Rangel LPN 03/22/2024 12:21 PM Signed AMB ROOMING INTAKE FLOWSHEET DATA Patient presents with: Left Foot - Follow Up Right Foot - Pain Patricia Rangel LPN Nicki Arroyo 03/22/2024 12:21 PM Signed Subjective: Patient presents to clinic c/o painful toenails. They state that the nails are especially painful with shoe gear and pressure. Patient states that nails b/l hallux are painful. No other pedal complaints at this time. Patient states no change in medications or medical history since last visit. Objective: Patient presents to clinic ambulating in [facility] Vasc: DP and PT pulses are palpable [...] bilateral. Assessment: (B35.1) Onychomycosis (primary encounter diagnosis) (M79.672) Pain in left foot (M79.674) Pain in toe of right foot Plan: Patient was seen and evaluated. Nails 1-5 bilateral were debrided in length and thickness. Patient is to RTC in 3-4 months. Nicki Arroyo DPM Referring Provider: NICKI ARROYO [[id number]] Allergies As of Date: 03/22/2024 Noted Allergy Reaction Flounder [Other] 02/07/2002 10 - Anaphylaxis HALIBUT LIVER OIL 02/07/2002 10 - Anaphylaxis IODINE 02/02/2001 10 - Anaphylaxis Comments: difficulty breathing SHELLFISH 02/02/2001 10 - Anaphylaxis Comments: anaphalaxis BACITRACIN 02/02/2001 2 - Rash Comments: rash CEPHALOSPORINS 02/02/2001 2 - Rash Comments: sore rash ERYTHROMYCIN BASE 02/02/2001 6 - Diarrhea Comments: diarrhea FEATHERS 02/02/2001 14 - Other: See Comments Comments: congestion GUAIFENESIN 02/26/2003 2 - Rash 7 - Swelling Comments: humibid red swollen rash Humabid [Other] 02/02/2001 2 - Rash 7 - Swelling Comments: red,swollen rash KEFLEX (CEPHALEXIN) 02/11/2006 4 - Hives Comments: hives PENICILLINS 02/02/2001 2 - Rash 4 - Hives Comments: rash,hives SULFA (SULFONAMIDE ANTIBIOTICS) 02/02/2001 2 - Rash Comments: rash WOOL 02/04/2011 2 - Rash 9 - Itching ADHESIVE TAPE (ROSINS) 07/08/2011 2 - Rash AUGMENTIN (AMOXICILLIN-POT CLAVUL*01/07/2005 Comments: rash/hives CEFACLOR 02/02/2001 16 - Unknown Comments: unknown NICKEL 09/30/2016 2 - Rash POTASSIUM CLAVULANATE 01/24/2019 16 - Unknown CLEOCIN (CLINDAMYCIN HCL) 12/22/2004 9 - Itching Comments: itch MACROLIDE ANTIBIOTICS 09/24/2003 14 - Other: See Comments Comments: biaxin adverse reaction- Nausea Date Reviewed: 03/22/2024 Reviewed by: Patricia Rangel LPN - Fully Assessed Reason for Visit: Follow Up [171] Pain [78] Primary Visit Diagnosis:Onychomyco sis [B35.1] Other Visit Diagnoses:Pain in left foot [M79.672] Pain in toe of right foot [M79.674] Prescriptions as of 03/22/2024 - loratadine (CLARITIN) 10 mg tablet Take 10 mg by mouth. - mupirocin (BACTROBAN) 2 % ointment Apply to affected area. - Coenzyme Q10 200 mg cap Take by mouth as needed. - pravastatin (PRAVACHOL) 40 mg tablet TAKE 1 TABLET DAILY AT BEDTIME - polyethylene glycol 3350 (MIRALAX, GLYCOLAX) 17 gram/dose powder Take 17 g by mouth once daily. - calcium citrate (CITRACAL ORAL) Take 2 capsules by mouth twice daily. - doxycycline hyclate (VIBRAMYCIN) 100 mg capsule Take 100 mg by mouth once daily. - cyanocobalamin (VITAMIN B-12) 500 mcg tablet Take 1 tablet by mouth once daily. - ibmvgive-pmr-cybv-FA -lutein (CENTRUM SILVER WOMEN) 8 mg iron-400 mcg-300 mcg tab Take 0.5 tablets by mouth once daily. - Zinc 50 mg tab Take 25 mg by mouth once daily. - Selenium 100 mcg tab Take 50 mcg by mouth once daily. - metoprolol tartrate, short acting, (LOPRESSOR) 25 mg tablet Take 1 tablet by mouth twice daily. - VITAMIN D 50,000 unit capsule Take 1 tablet by mouth every 2 weeks. - escitalopram oxalate (LEXAPRO) 10 mg tablet Take 10 mg by mouth once daily. - vit C,L-Zc-dlwxe-lutein- zeaxan (PRESERVISION AREDS-2) 250-90-40-1 mg Take by mouth twice daily. - mometasone (NASONEX) 50 mcg/actuation nasal spray Use 2 Sprays in the nose once daily. - albuterol HFA (PROA (more content not included)... Normal [facility] Route Salesperson Office Visit Reporton 03-12-2024 Route Salesperson Office Visit Report [facility] [address], [address] [place] [address] OFFICE VISIT Date of Service: 03/12/24 MR#: [id number] Acct: [id number] Name: JOHN CELIS Rep #: [id number] : 1945 Provider: Dr. 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) Guide Changer Required: No Is patient in pain?: No Allergies iodine Allergy (Verified 03/12/24 13:59) Anaphylaxis shellfish derived Allergy (Verified 03/12/24 13:59) Anaphylaxis adhesive tape Adverse Reaction (Verified 03/12/24 13:59) Rash amoxicillin trihydrate (From Augmentin) Adverse Reaction (Verified 03/12/24 13:59) Upset Stomach bacitracin Adverse Reaction (Verified 03/12/24 13:59) Rash cefaclor (Cefaclor) Adverse Reaction (Verified 03/12/24 13:59) Unknown cephalexin monohydrate (From Keflex) Adverse Reaction (Verified 03/12/24 13:59) Unknown Cephalosporins Adverse Reaction (Verified 03/12/24 13:59) Unknown clindamycin HCl (From Cleocin) Adverse Reaction (Verified 03/12/24 13:59) Unknown clindamycin palmitate HCl (From Cleocin) Adverse Reaction (Verified 03/12/24 13:59) Unknown clindamycin phosphate (From Cleocin) Adverse Reaction (Verified 03/12/24 13:59) Unknown erythromycin base (Erythromycin Base) Adverse Reaction (Verified 03/12/24 13:59) Unknown feathers Adverse Reaction (Verified 03/12/24 13:59) NEEDS FOLLOW-UP fish derived Adverse Reaction (Verified 03/12/24 13:59) NEEDS FOLLOW-UP guaifenesin Adverse Reaction (Verified 03/12/24 13:59) Unknown Macrolide Antibiotics Adverse Reaction (Verified 03/12/24 13:59) Unknown Penicillins Adverse Reaction (Verified 03/12/24 13:59) Unknown potassium clavulanate (From Augmentin) Adverse Reaction (Verified 03/12/24 13:59) Upset Stomach Sulfa (Sulfonamide Antibiotics) Adverse Reaction (Verified 03/12/24 13:59) Unknown wool Adverse Reaction (Verified 03/12/24 13:59) NEEDS FOLLOW-UP Medications ???Medication ???Instructions ???Recorded ???Confirmed ???Type aspirin 81 mg tablet,delayed 81 mg PO DAILY@0800 06/24/13 03/12/24 History release epinephrine 0.3 mg/0.3 mL 0.3 mg IM PRN PRN Anaphylaxis 06/24/13 03/12/24 History injection, auto-injector rabeprazole 20 mg tablet,delayed 20 mg PO DAILY 06/24/13 03/12/24 History release vit C 250 mg-vit E 90 mg-zinc 40 1 ea PO BID 02/26/15 03/12/24 History mg-copper 1 qe-yydwtx-xlxevs capsule metoprolol tartrate 25 mg tablet 25 mg PO BID #60 tabs 02/28/15 03/12/24 Rx cholecalciferol (vitamin D3) 1,250 50,000 unit PO QWEEK 01/23/18 03/12/24 History mcg (50,000 unit) capsule escitalopram oxalate 10 mg tablet 10 mg PO DAILY 01/23/18 03/12/24 History (Lexapro) polyethylene glycol 3350 17 PO 01/23/18 03/12/24 History gram/dose oral powder (Miralax) cyanocobalamin (vitamin B-12) 1,000 mcg PO DAILY 02/06/20 03/12/24 History 1,000 mcg capsule selenium 100 mcg tablet 100 mcg PO DAILY 02/06/20 03/12/24 History zinc 50 mg tablet 50 mg PO DAILY 02/06/20 03/12/24 History ascorbate calcium (vitamin C) 500 500 mg PO DAILY 03/04/22 03/12/24 History mg tablet pravastatin 20 mg tablet 40 mg PO DAILY 03/04/22 03/12/24 History nystatin 100,000 unit/gram topical 1 applic topical BID #45 ea 03/10/23 03/12/24 Rx powder (Nystop) albuterol sulfate 90 mcg/actuation 2 puff inhalation Q6H PRN PRN 10/07/23 03/12/24 Rx aerosol inhaler Shortness Of Breath #8.5 grams Is last menstrual period known: Yes Post menopausal: No Patient : No : No PFSH Medical History Cellulitis of right knee Abrasion, right knee, initial encounter Thyroid nodule Hay fever SVT (supraventricular tachycardia) COPD (chronic obstructive pulmonary disease) Asthma White coat syndrome with hypertension Anxiety Urethral caruncle Surgical History S/P eye surgery History of appendectomy Hx laparoscopic cholecystectomy History of tonsillectomy and adenoidectomy Family History Mother CVA (cerebral vascular accident) Myocardial infarction Heart disease Diabetes Father CVA (cerebral vascular accident) Myocardial infarction Cancer lung Heart disease Diabetes Grandfather Myocardial infarction Heart disease Diabetes Grandmother Myocardial infarction Heart disease Diabetes Aunt Breast cancer Sister Multiple myeloma Social History Smoking Status: Former smoker alcohol intake: never substance use type: does not use caffeine: No what typ (more content not included)... Normal [facility] Urgent Care Visit Reporton 1 05-02-2023 Urgent Care Visit Report [facility] [facility] [address], [address] [place] [address] OFFICE VISIT Date of Service: 03/02/24 MR#: [id number] Acct: [id number] Name: JOHN CELIS Rep #: [id number] : 1945 Provider: RIANA Grider Age/Sex: 79/F Location[place] [facility] Status: Signed Intake Vital Signs 03/10/23 16:13 03/02/24 09:51 Height 5 ft 3 in BP 162/72 H Blood Pressure Location Lt brachial Position Sitting Respiration 16 Pulse 92 Pulse Source NIBP Temp 98.6 F Temp Source Oral Pulse Oximetry (%) 96 Oxygen Delivery Method room air Intake Visit Reasons: COUGH/CONGESTION Chief Complaint: dry cough, congest, chest tightness Guide Changer Required: No Is patient in pain?: No Allergies iodine Allergy (Verified 03/02/24 09:52) Anaphylaxis shellfish derived Allergy (Verified 03/02/24 09:52) Anaphylaxis adhesive tape Adverse Reaction (Verified 03/02/24 09:52) Rash amoxicillin trihydrate (From Augmentin) Adverse Reaction (Verified 03/02/24 09:52) Upset Stomach bacitracin Adverse Reaction (Verified 03/02/24 09:52) Rash cefaclor (Cefaclor) Adverse Reaction (Verified 03/02/24 09:52) Unknown cephalexin monohydrate (From Keflex) Adverse Reaction (Verified 03/02/24 09:52) Unknown Cephalosporins Adverse Reaction (Verified 03/02/24 09:52) Unknown clindamycin HCl (From Cleocin) Adverse Reaction (Verified 03/02/24 09:52) Unknown clindamycin palmitate HCl (From Cleocin) Adverse Reaction (Verified 03/02/24 09:52) Unknown clindamycin phosphate (From Cleocin) Adverse Reaction (Verified 03/02/24 09:52) Unknown erythromycin base (Erythromycin Base) Adverse Reaction (Verified 03/02/24 09:52) Unknown feathers Adverse Reaction (Verified 03/02/24 09:52) NEEDS FOLLOW-UP fish derived Adverse Reaction (Verified 03/02/24 09:52) NEEDS FOLLOW-UP guaifenesin Adverse Reaction (Verified 03/02/24 09:52) Unknown Macrolide Antibiotics Adverse Reaction (Verified 03/02/24 09:52) Unknown Penicillins Adverse Reaction (Verified 03/02/24 09:52) Unknown potassium clavulanate (From Augmentin) Adverse Reaction (Verified 03/02/24 09:52) Upset Stomach Sulfa (Sulfonamide Antibiotics) Adverse Reaction (Verified 03/02/24 09:52) Unknown wool Adverse Reaction (Verified 03/02/24 09:52) NEEDS FOLLOW-UP Medications ???Medication ???Instructions ???Recorded ???Confirmed ???Type aspirin 81 mg tablet,delayed 81 mg PO DAILY@0800 06/24/13 03/10/23 History release epinephrine 0.3 mg/0.3 mL 0.3 mg IM PRN PRN Anaphylaxis 06/24/13 03/10/23 History injection, auto-injector rabeprazole 20 mg tablet,delayed 20 mg PO DAILY 06/24/13 03/10/23 History release vit C 250 mg-vit E 90 mg-zinc 40 1 ea PO BID 02/26/15 03/10/23 History mg-copper 1 vh-tmidfi-qymznl capsule metoprolol tartrate 25 mg tablet 25 mg PO BID #60 tabs 02/28/15 03/10/23 Rx cholecalciferol (vitamin D3) 1,250 50,000 unit PO QWEEK 01/23/18 03/10/23 History mcg (50,000 unit) capsule escitalopram oxalate 10 mg tablet 10 mg PO DAILY 01/23/18 03/10/23 History (Lexapro) polyethylene glycol 3350 17 PO 01/23/18 03/10/23 History gram/dose oral powder (Miralax) cyanocobalamin (vitamin B-12) 1,000 mcg PO DAILY 02/06/20 03/10/23 History 1,000 mcg capsule selenium 100 mcg tablet 100 mcg PO DAILY 02/06/20 03/10/23 History zinc 50 mg tablet 50 mg PO DAILY 02/06/20 03/10/23 History ascorbate calcium (vitamin C) 500 500 mg PO DAILY 03/04/22 03/10/23 History mg tablet pravastatin 20 mg tablet 40 mg PO DAILY 03/04/22 03/10/23 History nystatin 100,000 unit/gram topical 1 applic topical BID #45 ea 03/10/23 03/10/23 Rx powder (Nystop) albuterol sulfate 90 mcg/actuation 2 puff inhalation Q6H PRN PRN 10/07/23 Rx aerosol inhaler Shortness Of Breath #8.5 grams methylprednisolone 4 mg tablets in 4 mg PO PER PKG DIR 6 days #21 tabs 03/02/24 03/02/24 Rx a dose pack (Medrol (Terence)) Is last menstrual period known: No Post menopausal: Yes Patient : No Have you fallen in the past year?: No Nurse's Note: dry cough, congest, chest tightness x 3 days. denies GRANDE, BA, fever, mucus. hx COPD, concern for turning into pneumonia. states usually gets steroid or zpak to prevent this. declines viral testing. [facility] Medical History (Updated 03/02/24 @ 10:02 by Hermann MAYERS, PA) Cellulitis of right knee Abrasion, right knee, initial encounter Thyroid nodule Hay fever SVT (supraventricular tachycardia) COPD (chronic obstructive pulmonary disease) Asthma White coat syndrome with hypertension Anxiety Urethral caruncle Surgical History S/P eye surgery History of appendectomy Hx laparoscopic cholecystectomy History of tonsillectomy and adenoidectomy Family History (Reviewed 03/10/23 @ 16:13 (more content not included)... [facility] JOHN CELIS ([id number]) 1945 F Date Time Provider Department 01/17/24 10:45 AM NICKI ARROYO PODIWS During your visit today, we recorded the following information about you: Jenna Nails MA 01/17/2024 10:55 AM Signed AMB ROOMING INTAKE FLOWSHEET DATA Pain Pain Level: 2 Pain Location: Foot-Right Description: Sore Duration Amount of Time: 5 Duration Units: Days Frequency: Intermittent Nicki Arroyo 01/17/2024 10:55 AM Signed Subjective: Patient presents to clinic c/o painful toenails. They state that the nails are especially painful with shoe gear and pressure. Patient states that nails right 2nd and 3rd are painful. Does report bumping left 3rd toe. No pain. No other pedal complaints at this time. Patient states no change in medications or medical history since last visit. Objective: Patient presents to clinic ambulating in [facility] Vasc: DP and PT pulses are palpable [...] bilateral. Assessment: (B35.1) Onychomycosis (primary encounter diagnosis) (M79.672) Pain in left foot (M79.674) Pain in toe of right foot Plan: Patient was seen and evaluated. Nails 1-5 bilateral were debrided in length and thickness. Offered xray of left 3rd toe. Patient declined. Patient is to RTC in 3-4 months. Nicki Arroyo DPM Referring Provider: NICKI ARROYO [[id number]] Allergies As of Date: 01/17/2024 Noted Allergy Reaction Flounder [Other] 02/07/2002 10 - Anaphylaxis HALIBUT LIVER OIL 02/07/2002 10 - Anaphylaxis IODINE 02/02/2001 10 - Anaphylaxis Comments: difficulty breathing SHELLFISH 02/02/2001 10 - Anaphylaxis Comments: anaphalaxis BACITRACIN 02/02/2001 2 - Rash Comments: rash CEPHALOSPORINS 02/02/2001 2 - Rash Comments: sore rash ERYTHROMYCIN BASE 02/02/2001 6 - Diarrhea Comments: diarrhea FEATHERS 02/02/2001 14 - Other: See Comments Comments: congestion GUAIFENESIN 02/26/2003 2 - Rash 7 - Swelling Comments: humibid red swollen rash Humabid [Other] 02/02/2001 2 - Rash 7 - Swelling Comments: red,swollen rash KEFLEX (CEPHALEXIN) 02/11/2006 4 - Hives Comments: hives PENICILLINS 02/02/2001 2 - Rash 4 - Hives Comments: rash,hives SULFA (SULFONAMIDE ANTIBIOTICS) 02/02/2001 2 - Rash Comments: rash WOOL 02/04/2011 2 - Rash 9 - Itching ADHESIVE TAPE (ROSINS) 07/08/2011 2 - Rash AUGMENTIN (AMOXICILLIN-POT CLAVUL*01/07/2005 Comments: rash/hives CEFACLOR 02/02/2001 16 - Unknown Comments: unknown NICKEL 09/30/2016 2 - Rash POTASSIUM CLAVULANATE 01/24/2019 16 - Unknown CLEOCIN (CLINDAMYCIN HCL) 12/22/2004 9 - Itching Comments: itch MACROLIDE ANTIBIOTICS 09/24/2003 14 - Other: See Comments Comments: biaxin adverse reaction- Nausea Date Reviewed: 01/17/2024 Reviewed by: Jenna Nails MA - Fully Assessed Reason for Visit: Follow Up [171] Pain [78] Nail Care [Other] Primary Visit Diagnosis:Onychomyco sis [B35.1] Other Visit Diagnoses:Pain in left foot [M79.672] Pain in toe of right foot [M79.674] Prescriptions as of 01/17/2024 - loratadine (CLARITIN) 10 mg tablet Take 10 mg by mouth. - mupirocin (BACTROBAN) 2 % ointment Apply to affected area. - Coenzyme Q10 200 mg cap Take by mouth as needed. - pravastatin (PRAVACHOL) 40 mg tablet TAKE 1 TABLET DAILY AT BEDTIME - polyethylene glycol 3350 (MIRALAX, GLYCOLAX) 17 gram/dose powder Take 17 g by mouth once daily. - calcium citrate (CITRACAL ORAL) Take 2 capsules by mouth twice daily. - doxycycline hyclate (VIBRAMYCIN) 100 mg capsule Take 100 mg by mouth once daily. - cyanocobalamin (VITAMIN B-12) 500 mcg tablet Take 1 tablet by mouth once daily. - colusvdn-znd-qrao-FA -lutein (CENTRUM SILVER WOMEN) 8 mg iron-400 mcg-300 mcg tab Take 0.5 tablets by mouth once daily. - Zinc 50 mg tab Take 25 mg by mouth once daily. - Selenium 100 mcg tab Take 50 mcg by mouth once daily. - metoprolol tartrate, short acting, (LOPRESSOR) 25 mg tablet Take 1 tablet by mouth twice daily. - VITAMIN D 50,000 unit capsule Take 1 tablet by mouth every 2 weeks. - escitalopram oxalate (LEXAPRO) 10 mg tablet Take 10 mg by mouth once daily. - vit C,B-Yk-lmysz-lutein- (more content not included)... Normal [facility] US Neckon 10-07-2023 [facility] Radiology Study observation (narrative) [facility] Basophil percentageOrdered B y: Alexander Galalgher on 06-13-2023 Bilirubin [Mass/Vol] 0.60 mg/dL 0.20-1.00 [facility] Comment on above: For patients on eltr ombopag therapy, use of Dimension [place] TBIL is not recommended. Chloride [Moles/Vol] 108 mmol/L 98-107 [facility] Cholesterol [Mass/Vol] 143 mg/dL <200 [facility] Comment on above: <200 mg/dL Desirable 200-240 mg/dL Borderline >240 mg/dL High Risk Glucose [Mass/Vol] 115 mg/dL 74-106 [facility] Comment on above: Fasting Glucose resu lt from 100 to 125 mg/dL suggests IMPAIRED HOMEOSTASIS per A.D.A. criteria. Potassium [Moles/Vol] 4.0 mmol/L 3.5-5.1 [facility] Protein [Mass/Vol] 6.5 g/dL 6.4-8.2 [facility] Sodium [Moles/Vol] 142 mmol/L 136-145 [facility] Triglyceride [Mass/Vol] 142 mg/dL <199 [facility] Comment on above: The drugs N-Acetylcy steine and Metamizole may falsely depress this assay.Serum Triglycerides Reference Interval Normal <150 mg/dL Borderline high 150 - 199 mg/dL High 200 - 499 mg/dL Very High > or = 500 mg/dL Laboratory - Chemistry and C hemistry - challengeOrdered By: Alexander Gallagher on 06-13-2023 Albumin/Globulin [Mass ratio] 1.1 {ratio} 0.9-2.4 [facility] ALP [Catalytic activity/Vol] 70 U/L 45-117 [facility] ALT [Catalytic activity/Vol] 35 U/L 13-56 [facility] Cholesterol in HDL [Mass/Vol] 47 mg/dL >40 [facility] Comment on above: The drugs N-Acetylcy steine and Metamizole may falsely depress this assay. Reference Range HDL <40 mg/dL Low HDL Cholesterol HDL >or= 60 mg/dL High HDL Cholesterol Cholesterol in LDL [Mass/Vol] 68 mg/dL 0-130 [facility] CO2 [Moles/Vol] 30.0 mmol/L 21.0-32.0 [facility] Globulin (S) [Mass/Vol] 3.1 g/dL 2.2-4.2 [facility] Urea nitrogen/Creatinine [Mass ratio] 16.1 mg/mg 10-20 [facility] No Panel InformationOrdered By: Alexander Gallagher on 06-13-2023 Estimated GFR (MDRD) Amer 70 mL/min >60 [facility] Comment on above: GFR Calc Estimated GFR (MDRD) Non-Af Amer 58 mL/min >60 [facility] Comment on above: Non- GFR Calc VLDL Cholesterol 28 mg/dL 5-40 [facility] Serum or plasma calcium nely urement (mass/volume)Ordered By: Alexander Gallagher on 06-13-2023 Calcium [Mass/Vol] 9.3 mg/dL 8.5-10.1 [facility] Serum or plasma creatinine m easurement (mass/volume)Ordered By: Alexander Gallagher on 06-13-2023 Creatinine [Mass/Vol] 0.99 mg/dL 0.55-1.02 [facility] Comment on above: The validity of the calculated GFR & GFRAA in patients over 70 years has not been determined. Clinical correlation is essential. Serum or plasma urea nitroge n measurement (mass/volume)Ordered By: Alexander Gallagher on 06-13-2023 Urea nitrogen [Mass/Vol] 16 mg/dL 7-18 [facility] Thin prep Papanicolaou smear with manual screeningOrdered By: Alexander Gallagher on 06-13-2023 Thin prep Papanicolaou smear with manual screening 3.4 g/dL 3.2-5.0 [facility] Thin prep Papanicolaou smear with manual screening 29 U/L 15-37 [facility] Thin prep Papanicolaou smear with manual screening 4 5-15 [facility] Whole blood hemoglobin A1c/t otal hemoglobin ratio (mass fraction)Ordered By: Alexander Gallagher on 06-13-2023 HbA1c (Bld) [Mass fraction] 5.9 % 3.8-5.6 [facility] Comment on above: Normal < 5.7 % Predi abetic 5.7 - 6.4 % Diabetic >or= 6.5 % Please note range changes. US NECK (POC) ENDO USE ONLYo n 02-16-2023 [facility] US THYROID/PARATHYROIDon [facility] No Panel InformationOrdered By: Dr. Bianchi on 04-03-2022 Nasopharyngeal Culture [facility] Gram stain for investigation of transfusion reactionOrdered By: Dr. Bianchi on 04-02-2022 Microscopic observation Gram stain Nom (Unsp spec) [facility] Basophil percentageOrdered B y: Dr. Gallagher on 02-09-2022 Bilirubin [Mass/Vol] 0.40 mg/dL 0.20-1.00 [facility] Comment on above: For patients on eltr ombopag therapy, use of Dimension [place] TBIL is not recommended. Chloride [Moles/Vol] 107 mmol/L 98-107 [facility] Cholesterol [Mass/Vol] 182 mg/dL <200 [facility] Comment on above: <200 mg/dL Desirable 200-240 mg/dL Borderline >240 mg/dL High Risk Glucose [Mass/Vol] 104 mg/dL 74-106 [facility] Comment on above: Fasting Glucose resu lt from 100 to 125 mg/dL suggests IMPAIRED HOMEOSTASIS per A.D.A. criteria. Potassium [Moles/Vol] 5.2 mmol/L 3.5-5.1 [facility] Protein [Mass/Vol] 7.0 g/dL 6.4-8.2 [facility] Sodium [Moles/Vol] 140 mmol/L 136-145 [facility] Triglyceride [Mass/Vol] 233 mg/dL <199 [facility] Comment on above: The drugs N-Acetylcy steine and Metamizole may falsely depress this assay.Serum Triglycerides Reference Interval Normal <150 mg/dL Borderline high 150 - 199 mg/dL High 200 - 499 mg/dL Very High > or = 500 mg/dL Laboratory - Chemistry and C hemistry - challengeOrdered By: Dr. Gallagher on 02-09-2022 ALP [Catalytic activity/Vol] 71 U/L 45-117 [facility] ALT [Catalytic activity/Vol] 25 U/L 13-56 [facility] CO2 [Moles/Vol] 31.0 mmol/L 21.0-32.0 [facility] Globulin (S) [Mass/Vol] 3.4 g/dL 2.2-4.2 [facility] Urea nitrogen/Creatinine [Mass ratio] 20.8 mg/mg 10-20 [facility] No Panel InformationOrdered By: Dr. Gallagher on 02-09-2022 Estimated GFR (MDRD) Amer 82 mL/min >60 [facility] Comment on above: GFR Calc Estimated GFR (MDRD) Non-Af Amer 68 mL/min >60 [facility] Comment on above: Non- GFR Calc Serum or plasma albumin nely urement (mass/volume)Ordered By: Dr. Gallagher on 02-09-2022 Albumin [Mass/Vol] 3.6 g/dL 3.2-5.0 [facility] Serum or plasma albumin/glob ulin mass ratioOrdered By: Dr. Gallagher on 02-09-2022 Albumin/Globulin [Mass ratio] 1.1 {ratio} 0.9-2.4 [facility] Serum or plasma calcium nely urement (mass/volume)Ordered By: Dr. Gallagher on 02-09-2022 Calcium [Mass/Vol] 9.6 mg/dL 8.5-10.1 [facility] Serum or plasma cholesterol in HDL measurement (mass/volume)Ordered By: Dr. Gallagher on 02-09-2022 Cholesterol in HDL [Mass/Vol] 49 mg/dL >40 [facility] Comment on above: The drugs N-Acetylcy steine and Metamizole may falsely depress this assay. Reference Range HDL <40 mg/dL Low HDL Cholesterol HDL >or= 60 mg/dL High HDL Cholesterol Serum or plasma cholesterol in VLDL measurement (mass/volume)Ordered By: Dr. Gallagher on 02-09-2022 Cholesterol in VLDL [Mass/Vol] 47 mg/dL 5-40 [facility] Serum or plasma creatinine m easurement (mass/volume)Ordered By: Dr. Gallagher on 02-09-2022 Creatinine [Mass/Vol] 0.87 mg/dL 0.55-1.02 [facility] Comment on above: The validity of the calculated GFR & GFRAA in patients over 70 years has not been determined. Clinical correlation is essential. Serum or plasma low density lipoprotein (LDL) cholesterol measurement (mass/volume)Ordered By: Dr. Gallagher on 02-09-2022 Cholesterol in LDL [Mass/Vol] 86 mg/dL 0-130 [facility] Serum or plasma urea nitroge n measurement (mass/volume)Ordered By: Dr. Gallagher on 02-09-2022 Urea nitrogen [Mass/Vol] 18 mg/dL 7-18 [facility] Thin prep Papanicolaou smear with manual screeningOrdered By: Dr. Gallagher on 02-09-2022 Thin prep Papanicolaou smear with manual screening 14 U/L 15-37 [facility] Thin prep Papanicolaou smear with manual screening 2 5-15 [facility] HEMOGLOBIN A1C (POC)on 07-15 HbA1c (Bld) [Mass fraction] 5.8 % 4.2 - 5.6 % [facility] US NECK (POC) ENDO USE ONLYo n 07-15-2021 [facility] Office Visit: est annualon 1 Documentation of current medications (procedure) Done Invalid Interpretation Code [facility] Fall risk assessment No Invalid Interpretation Code [facility] Tobacco smoking status NHIS Never Invalid Interpretation Code [facility] Tobacco use CPHS Never smoker Invalid Interpretation Code [facility] Gram stain for investigation of transfusion reaction Microscopic observation Gram stain Nom (Unsp spec) [facility] Work Phone: No Panel Information Nasopharyngeal Culture [facility] Work Phone: Throat specimen bacteria mario ntification by culture Bacteria identified Cx Nom (Throat) streptococcus isolated. [facility] Work Phone: Vital Signs Date Time Vital Sign Value Performing Clinician Facility 11-27-2024 14:08-0400 Diastolic blood pressure 76 mm[Hg] Brian Beaver MD Work Phone: [facility] Comment on above: mi 11-27-2024 14:08-0400 Heart rate 75 /min Brian Beaver MD Work Phone: [facility] 11-27-2024 14:08-0400 Systolic blood pressure 155 mm[Hg] Brian Beaver MD Work Phone: [facility] Comment on above: mi 11-27-2024 13:59-0400 Body height 160 cm Brian Beaver MD Work Phone: [facility] 11-27-2024 13:59-0400 Body mass index (BMI) [Ratio] 29.23 kg/m2 Brian Beaver MD Work Phone: [facility] 11-27-2024 13:59-0400 Body weight 74.84 kg Brian Beaver MD Work Phone: [facility] 11-27-2024 13:59-0400 SaO2% (BldA) [Mass fraction] 95 % Brian Beaver MD Work Phone: [facility] 08-25-2024 11:05-0400 Body height 160.[address] Alexander Gallagher MD Work Phone: [facility] 08-25-2024 11:05-0400 Body mass index (BMI) [Ratio] 30.4 kg/m2 Dr. Alexander Gallagher MD Work Phone: [facility] 08-25-2024 11:05-0400 Body temperature 97.8 [degF] Dr. Alexander Gallagher MD Work Phone: [facility] 08-25-2024 11:05-0400 Body weight 77.[address] Alexander Gallagher MD Work Phone: [facility] 08-25-2024 11:05-0400 Diastolic blood pressure 80 mm[Hg] Dr. Alexander Gallagher MD Work Phone: [facility] 08-25-2024 11:05-0400 Heart rate 66 /min Dr. Alexander Gallagher MD Work Phone: [facility] 08-25-2024 11:05-0400 Respiratory rate 16 /min Dr. Alexander Gallagher MD Work Phone: [facility] 08-25-2024 11:05-0400 SaO2% (BldA) [Mass fraction] 96 % Dr. Alexander Gallagher MD Work Phone: [facility] 08-25-2024 11:05-0400 Systolic blood pressure 148 mm[Hg] Dr. Alexander Gallagher MD Work Phone: [facility] 05-30-2024 12:47-0500 Body mass index (BMI) [Ratio] 30.29 kg/m2 Johnson Blancas MD Work Phone: [facility] 05-30-2024 12:47-0500 Body weight 77.56 kg Johnson Blancas MD Work Phone: [facility] 05-30-2024 12:47-0500 Diastolic blood pressure 73 mm[Hg] Johnson Blancas MD Work Phone: [facility] 05-30-2024 12:47-0500 Heart rate 69 /min Johnson Blancas MD Work Phone: [facility] 05-30-2024 12:47-0500 Systolic blood pressure 127 mm[Hg] Johnson Blancas MD Work Phone: [facility] 05-09-2024 13:19-0500 Body temperature 98.2 [degF] Dr. Alexander Gallagher MD Work Phone: [facility] 05-09-2024 13:19-0500 Diastolic blood pressure 62 mm[Hg] Dr. Alexander Gallagher MD Work Phone: [facility] 05-09-2024 13:19-0500 Heart rate 67 /min Dr. Alexander Gallagher MD Work Phone: [facility] 05-09-2024 13:19-0500 Respiratory rate 17 /min Dr. Alexander Gallagher MD Work Phone: [facility] 05-09-2024 13:19-0500 SaO2% (BldA) [Mass fraction] 98 % Dr. Alexander Gallagher MD Work Phone: [facility] 05-09-2024 13:19-0500 Systolic blood pressure 152 mm[Hg] Dr. Alexander Gallagher MD Work Phone: 7(960)[phone] [address] 05-09-2024 13:11-0500 Body height 160.[address] Alexander Gallagher MD Work Phone: 1(656)276-562712 [address] 03-12-2024 13:57-0500 Body mass index (BMI) [Ratio] 30.3 kg/m2 Dr. Alexander Gallagher MD Work Phone: 3(902)904-533299 [place] [address] 03-12-2024 13:57-0500 Body weight 77.[address] Alexander Gallagher MD Work Phone: 6(516)364-951012 [address] 03-12-2024 13:57-0500 Diastolic blood pressure 76 mm[Hg] Dr. Alexander Gallagher MD Work Phone: 1(790)[phone] [address] 03-12-2024 13:57-0500 Systolic blood pressure 147 mm[Hg] Dr. Alexander Gallagher MD Work Phone: 6(401)224-945499 [place] [address] 03-02-2024 09:51-0500 Body temperature 98.6 [degF] Dr. Alexander Gallagher MD Work Phone: 2(596)[phone] [place] [address] 03-02-2024 09:51-0500 Diastolic blood pressure 72 mm[Hg] Dr. Alexander Gallagher MD Work Phone: [facility] 03-02-2024 09:51-0500 Heart rate 92 /min Dr. Alexander Gallagher MD Work Phone: [facility] 03-02-2024 09:51-0500 Respiratory rate 16 /min Dr. Alexander Gallagher MD Work Phone: [facility] 03-02-2024 09:51-0500 SaO2% (BldA) [Mass fraction] 96 % Dr. Alexander Gallagher MD Work Phone: [facility] 03-02-2024 09:51-0500 Systolic blood pressure 162 mm[Hg] Dr. Alexander Gallagher MD Work Phone: [facility] 10-07-2023 12:51-0400 Body mass index (BMI) [Ratio] 30.62 kg/m2 Johnson Blancas MD Work Phone: [facility] 10-07-2023 12:51-0400 Body weight 78.4 kg Johnson Blancas MD Work Phone: [facility] 10-07-2023 12:51-0400 Diastolic blood pressure 63 mm[Hg] Johnson Blancas MD Work Phone: [facility] 10-07-2023 12:51-0400 Heart rate 65 /min Johnson Blancas MD Work Phone: [facility] 10-07-2023 12:51-0400 Systolic blood pressure 148 mm[Hg] Johnson Blancas MD Work Phone: [facility] 03-10-2023 16:13-0500 Body height 160.[address] Alexander Gallagher Work Phone: [facility] 03-10-2023 16:13-0500 Body mass index (BMI) [Ratio] 30.4 kg/m2 Dr. Alexander Gallagher Work Phone: [facility] 03-10-2023 16:13-0500 Body weight 78.[address] Alexander Gallagher Work Phone: [facility] 03-10-2023 16:13-0500 Diastolic blood pressure 81 mm[Hg] Dr. Alexander Gallagher Work Phone: [facility] 03-10-2023 16:13-0500 Systolic blood pressure 142 mm[Hg] Dr. Alexander Gallagher Work Phone: [facility] 02-16-2023 13:14-0500 Body weight 78.74 kg Johnson Blancas MD Work Phone: [facility] 02-16-2023 13:14-0500 Diastolic blood pressure 70 mm[Hg] Johnson Blancas MD Work Phone: [facility] 02-16-2023 13:14-0500 Heart rate 71 /min Johnson Blancas MD Work Phone: [facility] 02-16-2023 13:14-0500 Systolic blood pressure 158 mm[Hg] Johnson Blancas MD Work Phone: [facility] 10-20-2022 12:31-0400 Body height 160 cm Brian Beaver MD Work Phone: [facility] 10-20-2022 12:31-0400 Body weight 75.43 kg Brian Beaver MD Work Phone: [facility] 10-20-2022 12:31-0400 Diastolic blood pressure 72 mm[Hg] Brian Beaver MD Work Phone: [facility] 10-20-2022 12:31-0400 Heart rate 65 /min Brian Beaver MD Work Phone: [facility] 10-20-2022 12:31-0400 SaO2% (BldA) [Mass fraction] 96 % Brian Beaver MD Work Phone: [facility] 10-20-2022 12:31-0400 Systolic blood pressure 156 mm[Hg] Brian Beaver MD Work Phone: [facility] 05-08-2022 12:16-0500 Body temperature 98 [degF] Dr. Alexander Gallagher Work Phone: [facility] 05-08-2022 12:16-0500 Diastolic blood pressure 72 mm[Hg] Dr. Alexander Gallagher Work Phone: [facility] 05-08-2022 12:16-0500 Heart rate 66 /min Dr. Alexander Galalgher Work Phone: [facility] 05-08-2022 12:16-0500 Respiratory rate 14 /min Dr. Alexander Gallagher Work Phone: [facility] 05-08-2022 12:16-0500 SaO2% (BldA) [Mass fraction] 97 % Dr. Alexander Gallagher Work Phone: [facility] 05-08-2022 12:16-0500 Systolic blood pressure 130 mm[Hg] Dr. Alexander Gallagher Work Phone: [facility] 04-01-2022 10:35-0500 Body height 162.[address] Alexander Gallagher Work Phone: [facility] 03-04-2022 15:34-0500 Diastolic blood pressure 77 mm[Hg] Dr. Alexander Gallagher Work Phone: [facility] 03-04-2022 15:34-0500 Systolic blood pressure 164 mm[Hg] Dr. Alexander Gallagher Work Phone: [facility] 10-06-2021 10:29-0400 Body height 160 cm Brian Beaver MD Work Phone: [facility] 10-06-2021 10:29-0400 Body weight 73.48 kg Brian Beaver MD Work Phone: [facility] 10-06-2021 10:29-0400 Diastolic blood pressure 67 mm[Hg] Brian Beaver MD Work Phone: [facility] 10-06-2021 10:29-0400 Heart rate 79 /min Brian Beaver MD Work Phone: [facility] 10-06-2021 10:29-0400 SaO2% (BldA) [Mass fraction] 93 % Brian Beaver MD Work Phone: [facility] 10-06-2021 10:29-0400 Systolic blood pressure 115 mm[Hg] Brian Beaver MD Work Phone: [facility] 07-15-2021 08:55-0400 Body weight 68.54 kg Johnson Blancas MD Work Phone: [facility] 07-15-2021 08:55-0400 Diastolic blood pressure 74 mm[Hg] Johnson Blancas MD Work Phone: [facility] 07-15-2021 08:55-0400 Heart rate 66 /min Johnson Blancas MD Work Phone: [facility] 07-15-2021 08:55-0400 Systolic blood pressure 164 mm[Hg] Johnson Blancas MD Work Phone: [facility] 01-11-2017 10:02-0400 BMI (Body Mass Index) 30.04 kg/m2 Linda Figueroa MD [facility] 01-11-2017 10:02-0400 Body Temperature 96.5 [degF] Linda Figueroa MD [facility] 01-11-2017 10:02-0400 Body Temperature 96.49 [degF] Linda Figueroa MD [facility] 01-11-2017 10:02-0400 BP Diastolic 70 mm[Hg] Linda Figueroa MD [facility] 01-11-2017 10:02-0400 BP Systolic 160 mm[Hg] Linda Figueroa MD [facility] 01-11-2017 10:02-0400 Height 162.56 cm Linda Figueroa MD [facility] 01-11-2017 10:02-0400 Pulse (Heart Rate) 62 /min Linda Figueroa MD [facility] 01-11-2017 10:02-0400 Respiratory Rate 16 /min Linda Figueroa MD [facility] 01-11-2017 10:02-0400 Weight 79.38 kg Linda Figueroa MD [facility] Encounters Encounter Date Encounter Type Care Provider Facility Start: 03-06-2025 ambulatory Alexander Gallagher Facility:[facility] Start: 12-27-2024 End: 12-27-2024 ambulatory BRIAN BEAVER Facility:[facility] Start: 12-25-2024 ambulatory Alexander Gallagher Facility:[facility] Start: 12-11-2024 End: 12-11-2024 Patient encounter procedure Nicki Arroyo Work Phone: Podiatry Comment on above: Onychomycosis (Prima ry Dx); Onychocryptosis; Pain in left foot; Pain in toe of right foot; Callus of foot Start: 12-11-2024 End: 12-11-2024 ambulatory NICKI PRESTON Facility:[facility] Start: 12-07-2024 End: 12-11-2024 Telephone encounter Nicki Duqueambreen Work Phone: Podiatry Comment on above: Patient Update Start: 11-27-2024 End: 11-27-2024 Patient encounter procedure Brian Beaver MD Work Phone: Cardiology Comment on above: Other forms of angin a pectoris (Primary Dx); Supraventricular tachycardia (HCC); Essential hypertension; Mixed hyperlipidemia Start: 11-27-2024 End: 11-27-2024 ambulatory BRIAN BEAVER Facility:[facility] Start: 11-27-2024 End: 11-27-2024 ambulatory ALEXANDER GALLAGHER Facility:[facility] Start: 09-24-2024 End: 09-24-2024 Patient encounter procedure Nicki Duqueambreen Work Phone: Podiatry Comment on above: Onychomycosis (Prima ry Dx); Onychocryptosis; Pain in left foot; Pain in toe of right foot Start: 09-24-2024 End: 09-24-2024 ambulatory NICKI ARROYO Facility:[facility] Start: 08-29-2024 End: 08-29-[address] Alexander Gallagher MD Work Phone: [facility] Work Phone: Start: 08-29-2024 End: 08-29-[address] Poncho Bianchi MD -Laboratory Specimen Work Phone: Start: 08-29-2024 End: 08-29-2024 ambulatory Poncho Bianchi Facility:[facility] Start: 08-25-2024 End: 08-25-2024 Patient encounter procedure Caitlyn Carley REWINDER OPERATOR-C [facility] Work Phone: Start: 08-25-2024 End: 08-25-2024 ambulatory [place] Gallagher [place] [place]: 07-24-2024 End: 07-24-[address] Alexander Gallagher MD Work Phone: [facility] Work Phone: Start: 07-24-2024 End: 07-24-[address] Alexander Gallagher MD -Physical Therapy Work Phone: Start: 06-28-[address] Alexander roche MD -Physical Therapy Work Phone: Start: 06-28-2024 End: 06-28-[address] Alexander Gallagher MD Work Phone: [facility] Work Phone: Start: 06-28-2024 End: 06-28-[address] Alexander Gallagher MD -Laboratory, [facility] Start: 06-28-2024 End: 06-28-2024 ambulatory Alexander Gallagher Facility:[facility] Start: 06-22-2024 End: 06-22-2024 ambulatory INCKI TESTLYNDHURST Facility:[facility] Start: 06-22-2024 End: 06-22-2024 Patient encounter procedure Nicki Duqueambreen Work Phone: Podiatry Comment on above: Onychomycosis (Prima ry Dx); Onychocryptosis; Pain in left foot; Pain in toe of right foot Start: 06-21-[address] Alexander roche MD -Physical Therapy Work Phone: Start: 06-14-2024 End: 06-14-[address] Alexander Gallagher MD Work Phone: [facility] Work Phone: Start: 06-14-2024 End: 06-14-[address] 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 Comment on above: Nontoxic multinodula r goiter (Primary Dx) Start: 05-09-2024 End: 05-09-2024 Patient encounter procedure Perry Peters REWINDER OPERATOR-C [facility] Work Phone: Start: 05-09-2024 End: 05-09-2024 ambulatory Alexander Gallagher [place] Start: 05-09-2024 End: 05-09-2024 ambulatory Alexander Gallagher Facility:[facility] Start: 05-08-2024 End: 05-08-[address] Alexander Gallagher MD -Outpatient Bone Densitometry Work Phone: Start: 05-08-2024 End: 05-08-2024 ambulatory Alexander Gallagher Facility:[facility] Start: 04-17-2024 End: 04-19-2024 Telephone encounter Johnson Blancas MD Work Phone: [facility] Comment on above: Patient Question Start: 03-22-2024 End: 03-22-2024 ambulatory NICKI ARROYO Facility:[facility] Start: 03-22-2024 End: 03-22-2024 Patient encounter procedure Nicki Arroyo Work Phone: Podiatry Comment on above: Onychomycosis (Prima ry Dx); Pain in left foot; Pain in toe of right foot Start: 03-12-2024 End: 03-12-[address] Linda Figueroa MD -[facility] Work Phone: Start: 03-12-2024 End: 03-12-[address] Linda Figueroa MD [facility] Start: 03-12-2024 End: 03-12-2024 ambulatory Alexander Gallagher [place] Start: 03-02-2024 End: 03-02-2024 Patient encounter procedure Hermann Aguila [facility] Work Phone: Start: 03-02-2024 End: 03-02-2024 ambulatory Alexander Gallagher [place] Start: 01-17-2024 End: 01-17-2024 ambulatory NICKI ARROYO Facility:[facility] Start: 01-17-2024 End: 01-17-2024 Patient encounter procedure Nicki Arroyo Work Phone: Podiatry Comment on above: Onychomycosis (Prima ry Dx); Pain in left foot; Pain in toe of right foot Start: 11-04-2023 End: 11-04-2023 Patient encounter procedure Nicki Arroyo Work Phone: Podiatry Comment on above: Onychomycosis (Prima ry Dx); Pain in left foot; Pain in toe of right foot Start: 11-03-2023 End: 11-03-2023 ambulatory Brian Beaver MD Work Phone: Cardiology Comment on above: 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); Supraventricular tachycardia (HCC); Essential hypertension Start: 11-03-2023 End: 11-03-2023 Telemedicine consultation with patient Brian Beaver MD Work Phone: Cardiology Start: 10-21-2023 Telephone encounter Nicki Kevin katlyncarlos Work Phone: Podiatry Comment on above: Appointment Start: 10-10-2023 Telephone encounter Brian peters MD Work Phone: Cardiology Start: 10-07-2023 End: 10-07-2023 Patient encounter procedure Johnson Blnacas MD Work Phone: [facility] [place] Comment on above: Nontoxic multinodula r goiter (Primary Dx) Start: 09-22-2023 Orders Only Brian Beaver MD Work Phone: Cardiology Comment on above: Mixed hyperlipidemia (Primary Dx); Essential hypertension Start: 08-11-2023 End: 08-11-2023 Patient encounter procedure Nicki Arroyo Work Phone: Podiatry Comment on above: Onychomycosis (Prima ry Dx); Pain in left foot; Pain in toe of right foot Start: 06-13-2023 End: 06-13-[address] Alexander Gallagher Work Phone: [facility] Work Phone: Start: 06-13-2023 End: 06-13-[address] Alexander Gallagher Work Phone: [facility] Start: 05-12-2023 End: 05-12-2023 Patient encounter procedure Nicki Arroyo Work Phone: Podiatry Comment on above: Onychomycosis (Prima ry Dx); Pain in toe of right foot; Pain in left foot Start: 03-14-2023 End: 03-14-[address] Alexander Gallagher Work Phone: [facility] Work Phone: Start: 03-14-2023 End: 03-14-[address] Alexander Gallagher Work Phone: [facility] Work Phone: Start: 03-10-2023 End: 03-10-[address] Alexander Gallagher Work Phone: [facility] Work Phone: Start: 02-16-2023 End: 02-16-2023 Patient encounter procedure Johnson Blancas MD Work Phone: [facility] Comment on above: Nontoxic multinodula r goiter (Primary Dx) Start: 02-11-2023 End: 02-11-[address] Alexander Gallagher Work Phone: [facility]-Outpatient Breast Imaging Work Phone: Start: 01-18-2023 Transcribe Orders Brian roche MD Work Phone: Cardiology Comment on above: Essential hypertensi on (Primary Dx) Start: 01-04-2023 End: 01-04-2023 ambulatory Johnson Blancas MD Work Phone: [facility] Comment on above: Nontoxic multinodula r goiter (Primary Dx) Start: 01-04-2023 End: 01-04-2023 Telemedicine consultation with patient Johnson Blancas MD Work Phone: [facility] Start: 01-04-2023 End: 01-04-2023 Patient encounter procedure Nicki Arroyo Work Phone: Podiatry Comment on above: Onychomycosis (Prima ry Dx); Pain in toe of right foot; Pain in left foot Start: 12-03-2022 End: 12-03-2022 Subsequent hospital visit by physician [facility] Work Phone: Radiology Comment on above: Nontoxic multinodula r goiter [E04.2] Start: 11-22-2022 End: 11-22-2022 ambulatory Johnson Blancas MD Work Phone: [facility] Comment on above: Nontoxic multinodula r goiter (Primary Dx) Start: 11-22-2022 End: 11-22-2022 Telemedicine consultation with patient Johnson Blancas MD Work Phone: [facility] Start: 11-05-2022 End: 11-05-2022 Patient encounter procedure Nicki Arroyo Work Phone: Podiatry Comment on above: Onychomycosis (Prima ry Dx); Pain in toe of right foot; Pain in left foot Start: 10-20-2022 End: 10-20-2022 Patient encounter procedure Brian Beaver MD Work Phone: Cardiology Comment on above: Essential hypertensi on (Primary Dx); Mixed hyperlipidemia; Chest pain on breathing; Supraventricular tachycardia (HCC); Other forms of angina pectoris (HCC) Start: 10-10-2022 Refill Brian Beaver MD Work Phone: Cardiology Comment on above: Refill Request Start: 08-16-2022 Orders Only Brian Beaver MD Work Phone: Cardiology Comment on above: Mixed hyperlipidemia (Primary Dx) Start: 07-12-2022 End: 07-12-2022 Patient encounter procedure Nicki Arroyo Work Phone: Podiatry Comment on above: Onychomycosis (Prima ry Dx); Pain in toe of right foot; Pain in left foot Start: 06-09-2022 Orders Only Brian Beaver MD Work Phone: Cardiology Comment on above: Essential hypertensi on (Primary Dx) Start: 05-28-2022 End: 05-28-[address] Alexander Gallagher Work Phone: [facility] Work Phone: Start: 05-28-2022 End: 05-28-[address] Alexander Gallagher Work Phone: [facility] Start: 05-08-2022 End: 05-08-[address] Alexander Gallagher Work Phone: [facility] Start: 05-05-2022 End: 05-05-[address] Alexander Gallagher Work Phone: [facility] Work Phone: Start: 05-05-2022 End: 05-05-[address] Alexander Gallagher Work Phone: [facility] Start: 04-13-2022 End: 04-13-2022 Patient encounter procedure Nicki Arroyo Work Phone: Podiatry Comment on above: Onychomycosis (Prima ry Dx); Pain in toe of right foot; Pain in left foot Start: 04-01-2022 End: 04-01-[address] Alexander Gallagher Work Phone: [facility] Work Phone: Start: 04-01-2022 End: 04-01-[address] Alexander Gallagher Work Phone: [facility]-Outpatient Bone Densitometry Start: 03-04-2022 End: 03-04-[address] Alexander Gallagher Work Phone: [facility] Start: 02-09-2022 End: 02-09-2022 Patient encounter procedure [facility]-Laboratory, [facility] Start: 02-08-2022 End: 02-08-2022 ambulatory [facility] Work Phone: Start: 02-08-2022 End: 02-08-2022 Patient encounter procedure [facility]-Outpatient Breast Imaging Start: 01-05-2022 End: 01-05-2022 ambulatory [facility] Work Phone: Start: 01-05-2022 End: 01-05-2022 Patient encounter procedure [facility]-Laboratory, Specimen Start: 12-01-2021 End: 12-01-2021 ambulatory Johnson Blancas MD Work Phone: [facility] Comment on above: Dysmetabolic syndrom e X (Primary Dx) Start: 12-01-2021 End: 12-01-2021 Telemedicine consultation with patient Johnson Blancas MD Work Phone: [facility] Start: 10-06-2021 End: 10-06-2021 Orders Only Brian Beaver MD Work Phone: Cardiology Comment on above: Mixed hyperlipidemia (Primary Dx) Essential hypertensi on (Primary Dx); Mixed hyperlipidemia; Chest pain on breathing Start: 09-25-2021 End: 09-25-2021 Patient encounter procedure Nicki Arroyo Work Phone: Podiatry Comment on above: Onychomycosis (Prima ry Dx); Pain in toe of right foot; Pain in left foot Start: 07-15-2021 End: 07-15-2021 Patient encounter procedure Johnson Blancas MD Work Phone: [facility] [place] Comment on above: Nontoxic multinodula r goiter (Primary Dx) Procedures Date Procedure Procedure Detail Performing Clinician Start: 06-14-2024 Vitamin D, 25-hydrox y measurement Dr. Alexander Gallagher MD Work Phone: Comment on above: Vitamin D StatusDefi ciency: <20 ng/mL (50nmol/L)Insufficiency: 20-30 ng/mL (50-75 nmol/L)Sufficiency: 30-100 ng/mL (75-250 nmol/L)Toxicity: >100 ng/mL (>250 nmol/L) Start: 05-30-2024 Us soft tissue head & neck real time imge docabril Blancas MD Work Phone: Start: 05-09-2024 X-ray of ankle, thre e or more views Dr. Alexander Gallagher MD Work Phone: Start: 05-08-2024 Dual energy X-ray absorptiometry Dr. Alexander Gallagher MD Work Phone: Start: 10-07-2023 Us soft tissue head & neck real time imge docabril Blancas MD Work Phone: Start: 03-14-[address] Alexander Gallagher Work Phone: Start: 02-16-2023 Us soft tissue head & neck real time imge docabril Blancas MD Work Phone: Start: 02-11-2023 Screening mammography Shelly Gallagher Work Phone: Start: 12-03-2022 Us soft tissue head & neck real time imge docabril Blancas MD Work Phone: Start: 10-18-2022 Lipid 1996 panel - S solomon or Plasma Nicki Arroyo Work Phone: Start: 05-28-2022 Diagnostic radiograp hy of abdomen, decubitus and erect Dr. Alexander Gallagher Work Phone: Start: 05-05-2022 Radiologic examinati on of knee Dr. Alexander Gallagher Work Phone: Start: 04-01-2022 Dual energy X-ray absorptiometry Dr. Alexander Gallagher Work Phone: Start: 02-08-2022 Screening mammography Start: 07-15-2021 Hemoglobin A1c/Hemoglobin.total in Blood Johnson Blancas MD Work Phone: Start: 07-15-2021 Us soft tissue head & neck real time imge docm Johnson Blancas MD Work Phone: Start: 02-09-2019 Colonoscopy Nicki Mcmillan Work Phone: Start: 03-08-2016 Mammography Nicki Mcmillan Work Phone: Start: 01-14-2015 Adult depression scr eening assessment Nicki Arroyo Work Phone: Bacteria identification test Investigation of tra nsfusion reaction Dr. Alexander Gallagher Work Phone: Investigation of tra nsfusion reaction Dr. Alexander Gallagher Work Phone: Nasopharyngeal Culture Dr. Donna Gallagher Work Phone: Nasopharyngeal Culture Dr. Donna Gallagher Work Phone: Plan of Treatment Date Care Activity Detail Author Start: 03-04-2029 Urine microalbumin profile DTaP,Tdap,Td Vaccine (5 - Td or Tdap) [facility] Start: 02-09-2029 Colonoscopy COLONOSCOPY [facility] Start: 02-09-2029 COLORECTAL CANCER SCREENING COLORECTAL CANCER SCREENING [facility] Start: 11-28-2027 Diabetes Screening Diabetes Screening [facility] Start: 10-19-2027 Lipid 1996 panel - Serum or Plasma Lipid Screening [facility] Start: 10-19-2027 LIPID SCREEN LIPID SCREEN [facility] Start: 10-10-2026 Diabetes Screening Diabetes Screening [facility] Start: 10-09-2026 Diabetes Screening Diabetes Screening [facility] Start: 10-06-2026 LIPID SCREEN LIPID SCREEN [facility] Start: 01-02-2026 LIPID SCREEN LIPID SCREEN [facility] Start: 10-18-2025 DIABETES SCREEN DIABETES SCREEN [facility] Start: 10-18-2025 Diabetes Screening Diabetes Screening [facility] Start: 05-30-2025 BP Controlled (<130/80) BP Controlled (<130/80) [facility] Start: 05-08-2025 End: 05-08-2025 Patient encounter procedure 05/08/2025 2:00 PM EST Office Visit [facility] [place] [address] [place] [address] [place] [address] [facility] [address] [place] [address] 1 year f/u [facility] [place] Comment on above: 1 year f/u Start: 03-12-2025 End: 03-12-2025 Patient encounter procedure 03/12/2025 10:45 AM EST Office Visit Podiatry [address] [place] [address] Nicki Arroyo [address] [place] [address] toe pain Podiatry Comment on above: toe pain Start: 12-25-2024 End: 12-25-2024 Patient encounter procedure 12/25/2024 11:00 AM EDT Office Visit Podiatry [address] [place] [address] Nicki Arroyo [address] [place] [address] 3 month follow up nail care Podiatry Comment on above: 3 month follow up nail care Start: 12-03-2024 Influenza vaccination Influenza Vaccine (#1) [facility] Start: 11-27-2024 End: 11-27-2024 Patient encounter procedure Cardiology Comment on above: 1 YR F/U ANGINA SVT, E HYPERT ENSION Start: 11-27-2024 End: 11-27-2024 ambulatory [facility] [id number] [facility]rew[facility] Johnson Comment on above: ANGINA SVT, E HYPERTENSION Start: 10-06-2024 DIABETES SCREEN DIABETES SCREEN [facility] Start: 09-24-2024 End: 09-24-2024 Patient encounter procedure 09/24/2024 11:30 AM EDT Office Visit Podiatry [address] [place], [place] [id number] Nicki Arroyo [address] [place] [id number] 3 month follow up nail care Podiatry Comment on above: 3 month follow up nail care Start: 08-29-2024 Bacteria identification test Throat Culture [facility] Start: 07-30-2024 Covid-19 Vaccine () Covid-19 Vaccine () [facility] Start: 07-15-2024 DIABETES SCREEN DIABETES SCREEN [facility] Start: 06-22-2024 End: 06-22-2024 Patient encounter procedure 06/22/2024 2:00 PM EDT Office Visit Podiatry [address] [place], [place] [address] Nicki Arroyo [address] [address] 3 month follow up nail care Podiatry Comment on above: 3 month follow up nail care Start: 06-01-2024 End: 06-01-2025 CBC W Auto Differential panel - Blood COMPLETE BLOOD COUNT AND DIFFERENTIAL Lab Routine Other forms of angina pectoris (HCC) Expected: 06/01/2024, Expires: 06/01/2025 [facility] Comment on above: Expected: 06/01/2024, Expires: Start: 06-01-2024 End: 06-01-2025 Comprehensive metabolic 2000 panel - Serum or Plasma COMPREHENSIVE METABOLIC PANEL Lab Routine Other forms of angina pectoris (HCC) Expected: 06/01/2024, Expires: 06/01/2025 [facility] Work Phone: Comment on above: Expected: 06/01/2024, Expires: Start: 06-01-2024 End: 06-01-2025 ECG COMPLETE ECG COMPLETE ECG Routine Other forms of angina pectoris (HCC) Expected: 06/01/2024, Expires: 06/01/2025 [facility] Comment on above: Expected: 06/01/2024, Expires: Start: 06-01-2024 End: 06-01-2025 Lipid 1996 panel - Serum or Plasma LIPID PANEL BASIC Lab Routine Other forms of angina pectoris (HCC) Expected: 06/01/2024, Expires: 06/01/2025 [facility] Comment on above: Expected: 06/01/2024, Expires: Start: 05-30-2024 End: 05-30-2024 Patient encounter procedure 05/30/2024 1:00 PM EST Office Visit Endocrinology [place] [id number] [place] [phone] [place] Blancas [place] [id number] [place] [id number] US /thyroid [facility] [place] Comment on above: US /thyroid Start: 04-18-2024 End: 04-18-2024 Patient encounter procedure 04/18/2024 2:00 PM EST Office Visit Endocrinology [address] [id number] Johnson Blancas MD [address] [place] [id number] follow up Endocrinology [place] Comment on above: follow up Start: 04-04-2024 Advance Directive Discussion Advance Directive Discussion [facility] Start: 04-04-2024 Medicare Advantage Annual Wellness Visit Medicare Advantage Annual Wellness Visit [facility] Start: 03-22-2024 End: 03-22-2024 Patient encounter procedure 03/22/2024 10:45 AM EST Office Visit Podiatry [address] [place] [address] [place] [id number] Nicki Arroyo [address] [place] [address] 9 week follow up nail care Podiatry Comment on above: 9 week follow up nail care Start: 02-10-2024 End: 02-10-2024 Patient encounter procedure 02/10/2024 2:40 PM EST Office Visit Podiatry [address] [place] [address] Nicki Arroyo [address] [place] [address] 3 month follow up diabetic foot care Podiatry Comment on above: 3 month follow up diabetic foot care Start: 01-19-2024 End: 01-19-2024 ECG COMPLETE ECG COMPLETE ECG Routine Essential hypertension Expected: 01/19/2024, Expires: 01/19/2024 [facility] Work Phone: Comment on above: Expected: 01/19/2024, Expires: 4 Start: 01-19-2024 End: 01-19-2024 STRESS ECHO TREADMILL STRESS ECHO TREADMILL Cardiology Routine Essential hypertension Expected: 01/19/2024, Expires: 01/19/2024 [facility] Work Phone: Comment on above: Expected: 01/19/2024, Expires: Start: 12-04-2023 Covid-19 Vaccine ( season) Covid-19 Vaccine () [facility] Start: 12-04-2023 Influenza vaccination Influenza Vaccine (#1) [facility] Start: 11-18-2023 End: 11-18-2023 Patient encounter procedure 11/18/2023 1:20 PM EDT Office Visit Podiatry [address] [place] [address] Nicki Arroyo [address] [place] [address] 3 month follow up diabetic foot care Podiatry Comment on above: 3 month follow up diabetic foot care Start: 11-04-2023 End: 11-04-2023 Patient encounter procedure 11/04/2023 3:00 PM EDT Office Visit Podiatry [address] [place], [place] [id number] Nicki Arroyo [address] [place] [address] 3 month follow up diabetic foot care Podiatry Comment on above: 3 month follow up diabetic foot care Start: 11-01-2023 End: 11-01-2023 Patient encounter procedure 11/01/2023 8:30 AM EDT Office Visit Cardiology [address] [id number] Brian Beaver MD [address] [place] [address] Essential hypertension; Mixed hyperlipidemia; Chest pain on breathing, patient will have Stress Echo Treadmill on 10.10.2023 Cardiology Comment on above: Essential hypertension; Mixed hyperlipid emia; Chest pain on breathing, patient will have Stress Echo Treadmill on 10.10.2023 Start: 11-01-2023 End: 11-01-2023 ambulatory 11/01/2023 7:15 AM EDT Results Only Cardiology [address] [id number] Essential hypertension; Mixed hyperlipidemia; Chest pain on breathing Cardiology Comment on above: Essential hypertension; Mixed hyperlipid emia; Chest pain on breathing Start: 10-10-2023 End: 10-10-2023 Patient encounter procedure 10/10/2023 10:00 AM EDT Office Visit Cardiology [address] [place] [address] Stress Echo - Essential hypertension Cardiology Comment on above: Stress Echo - Essential hypertension Start: 10-07-2023 End: 10-07-2023 Patient encounter procedure 10/07/2023 12:40 PM EDT Office Visit Endocrinology [place] [address] [place] [address] [place] [address] [facility] [address] [place] [address] Thyroid nodule follow up Endocrinology [place] Comment on above: Thyroid nodule follow up Start: 09-22-2023 End: 12-22-2023 CBC W Auto Differential panel - Blood COMPLETE BLOOD COUNT AND DIFFERENTIAL Lab Routine Mixed hyperlipidemia Essential hypertension Expected: 09/22/2023, Expires: 12/22/2023 [facility] Comment on above: Expected: 09/22/2023, Expires: 4 Start: 09-22-2023 End: 12-22-2023 Comprehensive metabolic 2000 panel - Serum or Plasma COMPREHENSIVE METABOLIC PANEL Lab Routine Mixed hyperlipidemia Essential hypertension Expected: 09/22/2023, Expires: 12/22/2023 [facility] Work Phone: Comment on above: Expected: 09/22/2023, Expires: 4 Start: 09-22-2023 End: 12-22-2023 Lipid 1996 panel - Serum or Plasma LIPID PANEL BASIC Lab Routine Mixed hyperlipidemia Essential hypertension Expected: 09/22/2023, Expires: 12/22/2023 [facility] Comment on above: Expected: 09/22/2023, Expires: Start: 09-22-2023 End: 12-22-2023 Thyrotropin [Units/volume] in Serum or Plasma THYROID STIMULATING HORMONE Lab Routine Mixed hyperlipidemia Essential hypertension Expected: 09/22/2023, Expires: 12/22/2023 [facility] Comment on above: Expected: 09/22/2023, Expires: 4 Start: 09-14-2023 End: 09-14-2023 Patient encounter procedure 09/14/2023 9:40 AM EDT Office Visit Endocrinology [place] [address] [place] [id number] [place] [address] [facility] [address] [place] [address] 6 month follow up Endocrinology [place] Comment on above: 6 month follow up Start: 04-29-2023 Covid-19 Vaccine (6 - Moderna series) Covid-19 Vaccine (6 - Moderna series) [facility] Start: 04-29-2023 Covid-19 Vaccine ( season) Covid-19 Vaccine () [facility] Start: 04-04-2023 Advance Directive Discussion Advance Directive Discussion [facility] Start: 04-04-2023 Behavioral Health Screening Behavioral Health Screening [facility] Start: 04-04-2023 Depression Assessment Depression Assessment [facility] Start: 12-03-2022 Influenza vaccination [facility] Start: 10-20-2022 End: 10-31-2022 Comprehensive metabolic 2000 panel - Serum or Plasma COMP METABOLIC PANEL Lab Routine Essential hypertension Expected: 10/20/2022, Expires: 10/31/2022 [facility] Work Phone: Comment on above: Expected: 10/20/2022, Expires: 3 Start: 10-20-2022 End: 10-31-2022 Hemoglobin A1c in Blood HGB A1C Lab Routine Essential hypertension Expected: 10/20/2022, Expires: 10/31/2022 [facility] Work Phone: Comment on above: Expected: 10/20/2022, Expires: 3 Start: 10-20-2022 End: 10-31-2022 Lipid 1996 panel - Serum or Plasma LIPID PANEL BASIC Lab Routine Essential hypertension Expected: 10/20/2022, Expires: 10/31/2022 [facility] Work Phone: Comment on above: Expected: 10/20/2022, Expires: 3 Start: 10-06-2022 BP CONTROLLED (<130/80) BP CONTROLLED (<130/80) [facility] Start: 04-12-2022 COVID-19 VACCINE (6 - Moderna series) COVID-19 VACCINE (6 - Moderna series) [facility] Start: 04-04-2022 ADVANCE DIRECTIVE DISCUSSION ADVANCE DIRECTIVE DISCUSSION [facility] Start: 04-04-2022 DEPRESSION ASSESSMENT DEPRESSION ASSESSMENT [facility] Start: 03-03-2022 End: 05-03-2022 Hemoglobin A1c in Blood HGB A1C Lab Routine Dysmetabolic syndrome X Expected: 03/03/2022 (Approximate), Expires: 05/03/2022 [facility] Work Phone: Comment on above: Expected: 03/03/2022 (Approximate), Expi res: 05/03/2022 Start: 12-03-2021 Influenza vaccination [facility] Start: 10-06-2021 End: 12-06-2021 Hemoglobin A1c in Blood HGB A1C Lab Routine Mixed hyperlipidemia Expected: 10/06/2021, Expires: 12/06/2021 [facility] Work Phone: Comment on above: Expected: 10/06/2021, Expires: Start: 04-04-2021 ADVANCE DIRECTIVE DISCUSSION ADVANCE DIRECTIVE DISCUSSION [facility] Start: 06-14-2020 Urine microalbumin profile [facility] Start: 03-08-2017 Mammography MAMMOGRAM [facility] Start: 01-11-2017 End: 01-11-2017 Dxa bone density study 1/> sites axial skel Dual-energy X-ray absorptiometry (DXA), bone density study, 1 or more sites; [facility] Start: 01-11-2017 End: 01-11-2017 Mammogram, screening Mammogram, Screening, both breasts [facility] Start: 01-15-2016 Adult depression screening assessment DEPRESSION SCREENING [facility] Start: 01-26-2012 Pneumococcal Vaccine: 65+ (2 - PCV) Pneumococcal Vaccine: 65+ (2 - PCV) [facility] Start: 01-26-2012 PNEUMOCOCCAL: 65+ (1 - PCV) PNEUMOCOCCAL: 65+ (1 - PCV) [facility] Start: 01-26-2012 PNEUMOCOCCAL: 65+ (2 - PCV) PNEUMOCOCCAL: 65+ (2 - PCV) [facility] Start: 04-05-2011 PNEUMOCOCCAL: 65+ (2 - PCV) PNEUMOCOCCAL: 65+ (2 - PCV) [facility] Start: 2007 RSV Vaccine (1 - 1-dose 60+ series) RSV Vaccine (1 - 1-dose 60+ series) [facility] Start: 1997 SHINGRIX VACCINE (1 of 2) SHINGRIX VACCINE (1 of 2) [facility] Start: 01-26-1992 COLOGUARD (FIT-DNA) COLOGUARD (FIT-DNA) [facility] Start: 01-26-[address] COLONOGRAPHY [facility] Start: 01-26-1992 FECAL OCCULT BLOOD FECAL OCCULT BLOOD [facility] Start: 01-26-1992 SIGMOIDOSCOPY SIGMOIDOSCOPY [facility] Start: 1965 ANNUAL PCP TEAM CHRONIC DISEASE VISIT ANNUAL PCP TEAM CHRONIC DISEASE VISIT [facility] Start: 1965 Anxiety Screening Anxiety Screening [facility] Start: 1965 BP CONTROLLED (<130/80) BP CONTROLLED (<130/80) [facility] Start: 1965 Depression Screening Depression Screening [facility] CYTOLOGY NON-BACK FACER CYTOLOGY NON-GY N Lab Routine Nontoxic multinodular goiter 02/16/2023 2:05 PM EST [facility] Work Phone: End: 06-10-2023 ECG COMPLETE ECG COMPLETE ECG Routine Essential hypertension 1 Occurrences starting 06/09/2022 until 06/10/2023 [facility] Work Phone: Comment on above: 1 Occurrences starting 06/09/2022 until 06/10/2023 End: 08-17-2023 STRESS ECHO TREADMILL STRESS ECHO TREADMILL Cardiology Routine Mixed hyperlipidemia 1 Occurrences starting 08/16/2022 until 08/17/2023 [facility] Work Phone: Comment on above: 1 Occurrences starting 08/16/2022 until 08/17/2023 End: 10-21-2023 STRESS ECHO TREADMILL STRESS ECHO TREADMILL Cardiology Routine Essential hypertension Mixed hyperlipidemia Chest pain on breathing 1 Occurrences starting 10/20/2022 until 10/21/2023 [facility] Work Phone: Comment on above: 1 Occurrences starting 10/20/2022 until 10/21/2023 End: 11-03-2024 STRESS ECHO TREADMILL STRESS ECHO TREADMILL Cardiology Routine Other forms of angina pectoris (HCC) Supraventricular tachycardia (HCC) Essential hypertension 1 Occurrences starting 11/04/2023 until 11/03/2024 [facility] Work Phone: Comment on above: 1 Occurrences starting 11/04/2023 until 11/03/2024 End: 11-27-2025 STRESS ECHO TREADMILL STRESS ECHO TREADMILL Cardiology Routine Other forms of angina pectoris Supraventricular tachycardia (HCC) Essential hypertension Mixed hyperlipidemia 1 Occurrences starting 11/27/2024 until 11/27/2025 [facility] Work Phone: Comment on above: 1 Occurrences starting 11/27/2024 until 11/27/2025 End: 11-27-2025 US Carotid arteries - bilateral US CAROTID ARTERIES [facility] Lab Routine Other forms of angina pectoris Supraventricular tachycardia (HCC) Essential hypertension Mixed hyperlipidemia 1 Occurrences starting 11/27/2024 until 11/27/2025 [facility] Comment on above: 1 Occurrences starting 11/27/2024 until 11/27/2025 End: 12-22-2023 Us soft tissue head & neck real time imge docm US THYROID/PARATHYROID Radiology Routine Nontoxic multinodular goiter 1 Occurrences starting 11/22/2022 until 12/22/2023 [facility] Work Phone: Comment on above: 1 Occurrences starting 11/22/2022 until 12/22/2023 [facility] Immunizations Immunization Date Immunization Notes Care Provider [facility] 01-30-2024 influenza virus vacc ine, unspecified formulation Brian Beaver MD Work Phone: [facility] 12-28-2022 influenza virus vacc ine, unspecified formulation Brian Beaver MD Work Phone: [facility] 03-04-2019 tetanus toxoid, redu eduard diphtheria toxoid, and acellular pertussis vaccine, adsorbed [facility] 01-23-2015 influenza, high dose seasonal, preservative-free Nicki Testrake Work Phone: [facility] 01-24-2014 influenza, high dose seasonal, preservative-free Nicki Testrake Work Phone: [facility] 01-22-2013 influenza virus vacc ine, unspecified formulation Nicki [employer] Work Phone: [facility] 02-14-2012 influenza virus vacc ine, unspecified formulation Nicki Testrake Work Phone: [facility] Work Phone: 01-26-2011 influenza virus vacc ine, unspecified formulation Nicki [employer] Work Phone: [facility] Work Phone: 06-14-2010 tetanus and diphther ia toxoids, adsorbed, preservative free, for adult use (2 Lf of tetanus toxoid and 2 Lf of diphtheria toxoid) Nicki [employer] Work Phone: [facility] Work Phone: 04-05-2010 pneumococcal polysaccharide vaccine, 23 valent [employer] Work Phone: [facility] Work Phone: 01-14-2009 influenza virus vacc ine, unspecified formulation [employer] Work Phone: [facility] 01-26-2007 influenza virus vacc ine, unspecified formulation [employer] Work Phone: [facility] 02-11-2006 influenza virus vacc ine, unspecified formulation [employer] Work Phone: [facility] 04-06-2004 diphtheria and tetan us toxoids, adsorbed for pediatric use [employer] Work Phone: [facility] Work Phone: Payers Date Payer Category Payer Self-pay [id number] 2017 Medicare [employer] MEDICARE A ETNA MEDICARE PPO [id number] 2017-Present [phone] [address] [place] [address] PPO [id number] 2017 Medicare [employer] MEDICARE A ETNA MEDICARE PPO [id number] 2017-Present [phone] [address] [place] [address] PPO [id number] 2017 Medicare (Managed Care) [place] [id number] 2010 Private Health Insurance [id number] Unknown [id number] Unknown [id number] 462 Unknown [id number] 462 Unknown [id number] 462 Unknown [id number] 462 Unknown [id number] 462 Unknown [id number] Unknown [id number] 462 Unknown [id number] 462 Unknown [id number] 462 Unknown [id number] 462 Unknown [id number] 462 Social History Date Type Detail Facility Start: 09-23-2010 End: 01-17-2024 Tobacco smoking status NHIS Ex-smoker [facility] Start: [birth year]-26-1964 End: 03-26-1984 History of tobacco use Current smoker [facility] Start: [birth year]-26-1964 End: 03-26-1984 History of tobacco use Cigarette Smoker [facility] Start: 07-15-2021 End: 06-22-2024 Alcohol intake Current non-drinker of alcohol (finding) [facility] Start: 1945 Sex Assigned At Female [facility] Start: 09-15-2021 End: 10-06-2021 Exposure to SARS-CoV-2 (event) Not sure [facility] Start: 09-23-2010 End: 10-20-2022 Cigarettes smoked current (pack per day) - Reported 4 [facility] Start: 09-23-2010 End: 01-17-2024 Tobacco use and exposure Smokeless tobacco non-user [facility] Work Phone: Start: 05-26-2021 End: 03-10-2023 Tobacco smoking status RIIS Unknown if ever smoked [facility] Start: 02-27-2015 None [facility] Start: 02-27-2015 Non-smoker [facility] Start: 07-12-2022 End: 10-20-2022 Tobacco use panel [facility] Start: 07-29-2020 Gender identity Identifies as female gender (finding) [facility] Start: 07-29-2020 Sexual orientation Heterosexual (fin ding) [facility] Start: 03-05-2012 National Score (1-10 0), lower number is lower risk 56 [facility] Start: 06-24-2024 End: 07-03-2024 Sex Female (finding) [facility] Start: 11-27-2024 End: 12-11-2024 Alcoholic beverage intake Lifetime non-drinker (finding) [facility] Medical Equipment Procedure Code Equipment Code Equipment Origin al Text Equipment Identifier Dates Lens Iol +19 Neel p Acrsf Iq 13 - [id number] Start: 09-18-2014 Functional Status Date Assessment Result Facility 11-05-2014 Are you deaf, or do you have serious difficulty hearing No 11/05/2014 11:06 AM Kadie Pham MA No [facility] 11-05-2014 Are you blind, or do you have serious difficulty seeing, even when wearing glasses No 11/05/2014 11:06 AM EDT Kadie Rowe MA No [facility] 11-05-2014 Do you have serious difficulty walking or climbing stairs No 11/05/2014 11:06 AM EDT Kadie Rowe MA No [facility] 11-05-2014 Do you have difficul ty dressing or bathing No 11/05/2014 11:06 AM EDT Kadie Rowe MA No [facility] 11-05-2014 Because of a physica l, mental, or emotional condition, do you have difficulty doing errands alone such as visiting a physician's office or shopping No 11/05/2014 11:06 AM EDT Kadie Rowe MA No [facility] Mental Status Date Assessment Result Facility 11-05-2014 Because of a physica l, mental, or emotional condition, do you have serious difficulty concentrating, remembering, or making decisions No 11/05/2014 11:06 AM EDT Kadie Rowe MA No [facility] Clinical Notes 02-06-2016 to 12-11-2024 Telephone Encounter - Patricia Rangel LPN - 12/11/2024 3:57 PM EDTTelephone Encounter - Patricia Rangel LPN - 12/11/2024 3:57 PM EDTTelephone Encounter - Jackie Holt MA - 12/07/2024 9:54 AM EDT Note Date & Type Note Facility 12-11-2024 Telephone encounter Note Patient was seen today 12/11/2024. Patricia Rangel LPN [facility] Work Phone: 12-11-2024 Miscellaneous Notes Patient was seen today 12/11/2024. Patricia Rangel LPN Patient called in stating she is having pain in her right great and second toes. Denies any sores. States she was told to call in with problems and she could be seen soon. No available appointments until 01/03. Please contact patient back at [phone]. documented in this encounter [facility] 12-11-2024 Note HNO ID: [id number] Author: NICKI ARROYO, ? Service: ? Author Type: Physician Type: Progress Notes Filed: 12/11/2024 13:29 Note Text: Subjective: Patient presents to clinic c/o painful toenails. They state that the nails are especially painful with shoe gear and pressure. Patient states that nails right 2nd and 3rd toenail are painful. Patient also complains of callus of right great toe that causes pain. No other pedal complaints at this time. Patient states no change in medications or medical history since last visit. Objective: Patient presents to clinic ambulating in sketches Vasc: DP and PT pulses are faintly palpable bilateral. CFT is less than 5 [...] normal turgor, texture and hair growth is decreased bilateral. There is callus to right hallux. No ulceration Ortho: Muscle strength is 5/5 for all pedal groups tested. Ankle joint DF is decreased with the knee extended with no pain or crepitus noted. 1st MPJ ROM is decreased bilateral. Assessment: (B35.1) Onychomycosis (primary encounter diagnosis) (L60.0) Onychocryptosis (M79.672) Pain in left foot (M79.674) Pain in toe of right foot (L84) Callus of foot Plan: Patient was seen and evaluated. Nails 1-5 bilateral were debrided in length and thickness. Discussed removal of toenails but would favor getting pvr prior Callus reduced to right hallux with dremmel. Recommend more supportive shoes, ones that have memory foam Patient is to RTC in 3-4 months. Nicki Arroyo DPM [facility] 12-11-2024 History of Presen t illness Narrative Subjective: Patient presents to clinic c/o painful toenails. They state that the nails are especially painful with shoe gear and pressure. Patient states that nails right 2nd and 3rd toenail are painful. Patient also complains of callus of right great toe that causes pain. No other pedal complaints at this time. Patient states no change in medications or medical history since last visit. Objective: Patient presents to clinic ambulating in sketches Vasc: DP and PT pulses are faintly palpable bilateral. CFT is less than 5 [...] normal turgor, texture and hair growth is decreased bilateral. There is callus to right hallux. No ulceration Ortho: Muscle strength is 5/5 for all pedal groups tested. Ankle joint DF is decreased with the knee extended with no pain or crepitus noted. 1st MPJ ROM is decreased bilateral. Assessment: (B35.1) Onychomycosis (primary encounter diagnosis) (L60.0) Onychocryptosis (M79.672) Pain in left foot (M79.674) Pain in toe of right foot (L84) Callus of foot Plan: Patient was seen and evaluated. Nails 1-5 bilateral were debrided in length and thickness. Discussed removal of toenails but would favor getting pvr prior Callus reduced to right hallux with dremmel. Recommend more supportive shoes, ones that have memory foam Patient is to RTC in 3-4 months. Nicki Arroyo DPM Patient presents with: Right Foot - Established Patient, Follow Up, Pain, Nail Check AMB ROOMING INTAKE FLOWSHEET DATA Pain Pain Level: 3 Pain Location: Toe Description: Sore Duration Units: Weeks Right toes 1-3 are thick and have become painful. States that the pain began last week, also noticed some new discoloration to the nails. [facility] 09/24/24 documented in this encounter [facility] 12-11-2024 Note HNO ID: [id number] Author: SHE STAHL, RN Service: ? Author Type: Registered Nurse Type: Progress Notes Filed: 12/11/2024 13:29 Note Text: Patient presents with: Right Foot - Established Patient, Follow Up, Pain, Nail Check AMB ROOMING INTAKE FLOWSHEET DATA Pain Pain Level: 3 Pain Location: Toe Description: Sore Duration Units: Weeks Right toes 1-3 are thick and have become painful. States that the pain began last week, also noticed some new discoloration to the nails. [facility] 09/24/24 [facility] 12-07-2024 Telephone encounter Note Patient called in stating she is having pain in her right great and second toes. Denies any sores. States she was told to call in with problems and she could be seen soon. No available appointments until 01/03. Please contact patient back at [phone]. [facility] 11-27-2024 Note Addended by: BRIAN BEAVER on: 11/27/2024 06:19 PM Modules accepted: Orders [facility] 11-27-2024 Miscellaneous Notes Addended by: BRIAN BEAVER on: 11/27/2024 06:19 PM Modules accepted: Orders documented in this encounter [facility] 11-27-2024 Note HNO ID: [id number] Author: BRIAN BEAVER MD Service: ? Author Type: Physician Type: Progress Notes Filed: 11/27/2024 18:06 Note Text: [facility] [place] [facility] Department of Cardiovascular Medicine SECTION OF CARDIOVASCULAR IMAGING OUTPATIENT VISIT DATE 11/27/2024 OUTPATIENT VISIT TYPE ESTABLISHED PRIMARY CARE PHYSICIAN: Alexander Gallagher [address] [facility] [address] [place] [address] CHIEF COMPLAINT: CV health management visit. HISTORY OF PRESENT ILLNESS: Ms. Celis is a 79 year old female who presents today for a cardiovascular medicine follow-up visit. She has a past medical history significant GERD, HLD, HTN, tachycardia and asthma. Doing well generally. Today, Ms. Celis reports that she has been feeling well. No new cardiac complaints. Some vertigo From a cardiovascular perspective, pt continues to [...] Endometriosis, site unspecified Esophageal reflux Exercise-induced asthma (HCC) GERD (gastroesophageal reflux disease) Headache(784.0) HYPERLIPIDEMIA 05/19/2004 [...] HRT AND ARTS W/NJX AND ANGIO IMG 2005 small vessel disease CHOLECYSTECTOMY HX COLONOSCOPY [...] Social History Tobacco Use Smoking status: Former Current packs/day: 0.00 Average packs/day: 4.0 packs/day for 20.0 years (80.0 ttl pk-yrs) Types: Cigarettes Start date: 03/26/1964 Quit date: 03/26/1984 Years since quittin.7 Smokeless tobacco: Never Vaping Use Vaping status: Never Used Substance Use Topics Alcohol use: Never Drug use: Never ALLERGIES: ALLERGIES Allergen Reactions Flounder [Other] Anaphylaxis [...] reaction- Nausea MEDICATIONS: loratadine (CLARITIN) 10 mg tablet Take 10 mg by mouth. pravastatin (PRAVACHOL) 40 mg tablet TAKE 1 TABLET DAILY AT BEDTIME polyethylene glycol 3350 (MIRALAX, GLYCOLAX) 17 gram/dose powder Take 17 g by mouth once daily. calcium citrate (CITRACAL ORAL) Take 2 capsules by mouth twice daily. doxycycline hyclate (VIBRAMYCIN) 100 mg capsule (more content not included)... [facility] 11-27-2024 History of Presen t illness Narrative Images from the original note were not included. [facility] [place] Juan Daniel Carpenter Department of Cardiovascular Medicine SECTION OF CARDIOVASCULAR IMAGING OUTPATIENT VISIT DATE 11/27/2024 OUTPATIENT VISIT TYPE ESTABLISHED PRIMARY CARE PHYSICIAN: Alexander Gallagher [address] [facility] [address] [place] [address] CHIEF COMPLAINT: CV health management visit. HISTORY OF PRESENT ILLNESS: Ms. Celis is a 79 year old female who presents today for a cardiovascular medicine follow-up visit. She has a past medical history significant GERD, HLD, HTN, tachycardia and asthma. Doing well generally. Today, Ms. Celis reports that she has been feeling well. No new cardiac complaints. Some vertigo From a cardiovascular perspective, pt continues to [...] Endometriosis, site unspecified Esophageal reflux Exercise-induced asthma (HCC) GERD (gastroesophageal reflux disease) Headache(784.0) HYPERLIPIDEMIA 05/19/2004 [...] RPR COMPLEX RETINA DETACH VITRECT &MEMBRANE PEEL 2002 Rt X2 XCAPSL CTRC RMVL INSJ IO LENS PROSTH W/O ECP Right 09/18/14 Cataract Extraction with PC IOL SOCIAL HISTORY Social History Tobacco Use Smoking status: Former Current packs/day: 0.00 Average packs/day: 4.0 packs/day for 20.0 years (80.0 ttl pk-yrs) Types: Cigarettes Start date: 03/26/1964 Quit date: 03/26/1984 Years since quittin.7 Smokeless tobacco: Never Vaping Use Vaping status: Never Used Substance Use Topics Alcohol use: Never Drug use: Never ALLERGIES: ALLERGIES Allergen Reactions Flounder [Other] Anaphylaxis [...] reaction- Nausea MEDICATIONS: loratadine (CLARITIN) 10 mg tablet Take 10 mg by mouth. pravastatin (PRAVACHOL) 40 mg tablet TAKE 1 TABLET DAILY AT BEDTIME polyethylene glycol 3350 (MIRALAX, GLYCOLAX) 17 gram/dose powder Take 17 g by mouth once daily. calcium citrate (CITRACAL ORAL) Take 2 capsules by mouth twice daily. doxycycline hyclate (VIBRAMYCIN) 100 mg capsule Take 100 mg by mouth once daily. cyanocobalamin (VITAMIN B-12) 500 mcg tablet Take 1 tablet by mouth once daily. metoprolol tartrate, short acting, (LOPRESSOR) 25 mg tablet Take 1 tablet by mouth twice daily. VITAMIN D 50,000 unit capsule Take 1 tablet by mouth every 2 weeks. escitalopram oxalate (LEXAPRO) 10 mg tablet Take 10 mg by mouth once daily. vit C,G-Mf-vbotn-lutein-zeaxan (PRESERVISION AREDS-2) 250-90-40-1 mg Take by mouth twice daily. mometasone (NASONEX) 50 mcg/actuation nasal spray Use 2 Sprays in the nose once daily. albuterol HFA (PROAIR HFA) 90 mcg/actuation inhaler Inhale 2 Puffs as instructed as needed. TWO PUFFS FOUR TIMES DAILY NEEDED EPINEPHrine 0.3 mg/0.3 mL (1:1,000) atIn Inject subcutaneously as needed. Inject immediately with evidence of reaction and to proceed to the emergency room aspirin, enteric coated (ECOTRIN LOW STRENGTH) 81 mg EC tablet Take 1 tablet by mouth once daily. mupirocin (BACTROBAN) 2 % cream Apply to affected area three times daily. APPLY TO AFFECTED AREA REVIEW OF SYSTEMS: POSITIVES IN BOLD GENERAL: [...] thirst PHYSICAL EXAMINATION: POSITIVES IN BOLD BP 155/76 Pulse 75 Ht 160 cm (5' 3) Wt 74.8 kg (165 lb) SpO2 95% BMI 29.23 kg/m General: Well appearing, in no acute [...] cooperative, gait coordinated. CARDIOVASCULAR MEDICINE TESTING: Electrocardiogram: Last EKG Result Conclusion ECG COMPLETE Collected: 11/27/2024 10:01 AM (Preliminary result) Impression: SINUS BRADYCARDIA OTHERWISE NORMAL ECG Stress echo CONCLUSIONS: - Exam indication: SVT - The exercise stress echo was non-diagnostic due to sub-optimal heart rate response at 81 % of MPHR (5.3 METS). No regional wall motion abnormality seen at heart rate achieved. - The left ventricle is normal in size. Left ventricular systolic function is normal. EF = 61 5% (2D biplane) - The right ventricle is normal in size. Right ventricular systolic function is normal. - Exam was compared with the prior echocardiographic exam performed on 10/10/2023 (Stress). There is no significant change. Latest Ref Rng 11/27/2024 WBC 3.70 - 11.00 k/uL 8.36 RBC 3.90 - 5.20 m/uL 5.76 (H) Hemoglobin 11.5 - 15.5 g/dL 16.1 (H) Hematocrit 36.0 - 46.0 % 49.3 (H) MCV 80.0 - 100.0 fL 85.6 MCH 26.0 - 34.0 pg 28.0 MCHC 30.5 - 36.0 g/dL 32.7 RDW-CV 11.5 - 15.0 % 14.6 Platelet Count 150 - 400 k/uL 195 MPV 9.0 - 12.7 fL 9.7 Neut% % 42.8 Abs Neut (ANC) 1.45 - 7.50 k/uL 3.59 Lymph% % 45.1 Abs Lymph 1.00 - 4.00 k/uL 3.77 Gonzales% % 7.7 Abs Gonzales <0.87 k/uL 0.64 Eosin% % 3.0 Abs Eosin <0.46 k/uL 0.25 Baso% % 1.0 Abs Baso <0.11 k/uL 0.08 Immature Gran % % 0.4 IMMATURE GRANS (ABS) <0.10 k/uL 0.03 NRBC /100 WBC 0.0 Absolute nRBC <0.01 k/uL <0.01 DTYPE Auto Protein, Total 6.3 - 8.0 g/dL 6.6 Albumin 3.9 - 4.9 g/dL 4.3 Calcium 8.5 - 10.2 mg/dL 10.1 Bilirubin, Total 0.2 - 1.3 mg/dL 0.4 Alkaline Phosphatase 34 - 123 U/L 76 AST 13 - 35 U/L 19 ALT 7 - 38 U/L 11 Glucose 74 - 99 mg/dL 103 (H) BUN 7 - 21 mg/dL 19 Creatinine 0.58 - 0.96 mg/dL 0.91 Sodium 136 - 144 mmol/L 141 Potassium 3.7 - 5.1 mmol/L 5.3 (H) Chloride 98 - 107 mmol/L 105 CO2 22 - 30 mmol/L 28 Anion Gap 8 - 15 mmol/L 8 eGFR >=60 mL/min/1.73m 65 Cholesterol, Total <200 mg/dL 191 Triglyceride <150 mg/dL 199 (H) HDL Cholesterol >39 mg/dL 41 LDL Cholesterol, Calculated <100 mg/dL 115 (H) Non HDL Cholesterol <130 mg/dL 150 (H) VLDL Cholesterol <30 mg/dL 34 (H) TC:HDL Ratio <5.10 4.66 LDL:HDL Ratio <2.54 2.80 (H) Fasting Time hrs 18 Legend: (H) High I have personally reviewed the Electrocardiogram and Echocardiogram and labs. Last 4 BP Last 4 Encounter BP Readings: Date: BP: 10/06/2021 115/67 07/15/2021 164/74 01/06/2021 118/60 08/06/2020 120/64 Creatinine Date Value Ref Range Status 10/11/2023 0.94 0.58 - 0.96 mg/dL Final 10/10/2023 1.06 (H) 0.58 - 0.96 mg/dL Final 10/18/2022 1.00 (H) 0.58 - 0.96 mg/dL Final 10/06/2021 0.85 0.58 - 0.96 mg/dL Final IMPRESSION: Ms. Celis is a 79 year old female who has a past medical history significant GERD, HLD, HTN, tachycardia and asthma. # Cardiac risk factors - Stress echo today negative for ischemia # Hypertension - well controlled - ok at home - Taking metoprolol tartrate 25 mg BID # HLD -on pravastatin - HB and potassium high - likely a little dehydrated PLAN AND RECOMMENDATIONS: - Continue current medical regimen - Follow up in 1 year with stress echocardiogram I personally interviewed, confirmed and edited the above information if obtained by others. CONTACT INFORMATION: Brian Beaver M.D., [facility] Section Head, Cardiovascular Imaging [facility] Department of Cardiovascular Medicine [facility] [place] [facility] Desk [id number] [place] [address] Office - [phone] extension [phone] Office Appointments: [phone] -[phone] extension [phone] documented in this encounter [facility] 09-24-2024 Note HNO ID: [id number] Author: NICKI ARROYO, ? Service: ? Author Type: Physician Type: Progress Notes Filed: 09/25/2024 08:00 Note Text: Subjective: Patient presents to clinic c/o painful toenails. They state that the nails are especially painful with shoe gear and pressure. Patient states that nails b/l hallux are painful. No other pedal complaints at this time. Patient states no change in medications or medical history since last visit. Objective: Patient presents to clinic ambulating in [facility] Vasc: DP and PT pulses are palpable [...] bilateral. Assessment: (B35.1) Onychomycosis (primary encounter diagnosis) (L60.0) Onychocryptosis (M79.672) Pain in left foot (M79.674) Pain in toe of right foot Plan: Patient was seen and evaluated. Nails 1-5 bilateral were debrided in length and thickness. Patient is to RTC in 3-4 months. Nicki Arroyo DPM [facility] 09-24-2024 History of Presen t illness Narrative Subjective: Patient presents to clinic c/o painful toenails. They state that the nails are especially painful with shoe gear and pressure. Patient states that nails b/l hallux are painful. No other pedal complaints at this time. Patient states no change in medications or medical history since last visit. Objective: Patient presents to clinic ambulating in [facility] Vasc: DP and PT pulses are palpable [...] bilateral. Assessment: (B35.1) Onychomycosis (primary encounter diagnosis) (L60.0) Onychocryptosis (M79.672) Pain in left foot (M79.674) Pain in toe of right foot Plan: Patient was seen and evaluated. Nails 1-5 bilateral were debrided in length and thickness. Patient is to RTC in 3-4 months. Nicki Arroyo DPM AMB ROOMING INTAKE FLOWSHEET DATA Patient presents with: Left Foot - Follow Up, nail care , Established Patient Right Foot - Established Patient, Follow Up, nail care : Bruise to right great toe nail Patricia Rangel LPN documented in this encounter [facility] 09-24-2024 Note HNO ID: [id number] Author: PATRICIA RANGEL LPN Service: ? Author Type: LICENSED NURSE Type: Progress Notes Filed: 09/25/2024 08:00 Note Text: AMB ROOMING INTAKE FLOWSHEET DATA Patient presents with: Left Foot - Follow Up, nail care , Established Patient Right Foot - Established Patient, Follow Up, nail care : Bruise to right great toe nail Patricia Rangel LPN [facility] 07-24-2024 Discharge summary Note Date/Time July 24, 2024 7:00pm [facility] Physical [facility] [address] [place] [address]. [address] [place] [address] / REHABILITATION SERVICES DISCHARGE SUMMARY MR#: [id number] Acct: [id number] Name: JOHN CELIS Rep #: [id number] : 1945 79 From: Yomi Li DPT, MACK, CSCS Referring Dr.: Dr. Alexander Gallagher MD Status: REG RCR Insurance: [facility] SELF PAY INSURANCE Discharge Summary D/C summary: It has been my pleasure to treat JOHN CELIS referred by Dr. Alexander Gallagher MD, with the diagnosis of poor balance for a total of 8 visit(s). Discharge Date: 07/24/24 Please see the following information for a summary of their discharge status. Subjective Subjective: No more dizzy episodes, maybe now and then with head moving right toleft. Gets unsteady for a moment. Getting off floor is getting easier with hands on knees. No more problems with bending and recovering. No f/u with doctor. Ready to do ex on her own. Overall Improvement % Improvement: 80 Objective Objective/Function: FGA+1 and above normal for her age. able to ambulate and bend and recover adn mvoe head without dizzyness or unsteadiness today. Goals Goal 1:: I appropriate HEP for weight shift, vest balance, strength up off floorand core strength to limit future problems. Goal Progress: Goal Met Goal 2:: get up off floor without UE assist Goal Progress: Goal Met Goal 3:: Pt feel 75% better in balance and mobility to aid in todd trip with grandkids. Goal Progress: Goal Met Plan Plan: d/c to HEP D/C Information d/c sentence: If there are questions or concerns regarding this patient's physical therapy, please feel free to call me at [phone]. Thank you for the referral of thispatient. Sincerely, Yomi Li DPT, OCS, CSCS Balance/Gait/Functional tests Balance/Special Test Scores Functional Gait Assessment Score: 29 % Disability: 3.3400 CATSIB Score (Max score 120 seconds): 90 Lower Extremity Functional Score: 62 Improvement % Improvement: 80 <Electronically signed by Yomi Li DPT, MACK, LADONNA> 07/24/24 1250 CC: Dr. Alexander Gallagher MD ~ EBG Signed [facility] Work Phone: 1(211) 734-443204-22-2025 Discharge summary [facility] [address] [place] [address] / REHABILITATION SERVICES DISCHARGE SUMMARY MR#: [id number] Acct: [id number] Name: JOHN CELIS Rep #: [id number] : 1945 79 From: Yomi VASQUEZT, OCS, CSCS Referring Dr.: Dr. Alexander Gallagher MD Status: REG R Insurance: [facility] SELF PAY INSURANCE Discharge Summary D/C summary: It has been my pleasure to treat JOHN CELIS referred by Dr. Alexander Gallagher MD, with the diagnosis of poor balance for a total of 8 visit(s). Discharge Date: 07/24/24 Please see the following information for a summary of their discharge status. Subjective Subjective: No more dizzy episodes, maybe now and then with head moving right toleft. Gets unsteadyfor a moment. Getting off floor is getting easier with hands on knees. No more problems with bending and recovering. No f/u with doctor. Ready to do ex on her own. Overall Improvement % Improvement: 80 Objective Objective/Function: FGA+1 and above normal for her age. able to ambulate and bend and recover adn mvoe head without dizzyness or unsteadiness today. Goals Goal 1:: I appropriate HEP for weight shift, vest balance, strength up off floorand core strength to limit future problems. Goal Progress: Goal Met Goal 2:: get up off floor without UE assist Goal Progress: Goal Met Goal 3:: Pt feel 75% better in balance and mobility to aid in todd trip with grandkids. Goal Progress: Goal Met Plan Plan: d/c to HEP D/C Information d/c sentence: If there are questions or concerns regarding this patient's physical therapy, please feel free to call me at [phone]. Thank you for the referral of thispatient. Sincerely, CHRISTINA ArmentaT, OCS, CSCS Balance/Gait/Functional tests Balance/Special Test Scores Functional Gait Assessment Score: 29 % Disability: 3.3400 CATSIB Score (Max score 120 seconds): 90 Lower Extremity Functional Score: 62 Improvement % Improvement: 80 07/24/24 1250 CC: Dr. Alexander Gallagher MD ~ EBG Signed [facility]03-21-2025 NoteHNO ID: [id number] Author: NICKI ARROYO, ? Service: ? Author Type: Physician Type: Progress Notes Filed: 06/22/2024 14:37 Note Text: Subjective: Patient presents to clinic c/o painful toenails. They state that the nails are especially painful with shoe gear and pressure. Patient states that nails 1-5 b/l are painful. No other pedal complaints at this time. Patient states no change in medications or medical history since last visit. Objective: Patient presents to clinic ambulating in [facility] Vasc: DP and PT pulses are palpable bilateral. CFT is less than 5 seconds bilateral. Skin temperature is warm to cool proximal to distal bilateral. There is no edema or varicosities noted. Neuro: Protective sensation is intact to the foot and toes when tested with the 5.07 SWM bilateral. The hallux is downgoing bilateral. Derm: Nails 1-5 b/l are incurvated discolored-yellow, thick, crumbly, dystrophic and with subungal [...] bilateral. Assessment: (B35.1) Onychomycosis (primary encounter diagnosis) (L60.0) Onychocryptosis (M79.672) Pain in left foot (M79.674) Pain in toe of right foot Plan: Patient was seen and evaluated. Nails 1-5 bilateral were debrided in length and thickness. Patient is to RTC in 3-4 months. Nicki Arroyo [facility]03-21-2025 History of Present illness Narrative* Siomara Arroyoew - 06/22/2024 2:24 PM EDT Subjective: Patient presents to clinic c/o painful toenails. They state that the nails are especially painful with shoe gear and pressure. Patient states that nails 1-5 b/l are painful. No other pedal complaints at this time. Patient states no change in medications or medical history since last visit. Objective: Patient presents to clinic ambulating in [facility] Vasc: DP and PT pulses are palpable bilateral. CFT is less than 5 seconds bilateral. Skin temperature is warm to cool proximal to distal bilateral. There is no edema or varicosities noted. Neuro: Protective sensation is intact to the foot and toes when tested with the 5.07 SWM bilateral.The hallux is downgoing bilateral. Derm: Nails 1-5 b/l are incurvated discolored-yellow, thick, crumbly, dystrophic and with subungal [...] bilateral. Assessment: (B35.1) Onychomycosis (primary encounter diagnosis) (L60.0) Onychocryptosis (M79.672) Pain in left foot (M79.674) Pain in toe of right foot Plan: Patient was seen and evaluated. Nails 1-5 bilateral were debrided in length and thickness. Patient is to RTC in 3-4 months. Nicki Arroyo DPM * Orquidea Sousa MA Student - 06/22/2024 2:18 PM EDT AMB ROOMING INTAKE FLOWSHEET DATA Pain Pain Level: 1 Pain Location: Toe Description: Sore Duration Amount of Time: 2 Duration Units: Weeks Frequency: Intermittent Patient presents with: Left Foot - Follow Up Right Foot - Pain Orquidea Sousa MA Student documented [facility]25 NoteHNO ID: [id number] Author: ORQUIDEA SOUAS MA Student Service: ? Author Type: Student Type: Progress Notes Filed: 06/22/2024 14:37 Note Text: AMB ROOMING INTAKE FLOWSHEET DATA Pain Pain Level: 1 Pain Location: Toe Description: Sore Duration Amount of Time: 2 Duration Units: Weeks Frequency: Intermittent Patient presents with: Left Foot - Follow Up Right Foot - Pain Orquidea Sousa [facility]25 NoteHNO ID: [id number] Author: JOHNSON BLANCSA MD Service: ? Author Type: Physician Type: Procedures Filed: 05/30/2024 13:44 Note Text: Thyroid / Neck Ultrasound Findings: right mid lobe nodule 2.83cm sag x 1.37cm deep x 2.24cm trans right inferior pole nodule near isthmus, 1.81cm sag x 0.91cm deep x 1.94cm trans oblique Ultrasound images: right mid lobe nodule sag trans right inferior pole near isthmus sag trans Impression thyroid nodules stable in size and appearance Recommendation: followup ultrasound in 1 year Johnson Blancas MD Clinical Issues Reason for the study: thyroid nodules followup Comparison: 10/06/2024 Technical Issues Equipment: [email or web address] Prosound Alpha 6 Transducer: Linear/Trapezoidal multifrequency Regions examined: Neck, Thyroid, Sagittal and transverse views were obtained. Color power Doppler were applied when indicated.[facility] Procedure note* Johnson Blancas MD - 05/30/2024 1:28 PM EST Images from the original note were not included. Thyroid / Neck Ultrasound Findings: right mid lobe nodule 2.83cm sag x 1.37cm deep x 2.24cm trans right inferior pole nodule near isthmus, 1.81cm sag x 0.91cm deep x 1.94cm trans oblique Ultrasound images: right mid lobe nodule sag trans right inferior pole near isthmus sag trans Impression thyroid nodules stable in size and appearance Recommendation: followup ultrasound in 1 year Johnson Blancas MD Clinical Issues Reason for the study: thyroid nodules followup Comparison: 10/06/2024 Technical Issues Equipment: [employer] Prosound Alpha 6 Transducer: Linear/Trapezoidal multifrequency Regions examined: Neck, Thyroid, Sagittal and transverse views were obtained. Color power Doppler were applied when indicated. [facility]02-26-2025 Procedure note* Johnson Blancas MD - 05/30/2024 1:28 PM EST Images from the original note were not included. Thyroid / Neck Ultrasound Findings: right mid lobe nodule 2.83cm sag x 1.37cm deep x 2.24cm trans right inferior pole nodule near isthmus, 1.81cm sag x 0.91cm deep x 1.94cm trans oblique Ultrasound images: right mid lobe nodule sag trans right inferior pole near isthmus sag trans Impression thyroid nodules stable in size and appearance Recommendation: followup ultrasound in 1 year Johnson Blancas MD Clinical Issues Reason for the study: thyroid nodules followup Comparison: 10/06/2024 Technical Issues Equipment: [employer] Prosound Alpha 6 Transducer: Linear/Trapezoidal multifrequency Regions examined: Neck, Thyroid, Sagittal and transverse views were obtained. Color power Doppler were applied when indicated. documented in this encounterUniversity [facility] Evaluation note* Diagnosis Onset Date Resolution Status Admit Date Right ankle sprain acute Februa 2024 1:14pm [facility] Work Phone: [phone]) 784-382902-05-2025 Evaluation note* Diagnosis Onset Date Resolution Status Admit Date Right ankle sprain acute Februa 2024 1:14pm Seasonal allergies acute August 252024 10:55am Hypertension chronic August 25 10:55am [facility] Work Phone: 1(790) 944-672901-16-2025 Telephone encounter Note* Telephone Encounter - Mansi Starr - 04/19/2024 10:25 AM EST Called and spoke with patient, she is aware of the below message from Dr Blancas that her US will be done during the visit. Thank you! [facility]01-16-2025 Miscellaneous Notes* Telephone Encounter - Mansi Starr - 04/19/2024 10:25 AM EST Called and spoke with patient, she is aware of the below message from Dr Blancas that her US will be done during the visit. Thank you! * Telephone Encounter - Johnson Blancas MD - 04/19/2024 7:31 AM EST She doesn't need thyroid ultrasound before the appointment I will do this during that in-person appointment, please let her know. * Telephone Encounter - Laurel Girard - 04/17/2024 11:27 AM EST John is calling Johnson Blancas MD today with an appointment question. Patient scheduled an ultrasound for May 2024. Patient thought that Dr. Blancas told her to schedule an US. Patient wasn't sure if she was to schedule a US or a follow up . Patient has been identified by name and birthdate. Duration of symptoms: N/A Person calling: self Call patient at: on cell [phone] (home) [phone] (cell) Was an appointment scheduled: Yes: Date/Time: 05-30-2024 Closing statement: Laurel Girard documented in this encounterUniversity [facility]01-[facility]-2025 Telephone encounter Note * Telephone Encounter - Johnson Blancas MD - 04/19/2024 7:31 AM EST She doesn't need thyroid ultrasound before the appointment I will do this during that in-person appointment, please let her know. [facility]01-14-2025 Telephone encounter Note* Telephone Encounter - NasirmoisesLaniea - 04/17/2024 11:27 AM EST John is calling Johnson Blancas MD today with an appointment question. Patient scheduled an ultrasound for May 2024. Patient thought that Dr. Blancas told her to schedule an US. Patient wasn't sure if she was to schedule a US or a follow up . Patient has been identified by name and birthdate. Duration of symptoms: N/A Person calling: self Call patient at: on cell [phone] (home) [phone] (cell) Was an appointment scheduled: Yes: Date/Time: 05-30-2024 Closing statement: Laurel Girard [facility]12-19-2024 NoteHNO ID: [id number] Author: NICKI ARROYO, ? Service: ? Author Type: Physician Type: Progress Notes Filed: 03/22/2024 12:21 Note Text: Subjective: Patient presents to clinic c/o painful toenails. They state that the nails are especially painful with shoe gear and pressure. Patient states that nails b/l hallux are painful. No other pedal complaints at [...] bilateral. Assessment: (B35.1) Onychomycosis (primary encounter diagnosis) (M79.672) Pain in left foot (M79.674) Pain in toe of right foot Plan: Patient was seen and evaluated. Nails 1-5 bilateral were debrided in length and thickness. Patient is to RTC in 3-4 months. [facility] History of Present illness Narrative* Nicki Arroyo - 03/22/2024 11:11 AM EST Subjective: Patient presents to clinic c/o painful toenails. They state that the nails are especially painful with shoe gear and pressure. Patient states that nails b/l hallux are painful. No other pedal complaints at [...] toes when tested with the 5.07 SWM bilateral.The hallux is downgoing bilateral. Derm: Nails 1-5 [...] bilateral. Assessment: (B35.1) Onychomycosis (primary encounter diagnosis) (M79.672) Pain in left foot (M79.674) Pain in toe of right foot Plan: Patient was seen and evaluated. Nails 1-5 bilateral were debrided in length and thickness. Patient is to RTC in 3-4 months. Nicki Arroyo DPM * Patricia Rangel LPN - 03/22/2024 10:41 AM EST AMB ROOMING INTAKE FLOWSHEET DATA Patient presents with: Left Foot - Follow Up Right Foot - Pain Patricia Rangel LPN documented in this encounterUniversity Hospitals Geneva [facility] Center12-19-2024 NoteHNO ID: [id number] Author: PATRICIA RANGEL LPN Service: ? Author Type: LICENSED NURSE Type: Progress Notes Filed: 03/22/2024 12:21 Note Text: [facility] ROOMING INTAKE FLOWSHEET DATA Patient presents with: Left Foot - Follow Up Right Foot - [facility]* Diagnosis Onset Date Resolution Status Admit Date Encounter for routine gynecological examination noneactive [facility] er 2023 1:54pm Right ankle sprain acute Februa 2024 1:14pm [facility] Work Phone: 1(475) 321-927711-29-2024 Evaluation note* Diagnosis Onset Date Resolution Status Admit Date Asthmatic bronchitis with acute exacerbation acute February 9:46am Encounter for routine gynecological examination noneactive [facility] er 2023 1:54pm Right ankle sprain acute Februa 2024 1:14pm [facility] Work Phone: 1(936) 885-266910-15-2024 NoteHNO ID: [id number] Author: NICKI ARROYO, ? Service: ? Author Type: Physician Type: Progress Notes Filed: 01/17/2024 10:55 Note Text: Subjective: Patient presents to clinic c/o painful toenails. They state that the nails are especially painful with shoe gear and pressure. Patient states that nails right 2nd and 3rd are painful. Does report bumping left 3rd toe. No pain. No other pedal complaints at this time. [...] bilateral. Assessment: (B35.1) Onychomycosis (primary encounter diagnosis) (M79.672) Pain in left foot (M79.674) Pain in toe of right foot Plan: Patient was seen and evaluated. Nails 1-5 bilateral were debrided in length and thickness. Offered xray of left 3rd toe. Patient declined. Patient is to RTC in 3-4 months. Nicki Arroyo [facility]10-15-2024 History of Present illness Narrative* Nicki Arroyo - 01/17/2024 10:46 AM EDT Subjective: Patient presents to clinic c/o painful toenails. They state that the nails are especially painful with shoe gear and pressure. Patient states that nails right 2nd and 3rd are painful. Does report bumping left 3rd toe. No pain. No other pedal complaints at this time. Patient states no change in medications or medical history since last visit. Objective: Patient presents to clinic ambulating in [facility] Vasc: DP and PT pulses are palpable bilateral. CFT is less than 5 seconds bilateral. Skin temperature is warm to cool proximal to distal bilateral. There is no edema or varicosities noted. Neuro: Protective sensation is intact to the foot and toes when tested with the 5.07 SWM bilateral.The hallux is downgoing bilateral. Derm: Nails 1-5 [...] bilateral. Assessment: (B35.1) Onychomycosis (primary encounter diagnosis) (M79.672) Pain in left foot (M79.674) Pain in toe of right foot Plan: Patient was seen and evaluated. Nails 1-5 bilateral were debrided in length and thickness. Offered xray of left 3rd toe. Patient declined. Patient is to RTC in 3-4 months. Nicki Arroyo DPM * Jenna Nails MA - 01/17/2024 10:41 AM EDT AMB ROOMING INTAKE FLOWSHEET DATA Pain Pain Level: 2 Pain Location: Foot-Right Description: Sore Duration Amount of Time: 5 Duration Units: Days Frequency: Intermittent documented in this encounterUniversity Hospitals Geneva Medical Center10-15-2024 NoteHNO ID: [id number] Author: JENNA NAILS MA Service: ? Author Type: 3D Animator Type: Progress Notes Filed: 01/17/2024 10:55 Note Text: AMB ROOMING INTAKE FLOWSHEET DATA Pain Pain Level: 2 Pain Location: Foot-Right Description: Sore Duration Amount of Time: 5 Duration Units: Days [facility] History of Present illness Narrative* Nicki Aroryo - 11/04/2023 2:22 PM EDT Subjective: Patient presents to clinic c/o painful toenails. They state that the nails are especially painful with shoe gear and pressure. Patient states that nails 1-5 b/l are painful. No other pedal complaints at this time. Patient states no change in medications or medical history since last visit. Objective: Patient presents to clinic ambulating in [facility] Vasc: DP and PT pulses are palpable bilateral. CFT is less than 5 seconds bilateral. Skin temperature is warm to cool proximal to distal bilateral. There is no edema or varicosities noted. Neuro: Protective sensation is intact to the foot and toes when tested with the 5.07 SWM bilateral.The hallux is downgoing bilateral. Derm: Nails 1-5 [...] bilateral. Assessment: (B35.1) Onychomycosis (primary encounter diagnosis) (M79.672) Pain in left foot (M79.674) Pain in toe of right foot Plan: Patient was seen and evaluated. Nails 1-5 bilateral were debrided in length and thickness. Patient is to RTC in 3-4 months. Nicki Arroyo DPM documented in this encounterUniversity Hospitals Geneva Medical Center08-01-2024 History of Present illness Narrative* Brian Beaver MD - 11/03/2023 10:09 AM EDT TELEPHONE VISIT (audio only) PROGRESS NOTE This is a telephone encounter initiated for an established patient. The patient, parent or guardianis not originating from a related Evaluation & Management service provided within the previous 7 days nor leading to an Evaluation & Management service or procedure within the next 24 hours or soonest available appointment. I have communicated my name and active licensure. The patient's identity and physical location wereverified at the time of this visit. Either the patient or their legal health and safety representative has been informed of the risks and benefits of -- and alternatives to -- treatment through a remote evaluation andconsents to proceed with the evaluation remotely. John Fuadjv has consented to this telephone encounter. Persons Present: patient Chief Complaint/Reason: CAD risk, hypertension, hyperlipidemia HPI: Doing well, no new symptoms Data Reviewed: Most recent labs and imaging results. Latest Ref Rng 10/10/2023 10/11/2023 WBC 3.70 - 11.00 k/uL 8.13 RBC 3.90 - 5.20 m/uL 5.14 Hemoglobin 11.5 - 15.5 g/dL 14.3 Hematocrit 36.0 - 46.0 % 45.6 MCV 80.0 - 100.0 fL 88.7 MCH 26.0 - 34.0 pg 27.8 MCHC 30.5 - 36.0 g/dL 31.4 RDW-CV 11.5 - 15.0 % 14.9 Platelet Count 150 - 400 k/uL 192 MPV 9.0 - 12.7 fL 10.0 Neut% % 40.4 Abs Neut (ANC) 1.45 - 7.50 k/uL 3.28 Lymph% % 45.0 Abs Lymph 1.00 - 4.00 k/uL 3.66 Gonzales% % 10.5 Abs Gonzales <0.87 k/uL 0.85 Eosin% % 2.7 Abs Eosin <0.46 k/uL 0.22 Baso% % 0.7 Abs Baso <0.11 k/uL 0.06 Immature Gran % % 0.7 IMMATURE GRANS (ABS) <0.10 k/uL 0.06 NRBC /100 WBC 0.0 Absolute nRBC <0.01 k/uL <0.01 DTYPE Auto Protein, Total 6.3 - 8.0 g/dL 5.9 (L) 6.2 (L) Albumin 3.9 - 4.9 g/dL 4.1 4.0 Calcium 8.5 - 10.2 mg/dL 10.4 (H) 8.9 Bilirubin, Total 0.2 - 1.3 mg/dL 0.2 0.4 Alkaline Phosphatase 34 - 123 U/L 83 85 AST 13 - 35 U/L 24 17 ALT 7 - 38 U/L 21 18 Glucose 74 - 99 mg/dL 109 (H) 110 (H) BUN 7 - 21 mg/dL 16 19 Creatinine 0.58 - 0.96 mg/dL 1.06 (H) 0.94 Sodium 136 - 144 mmol/L 144 139 Potassium 3.7 - 5.1 mmol/L 6.1 (HH) 3.9 Chloride 98 - 107 mmol/L 108 (H) 106 CO2 22 - 30 mmol/L 26 25 Anion Gap 8 - 15 mmol/L 10 8 eGFR >=60 mL/min/1.73m 55 (L) 63 Cholesterol, Total <200 mg/dL 177 Triglyceride <150 mg/dL 201 (H) HDL Cholesterol >39 mg/dL 40 Non HDL Cholesterol <130 mg/dL 137 (H) Fasting Time hrs 12 VLDL Cholesterol <30 mg/dL 40 (H) TC:HDL Ratio <5.10 4.43 LDL Cholesterol <100 mg/dL 97 LDL:HDL Ratio <2.54 2.43 TSH 0.270 - 4.200 mIU/L 0.993 Legend: (L) Low (H) High (HH) High Panic CONCLUSIONS: - Exam indication: CAD - The exercise stress echo was negative for ischemia at 86 % of MPHR (5.2 METS). No regional wall motion abnormality seen at heart rate achieved. - The left ventricle is normal in size. Left ventricular systolic function is normal. EF = 63 5% (2D biplane) - There are no significant valvular abnormalities. - Exam was compared with the prior CC echocardiographic exam performed on 10/20/22 (SE). Similar findings. Assessment: Doing well,no change in therapy Plan: See 1 year with stress echo Total Time Spent: 21-30 minutes Brian Beaver MD documented in this encounterUniversity Hospitals Geneva Medical Center07-19-2024 Telephone encounter Note * Telephone Encounter - Patricia Rangel LPN - 10/21/2023 3:19 PM EDT Spoke with patient offered sooner appointment on nov 03 at 3. Patricia Rangel LPN [facility] Work Phone: 1(159) 891-827307-19-2024 Miscellaneous Notes* Telephone Encounter - Patricia Rangel LPN - 10/21/2023 3:19 PM EDT Spoke with patient offered sooner appointment on nov 03 at 3. Patricia Rangel LPN * Telephone Encounter - Jenna Nails MA - 10/21/2023 3:01 PM EDT Pt would like a sooner appt for nail care. She states that the nails are digging into her flesh. Please contact her at [phone] to discuss possibly working her in. Jenna Nails MA documented in this encounterUniversity Hospitals Geneva Medical Center07-19-2024 Telephone encounter Note * Telephone Encounter - Jenna Nails MA - 10/21/2023 3:01 PM EDT Pt would like a sooner appt for nail care. She states that the nails are digging into her flesh. Please contact her at [phone] to discuss possibly working her in. Jenna Nails MA [facility]07-08-2024 Telephone encounter Note* Telephone Encounter - Brian Beaver MD - 10/10/2023 3:22 PM EDT Potassium 6.1 today but otherwise labs ok. On no potassium elevating drugs and / or supplements. Likely error. Repeat tomorrow. Drink fluid tonight. Brian Beaver MD [facility]07-08-2024 Miscellaneous Notes* Telephone Encounter - Brian Beaver MD - 10/10/2023 3:22 PM EDT Potassium 6.1 today but otherwise labs ok. On no potassium elevating drugs and / or supplements. Likely error. Repeat tomorrow. Drink fluid tonight. Brian Beaver MD documented in this encounterUniversity Hospitals Geneva Medical Center07-05-2024 Procedure note* Johnson Blancas MD - 10/07/2023 11:51 AM EDT Images from the original note were not included. Thyroid / Neck Ultrasound Findings: thyroid nodules all in right lobe right mid lobe nodule 2.77cm sag x 2.22cm trans x 1.55cm deep right mid lobe deep nodule 1.02cm sag x 0.75cm deep (sag view), 0.94cm trans ob x 0.58cm deep ob trans view right lower pole nodule 1.70cm sag x 0.79cm deep x 1.80cm trans ob right isthmus nodule 1.06cm trans x 0.94cm sag x 0.61cm deep Ultrasound images: right mid lobe nodule sag trans right mid lobe deep sag trans right lower pole nodule sag trans right isthmus nodule trans sag Impression 2 out of 3 nodules are moderately larger than previous ultrasound Recommendation: followup in 6 months Johnson Blancas MD Clinical Issues Reason for the study: followup of thyroid nodules Comparison: 02/16/23 Technical Issues Equipment: AlInMyRoomound Alpha 6 Transducer: Linear/Trapezoidal multifrequency Regions examined: Neck, Thyroid, Sagittal and transverse views were obtained. Color power Doppler were applied when indicated. [facility]07-05-2024 Procedure note* Johnson Blancas MD - 10/07/2023 11:51 AM EDT Images from the original note were not included. Thyroid / Neck Ultrasound Findings: thyroid nodules all in right lobe right mid lobe nodule 2.77cm sag x 2.22cm trans x 1.55cm deep right mid lobe deep nodule 1.02cm sag x 0.75cm deep (sag view), 0.94cm trans ob x 0.58cm deep ob trans view right lower pole nodule 1.70cm sag x 0.79cm deep x 1.80cm trans ob right isthmus nodule 1.06cm trans x 0.94cm sag x 0.61cm deep Ultrasound images: right mid lobe nodule sag trans right mid lobe deep sag trans right lower pole nodule sag trans right isthmus nodule trans sag Impression 2 out of 3 nodules are moderately larger than previous ultrasound Recommendation: followup in 6 months Johnson Blancas MD Clinical Issues Reason for the study: followup of thyroid nodules Comparison: 02/16/23 Technical Issues Equipment: [employer]oka Prosound Alpha 6 Transducer: Linear/Trapezoidal multifrequency Regions examined: Neck, Thyroid, Sagittal and transverse views were obtained. Color power Doppler were applied when indicated. documented in this encounterUniversity Hospitals Geneva Medical Center05-09-2024 History of Present illness Narrative* Nicki Arroyo - 08/11/2023 11:08 AM EDT Subjective: Patient presents to clinic c/o painful toenails. They state that the nails are especially painful with shoe gear and pressure. Patient states that nails b/l hallux are painful. No other pedal complaints at this time. Patient states no change in medications or medical history since last visit. Objective: Patient presents to clinic ambulating in [place] Vasc: DP and PT pulses are palpable bilateral. CFT is less than 5 seconds bilateral. Skin temperature is warm to cool proximal to distal bilateral. There is no edema or varicosities noted. Neuro: Protective sensation is intact to the foot and toes when tested with the 5.07 SWM bilateral.The hallux is downgoing bilateral. Derm: Nails 1-5 [...] noted. 1st MPJ ROM is full bilateral. Mild pain of right hallux ipj Assessment: (B35.1) Onychomycosis (primary encounter diagnosis) (M79.672) Pain in left foot (M79.674) Pain in toe of right foot Plan: Patient was seen and evaluated. Nails 1-5 bilateral were debrided in length and thickness. Discussed mild pain in right hallux ipj. Suspect arthritis. Offered xray. She declined. If pain persists, call for follow-up Patient is to RTC in 3-4 months. Nicki Arroyo DPM * She Stahl RN - 08/11/2023 10:43 AM EDT AMB ROOMING INTAKE FLOWSHEET DATA Pain Pain Level: 1 Pain Location: Toe Description: Sore Duration Amount of Time: 1 Duration Units: Weeks Frequency: Intermittent Patient presents with: Left Foot - Established Patient, Follow Up, Diabetic Foot Care Right Foot - Established Patient, Follow Up, Pain, Diabetic Foot Care Patient presents for 3 month follow up diabetic foot care. LC 05/12/23. States some tenderness to bottom of right big toe. documented in this encounterUniversity Hospitals Geneva Medical Center03-15-2024 Evaluation note* Diagnosis Onset Date Resolution Status Breast lump on left side at 7 o'clock position acute Encounter for routine gynecological examination noneactive [facility] Work Phone: 1(241) 304-296002-08-2024 History of Present illness Narrative* Nicki Arroyo - 05/12/2023 10:51 AM EST Subjective: Patient presents to clinic c/o painful toenails. They state that the nails are especially painful with shoe gear and pressure. Patient states that nails 1-5 b/l are painful. No other pedal complaints at this time. Patient states no change in medications or medical history since last visit. Objective: Patient presents to clinic ambulating in [facility] Vasc: DP and PT pulses are palpable bilateral. CFT is less than 5 seconds bilateral. Skin temperature is warm to cool proximal to distal bilateral. There is no edema or varicosities noted. Neuro: Protective sensation is intact to the foot and toes when tested with the 5.07 SWM bilateral.The hallux is downgoing bilateral. Derm: Nails 1-5 [...] is to RTC in 3-4 months. Nicki Arroyo DPM * She Stahl RN - 05/12/2023 10:28 AM EST Patient presents with: Left Foot - Established Patient, Follow Up, Diabetic Foot Care Right Foot - Established Patient, Follow Up, Diabetic Foot Care Patient presents for follow up diabetic foot/nail care. LC- 01/04/23 documented in this encounterUniversity Hospitals Geneva Medical Center11-15-2023 Procedure note* Johnson Blancas MD - 02/16/2023 1:45 PM EST Images from the original note were not [...] needle rinse into cytolite. The third sample wasplaced in an Affirma tube. The procedure was well tolerated. 2) There were no complications. Johnson Blancas MD ........................................................................... Ultrasound: right upper pole thyroid nodule 1.31cm [...] with the patient. Informed consent signed: yes [place] Protocol / Safety Checklist Procedure to be [...] [facility] the [facility] if suspicious Follow-up: ultrasound in 6 months, as long as FNA is benign documented in this encounterUniversity Hospitals Geneva Medical Center10-03-2023 Instructions* Patient Instructions* Johnson Blancas MD - 01/04/2023 11:31 AM [...] available Johnson Blancas MD documented in this encounterUniversity Hospitals Geneva Medical Center10-03-2023 History of Present illness Narrative* Johnson Blancas MD - 01/04/2023 11:03 AM EDT Images from the original note were not included. Virtual Visit utilizing both audio and video components FaceTime I have communicated my name and active licensure. The patient's identity and physical location wereverified at the time of this visit. Either the patient or their legal health and safety representative has been informed of the risks and benefits of -- and alternatives to -- treatment through a remote evaluation andconsents to proceed with the evaluation remotely. Patient location: at home, [facility] Assessment / Plan Assessment: 1) Minimal [...] Take 1 tablet by mouth once daily. piihaznh-xkl-ztvl-FA-lutein (CENTRUM SILVER WOMEN) 8 mg iron-400 mcg-300 [...] Take 1 tablet by mouth twice daily. 180tablet 3 VITAMIN D 50,000 unit capsule Take 1 tablet by mouth every 2 weeks. escitalopram oxalate (LEXAPRO) 10 mg tablet Take 10 mg by mouth once daily. vit C,H-Ny-ndmtx-lutein-zeaxan (PRESERVISION AREDS-2) 250-90-40-1 mg Take by mouth [...] three times daily. APPLY TO AFFECTED AREA 15g 1 Current Facility-Administered Medications Medication Dose Route Frequency Provider Last Rate Last Admin perflutren lipid microspheres 1.3 mL in NaCl (PF) 0.9% 10 mL injection (DEFINITY) INTRAVENOUS DIRECTED PRN Brian Beaver MD sodium chloride 0.9 % (flush) 10 mL (BD POSIFLUSH) 10 mL INTRAVENOUS DIRECTED PRN Brian Beaver MD ALLERGIES Allergen Reactions Flounder [Other] [...] biaxin adverse reaction- Nausea documented in this encounterUniversity Hospitals Geneva Medical Center10-03-2023 History of Present illness Narrative* Nicki Arroyo - 01/04/2023 9:29 AM EDT \ Subjective: Patient presents to clinic c/o painful toenails. They state that the nails are especially painful with shoe gear and pressure. Patient states that nails 1-5 b/l are painful. No other pedal complaints at this time. Patient states no change in medications or medical history since last visit. Objective: [facility] Vasc: DP and PT pulses are palpable bilateral. CFT is less than 5 seconds bilateral. Skin temperature is warm to cool proximal to distal bilateral. There is no edema or varicosities noted. Neuro: Protective sensation is intact to the foot and toes when tested with the 5.07 SWM bilateral.The hallux is downgoing bilateral. Derm: Nails 1-5 b/l are painful, discolored-yellow, thick, crumbly, dystrophic and with subungal debris. Skin is of normal turgor, texture and hair growth is present bilateral. There are small callusto right heel. no ulcerations, scars, verruca or [...] is to RTC in 3-4 months. Nicki Arroyo DPM * Patricia Rangel LPN - 01/04/2023 9:17 AM EDT AMB ROOMING INTAKE FLOWSHEET DATA Patient presents with: Left Foot - Established Patient, nail care Right Foot - Established Patient, nail care Patient states she received covid, RSV, Flu and pneumonia vaccines last week and state the morning after she passed out. PCP notified. Patricia Rangel LPN documented in this encounterUniversity Hospitals Geneva Medical Center09-01-2023 History of Present illness Narrative* Flower Patel RDMS - 12/03/2022 10:45 AM EDT Radiology Service Progress Note PATIENT NAME: John Celis DATE OF SERVICE: December 03, 2022 TIME: 11:03 AM PATIENT IDENTITY VERIFICATION COMPLETED USING TWO (2) IDENTIFIERS: Name and Date of confirmedby patient verbally. FALL SCREENING: Has the patient [...] RDMS RVT December 03, 2022 11:03 AM documented in this encounterUniversity Hospitals Geneva Medical Center08-21-2023 Instructions* Patient Instructions* Johnson Blancas MD - 11/22/2022 1:21 PM [...] 1) do the thyroid [facility] at [facility], sometime soon 2) schedule a followup virtual visit to go over the ultrasound result Johnson Blancas MD documented in this encounterUniversity Hospitals Geneva Medical Center08-21-2023 History of Present illness Narrative* Johnson Blancas MD - 11/22/2022 12:40 PM EDT Virtual Visit utilizing both audio and video components FaceTime I have communicated my name and active licensure. The patient's identity and physical location wereverified at the time of this visit. Either the patient or their legal health and safety representative has been informed of the risks and benefits of -- and alternatives to -- treatment through a remote evaluation andconsents to proceed with the evaluation remotely. Patient location: at home, [facility] Assessment / Plan Assessment: 1) Minimal [...] 1) do the thyroid ultrasound at the [facility] site, sometime soon 2) schedule a followup [...] Take 1 tablet by mouth once daily. sunruidj-htl-klkp-FA-lutein (CENTRUM SILVER WOMEN) 8 mg iron-400 mcg-300 [...] Take 1 tablet by mouth twice daily. 180tablet 3 VITAMIN D 50,000 unit capsule Take 1 tablet by mouth every 2 weeks. escitalopram oxalate (LEXAPRO) 10 mg tablet Take 10 mg by mouth once daily. vit C,T-Qk-upbuq-lutein-zeaxan (PRESERVISION AREDS-2) 250-90-40-1 mg Take by mouth [...] three times daily. APPLY TO AFFECTED AREA 15g 1 Current Facility-Administered Medications Medication Dose Route Frequency Provider Last Rate Last Admin perflutren lipid microspheres 1.3 mL in NaCl (PF) 0.9% 10 mL injection (DEFINITY) INTRAVENOUS DIRECTED PRN Brian Beaver MD sodium chloride 0.9 % (flush) 10 mL (BD POSIFLUSH) 10 mL INTRAVENOUS DIRECTED PRN Brian Beaver MD ALLERGIES Allergen Reactions Flounder [Other] [...] biaxin adverse reaction- Nausea documented in this encounterUniversity Hospitals Geneva Medical Center08-04-2023 History of Present illness Narrative* Nicki Arroyo - 11/05/2022 8:56 AM EDT Subjective: Patient presents to clinic c/o painful [...] toes when tested with the 5.07 SWM bilateral.Vibratory sensation is decreased at the hallux IPJ [...] is to RTC in 3-4 months. Nicki Arroyo DPM * Zabrina Ray RN - 11/05/2022 8:20 AM EDT Patient presents with: Right Foot - Established Patient, Follow Up: nail care Left Foot - Follow Up, Established Patient: nail care AMB ROOMING INTAKE FLOWSHEET DATA documented in this encounterUniversity Hospitals [facility]07-19-2023 History of Present illness Narrative* Brian Beaver MD - 10/20/2022 11:30 AM EDT Images from the original note were not included. [facility] [place] [facility] Department of Cardiovascular Medicine SECTION OF CARDIOVASCULAR IMAGING OUTPATIENT VISIT DATE October 20, 2022 OUTPATIENT VISIT TYPE ESTABLISHED PRIMARY CARE PHYSICIAN: Alexander BAIRDIAN MENDEZ [facility] [address] [place] [address] CHIEF COMPLAINT: CV health management visit. HISTORY [...] 1 tablet by mouth once daily.^Disp: ^Rfl: xmwgelnq-qaj-yqtr-FA-lutein (CENTRUM SILVER WOMEN) 8 mg iron-400 mcg-300 [...] mg by mouth once daily.^Disp: ^Rfl: vit C,V-Dc-sgjhr-lutein-zeaxan (PRESERVISION AREDS-2) 250-90-40-1 mg^Take by mouth twice [...] Negative for: Weakness, Paralysis, Numbness, Tingling, Tremor, Nervousness,Depressed mood, Memory loss SKIN: Negative for: Rashes, Itching HEMATOLOGICAL/LYMPHATIC: Negative for: Easy bruising , Easy bleeding ENDOCRINE: Negative for: Heat or cold intolerance, Excessive sweating, Frequent urination, Frequentthirst PHYSICAL EXAMINATION: POSITIVES IN BOLD BP 156/72 (BP Site: Right Arm, BP Position: Sitting) Pulse 65 Ht 160 cm (5' 3) Wt 75.4 kg (166 lb 4.8 oz) SpO2 96% BMI 29.46 kg/m General: Well appearing, in no acute distress. Skin: No clubbing, no cyanosis. Eyes: Extra ocular movements intact Oropharynx: Teeth in good repair. Neck: No jugular venous distention, no carotid bruits, carotids have a normal upstroke, no palpablethyromegaly. Lungs: Clear to auscultation bilaterally, no wheezing [...] - Exam was compared with the prior CC echocardiographic exam performed on 10/06/2021 (Stress). Similar [...] Scribe Attestation: By signing my name below, IKarthik, Research Coordinator, attest that this documentation hasbeen prepared under the direction and in the presence of Dr. Brian Beaver MD. Electronically Signed:Karthik Solorio, Research Coordinator, brandyibe, October 20, 2022 10:24 AM Provider Attestation: IBrian MD, personally performed the services described in this documentation. All medical record entries made by the scribe were at my direction and in my presence. I have reviewed the chart and discharge instructions (if applicable) and agree that the record reflects my personal performance and is accurate and complete. Electronically Signed: Brian Beaver MD October 20, 2022 Brian Beaver M.D., [facility] Section Head, Cardiovascular Imaging [facility] Department of Cardiovascular Medicine [facility] [place] [facility] Desk [id number] [address] Office - [phone] extension [phone] Office Appointments: [phone] -[phone] extension [phone] documented in this encounterUniversity Hospitals Geneva [facility] Center07-10-2023 Miscellaneous Notes* Telephone Encounter - Gerri Nguyen - 10/11/2022 2:29 PM EDT Call from pharmacy requesting refill. Requested Prescriptions Pending Prescriptions Disp Refills pravastatin (PRAVACHOL) 40 mg tablet [Pharmacy Med Name: PRAVASTATIN TABS 40MG] 90 tablet 3 Sig: TAKE 1 TABLET DAILY AT BEDTIME Patient last seen 10/06/2021 Gerri MAZARIEGOS documented in this encounterUniversity Hospitals Geneva [facility] Center04-10-2023 History of Present illness Narrative* Nicki Arroyo - 07/12/2022 11:17 AM EDT Subjective: Patient presents to clinic c/o painful toenails. They state that the nails are especially painful with shoe gear and pressure. Patient states that nails 1-5 b/l are painful. No other pedal complaints at this time. Patient states no change in medications or medical history since last visit. Objective: [facility]: DP and PT pulses are palpable bilateral. CFT is less than 5 seconds bilateral. Skin temperature is warm to cool proximal to distal bilateral. There is no edema or varicosities noted. Neuro: Protective sensation is intact to the foot and toes when tested with the 5.07 SWM bilateral.Vibratory sensation is decreased at the hallux IPJ [...] is to RTC in 3-4 months. Nicki Arroyo DPM * Montse Jeong RN - 07/12/2022 10:56 AM EDT Patient presents with: Left Foot - Established Patient, Debridement of Nail Right Foot - Established Patient, Debridement of Nail documented in this encounterUniversity Hospitals [facility] Center01-10-2023 History of Present illness Narrative* Nicki Arroyo - 04/13/2022 10:10 AM EST Subjective: Patient presents to clinic c/o painful toenails. They state that the nails are especially painful with shoe gear and pressure. Patient states that nails 1-5 b/l are painful. No other pedal complaints at this time. Patient states no change in medications or medical history since last visit. Objective: Patient presents to clinic ambulating in [facility] Vasc: DP and PT pulses are palpable bilateral. CFT is less than 5 seconds bilateral. Skin temperature is warm to cool proximal to distal bilateral. There is no edema or varicosities noted. Neuro: Protective sensation is intact to the foot and toes when tested with the 5.07 SWM bilateral.Vibratory sensation is decreased at the hallux IPJ [...] is to RTC in 3-4 months. Nicki Arroyo DPM * Patricia Rangel LPN - 04/13/2022 10:06 AM EST Patient presents with: Left Foot - Established Patient, Follow Up, nail care Right Foot - Established Patient, Follow Up, nail care Patricia Rangel LPN documented in this encounterUniversity Hospitals Geneva [facility] Center08-30-2022 Instructions* Patient Instructions* Johnson Blancas MD - 12/01/2021 11:34 AM EDT Assessment / Plan Assessment: 1) Prediabetes based on HbA1c, wants to work on lifestyle intervention for now, and wait on metformin till next apppointment, see if HbA1c has dropped. Treatment / Plan: 1) walk 20min daily, or use one of your exercise equipment 2) return to in in 3 months by virtual visit Johnson Blancas MD Data Data Review: Component Hemoglobin A1C Latest Ref Rng & Units 4.3 - 5.6 % 01/23/2014 6.0 01/15/2019 5.9 09/07/2019 5.7 (H) 02/21/2020 6.1 (H) 08/01/2020 5.6 07/15/2021 5.8 10/06/2021 5.9 (H) documented in this encounterUniversity Hospitals Geneva Medical Center08-30-2022 History of Present illness Narrative* Johnson Blancas MD - 12/01/2021 11:19 AM EDT Virtual Visit utilizing both audio and video [...] Take 1 tablet by mouth once daily. ecbyugdj-eli-oyth-FA-lutein (CENTRUM SILVER WOMEN) 8 mg iron-400 mcg-300 [...] Take 1 tablet by mouth twice daily. 180tablet 3 VITAMIN D 50,000 unit capsule Take 1 tablet by mouth every 2 weeks. escitalopram oxalate (LEXAPRO) 10 mg tablet Take 10 mg by mouth once daily. vit C,L-Hm-nnsny-lutein-zeaxan (PRESERVISION AREDS 2) 385-134-87-1 qh-ckbq-ae-mg cap Take by mouth twice daily. 0 [...] three times daily. APPLY TO AFFECTED AREA 15g 1 Current Facility-Administered Medications Medication Dose Route Frequency Provider Last Rate Last Admin perflutren lipid microspheres 1.3 mL in NaCl (PF) 0.9% 10 mL injection (DEFINITY) INTRAVENOUS DIRECTED PRN Brian Beaver MD sodium chloride 0.9 % (flush) 10 mL (BD POSIFLUSH) 10 mL INTRAVENOUS DIRECTED PRN Brian Beaver MD ALLERGIES Allergen Reactions Flounder [Other] [...] biaxin adverse reaction- Nausea documented in this encounterUniversity Hospitals [facility] Center07-05-2022 History of Present illness Narrative* Brian Beaver MD - 10/06/2021 10:08 AM EDT Images from the original note were not included. [facility] [place] [facility] Department of Cardiovascular Medicine SECTION OF CARDIOVASCULAR IMAGING OUTPATIENT VISIT DATE October 06, 2021 OUTPATIENT VISIT TYPE ESTABLISHED PRIMARY CARE PHYSICIAN: Alexander Gallagher MD [address] [place] [address] CHIEF COMPLAINT: CV health management visit. HISTORY OF PRESENT ILLNESS: Ms. Celis is a 76 year old female who presents today for a cardiovascular medicine follow-up visit. She has a past medical history significant GERD, HLD, HTN, tachycardia and asthma. She was last seen in clinic on 01/06/2021. At that time, she had no new symptoms. She was instructedto follow up in 9 months with stress [...] Take 1 tablet by mouth once daily. bctqehwv-tvd-vnvk-FA-lutein (CENTRUM SILVER WOMEN) 8 mg iron-400 mcg-300 [...] 10 mg by mouth once daily. vit C,J-So-xzzhj-lutein-zeaxan (PRESERVISION AREDS 2) 019-642-79-1 zs-uiir-nq-mg cap Take by mouth twice daily. mometasone [...] Negative for: Weakness, Paralysis, Numbness, Tingling, Tremor, Nervousness,Depressed mood, Memory loss SKIN: Negative for: Rashes, Itching HEMATOLOGICAL/LYMPHATIC: Negative for: Easy bruising , Easy bleeding ENDOCRINE: Negative for: Heat or cold intolerance, Excessive sweating, Frequent urination, Frequentthirst PHYSICAL EXAMINATION: POSITIVES IN BOLD BP 115/67 (BP Site: Left Arm, BP Position: Sitting) Pulse 79 Ht 160 cm (5' 3) Wt 73.5 kg (162 lb) SpO2 93% BMI 28.70 kg/m General: Well appearing, in no acute distress. Skin: No clubbing, no cyanosis. Eyes: Extra ocular movements intact Oropharynx: Teeth in good repair. Neck: No jugular venous distention, no carotid bruits, carotids have a normal upstroke, no palpablethyromegaly. Lungs: Clear to auscultation bilaterally, no wheezing [...] By signing my name below, I, Karthik Osmin, attest that this documentation has been prepared under the direction and in the presence of Dr. Brian Beaver MD. Electronically Signed:irma Rodriguez, October 06, 2021 10:08 AM Brian Beaver M.D., FACC Section Head, Cardiovascular Imaging [facility] and Neida [facility] Department of Cardiovascular Medicine [facility] [place] [facility] Desk [address] [place] [address] Office [phone] extension [phone] Office Appointments: [phone] extension [phone] documented in this encounterUniversity Hospitals Geneva [facility] Center06-24-2022 History of Present illness Narrative* Nicki Arroyo - 09/25/2021 2:49 PM EDT Subjective: Patient presents to clinic c/o painful toenails. They state that the nails are especially painful with shoe gear and pressure. Patient states that nails 1-5 b/l are painful. No other pedal complaints at this time. Patient states no change in medications or medical history since last visit. Objective: Patient presents to clinic ambulating in [facility] Vasc: DP and PT pulses are palpable bilateral. CFT is less than 5 seconds bilateral. Skin temperature is warm to cool proximal to distal bilateral. There is no edema or varicosities noted. Neuro: Protective sensation is intact to the foot and toes when tested with the 5.07 SWM bilateral.Vibratory sensation is decreased at the hallux IPJ [...] is to RTC in 3-4 months. Nicki Arroyo DPM * Zabrina Ray RN - 09/25/2021 2:29 PM EDT Patient presents with: Left Foot - Follow Up, Established Patient, Nail Check Right Foot - Established Patient, Follow Up, Nail Check AMB ROOMING INTAKE FLOWSHEET DATA Risk Screening Do you have concerns about personal safety or safety in the home?: No documented in this encounterUniversity Hospitals Geneva [facility] Center04-13-2022 Procedure note* Johnson Blancas MD - 07/15/2021 9:15 AM EDT Images from the original note were not [...] thyroid nodules Comparison: 02/01/20 Technical Issues Equipment: [email or web address] Prosound Alpha 6 Transducer: Linear/Trapezoidal multifrequency Regions examined: Neck, Thyroid, Sagittal and transverse views were obtained. Color power Doppler were applied when indicated. documented in this encounterUniversity Hospitals Geneva Medical Center11-04-2016 History of Past illness Narrative* Problem Noted [...] of this encounter (statuses as of 09/28/2021) [facility] History of Past illness Narrative* Problem Noted [...] of this encounter (statuses as of 10/06/2021) [facility] History of Past illness Narrative* Problem Noted [...] of this encounter (statuses as of 10/06/2021) [facility] History of Past illness Narrative* Problem Noted [...] of this encounter (statuses as of 10/24/2021) [facility] History of Past illness Narrative* Problem Noted [...] of this encounter (statuses as of 12/01/2021) [facility] History of Past illness Narrative* Problem Noted [...] of this encounter (statuses as of 04/13/2022) [facility] History of Past illness Narrative* Problem Noted [...] of this encounter (statuses as of 06/09/2022) [facility] History of Past illness Narrative* Problem Noted [...] of this encounter (statuses as of 07/12/2022) [facility] History of Past illness Narrative* Problem Noted [...] of this encounter (statuses as of 08/16/2022) [facility] History of Past illness Narrative* Problem Noted [...] of this encounter (statuses as of 10/12/2022) [facility] History of Past illness Narrative* Problem Noted [...] unspecified 04/08/2006 0 04/06/2010 Chest pain, unspecified 01/20/2006/0 06/2010 Unspecified asthma(493.90) 06/23/2005 1 Calculus of gallbladder with out mention of cholecystitis or obstruction 06/14/2005 04/06/2010 Pain in joint, shoulder region 06/04/2005 04/06/2010 Abdominal pain, unspecified site 02/01/2005 04/06/2010 DIZZINESS 05/19/2004 04/06/2010 documented as of this encounter (statuses as of 10/21/2022) [facility] of Past illness Narrative* Problem Noted [...] of this encounter (statuses as of 11/08/2022) [facility] of Past illness Narrative* Problem Noted [...] of this encounter (statuses as of 11/22/2022) [facility] of Past illness Narrative* Problem Noted [...] of this encounter (statuses as of 01/05/2023) [facility] of Past illness Narrative* Problem Noted [...] of this encounter (statuses as of 01/05/2023) [facility] of Past illness Narrative* Problem Noted [...] of this encounter (statuses as of 01/19/2023) [facility] of Past illness Narrative* Problem Noted [...] of this encounter (statuses as of 02/04/2023) [facility] of Past illness Narrative* Problem Noted [...] of this encounter (statuses as of 02/16/2023) [facility] of Past illness Narrative* Problem Noted [...] 04/08/2006 0 04/06/2010 Chest pain, unspecified 01/20/2006 01/06/2010 Unspecified asthma(493.90) 06/23/2005 1 Calculus of gallbladder with out mention of cholecystitis or obstruction 06/14/2005 04/06/2010 Pain in joint, shoulder region 06/04/2005 04/06/2010 Abdominal pain, unspecified site 02/01/2005 04/06/2010 DIZZINESS 05/19/2004 04/06/2010 documented as of this encounter (statuses as of 05/12/2023) [facility] note* Diagnosis Onychomycosis- Primary Dermatophytosis of nail Pain in toe of right foot Pain in limb Pain in left foot Pain in limb documented in this encounter [facility]* Diagnosis Mixed hyperlipidemia- Primary documented in this encounter [facility]* Diagnosis Essential hypertension- Primary Unspecified essential hypertension Mixed hyperlipidemia Chest pain on breathing Painful respiration documented in this encounter [facility]* Diagnosis Nontoxic multinodular goiter- Primary documented in this encounter [facility]* Diagnosis Dysmetabolic syndrome X- Primary Dysmetabolic Syndrome X documented [facility] this encounter [facility] noteNo assessment information availableWMorrow [facility] Work Phone: Evaluation note* Diagnosis Onychomycosis- Primary Dermatophytosis of nail Pain in toe of right foot Pain in limb Pain in left foot Pain in limb documented in this encounter [facility]* Diagnosis Onset Date Resolution Status Encounter for routine gynecological examination noneactive [facility] Work Phone: Evaluation note* Diagnosis Onset Date Resolution Status Encounter for routine gynecological examination noneactive Abrasion, right knee, initial encounter acute Cellulitis of right knee acu [facility] Work Phone: Evaluation note* Diagnosis Essential hypertension- Primary Unspecified essential hypertension documented in this encounter [facility]* Diagnosis Onychomycosis- Primary Dermatophytosis of nail Pain in toe of right foot Pain in limb Pain in left foot Pain in limb [facility] Mixed hyperlipidemia- Primary [facility] Diagnosis Essential hypertension- Primary Unspecified essential hypertension Mixed hyperlipidemia Chest pain on breathing Painful respiration Supraventricular tachycardia (HCC) Other specified cardiac dysrhythmias Other forms of angina pectoris (HCC) [facility]* Diagnosis Onychomycosis- Primary Dermatophytosis of nail Pain in toe of right foot Pain in limb Pain in left foot Pain in limb [facility] Diagnosis Nontoxic multinodular goiter- Primary [facility]* Diagnosis Onychomycosis- Primary Dermatophytosis of nail Pain in toe of right foot Pain in limb Pain in left foot Pain in limb [facility] Diagnosis Nontoxic multinodular goiter- Primary [facility]* Diagnosis Essential hypertension- Primary Unspecified essential hypertension [facility] Diagnosis Nontoxic multinodular goiter [facility]* Diagnosis Onychomycosis- Primary Dermatophytosis of nail Pain in toe of right foot Pain in limb Pain in left foot Pain in limb [facility]* Diagnosis Onychomycosis- Primary Dermatophytosis of nail Pain in left foot Pain in limb Pain in toe of right foot Pain in limb [facility] Diagnosis Mixed hyperlipidemia- Primary Essential hypertension Unspecified essential hypertension [facility]* Diagnosis Onychomycosis- Primary Dermatophytosis of nail Pain in left foot Pain in limb Pain in toe of right foot Pain in limb [facility]* Diagnosis Other forms of angina pectoris (HCC)- Primary Supraventricular tachycardia (HCC) Other specified cardiac dysrhythmias Essential hypertension Unspecified essential hypertension [facility]* Diagnosis Nontoxic multinodular goiter- Primary [facility]* Diagnosis Onychomycosis- Primary Dermatophytosis of nail Pain in left foot Pain in limb Pain in toe of right foot Pain in limb documented in this encounter [facility]* Diagnosis Onset Date Resolution Status Breast lump on left side at 7 o'clock position acute Encounter for routine gynecological examination noneactive [facility] Work Phone: Evaluation note* Diagnosis Onychomycosis- Primary Dermatophytosis of nail Pain in left foot Pain in limb Pain in toe of right foot Pain in limb documented in this encounter [facility]* Diagnosis Nontoxic multinodular goiter- Primary documented in this encounter [facility]* Diagnosis Other forms of angina pectoris (HCC)- Primary documented in this encounter [facility]* Diagnosis Onychomycosis- Primary Dermatophytosis of nail Onychocryptosis Ingrowing nail Pain in left foot Pain in limb Pain in toe of right foot Pain in limb documented in this encounter [facility]* Diagnosis Onychomycosis- Primary Dermatophytosis of nail Onychocryptosis Ingrowing nail Pain in left foot Pain in limb Pain in toe of right foot Pain in limb documented in this encounter [facility]* Diagnosis Other forms of angina pectoris- Primary Supraventricular tachycardia (HCC) Other specified cardiac dysrhythmias Essential hypertension Unspecified essential hypertension Mixed hyperlipidemia documented in this encounter [facility]* Diagnosis Onychomycosis- Primary Dermatophytosis of nail Onychocryptosis Ingrowing nail Pain in left foot Pain in limb Pain in toe of right foot Pain in limb Callus of foot Corns and callosities documented in this encounter [facility] Outpatient Procedure (Routine) - Pending Review Specialty Diagnoses / Procedures Referred By Contac t [facility]erred To [facility] Diagnoses Essential hypertension Procedures ECG COMPLETE ECG ROUTINE ECG W/LEAST 12 LDS W/I&R Brian Beaver MD [address] [place] [address] [facility] [place] [facility] [place] [address] Referral ID Status Reason Start Date Expiration Date Visits Requested Visits Authorized [id number] Pending Review Auto-Generat ed Referral 06/09/2022 06/09/2023 1 1 [facility] for referral (narrative)* Outpatient Procedure (Routine) - Pending Review Specialty Diagnoses / Procedures Referred By Andrew t Referred To Contact [facility] Diagnoses Mixed hyperlipidemia Procedures STRESS ECHO TREADMILL ECHO TTHRC R-T 2D W/WO M-MODE COMPLETE REST&ST Brian Beaver MD [address] [place] [address] [place] [address] Referral ID Status Reason Start Date Expiration Date Visits Requested Visits Authorized [id number] Pending Review Auto-Generat ed Referral 08/16/2022 08/16/2023 1 1 [facility] for referral (narrative)* Outpatient Procedure (Routine) - Pending Review Specialty Diagnoses / Procedures Referred By Andrew williamson Referred To Contact [facility] Diagnoses Essential hypertension Mixed hyperlipidemia Chest pain on breathing Procedures STRESS ECHO TREADMILL ECHO TTHRC R-T 2D W/WO M-MODE COMPLETE REST&ST Brian Beaver MD [address] [place] [address] [id number] Referral ID Status Reason Start Date Expiration Date Visits Requested Visits Authorized [id number] Pending Review Auto-Generat ed Referral 10/20/2022 10/20/2023 1 1 T [facility] for referral (narrative)* Diagnostic Procedure Only (Routine) - Pending Review Specialty Diagnoses / Procedures Referred By Contac t Referred To Contact [facility] Diagnoses Nontoxic multinodular goiter Procedures US THYROID/PARATHYROID US SOFT TISSUE HEAD & N[place] [address] [facility] [address] [place] [address] Us Imaging [place] [address] Referral ID Status Reason Start Date Expiration Date Visits Requested Visits Authorized [id number] Pending Review Auto-Generat ed Referral 11/22/2022 12/22/2023 1 1 [facility] for referral (narrative)* Outpatient Procedure (Routine) - Pending Review Specialty Diagnoses / Procedures Referred By Contac t Referred To Contact [facility] Diagnoses Essential hypertension Procedures STRESS ECHO TREADMILL ECHO TTHRC R-T 2D W/WO M-MODE COMPLETE REST&ST Brian Beaver MD [address] [id number] [place] [phone] Referral ID Status Reason Start Date Expiration Date Visits Requested Visits Authorized [id number] Pending Review Auto-Generat ed Referral 3 01/18/2024 1 1 * Outpatient Procedure (Routine) - Pending Review Specialty Diagnoses / Procedures [facility] Diagnoses Essential hypertension Procedures ECG COMPLETE ECG ROUTINE ECG W/LEAST 12 LDS W/I&R Brian Beaver MD [address] [place] [address] [place] [phone] Referral ID Status Reason Start Date Expiration Date Visits Requested Visits Authorized [id number] Pending Review Auto-Generat ed Referral 3 01/18/2024 1 1 [facility] for referral (narrative)* Diagnostic Procedure Only (Routine) - Closed Specialty Diagnoses / Procedures [facility] Diagnoses Nontoxic multinodular goiter Procedures US THYROID/PARATHYROID US SOFT TISSUE HEAD & N[place] [address] [facility] [address] [place] [address] [place] [address] Referral ID Status Reason Start Date Expiration Date V isits Requested Visits Authorized [id number] Closed Auto-Generate d Referral 11/22/2022 12/22/2023 1 1 [facility] for referral (narrative)* Outpatient Procedure (Routine) - New Request Specialty Diagnoses / Procedures Referred By Andrew t Referred To Contact [facility] Diagnoses Other forms of angina pectoris (HCC) Supraventricular tachycardia (HCC) Essential hypertension Procedures STRESS ECHO TREADMILL ECHO TTHRC R-T 2D W/WO M-MODE COMPLETE REST&ST Brian Beaver MD [address] [place] [address] [place] [address] Referral ID Status Reason Start Date Expiration Date Visits Requested Visits Authorized [id number] New Request Auto-Generat ed Referral 11/04/2023 11/03/2024 1 1 * Transition of Care (Routine) - Ref Not Required Specialty Diagnoses / Procedures Referred By Andrew t Referred To Contact [facility] Procedures CARDIOVASCULAR MEDICINE OP FOLLOW UP APPT ORDER Brian Beaver MD [address] [place] [address] [address] Referral ID Status Reason Start Date Expiration Date Visits Requested Visits Authorized [id number] Ref Not Required PCP Requested Referral 08/05/2024 11/03/2024 1 1 [facility] for referral (narrative)No reason for referral [facility] Work Phone: Reason for visit Narrative* Transition of Care (Routine) - Closed Specialty Diagnoses / Procedures Referred By Andrew t Referred To Contact [facility] Brian Beaver MD [address] [place] [address] Phone: tel: fax: [facility] [address] [place] [address] Referral ID Status Reason Start Date Expiration Date V isits Requested Visits Authorized [id number] Closed PCP Requested Referral 08/05/2024 11/03/2024 1 1 [facility] Advance Directives No Advanced Directives Records FoundDocuments on File Type Date Recorded 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 Advance Directive(s) Advance Directive(s) 09/10/2014 9:40 AM Documents on File Type Date Recorded 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 Advance Directive(s) 09/10/2014 9:40 AM Advance Directive Response Recorded Date/ Time Advance Directives Yes September 12 10:52am Living Will Yes September 12, 2020 10:52am Power of Phlebotomy Tech Yes September 12 10:52am Advance Directive Response Recorded Date/ Time Advance Directives Yes September 12 9:52am Living Will Yes September 12, 2020 9:52am Power of Phlebotomy Tech Yes September 12 9:52am Documents on File Type Date Recorded 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 Yes September 12, 2020 10:52am Advance Directives Yes May 09, 2024 2:11pm Advance Directive Response Recorded Date/ Time Advance Directives Yes May 09, 2024 2:11pm Living Will Yes September 12, 2020 10:52am Do you have a Healthcare Power of Phlebotomy Tech? Yes September 12, 2020 10:52am Chief Complaint and Reason for Visit Chief Complaint PHARYNGITIS Chief Complaint PHARYNGITIS SCREENING Chief Complaint PHARYNGITIS SCREENING Annual (BACK FACER) SINUSITIS/Other primary ovarian failure Reason for Visit Encounter for routin e gynecological examination Chief Complaint SCREENING Annual (BACK FACER) SINUSITIS/Other primary ovarian failure WOUND ON RIGHT KNEE Reason for Visit Encounter for routin e gynecological examination Abrasion, right knee, initial encounter Cellulitis of right knee Chief Complaint SCREENING Annual (BACK FACER) SINUSITIS/Other primary ovarian failure WOUND ON RIGHT KNEE ABDOMINAL PAIN Reason for Visit Encounter for routin e gynecological examination Abrasion, right knee, initial encounter Cellulitis of right knee Chief Complaint Annual (BACK FACER) Unspecified lump in the left breast, lower inner q Reason for Visit Breast lump on left side at 7 o'clock position Encounter for routine gynecological examination Chief Complaint SCREENING Annual (BACK FACER) Unspecified lump in the left breast, lower inner q Reason for Visit Breast lump on left side at 7 o'clock position Encounter for routine gynecological examination Chief Complaint Admit Date COUGH/CONGESTION March 02, 2024 9:46am Annual (BACK FACER) March 12, 2024 1 :54pm DECREASED BONE DENSITY May 08 12:37pm SORE R ANKLE May 09, 2024 1 :14pm ankle injury- RIGHT May 09, 2024 1 :23pm BALANCE. RX HERE June 21, 2024 10: 00am Reason for Visit Admit Date Asthmatic bronchitis with acute exacerba tion March 02, 2024 9:46am Encounter for routine gynecological exam ination March 12, 2024 1:54pm Right ankle sprain May 09, 2024 1 :14pm Chief Complaint Admit Date Annual (BACK FACER) March 12, 2024 1 :54pm DECREASED BONE DENSITY May 08 12:37pm SORE R ANKLE May 09, 2024 1 :14pm ankle injury- RIGHT May 09, 2024 1 :23pm BALANCE. RX HERE June 28, 2024 10: 30am Reason for Visit Admit Date Encounter for routine gynecological exam ination March 12, 2024 1:54pm Right ankle sprain May 09, 2024 1 :14pm Chief Complaint Admit Date DECREASED BONE DENSITY May 08 12:37pm SORE R ANKLE May 09, 2024 1 :14pm ankle injury- RIGHT May 09, 2024 1 :23pm BALANCE. RX HERE July 24, 2024 11: 30am Reason for Visit Admit Date Right ankle sprain May 09, 2024 1 :14pm Chief Complaint Admit Date DECREASED BONE DENSITY May 08 12:37pm SORE R ANKLE May 09, 2024 1 :14pm ankle injury- RIGHT May 09, 2024 1 :23pm BALANCE. RX HERE July 24, 2024 11: 30am SINUS COMP/LARENGITIS August 25, 2024 10: 55am PHARYNGITIS August 29, 2024 3:07p m Reason for Visit Admit Date Right ankle sprain May 09, 2024 1 :14pm Seasonal allergies August 25, 2024 10:55 am Hypertension August 25, 2024 10:55 am Family History No Family History Records Found Relationship Condition Age at Onset Recorded Date/T gorge mother Cerebrovascular accident (CVA) Unknown Myocardial infarction Unknown Cardiac disease Unknown Diabetes mellitus Unknown father Cerebrovascular accident (CVA) Unknown Malignant neoplasm Unknown grandfather Myocardial infarction Unknown grandmother Myocardial infarction Unknown aunt Malignant neoplasm of breast Unknown sister Multiple myeloma Unknown Summary Purpose Additional Source Comments Source Comments (unrecognize d section and content) In the event this informatio n is protected by the Federal Confidentiality of Alcohol and Drug Abuse Patient Records regulations: The Federal rules restrict any use of the information to criminally investigate or prosecute any alcohol or drug abuse patient.[facility] the event this information is protected by the Federal Confidentiality of Alcohol and Drug Abuse Patient Records regulations: The Federal rules restrict any use of the information to criminally investigate or prosecute any alcohol or drug abuse patient.[facility] CenterIn the event this information is protected by the Federal Confidentiality of Alcohol and Drug Abuse Patient Records regulations: The Federal rules restrict any use of the information to criminally investigate or prosecute any alcohol or drug abuse patient.[facility] Center[facility] the event this information is protected by the Federal Confidentiality of Alcohol and Drug Abuse Patient Records regulations: The Federal rules restrict any use of the information to criminally investigate or prosecute any alcohol or drug abuse patient.[facility] CenterIn the event this information is protected by the Federal Confidentiality of Alcohol and Drug Abuse Patient Records regulations: The Federal rules restrict any use of the information to criminally investigate or prosecute any alcohol or drug abuse patient.[facility] CenterIn the event this information is protected by the Federal Confidentiality of Alcohol and Drug Abuse Patient Records regulations: The Federal rules restrict any use of the information to criminally investigate or prosecute any alcohol or drug abuse patient.[facility] CenterIn the event this information is protected by the Federal Confidentiality of Alcohol and Drug Abuse Patient Records regulations: The Federal rules restrict any use of the information to criminally investigate or prosecute any alcohol or drug abuse patient.[facility] CenterIn the event this information is protected by the Federal Confidentiality of Alcohol and Drug Abuse Patient Records regulations: The Federal rules restrict any use of the information to criminally investigate or prosecute any alcohol or drug abuse patient.[facility] CenterIn the event this information is protected by the Federal Confidentiality of Alcohol and Drug Abuse Patient Records regulations: The Federal rules restrict any use of the information to criminally investigate or prosecute any alcohol or drug abuse patient.[facility] CenterIn the event this information is protected by the Federal Confidentiality of Alcohol and Drug Abuse Patient Records regulations: The Federal rules restrict any use of the information to criminally investigate or prosecute any alcohol or drug abuse patient.[facility] CenterIn the event this information is protected by the Federal Confidentiality of Alcohol and Drug Abuse Patient Records regulations: The Federal rules restrict any use of the information to criminally investigate or prosecute any alcohol or drug abuse patient.[facility] CenterIn the event this information is protected by the Federal Confidentiality of Alcohol and Drug Abuse Patient Records regulations: The Federal rules restrict any use of the information to criminally investigate or prosecute any alcohol or drug abuse patient.[facility] CenterIn the event this information is protected by the Federal Confidentiality of Alcohol and Drug Abuse Patient Records regulations: The Federal rules restrict any use of the information to criminally investigate or prosecute any alcohol or drug abuse patient.[facility] CenterIn the event this information is protected by the Federal Confidentiality of Alcohol and Drug Abuse Patient Records regulations: The Federal rules restrict any use of the information to criminally investigate or prosecute any alcohol or drug abuse patient.[facility] CenterIn the event this information is protected by the Federal Confidentiality of Alcohol and Drug Abuse Patient Records regulations: The Federal rules restrict any use of the information to criminally investigate or prosecute any alcohol or drug abuse patient.[facility] CenterIn the event this information is protected by the Federal Confidentiality of Alcohol and Drug Abuse Patient Records regulations: The Federal rules restrict any use of the information to criminally investigate or prosecute any alcohol or drug abuse patient.[facility] CenterIn the event this information is protected by the Federal Confidentiality of Alcohol and Drug Abuse Patient Records regulations: The Federal rules restrict any use of the information to criminally investigate or prosecute any alcohol or drug abuse patient.[facility] CenterIn the event this information is protected by the Federal Confidentiality of Alcohol and Drug Abuse Patient Records regulations: The Federal rules restrict any use of the information to criminally investigate or prosecute any alcohol or drug abuse patient.[facility] CenterIn the event this information is protected by the Federal Confidentiality of Alcohol and Drug Abuse Patient Records regulations: The Federal rules restrict any use of the information to criminally investigate or prosecute any alcohol or drug abuse patient.[facility] CenterIn the event this information is protected by the Federal Confidentiality of Alcohol and Drug Abuse Patient Records regulations: The Federal rules restrict any use of the information to criminally investigate or prosecute any alcohol or drug abuse patient.[facility] CenterIn the event this information is protected by the Federal Confidentiality of Alcohol and Drug Abuse Patient Records regulations: The Federal rules restrict any use of the information to criminally investigate or prosecute any alcohol or drug abuse patient.[facility] CenterIn the event this information is protected by the Federal Confidentiality of Alcohol and Drug Abuse Patient Records regulations: The Federal rules restrict any use of the information to criminally investigate or prosecute any alcohol or drug abuse patient.[facility] CenterIn the event this information is protected by the Federal Confidentiality of Alcohol and Drug Abuse Patient Records regulations: The Federal rules restrict any use of the information to criminally investigate or prosecute any alcohol or drug abuse patient.[facility] the event this information is protected by the Federal Confidentiality of Alcohol and Drug Abuse Patient Records regulations: The Federal rules restrict any use of the information to criminally investigate or prosecute any alcohol or drug abuse patient.[facility] CenterIn the event this information is protected by the Federal Confidentiality of Alcohol and Drug Abuse Patient Records regulations: The Federal rules restrict any use of the information to criminally investigate or prosecute any alcohol or drug abuse patient.[facility] CenterIn the event this information is protected by the Federal Confidentiality of Alcohol and Drug Abuse Patient Records regulations: The Federal rules restrict any use of the information to criminally investigate or prosecute any alcohol or drug abuse patient.[facility] CenterIn the event this information is protected by the Federal Confidentiality of Alcohol and Drug Abuse Patient Records regulations: The Federal rules restrict any use of the information to criminally investigate or prosecute any alcohol or drug abuse patient.[facility] CenterIn the event this information is protected by the Federal Confidentiality of Alcohol and Drug Abuse Patient Records regulations: The Federal rules restrict any use of the information to criminally investigate or prosecute any alcohol or drug abuse patient.[facility] CenterIn the event this information is protected by the Federal Confidentiality of Alcohol and Drug Abuse Patient Records regulations: The Federal rules restrict any use of the information to criminally investigate or prosecute any alcohol or drug abuse patient.[facility] CenterIn the event this information is protected by the Federal Confidentiality of Alcohol and Drug Abuse Patient Records regulations: The Federal rules restrict any use of the information to criminally investigate or prosecute any alcohol or drug abuse patient.[facility] CenterIn the event this information is protected by the Federal Confidentiality of Alcohol and Drug Abuse Patient Records regulations: The Federal rules restrict any use of the information to criminally investigate or prosecute any alcohol or drug abuse patient.[facility] CenterIn the event this information is protected by the Federal Confidentiality of Alcohol and Drug Abuse Patient Records regulations: The Federal rules restrict any use of the information to criminally investigate or prosecute any alcohol or drug abuse patient.[facility] CenterIn the event this information is protected by the Federal Confidentiality of Alcohol and Drug Abuse Patient Records regulations: The Federal rules restrict any use of the information to criminally investigate or prosecute any alcohol or drug abuse patient.[facility] CenterIn the event this information is protected by the Federal Confidentiality of Alcohol and Drug Abuse Patient Records regulations: The Federal rules restrict any use of the information to criminally investigate or prosecute any alcohol or drug abuse patient.[facility] CenterIn the event this information is protected by the Federal Confidentiality of Alcohol and Drug Abuse Patient Records regulations: The Federal rules restrict any use of the information to criminally investigate or prosecute any alcohol or drug abuse patient.[facility] CenterIn the event this information is protected by the Federal Confidentiality of Alcohol and Drug Abuse Patient Records regulations: The Federal rules restrict any use of the information to criminally investigate or prosecute any alcohol or drug abuse patient.[facility] Reason for Visit (unrecogniz ed section and content) Reason Comments Follow Up Established Patient Nail Check Reason Comments Thyroid Problem Reason Comments preDM Reason Comments Established Patient Follow Up nail care Reason Comments Established Patient Debridement of Nail Reason Comments Refill Request Reason Comments Established Patient nail care Follow Up nail care Reason Comments Thyroid Nodule Reason Comments Established Patient nail care Reason Comments Thyroid Nodule Reason Comments Radiology US Specialty Diagnoses / Procedures Referred By Andrew t Referred To Contact [facility] Diagnoses Nontoxic multinodular goiter Procedures US THYROID/PARATHYROID US SOFT TISSUE HEAD & N[place]K [place] [address] [facility] [address] [place] [address] [place] [address] Referral ID Status Reason Start Date Expiration Date V isits Requested Visits Authorized [id number] Closed Auto-Generate d Referral 11/22/2022 12/22/2023 1 1 Reason Comments Established Patient Follow Up Diabetic Foot Care Reason Comments Established Patient Follow Up Diabetic Foot Care Pain Reason Comments Appointment Reason Comments Heart Problem Reason Comments Follow Up Pain Nail Care Reason Comments Follow Up Pain Reason Comments Patient Question Reason Comments Follow Up nail care Established Patient Established Patient Bruise to right grea t toe nail Follow Up Bruise to right grea t toe nail nail care Bruise to right grea t toe nail Reason Comments Established Patient Follow Up Pain Nail Check Reason Comments Patient Update Care Teams (unrecognized sec tion and content) Efficiency Expert Relationship Specialty Start Date End Date Alexander Gallagher MD PCP - General Family Practice 08/28/15 Tonny Quintanilla Jr. [address] [phone] Allergy 03/06/15 Brian Beaver MD [address] [place] [address] Primary Staff Physician Cardiology 06/20/18 Efficiency Expert Relationship Specialty Start Date End Date Alexander Gallagher MD PCP - General Family Practice 08/28/15 Tonny Quintanilla Jr. [address] [phone] Allergy 03/06/15 Brian Bevaer MD [address] [place] [address] Primary Staff Physician Cardiology 06/20/18 Efficiency Expert Relationship Specialty Start Date End Date Alexander Gallagher MD PCP - General Family Practice 08/28/15 Tonny Quintanilla Jr. [address] [phone] Allergy 03/06/15 Brian Beaver MD [address] [place] [address] Primary Staff Physician Cardiology 06/20/18 Efficiency Expert Relationship Specialty Start Date End Date Alexander Gallagher MD PCP - General Family Practice 08/28/15 Tonny Quintanilla . [address] [phone] Allergy 03/06/15 Brian Beaver MD [address] [place] [address] Primary Staff Physician Cardiology 06/20/18 Efficiency Expert Relationship Specialty Start Date End Date Alexander Gallagher MD PCP - General Family Practice 08/28/15 Tonny Quintanilla Yash [address] [phone] Allergy 03/06/15 Brian Beaver MD [address] [place] [address] Primary Staff Physician Cardiology 06/20/18 Efficiency Expert Relationship Specialty Start Date End Date Alexander Gallagher MD [address] [phone] PCP - General Family Medicine 08/28/15 Tonny Quintanilla Jr. [address] [phone] Allergy 03/06/15 Brian Beaver MD [address] [place] [address] Primary Staff Physician Cardiology 06/20/18 Team Status: Active Member Role Status Dates Dr. Alexander Gallagher MD Family Provider Active Dr. Alexander Gallagher MD Primary Care Provider Active Team Status: Inactive Member Role Status Dates Dr. Alexander Gallagher MD Primary Care Provider, Referring Provider Active Dr. Linda Figueroa MD Attending Provider Active Team Status: Inactive Member Role Status Dates Dr. Alexander Gallagher MD Primary Care Provider, Referring Provider Active José MAYERS, [place] Attending Provider Active Team Status: Inactive Member Role Status Dates Dr. Alexander Gallagher MD Primary Care Provider Active Dr. Linda Figueroa MD Attending Provider Active Team Status: Inactive Member Role Status Dates Dr. Alexander Gallagher MD Primary Care Provi maite, Attending Provider, Referring Provider Active Team Status: Inactive Member Role Status Dates Dr. Alexander Gallagher MD Primary Care Provider Active Dr. Linda Figueroa MD Attending Provider Active Dr. Poncho Bianchi MD Other Provider Active Team Status: Inactive Member Role Status Dates Dr. Alexander Gallagher MD Primary Care Provider Active Dr. Jackie Ríos MD Attending Provider, Referring P terri Active Efficiency Expert Relationship Specialty Start Date End Date Alexander Gallagher MD [address] [phone] PCP - General Family Medicine 08/28/15 Tonny Quintanilla Jr. [address] [phone] Allergy 03/06/15 Brian Beaver MD [address] [place] [address] Primary Staff Physician Cardiology 06/20/18 Efficiency Expert Relationship Specialty Start Date End Date Alexander Gallagher MD [address] [phone] PCP - General Family Medicine 08/28/15 Tonny Quintanilla Jr. [address] [phone] Allergy 03/06/15 Brian Beaver MD [address] [place] [address] Primary Staff Physician Cardiology 06/20/18 Efficiency Expert Relationship Specialty Start Date End Date Alexander Gallagher MD [address] [id number] PCP - General Family Medicine 08/28/15 Tonny Quintanilla Jr. [address] [id number] Allergy 03/06/15 Brian Beaver MD [address] [place] [address] Primary Staff Physician Cardiology 06/20/18 Efficiency Expert Relationship Specialty Start Date End Date Alexander Gallagher MD [address] [phone] PCP - General Family Medicine 08/28/15 Tonny Quintanilla Jr. [address] [phone] Allergy 03/06/15 Brian Beaver MD [address] [place] [address] Primary Staff Physician Cardiology 06/20/18 Efficiency Expert Relationship Specialty Start Date End Date Alexander Gallagher MD [address] [phone] PCP - General Family Medicine 08/28/15 Tonny Quintanilla Jr. [address] [phone] Allergy 03/06/15 Brian Beaver MD [address] [place], [place] [id number] Primary Staff Physician Cardiology 06/20/18 Efficiency Expert Relationship Specialty Start Date End Date Alexander Gallagher MD [address] [phone] PCP - General Family Medicine 08/28/15 Tonny Quintanilla Jr. [address] [phone] Allergy 03/06/15 Brian Beaver MD [address] [place], [place] [id number] Primary Staff Physician Cardiology 06/20/18 Efficiency Expert Relationship Specialty Start Date End Date Alexander Gallagher MD [address] [phone] PCP - General Family Medicine 08/28/15 Tonny Quintanilla Jr. [address] [phone] Allergy 03/06/15 Brian Beaver MD [address] [place], [place] [id number] Primary Staff Physician Cardiology 06/20/18 Efficiency Expert Relationship Specialty Start Date End Date Alexander Gallagher MD [address] [phone] PCP - General Family Medicine 08/28/15 Tonny Quintanilla Jr. [address] [phone] Allergy 03/06/15 Brian Beaver MD [address] [place] [address] Primary Staff Physician Cardiology 06/20/18 Efficiency Expert Relationship Specialty Start Date End Date Alexander Gallagher MD [address] [phone] PCP - General Family Medicine 08/28/15 Tonny Quintanilla Jr. [address] [phone] Allergy 03/06/15 Brian Beaver MD [address] [place] [address] Primary Staff Physician Cardiology 06/20/18 Efficiency Expert Relationship Specialty Start Date End Date Alexander Gallagher MD [address] [phone] PCP - General Family Medicine 08/28/15 Tonny Quintanilla Jr. [address] [phone] Allergy 03/06/15 Brian Beaver MD [address] [place], [place] [id number] Primary Staff Physician Cardiology 06/20/18 Efficiency Expert Relationship Specialty Start Date End Date Alexander Gallagher MD [address] [phone] PCP - General Family Medicine 08/28/15 Tonny Quintanilla Jr. [address] [phone] Allergy 03/06/15 Brian Beaver MD [address] [place] [address] Primary Staff Physician Cardiology 06/20/18 Team Status: Inactive Member Role Status Dates Dr. Alexander Gallagher MD Primary Care Provider Active Dr. Linda Figueroa MD Attending Provider, Referr ing Provider Active Team Status: Inactive Member Role Status Dates Dr. Alexander Gallagher MD Primary Care Provider, Attending Provider Active Efficiency Expert Relationship Specialty Start Date End Date Alexander Gallagher MD [address] [phone] PCP - General Family Medicine 08/28/15 Tonny Quintanilla Jr. [address] [phone] Allergy 03/06/15 Brian Beaver MD [address] [place], [place] [id number] Primary Staff Physician Cardiology 06/20/18 Efficiency Expert Relationship Specialty Start Date End Date Alexander Gallagher MD [address] [phone] PCP - General Family Medicine 08/28/15 Tonyn Quintanilla Jr. [address] [phone] Allergy 03/06/15 Brian Beaver MD [address] [place] [address] Primary Staff Physician Cardiology 06/20/18 Efficiency Expert Relationship Specialty Start Date End Date Alexander Gallagher MD [address] [phone] PCP - General Family Medicine 08/28/15 Tonny Quintanilla Jr. [address] [phone] Allergy 03/06/15 Brian Beaver MD [address] [place], [place] [id number] Primary Staff Physician Cardiology 06/20/18 Efficiency Expert Relationship Specialty Start Date End Date Alexander Gallagher MD [address] [phone] PCP - General Family Medicine 08/28/15 Tonny Quintanilla Jr. [address] [phone] Allergy 03/06/15 Brian Beaver MD [address] [place], [place] [id number] Primary Staff Physician Cardiology 06/20/18 Efficiency Expert Relationship Specialty Start Date End Date Alexander Gallagher MD [address] [place] [phone] PCP - General Family Medicine 08/28/15 Tonny Quintanilla Jr. [address] [place] [phone] Allergy 03/06/15 Brian Beaver MD [address] [place] [address] Primary Staff Physician Cardiology 06/20/18 Efficiency Expert Relationship Specialty Start Date End Date Alexander Gallagher MD [address] [place] [phone] PCP - General Family Medicine 08/28/15 Tonny Quintanilla Jr. [address] [place] [phone] Allergy 03/06/15 Brian Beaver MD [address] [place] [address] Primary Staff Physician Cardiology 06/20/18 Efficiency Expert Relationship Specialty Start Date End Date Alexander Gallagher MD [address] [phone] PCP - General Family Medicine 08/28/15 Tonny Quintanilla Jr. [address] [phone] Allergy 03/06/15 Brian Beaver MD [address] [place] [address] Primary Staff Physician Cardiology 06/20/18 Efficiency Expert Relationship Specialty Start Date End Date Alexander Gallagher MD [address] [place] [phone] PCP - General Family Medicine 08/28/15 Tonny Quintanilla Jr. [address] [phone] Allergy 03/06/15 Brian Beaver MD [address] [place] [address] Primary Staff Physician Cardiology 06/20/18 Efficiency Expert Relationship Specialty Start Date End Date Alexander Gallagher MD [address] [place] [phone] PCP - General Family Medicine 08/28/15 Tonny Quintanilla Jr. [address] [place] [phone] Allergy 03/06/15 Brian Beaver MD [address] [place] [address] Primary Staff Physician Cardiology 06/20/18 Efficiency Expert Relationship Specialty Start Date End Date Alexander Gallagher MD [address] [phone] PCP - General Family Medicine 08/28/15 Tonny Quintanilla Jr. [address] [phone] Allergy 03/06/15 Brian Beaver MD [address] [place] [address] Primary Staff Physician Cardiology 06/20/18 Efficiency Expert Relationship Specialty Start Date End Date Alexander Gallagher MD [address] [phone] PCP - General Family Medicine 08/28/15 Tonny Quintanilla Jr. [address] [phone] Allergy 03/06/15 Brian Beaver MD [address] [place] [address] Primary Staff Physician Cardiology 06/20/18 Team Status: Active Member Role Status Dates Dr. Alexander Gallagher MD Primary Care Provider Active Team Status: Inactive Member Role Status Dates Dr. Alexander Gallagher MD Primary Care Provider Active Start: March 02, 2024 End: March 02, 2024 Dr. Alexander Gallagher MD Referring Provider Active Start: March 02, 2024 End: March 02, 2024 Hermann MAYERS PA Attending Provider Active Sta rt: March 02, 2024 End: March 02, 2024 Team Status: Inactive Member Role Status Dates Dr. Alexander Gallagher MD Primary Care Provider Active Start: March 12, 2024 End: March 12, 2024 Dr. Alexander Gallagher MD Referring Provider Active Start: March 12, 2024 End: March 12, 2024 Dr. Linda Figueroa MD Attending Provider Active Start: March 12, 2024 End: March 12, 2024 Team Status: Inactive Member Role Status Dates Dr. Alexander Gallagher MD Primary Care Provider Active Start: May 08, 2024 End: May 08, 2024 Dr. Alexander Gallagher MD Attending Provider Active Start: May 08, 2024 End: May 08, 2024 Dr. Alexander Gallagher MD Referring Provider Active Start: May 08, 2024 End: May 08, 2024 Team Status: Inactive Member Role Status Dates Dr. Alexander Gallagher MD Primary Care Provider Active Start: May 09, 2024 End: May 09, 2024 Dr. Alexander Gallagher MD Referring Provider Active Start: May 09, 2024 End: May 09, 2024 Perry Limomaandrews , REWINDER OPERATOR-C Attending Provider Active Star t: May 09, 2024 End: May 09, 2024 Team Status: Inactive Member Role Status Dates Dr. Alexander Gallagher MD Primary Care Provider Active Start: May 09, 2024 End: May 09, 2024 Perry Moomaandrews , REWINDER OPERATOR-C Attending Provider Active Star t: May 09, 2024 End: May 09, 2024 Perry Moomaw , REWINDER OPERATOR-C Referring Provider Active Star t: May 09, 2024 End: May 09, 2024 Team Status: Inactive Member Role Status Dates Dr. Alexander Gallagher MD Primary Care Provider Active Start: June 14, 2024 End: June 14, 2024 Dr. Alexander Gallagher MD Attending Provider Active Start: June 14, 2024 End: June 14, 2024 Dr. Alexander Gallagher MD Referring Provider Active Start: June 14, 2024 End: June 14, 2024 Team Status: Active Member Role Status Dates Dr. Alexander Gallagher MD Primary Care Provider Active Start: June 21, 2024 Dr. Alexander Gallagher MD Attending Provider Active Start: June 21, 2024 Dr. Alexander Gallagher MD Referring Provider Active Start: June 21, 2024 Team Status: Inactive Member Role Status Dates Dr. Alexander Gallagher MD Primary Care Provider Active Start: June 28, 2024 End: June 28, 2024 Dr. Alexander Gallagher MD Attending Provider Active Start: June 28, 2024 End: June 28, 2024 Dr. Alexander Gallagher MD Referring Provider Active Start: June 28, 2024 End: June 28, 2024 Team Status: Active Member Role Status Dates Dr. Alexander Gallagher MD Primary Care Provider Active Start: June 28, 2024 Dr. Alexander Gallagher MD Attending Provider Active Start: June 28, 2024 Dr. Alexander Gallagher MD Referring Provider Active Start: June 28, 2024 Team Status: Inactive Member Role Status Dates Dr. Alexander Gallagher MD Primary Care Provider Active Start: July 24, 2024 End: July 24, 2024 Dr. Alexander Gallagher MD Attending Provider Active Start: July 24, 2024 End: July 24, 2024 Dr. Alexander Gallagher MD Referring Provider Active Start: July 24, 2024 End: July 24, 2024 Team Status: Inactive Member Role Status Dates Dr. Alexander Gallagher MD Primary Care Provider Active Start: August 25, 2024 End: August 25, 2024 Dr. Alexander Gallagher MD Referring Provider Active Start: August 25, 2024 End: August 25, 2024 YULI Ward Attending Provider Active Start: August 25, 2024 End: August 25, 2024 Team Status: Inactive Member Role Status Dates Dr. Alexander Gallagher MD Primary Care Provider Active Start: August 29, 2024 End: August 29, 2024 Dr. Poncho Bianchi MD Attending Provider Active Start: August 29, 2024 End: August 29, 2024 Dr. Poncho Bianchi MD Referring Provider Active Start: August 29, 2024 End: August 29, 2024 Efficiency Expert Relationship Specialty Start Date End Date Alexander Gallagher MD [facility] [place] [phone] PCP - General Family Medicine 08/28/15 Tonny Quintanilla Jr. [address] [place], [place] [phone] Allergy 03/06/15 Brian Beaver MD [address] [place], [place] [id number] Primary Staff Physician Cardiology 06/20/18 Efficiency Expert Relationship Specialty Start Date End Date Alexander Gallagher MD [address] [place] [phone] PCP - General Family Medicine 08/28/15 Tonny Quintanilla Jr. [address] [place] [phone] Allergy 03/06/15 Brian Beaver MD [address] [place] [address] Primary Staff Physician Cardiology 06/20/18 Efficiency Expert Relationship Specialty Start Date End Date Alexander Gallagher MD [address] [phone] PCP - General Family Medicine 08/28/15 Tonny Quintanilla Jr. [address] [phone] Allergy 03/06/15 Brian Beaver MD [address] [place] [address] Primary Staff Physician Cardiology 06/20/18 Efficiency Expert Relationship Specialty Start Date End Date Alexander Gallagher MD [address] [phone] PCP - General Family Medicine 08/28/15 Tonny Quintanilla Jr. [address] [phone] Allergy 03/06/15 Brian Beaver MD [address] [place] [address] (work) Primary Staff Physician Cardiology 06/20/18 Goals (unrecognized section and content) Goals may be documented in a n alternate sectionGoals may be documented in an alternate sectionGoals may be documented in an alternate sectionGoals may be documented in an alternate sectionGoals may be documented in an alternate sectionGoals may be documented in an alternate sectionGoals may be documented in an alternate sectionGoals may be documented in an alternate sectionGoals may be documented in an alternate sectionGoals may be documented in an alternate sectionGoals may be documented in an alternate section INFORMATION SOURCE (unrecogn ized section and content) DATE CREATED AUTHOR 01/03/2025 [facility] DATE CREATED AUTHOR AUTHOR'S ORGANIZ ATION 02/13/2025 [facility] FOR RECORDS PERTAINING TO PATIENTS WHO ARE [...] BE BASED ON THE PRIMARY CLINICAL RECORDS. [employer] provides no warranty or guarantee of the accuracy or completeness of information in this document.
== END | disposition home or self-care (01) ==
LOC: LABSPEC 15:28
PROVIDERS: PCP Family Medicine; Visit Provider Obstetrics & Gynecology
DX: R30.0 Dysuria (principal)
CPT/HCPCS: 87086

== ENCOUNTER → 2025-03-13 | Outpatient (CLI) | payer MEDICARE, SELFPAY ==
[2025-03-13 10:41] LABS: Creatinine, Urine (random) 25.90 mg/dL (28.00-217.00); Microalbumin,Random Urine < 12.0 mg/L (<20 mg/L)
[2025-03-13 13:16] LABS: AST(SGOT) 22 U/L (<=31); Alanine Aminotransfer ALT/SGPT 15 U/L (<=34); Albumin, Serum 4.0 g/dL (3.4-4.8); Alkaline Phosphatase 71 U/L (35-104); Anion Gap 8 (5-15); BUN 18 mg/dL (4-19); BUN/Creat Ratio 19.4 RATIO (10-20); Calcium,Total 9.5 mg/dL (7.6-11.0); Carbon Dioxide 28.5 mmol/L (21.0-32.0); Chloride 103 mmol/L (98-108); Cholesterol 162 mg/dL (<=200); Globulin 2.5 g/dL (2.2-4.2); Glucose 109 mg/dL (70-99); Low Density Lipoprotein Calc. 94 mg/dL; Potassium 5.2 mmol/L (3.3-5.1); Triglycerides 161 mg/dL; Very Low Density Lipoprotein 32 mg/dL (5-40); Vitamin D,25 Hydroxy 48.4 ng/mL (30-100); cholesterol:hdl ratio screen 4.10
[2025-03-13 16:59] LABS: Hematocrit 47.0 % (37-47); Hemoglobin 14.8 g/dL (12.0-15.0); Immature Granulocytes Count 0.010 X10^3/uL (0.0-0.0); Mean Corp Hgb Conc 31.5 g/dL (32-36); Mean Corpuscular Volume 89.0 fL (81-99); Mean Platelet Vol. 10.2 fl (6.2-12.0); NRBC Flagged by Analyzer 0 % (0-5); Platelet Count 208 K/mm3 (150-450); RBC Distribution Width CV 14.7 % (11.6-14.6); RBC Distribution Width SD 47.7 fl (35.1-43.9); Red Blood Count 5.28 M/mm3 (4.2-5.4); White Blood Count 7.2 K/mm3 (4.4-11.0)
== END | disposition home or self-care (01) ==
LOC: MTLAB 09:28
PROVIDERS: PCP Family Medicine; Referring Provider Family Medicine; Visit Provider Family Medicine
DX: I10 Essential (primary) hypertension (principal); E55.9 Vitamin D deficiency, unspecified; E78.5 Hyperlipidemia, unspecified
CPT/HCPCS: 36415; 80053; 80061; 82043; 82306; 82570; 85025